=== PATIENT | male | born 1980 | race Caucasian/White ===

== ENCOUNTER 2024-05-07 11:39 | Outpatient (CLI) | payer MEDICAID, SELFPAY ==
--- NOTE | 2024-05-07 11:30 | CRLHL7_ITS ---
For Patients: As a result of the Century Cures Act, medical imaging exams and procedure reports are released immediately into your electronic medical record. You may view this report before your referring provider. If you have questions, please contact your health care provider. INDICATION: Concern for fracture. Worsening radiculopathy. Known metastatic disease. COMPARISON: None. TECHNIQUE: Two radiographic view(s) of the lumbar spine. FINDINGS: Five lumbar vertebra. Straightening of the lumbar lordosis. No substantial lumbar listhesis. Slight anterior vertebral body wedging centered at the thoracolumbar junction is age indeterminate in the absence of prior imaging, but likely to be physiologic. There is mild left lateral predominant height loss and cortical irregularity associated with the L4 vertebral body involving the superior and possibly the inferior endplates. There are radiographically overall mild multilevel degenerative changes in the lumbar spine. IMPRESSION: There is mild age-indeterminate left lateral predominant height loss and cortical irregularity associated with the L4 vertebral body involving the superior and possibly the inferior endplates. Correlate with point tenderness on physical exam to assess for acuity and consider further evaluation with CT as clinically warranted. Slight anterior vertebral body wedging centered at the thoracolumbar junction is age indeterminate in the absence of prior imaging, but likely to be physiologic. There are radiographically overall mild multilevel degenerative changes in the lumbar spine. Dictated by Fidel Turner MD @ 05/07/2024 12:15:26 PM (Electronically Signed)
== END 2024-05-07 11:40 | disposition home or self-care (01) ==
LOC: RAD 11:39
PROVIDERS: Visit Provider Physician Assistant
DX: C15.9 Malignant neoplasm of esophagus, unspecified (principal); C79.51 Secondary malignant neoplasm of bone; C79.89 Secondary malignant neoplasm of other specified sites; G89.3 Neoplasm related pain (acute) (chronic); M54.50 Low back pain, unspecified; M89.9 Disorder of bone, unspecified; K76.9 Liver disease, unspecified; M51.26 Other intervertebral disc displacement, lumbar region
CPT/HCPCS: 72100

== ENCOUNTER 2024-05-14 13:33 | Outpatient (CLI) | payer MEDICAID, SELFPAY ==
--- NOTE | 2024-05-14 13:45 | CRLHL7_ITS ---
For Patients: As a result of the Century Cures Act, medical imaging exams and procedure reports are released immediately into your electronic medical record. You may view this report before your referring provider. If you have questions, please contact your health care provider. Indication: Low back pain, esophageal cancer with metastases Technique: Multiplanar, multisequence, MRI of the lumbar spine, obtained without and with contrast. A total of 17 mL of Dotarem IV contrast was administered. Comparison: PET-CT 02/27/2024 Findings: Ill-defined, infiltrative, enhancing bone lesion centered within the left L4 vertebral body, with associated pathologic fracture involving the superior and inferior endplates and moderate vertebral height loss. Lesion extension through the left pedicle to the left posterior elements. Associated cortical destruction with extraosseous spread of neoplasm, including within the left ventral/lateral epidural space, effacing the left lateral recess and impinging the left L4 nerve roots. The normal lumbar lordosis is preserved. No significant spondylolisthesis. No other suspicious bone marrow lesions or acute/pathologic fractures. Conus medullaris terminates at L1-L2. Multiple lesions are noted throughout the right hepatic lobe. Small presumed cyst within the right kidney. Included SI joints are unremarkable. T12-L1 through L2-L3: No significant neural foraminal or spinal canal stenosis. L3-L4: Disc degeneration, mild diffuse bulge. No neural foraminal or spinal canal stenosis. L4-L5: Disc degeneration, mild diffuse bulge, mild facet arthropathy. No right, mild left neural foraminal narrowing from extraosseous neoplasm further detailed above. No spinal canal stenosis. L5-S1: No neural foraminal or spinal canal stenosis. Impression: 1. Ill-defined, infiltrative enhancing bone lesion involving the left-sided L4 body and posterior elements, corresponding to the metastatic lesion noted on 02/27/2024 PET-CT. 2. Cortical destruction, with extraosseous spread of neoplasm into the left ventral/lateral epidural space at L4, effacing the left lateral recess, impinging the left L4 nerve roots, and contributing to mild left L4-5 neural foraminal narrowing. 3. Partial visualization of numerous right hepatic lesions also compatible with metastatic disease. Dictated by Urmila Juares MD @ 05/15/2024 10:16:05 AM (Electronically Signed)
--- NOTE | 2024-05-14 14:45 | CRLHL7_ITS ---
For Patients: As a result of the Century Cures Act, medical imaging exams and procedure reports are released immediately into your electronic medical record. You may view this report before your referring provider. If you have questions, please contact your health care provider. Indication: Esophageal cancer staging Technique: Multiplanar, multisequence MRI of the brain obtained without and with contrast. A total of 17 mL of Dotarem IV contrast was administered. Comparison: None. Findings: The ventricles and cortical The ventricles and cortical sulci are age-appropriate in size and configuration. No midline shift or mass effect. No acute intracranial hemorrhage or abnormal extra-axial fluid collection. No evidence of acute/subacute ischemia. White matter signal appears within normal limits. No abnormal enhancement identified. Midline structures are unremarkable. The major expected intracranial flow voids are visualized. Included bone marrow signal is unremarkable. No suspicious findings in the regional soft tissues. Paranasal sinuses and mastoid air cells have a normal signal. Visualized orbits are unremarkable. Impression: 1. Unremarkable MRI brain. No evidence of acute intracranial metastases. Dictated by Urmila Juares MD @ 05/15/2024 10:19:36 AM (Electronically Signed)
== END 2024-05-14 13:34 | disposition home or self-care (01) ==
LOC: MRI 13:34
PROVIDERS: Visit Provider Physician Assistant
DX: C15.9 Malignant neoplasm of esophagus, unspecified (principal); C79.51 Secondary malignant neoplasm of bone; K76.9 Liver disease, unspecified; G89.3 Neoplasm related pain (acute) (chronic); H53.9 Unspecified visual disturbance
CPT/HCPCS: 70553; 72158; A9575

== ENCOUNTER 2024-05-22 09:16 | Emergency (ER) | payer MEDICAID, SELFPAY ==
--- OUTSIDE RECORDS SUMMARY | 2024-05-22 09:18 | XMS_ITS | Encounter Summary ---
Author Organization [facility] Address [address] [place] [address] Care Team Providers Care Clerical Stock Inspector Name Role Phone Elsewhere, Pcp Primary Care Provider Unavailabl e Encounter Details Date Type Department Care Team (Late st Contact Info) Description 05/08/2024 Orders Only Department of Oncology in [place], [place] [address] [place] [address] Marimar Maldonado MPAS, P.A.-C., P.A. 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 Alcohol Use Standard Drinks/Week Comments Not Currently 0 (1 standard drink = 0.6 oz pure alcohol) Drank heavily off and on from age 22 to 39 [facility] Utilities Answer Date Recorded In the past 12 months has th e [employer], gas, oil, or water company threatened to shut off services in your home? No 02/15/2024 Exercise Vital Sign Answer Date Recorde d On average, how many days pe r week do you engage in moderate to strenuous exercise (like a brisk walk)? 0 days 02/15/2024 On average, how many minutes do you engage in exercise at this level? 0 min 02/15/2024 Hunger Vital Sign Answer Date Recorded Within the past 12 months, y ou worried that your food would run out before you got the money to buy more. Never true 02/14/19 Within the past 12 months, t he food you bought just didn't last and you didn't have money to get more. Never true 02/15/2024 PRAPARE - Transportation Answer Date Re corded In the past 12 months, has l ack of transportation kept you from medical appointments or from getting medications? No 02/2024 In the past 12 months, has l ack of transportation kept you from meetings, work, or from getting things needed for daily living? No 02/15/2024 Nutrition Answer Date Recorded On average, how many serving s of fruits and vegetables do you eat per day (serving size is equal to 1 cup or approximately the size of a tennis ball)? 3-5 02/15/2024 Dental Answer Date Recorded Dental: Regular Dentist Yes 02/14/19 Employment Answer Date Recorded Employment status Temporarily disabled Housing Stability Answer Date Recorded What is your living situation today? I have a [facility] place to live 02/15/2024 Sex and Gender Information Value Date Recorded Sex Assigned at Male 02/15/2024 4:45 PM TOOLER Legal Sex Male 3:29 PM TOOLER Gender Identity Male 02/15/2024 4:45 PM TOOLER Sexual Orientation Straight 02/15/2024 4: 45 PM TOOLER documented as of this encounter Plan of Treatment Upcoming Encounters Date Type Department Care Team (Latest Contact Info) Description 05/25/2024 12:00 PM CDT Appointment Department of Radiation Oncology in [place], [place] [address] [place] [address] Navi Ansari M.D. [address] [place] [address] 05/28/2024 3:45 PM CDT Appointment Department of Radiation Oncology in [place], [place] [address] [place] [address] Navi Ansari M.D. [address] [place] [address] 05/29/2024 12:30 PM CDT Appointment Department of Radiation Oncology in [address] [phone] Navi Ansari M.D. [place] [address] 05/29/2024 1:00 PM CDT Appointment Department of Radiation Oncology in [place], [place] [address] [place] [address] Navi Ansari M.D. [facility] [address] 05/30/2024 2:00 PM CDT Appointment Department of Radiation Oncology in [place], [place] [address] [place] [address] Navi Ansari M.D. [facility] [place] [address] 05/31/2024 2:30 PM CDT Appointment Department of Radiation Oncology in [place], [place] [address] [place] [address] Navi Ansari M.D. [facility] [place] [address] 06/07/2024 12:30 PM CDT Clinical Communication Virtual Review in [place], [place] [address] [place] [address] 06/08/2024 2:00 PM CDT Telemedicine Department of Palliative Care in [address] [address] Celestine Chino APRN, C.N.P., D.N.P. 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
--- OUTSIDE RECORDS SUMMARY | 2024-05-22 09:18 | XMS_ITS | Encounter Summary ---
Author Organization [facility] Address [address] [place] [address] Care Team Providers Care Early Intervention Specialist Name Role Phone Elsewhere, Pcp Primary Care Provider Unavailabl e Reason for Visit * Reason Onset Date Comments Med Refill 05/14/2024 Encounter Details Date Type Department Care Team (Late st Contact Info) Description 05/14/2024 Refill Department of Palliative Care in [place], [place] [address] [place] [phone] Celestine Chino APRN, C.N.P., D.N.P. [address] [place] [phone] Med Refill Social History Tobacco Use Types Packs/Day Years Used Date Smoking Tobacco: Former Cigarettes 10 10 0 07/15/1994 - 11/11/2017 Passive Smoke Exposure: Never Smokeless Tobacco: Never Comments:Smoked off and on b etween dates noted. Alcohol Use Standard Drinks/Week Comments Not Currently 0 (1 standard drink = 0.6 oz pure alcohol) Drank heavily off and on from age 22 to 39 [facility] Utilities Answer Date Recorded In the past 12 months has th e electric, gas, oil, or water company threatened to [...] your living situation today? [facility] 02/15/2024 Sex and Gender Information Value Date Recorded Sex Assigned at Male 02/15/2024 4:45 PM SUPERVISOR SOLDER MAKING Legal Sex Male 3:29 PM SUPERVISOR SOLDER MAKING Gender Identity Male 02/15/2024 4:45 PM SUPERVISOR SOLDER MAKING Sexual Orientation Straight 02/15/2024 4 :45 PM SUPERVISOR SOLDER MAKING documented as of this encounter Plan of Treatment Upcoming Encounters Date Type Department Care Team (Latest Contact Info) Description 05/25/2024 12:00 PM CDT Appointment Department of Radiation Oncology in [address] [address] Navi Ansari M.D. [address] [place] [address] 05/28/2024 3:45 PM CDT Appointment Department of Radiation Oncology in [place], [place] [address] [place] [address] Navi Ansari M.D. [address] [place] [address] 05/29/2024 12:30 PM CDT Appointment Department of Radiation Oncology in [place], [place] [address] [place] [address] Navi Ansari M.D. [facility] [place] [address] 05/29/2024 1:00 PM CDT Appointment Department of Radiation Oncology in [place], [place] [address] [place] [address] Navi Ansari M.D. [address] [place] [address] 05/30/2024 2:00 PM CDT Appointment Department of Radiation Oncology in [place], [place] [address] [place] [address] Navi Ansari M.D. [address] [place] [address] 05/31/2024 2:30 PM CDT Appointment Department of Radiation Oncology in [place], [place] [address] [place] [address] Navi Ansari M.D. [address] [place] [address] 06/07/2024 12:30 PM CDT Clinical Communication Virtual Review in [place], [place] [address] [place] [phone] 06/08/2024 2:00 PM CDT Telemedicine Department of Palliative Care in [place], [place] [address] [place] [phone] Celestine Chino APRN, C.N.P., D.N.P. [address] [place] [phone] documented as of this encounter Visit Diagnoses Diagnosis 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) Palliative Care Fever Neutropenic documented in this encounter Care Teams Early Intervention Specialist Relationship Specialty Start Date End Date Elsewhere, Pcp PCP - General Internal Medicine 04/03/24 documented as of this encounter
--- OUTSIDE RECORDS SUMMARY | 2024-05-22 09:18 | XMS_ITS | Encounter Summary ---
Author Organization [facility] Address [address] [place] [address] Care Team Providers Care Funeral Pre Need Consultant Name Role Phone Elsewhere, Pcp Primary Care Provider Unavailabl e Reason for Referral * Outpatient (Routine) - Closed Specialty Diagnoses / Procedures Referred By Contebenezer t Referred To Contact Radiation Oncology Rain Alejandro APRN, C.N.P., D.N.P. [address] [place] [address] Phone: tel: fax: Navi Ansari M.D. [facility] [place] [address] Phone: tel: fax: Referral ID Status Reason Start Date Expiration Date Visits Re quested Visits Authorized [id number] Closed 05/16/2024 11/15/2025 1 1 Reason for Visit * Outpatient (Routine) - Closed Specialty Diagnoses / Procedures Referred By Hayde t Referred To Contact Radiation Oncology Rain Alejandro APRN, C.N.Madyson, D.N.P. [address] [place] [address] Phone: tel: fax: Navi Ansari M.D. [address] [place] [phone] Phone: tel: fax: Referral ID Status Reason Start Date Expiration Date Visits Re quested Visits Authorized [id number] Closed 05/16/2024 11/15/2025 1 1 Encounter Details Date Type Department Care Team (Latest Contact Info) Description 05/16/2024 12:39 PM CDT - 05/16/2024 1:25 PM CDT Hospital Encounter Department of Radiation Oncology in [place], [place] [address] [place] [phone] Navi Ansari M.D. [address] [place] [phone] Secondary Malignant Neoplasm Bone (HCC) (Primary Dx) Social History Tobacco Use Types Packs/Day Years Used Date Smoking Tobacco: Former Cigarettes 10 10 0 07/15/1994 - 11/11/2017 Passive Smoke Exposure: Never Smokeless Tobacco: Never Comments:Smoked off and on b etween dates noted. Alcohol Use Standard Drinks/Week Comments Not Currently 0 (1 standard drink = 0.6 oz pure alcohol) Drank heavily off and on from age 22 to 39 [facility] Utilities Answer Date Recorded In the past 12 months has [facility], gas, oil, or water [employer] threatened to shut off services in your [...] your living situation today? I have a [facility] place to live 02/15/2024 Sex and Gender Information Value Date Recorded Sex Assigned at Male 02/15/2024 4:45 PM CONTENT PRODUCER Legal Sex Male 3:29 PM CONTENT PRODUCER Gender Identity Male 02/15/2024 4:45 PM CONTENT PRODUCER Sexual Orientation Straight 02/15/2024 4: 45 PM CONTENT PRODUCER documented as of this encounter Last Filed Vital Signs Vital Sign Reading Time Taken Comments Blood Pressure 99/64 05/16/2024 1:04 PM CDT Pulse 105 05/16/2024 1:04 PM CDT Temperature - - Respiratory Rate - - Oxygen Saturation - - Inhaled Oxygen Concentration - - Weight 84.8 kg (187 lb) 05/16/2024 1:04 PM CDT Height - - Body Mass Index 25.47 02/28/2024 2:24 PM CONTENT PRODUCER documented in this encounter Medications at Time of Discharge acetaminophen (TylenoL) 500 mg capsule Take by mouth daily. 4 tablets daily. fentaNYL (Duragesic) 25 mcg/hr patchIndications:Ch ronic Pain/Nonacute Pain Place 1 patch on the skin every third day Indication: Chronic Pain/Nonacute Pain. Metastatic esophageal cancer 5 patch 05/11/2024 guaiFENesin (Robitussin) 100 mg/5 mL liquid Take 10 mL (200 mg total) by mouth every 6 (six) hours as needed for congestion (mucus thinning). 473 mL 04/06/2024 lactulose 10 gram/15 mL solution Take 30 mL (20 g total) by mouth 2 (two) times a day as needed (constipation refractory to senna/miraLAX). 473 mL 04/06/2024 lidocaine-prilocain e (Emla) 2.5-2.5 % cream Apply 1 Application topically as needed. 03/28/2024 melatonin 5 mg tablet Take 5 mg by mouth at bedtime. 1-2 tablets at bedtime naloxone (Narcan) 4 mg/actuation nasal spray Administer 1 spray (4 mg total) into nostril(s) as needed for reversal. Use 1 spray in 1 nostril. Repeat with second device in other nostril after 2-3 minutes if no or minimal response. 2 each 04/06/2024 OLANZapine (ZyPREXA Zydis) 5 mg disintegrating tabletIndications:M alignant Neoplasm Of Esophagus Multiple Site (HCC),Palliative Care,Fever Neutropenic Dissolve 1 tablet (5 mg total) in the mouth at bedtime. 90 tablet 05/14/2024 omeprazole (PriLOSEC) [address] capsule Take 1 capsule (20 mg total) by mouth daily before morning meal. 90 capsule 3 05/11/2024 ondansetron ODT (Zofran-ODT) 8 mg disintegrating tabletIndications:c ancer chemotherapy-induce d nausea and vomiting Dissolve 1 tablet (8 mg total) in the mouth every 8 (eight) hours as needed for nausea or vomiting Indications: nausea and vomiting caused by cancer drugs. 90 tablet 05/16/2024 oxyCODONE (Roxicodone) 10 mg IR tabletIndications:C hronic Pain/Nonacute Pain Take 0.5-1 tablets (5-10 mg total) by mouth every 3 (three) hours as needed for pain Indication: Chronic Pain/Nonacute Pain. Okay to crush tablets 04/13/2024 polyethylene glycol (Miralax) 17 gram/dose oral powder Take 17 g by mouth daily. Dissolve each 17 g dose in 240 mL (8 ounces) of beverage. 1700 g 2 04/06/2024 sennosides (senna) 8.6 mg tablet Take 3 tablets (25.8 mg total) by mouth 2 (two) times a day. 180 tablet 2 05/11/2024 documented as of this encounter Progress Notes * Navi Ansari M.D. - 05/16/2024 1:00 PM CDT SUBJECTIVE REQUESTING PROVIDER Rain Alejandro APRN, C.N.P., D.N.P. CHIEF COMPLAINT/REASON FOR VISIT The patient is a pleasant 43-year-old gentleman with widely metastatic esophageal cancer status post palliative radiation therapy to the esophagus as well as to a right facial lesion INTERVAL HISTORY Rudy Gross presents for a routine follow up visit now 2 months status post the completion of radiotherapy. He has had some resolution of his dysphagia and odynophagia. He has had essentially complete resolution of the visible portion of the face lesion. He continues under the care of Medical Oncology but has had significant worsening of low back pain that sometimes radiates down the left leg. No change in bowel or bladder function. No numbness or leg weakness. MR imaging of the lumbar spine on 05/14/2024 showed metastatic involvement of the L4 vertebral body. He rates the pain as up to 10/10 in intensity. Radiation Treatment Progress Summary Treatment Course: 1xEsophagus Plan ID Fractions Dose / Fraction (cGy) Dose Treated (cGy) Dose Planned (cGy) First Treatment Last Treatment Elapsed Days [id number] 10 10 300 3000 3000 03/05/2024 03/16/2024 11 Course Summary 03/05/2024 03/16/2024 11 Treatment Course: 2xFace Plan ID Fractions Dose / Fraction (cGy) Dose Treated (cGy) Dose Planned (cGy) First Treatment Last Treatment Elapsed Days [id number] 800 800 800 03/19/2024 03/19/2024 0 Course Summary 03/19/2024 03/19/2024 0 OBJECTIVE BP 99/64 (BP Location: Right arm, Patient Position: Sitting, Cuff Size: Regular) Pulse 105 Wt 84.8 kg BMI 25.47 kg/m?? PHYSICAL EXAM General/constitutional: He is ambulatory and in no acute distress. HEENT: Normocephalic atraumatic. Slight hyperpigmentation in the right temporal area. Alopecia of the guy on the right side over the parotid. Neck: supple. Respirations: Normal respiratory effort at rest. Musculoskeletal: He points to pain over the L4 vertebral level area and states that it sometimes radiates down the left leg. He is ambulatory but uses a cane. DIAGNOSTICS I reviewed the images from the MRI performed 05/14/2024 and he does appear to have significant involvement of the L4 vertebral body by metastatic disease and this area correlates with his clinically described pain. ASSESSMENT / PLAN Rudy Gross who was accompanied by his presents today for consideration of palliative radiation therapy before the L4 metastasis from his esophageal cancer. I discussed with them palliative radiation therapy delivered in 1 or 5 fractions. They wished to proceed with 5 fraction radiation therapy. I want to proceed with radiation as soon as possible but not overlap with his ongoing chemotherapy and we will schedule accordingly and I have discussed this with the simulation staff we will provide him with the schedule. I discussed with them the role of radiation therapy in reducing he has pain over time. We discussedthat damage to the bone from the tumor has already occurred and he may not have complete resolutionof his pain and he may be at risk of L4 vertebral body fracture in the future. However, I have a fairly high degree of confidence that he will receive substantial pain relief within 2-3 weeks after completing radiation treatment. Plan for simulation today for palliative radiation therapy to the L4 lesion. I have spent 25 minutes with this patient today in which 25 minutes was spent counseling and coordination of care. Signed by: Navi Ansari M.D. 05/16/2024 4:32 PM CDT documented in this encounter Plan of Treatment Upcoming Encounters Date Type Department Care Team (Latest Contact Info) Description 05/25/2024 12:00 PM CDT Appointment Department of Radiation Oncology in [place], [place] [address] [place] [address] Navi Ansari M.D. [address] [place] [address] 05/28/2024 3:45 PM CDT Appointment Department of Radiation Oncology in [place], [place] [address] [place] [phone] Navi Ansari M.D. [address] [place] [address] 05/29/2024 12:30 PM CDT Appointment Department of Radiation Oncology in [address] [phone] Navi Ansari M.D. [address] [place] [phone] 05/29/2024 1:00 PM CDT Appointment Department of Radiation Oncology in [address] [address] Navi Ansari M.D. [facility] [place] [address] 05/30/2024 2:00 PM CDT Appointment Department of Radiation Oncology in [address] [address] Navi Ansari M.D. [address] [place] [phone] 05/31/2024 2:30 PM CDT Appointment Department of Radiation Oncology in [address] [phone] Navi Ansari M.D. [address] [place] [phone] 06/07/2024 12:30 PM CDT Clinical Communication Virtual Review in [address] [phone] 06/08/2024 2:00 PM CDT Telemedicine Department of Palliative Care in [place], [place] [address] [place] [address] Celestine Chino APRN, C.N.P., D.N.P. [address] [place] [address] Scheduled Referrals Name Type Priority Associated Diagnoses Order Schedule Radiation Oncology office visit (clinic) Outpatient Referral Routine Once for 1 Occurrences starting 05/16/2024 until 05/16/2024 documented as of this encounter Visit Diagnoses Diagnosis Secondary Malignant Neoplasm Bone (HCC)- Primary documented in this encounter Care Teams Funeral Pre Need Consultant Relationship Specialty Start Date End Date Elsewhere, Pcp PCP - General Internal Medicine 04/03/24 documented as of this encounter
--- OUTSIDE RECORDS SUMMARY | 2024-05-22 09:18 | XMS_ITS | Encounter Summary ---
Author Organization [facility] Address [address] [place] [address] Care Team Providers Care Water Resources Engineer Name Role Phone Elsewhere, Pcp Primary Care Provider Unavailabl e Reason for Visit * Reason Onset Date Comments Pre-visit Intake 05/10/2024 Encounter Details Date Type Department Care Team (Latest Contact Info) Description 05/10/2024 10:45 AM CDT Clinical Communication Virtual Review in [place], [place] [address] [place] [address] Pre-visit Intake Social History Tobacco Use Types Packs/Day Years Used Date Smoking Tobacco: Former Cigarettes 10 10 0 07/15/1994 - 11/11/2017 Passive Smoke Exposure: Never Smokeless Tobacco: Never Comments:Smoked off and on b etween dates noted. Alcohol Use Standard Drinks/Week Comments Not Currently 0 (1 standard drink = 0.6 oz pure alcohol) Drank heavily off and on from age 22 to 39 [facility] Utilities Answer Date Recorded In the past 12 months has [facility] electric, gas, oil, or water company threatened [...] money to buy more. Never true 02/14/19 25 Within the past 12 months, t he [...] your living situation today? I have a [facility] place to live 02/15/2024 Sex and Gender Information Value Date Recorded Sex Assigned at Male 02/15/2024 4:45 PM FIRE DISPATCHER Legal Sex Male 3:29 PM FIRE DISPATCHER Gender Identity Male 02/15/2024 4:45 PM FIRE DISPATCHER Sexual Orientation Straight 02/15/2024 4: 45 PM FIRE DISPATCHER documented as of this encounter Plan of Treatment Upcoming Encounters Date Type Department Care Team (Latest Contact Info) Description 05/25/2024 12:00 PM CDT Appointment Department of Radiation Oncology in [place], [place] [address] [place] [phone] Navi Ansari M.D. [address] [place] [phone] 05/28/2024 3:45 PM CDT Appointment Department of Radiation Oncology in [place], [place] [address] [place] [phone] Navi Ansari M.D. [facility] [place] [address] 05/29/2024 12:30 PM CDT Appointment Department of Radiation Oncology in [place], [place] [address] [place] [phone] Navi Ansari M.D. [address] [place] [phone] 05/29/2024 1:00 PM CDT Appointment Department of Radiation Oncology in [address] [phone] Navi Ansari M.D. [address] [place] [phone] 05/30/2024 2:00 PM CDT Appointment Department of Radiation Oncology in [address] [address] Navi Ansari M.D. [address] [place] [phone] 05/31/2024 2:30 PM CDT Appointment Department of Radiation Oncology in [address] [address] Navi Ansari [place] [address] 06/07/2024 12:30 PM CDT Clinical Communication Virtual Review in [address] [phone] 06/08/2024 2:00 PM CDT Telemedicine Department of Palliative Care in [place], [place] [address] [place] [address] Celestine Chino APRN, C.N.P., D.N.P. [address] [place] [address] documented as of this encounter Visit Diagnoses Not on filedocumented in this encounter Care Teams Water Resources Engineer Relationship Specialty Start Date End Date Elsewhere, Pcp PCP - General Internal Medicine 04/03/24 documented as of this encounter
--- OUTSIDE RECORDS SUMMARY | 2024-05-22 09:18 | XMS_ITS | Encounter Summary ---
Author Organization [facility] Address [address] [place] [address] Care Team Providers Care Casino Games Dealer Name Role Phone Elsewhere, Pcp Primary Care Provider Unavailabl e Encounter Details Date Type Department Care Team (Late st Contact Info) Description 05/15/2024 Orders Only Pharmacy Prior Auth [phone] Dorothy Venegas Social History Tobacco Use Types Packs/Day Years Used Date Smoking Tobacco: Former Cigarettes 10 10 0 07/15/1994 - 11/11/2017 Passive Smoke Exposure: Never Smokeless Tobacco: Never Comments:Smoked off and on b etween dates noted. Alcohol Use Standard Drinks/Week Comments Not Currently 0 (1 standard drink = 0.6 oz pure alcohol) Drank heavily off and on from age 22 to 39 [facility] Utilities Answer Date Recorded In the past 12 months has e electric, gas, oil, or water company [...] your living situation today? I have a [facility] place to live 02/15/2024 Sex and Gender Information Value Date Recorded Sex Assigned at Male 02/15/2024 4:45 PM FLUID DYNAMICIST Legal Sex Male 3:29 PM FLUID DYNAMICIST Gender Identity Male 02/15/2024 4:45 PM FLUID DYNAMICIST Sexual Orientation Straight 02/15/2024 4: 45 PM FLUID DYNAMICIST documented as of this encounter Plan of Treatment Upcoming Encounters Date Type Department Care Team (Latest Contact Info) Description 05/25/2024 12:00 PM CDT Appointment Department of Radiation Oncology in [place], [place] [address] [place] [phone] Navi Ansari M.D. [address] [place] [address] 05/28/2024 3:45 PM CDT Appointment Department of Radiation Oncology in [place] [address] [place] [address] Navi Ansari M.D. [address] [place] [address] 05/29/2024 12:30 PM CDT Appointment Department of Radiation Oncology in [place], [place] [address] [place] [phone] Navi Ansari M.D. [address] [place] [address] 05/29/2024 1:00 PM CDT Appointment Department of Radiation Oncology in [place], [place] [address] [place] [phone] Navi Ansari M.D. [address] [place] [phone] 05/30/2024 2:00 PM CDT Appointment Department of Radiation Oncology in [place], [place] [address] [place] [phone] Navi Ansari M.D. [address] [place] [address] 05/31/2024 2:30 PM CDT Appointment Department of Radiation Oncology in [place], [place] [address] [place] [phone] Navi Ansari M.D. [address] [place] [address] 06/07/2024 12:30 PM CDT Clinical Communication Virtual Review in [place], [place] [address] [place] [address] 06/08/2024 2:00 PM CDT Telemedicine Department of Palliative Care in [place], [place] [address] [place] [address] Celestine Chino APRN, C.N.P., D.N.P. [address] [place] [phone] documented as of this encounter Visit Diagnoses Not on filedocumented in this encounter Care Teams Casino Games Dealer Relationship Specialty Start Date End Date Elsewhere, Pcp PCP - General Internal Medicine 04/03/24 documented as of this encounter
--- OUTSIDE RECORDS SUMMARY | 2024-05-22 09:18 | XMS_ITS | Encounter Summary ---
Author Organization [facility] Address [address] [place] [address] Care Team Providers Care Oil Rig Roughneck Name Role Phone Elsewhere, Pcp Primary Care Provider Unavailabl e Reason for Referral * Radiation Therapy (Routine) - Authorized Specialty Diagnoses / Procedures Referred By Hayde mendez Referred To Contact Diagnoses 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) Secondary Malignant Neoplasm Bone (HCC) Procedures Initial Rad Onc Treatment Planning CT Simulation [place] 3D RAD THER ISODOSE FIELD PLAN Kelvin Uribe M.D. [address] [place] [address] Phone: tel: fax: [facility] Region Referral ID Status Reason Start Date Expiration Date V isits Requested Visits Authorized [id number] Authorized 05/16/2024 08/08/2025 2 2 Reason for Visit * Radiation Therapy (Routine) - Authorized Specialty Diagnoses / Procedures Referred By Contac t Referred To Contact Diagnoses 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) Secondary Malignant Neoplasm Bone (HCC) Procedures Initial Rad Onc Treatment Planning CT Simulation [place] 3D RAD THER ISODOSE FIELD PLAN Kelvin Uribe M.D. [address] [place] [address] Phone: tel: fax: [facility] Region Referral ID Status Reason Start Date Expiration Date V isits Requested Visits Authorized [id number] Authorized 05/16/2024 08/08/2025 2 2 Encounter Details Date Type Department Care Team (Latest Contact Info) Description 05/16/2024 1:26 PM CDT - 05/16/2024 4:23 PM CDT Hospital Encounter Department of Radiation Oncology in [place], [place] [address] [place] [phone] Navi Ansari M.D. 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 Alcohol Use Standard Drinks/Week Comments Not Currently 0 (1 standard drink = 0.6 oz pure alcohol) Drank heavily off and on from age 22 to 39 [facility] Utilities Answer Date Recorded In the past 12 months has [employer], oil, or water [employer] threatened to shut off services in your [...] your living situation today? I have a [facility] place to live 02/15/2024 Sex and Gender Information Value Date Recorded Sex Assigned at Male 02/15/2024 4:45 PM TUBE ROOM SUPERVISOR Legal Sex Male 3:29 PM TUBE ROOM SUPERVISOR Gender Identity Male 02/15/2024 4:45 PM TUBE ROOM SUPERVISOR Sexual Orientation Straight 02/15/2024 4: 45 PM TUBE ROOM SUPERVISOR documented as of this encounter Medications at Time of Discharge [...] 2 05/11/2024 documented as of this encounter Procedure Notes * Tiffany Lucas, RTT - 05/16/2024 2:00 PM CDTAssociated Order(s): Initial Rad Onc Treatment Planning CT Simulation Pre-Procedure Diagnose(s): 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); Secondary MalignantNeoplasm Bone (HCC) Post-Procedure Diagnose(s): 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); Secondary Malignant Neoplasm Bone (HCC) Initial Rad Onc Treatment Planning CT Simulation Performed by: Navi Ansari M.D. Authorized by: Kelvin Uribe M.D. Simulation was performed under physician supervision based on physician order in preparation for radiation therapy. Physician was immediately available to provide assistance and direction throughout the procedure. Written consent for treatment was completed or confirmed. The patient was appropriately identified and placed in the treatment position using the necessary immobilization to ensure a reproducible treatment position. Reference randolph were placed to facilitate marking of isocenter. Area scanned:Pelvis Contrast used for the simulation procedure: None Patient position:head first supine Custom immobilization: Knee Cushion Motion management: None Bolus: No CT guidance: Following positioning of the patient, a series of slices was obtained to be utilized in treatment planning. CT images were transferred to the [employer] treatment planning system, after a reference isocenter was determined and marked. Segmentation and treatment planning will take place prior to treatment delivery. Patient set up and imaging was appropriate and completed without incident. Healthcare Facility Administrator use:No Cosigned by Navi Ansari M.D. at 05/16/2024 4:23 PM CDT Associated attestation - Navi Ansari M.D. - 05/16/2024 4:23 PM CDT Agree with documentation as below. I was personally available during the simulation. documented in this encounter Plan of Treatment Upcoming Encounters Date Type Department Care Team (Latest Contact Info) Description 05/25/2024 12:00 PM CDT Appointment Department of Radiation Oncology in [place], [place] [address] [place] [phone] Navi Ansari M.D. [address] [place] [address] 05/28/2024 3:45 PM CDT Appointment Department of Radiation Oncology in [address] [place] [address] Navi Ansari M.D. [address] [place] [address] 05/29/2024 12:30 PM CDT Appointment Department of Radiation Oncology in [address] [phone] Navi Ansari M.D. [facility] [place] [address] 05/29/2024 1:00 PM CDT Appointment Department of Radiation Oncology in [address] [phone] Navi Ansari M.D. [address] [place] [phone] 05/30/2024 2:00 PM CDT Appointment Department of Radiation Oncology in [address] [phone] Navi Ansari M.D. [address] [place] [phone] 05/31/2024 2:30 PM CDT Appointment Department of Radiation Oncology in [address] [address] Navi Ansari M.D. [facility] [place] [address] 06/07/2024 12:30 PM CDT Clinical Communication Virtual Review in [place], [place] [address] [place] [address] 06/08/2024 2:00 PM CDT Telemedicine Department of Palliative Care in [place], [place] [address] [place] [phone] Celestine Chino, LAI, C.N.P., D.N.P. [address] [place] [address] documented as of this encounter Procedures Procedure Name Priority Date/Time Associated Diagnosis Comments INITIAL RAD ONC TREATMENT PLANNING CT SIMULATION Routine 05/16/2024 2:00 PM CDT 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) Secondary Malignant Neoplasm Bone (HCC) documented in this encounter Results * Initial Rad Onc Treatment Planning CT Simulation (05/16/2024 2:00 PM CDT) Narrative LUDWIN REYES - 05/16/2024 2:00 PM CDT Navi Ansari M.D. 05/16/2024 4:23 PM Initial Rad Onc Treatment Planning CT Simulation Performed by: Navi Ansari M.D. Authorized by: Kelvin Uribe M.D. Kelvin Uribe M.D. RADIATION ONCOLOGY ORDERAB LES Final Result LUDWIN REYES na documented in this encounter Visit Diagnoses Diagnosis 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) Secondary Malignant Neoplasm Bone (HCC) documented in this encounter Care Teams Oil Rig Roughneck Relationship Specialty Start Date End Date Elsewhere, Pcp PCP - General Internal Medicine 04/03/24 documented as of this encounter
--- OUTSIDE RECORDS SUMMARY | 2024-05-22 09:18 | XMS_ITS | Encounter Summary ---
Author Organization [facility] Address [address] [place] [address] Care Team Providers Care Strings Teacher Name Role Phone Elsewhere, Pcp Primary Care Provider Unavailabl e Reason for Visit * Reason Onset Date Comments Med Question 04/16/2024 Encounter Details Date Type Department Care Team (Late st Contact Info) Description 04/16/2024 Clinical Communication Department of Palliative Care in [place], [place] [address] [place] [phone] Claudy Ramos M.D. [address] [place] [address] Med Question Social History Tobacco Use Types Packs/Day Years Used Date Smoking Tobacco: Former Cigarettes 10 10 0 07/15/1994 - 11/11/2017 Passive Smoke Exposure: Never Smokeless Tobacco: Never Comments:Smoked off and on b etween dates noted. Alcohol Use Standard Drinks/Week Comments Not Currently 0 (1 standard drink = 0.6 oz pure alcohol) Drank heavily off and on from age 22 to 39 [facility] Utilities Answer Date Recorded In the [...] your living situation today? I have a [facility] place to live 02/15/2024 Sex and Gender Information Value Date Recorded Sex Assigned at Male 02/15/2024 4:45 PM COTTON GIN YARD SUPERVISOR Legal Sex Male 3:29 PM COTTON GIN YARD SUPERVISOR Gender Identity Male 02/15/2024 4:45 PM COTTON GIN YARD SUPERVISOR Sexual Orientation Straight 02/15/2024 4: 45 PM COTTON GIN YARD SUPERVISOR documented as of this encounter Miscellaneous Notes * Addendum Note - Estephania Plaza, LAI, C.N.P., D.N.P. - 05/11/2024 2:48 PM CDTAddended by: ESTEPHANIA PLAZA on: 05/11/2024 02:48 PM Modules accepted: Orders * Telephone Encounter - Tiffany Otero R.N., CHPN - 04/16/2024 1:29 PM CST Information Discussed Rudy Gross is a 43 y.o. who is followed in the [facility] for esophageal cancer . Patientwas seen by Estephania Plaza, LAI, EXTRUDER OPERATOR HELPER, DNP on 04/06/24. Returned a call to patient's , Susan regarding Fentanyl patch refill. Informed Susan we sent a prescription for Fentanyl 25 mcg/hr to [facility] pharmacy on 04/06/24. She will confirm with the pharmacy this prescription is available. Susan states the medication may need a newprior authorization from insurance as he has new insurance as of 04/14/24. Susan also inquires about a follow up visit date with our team. PLAN Disposition/Recommendation: contact pharmacy regarding prescription for Fentanyl. Information/Education: patient/caller able to teach back Caller agreeable to plan of care: yes The following references were used: nursing clinical judgement ADDENDUM 13:37 Susan calls back stating a new PA is needed for the Fentanyl patches. Also, informed Susan that we should get an appointment scheduled for the end of April as his last visit [id number] was 03/20/24. She agrees. ON GIN YARD SUPERVISOR documented in this encounter Plan of Treatment Upcoming Encounters Date Type Department Care Team (Latest Contact Info) Description 05/25/2024 12:00 PM CDT Appointment Department of Radiation Oncology in [place], [place] [address] [place] [phone] Navi Ansari M.D. [address] [place] [address] 05/28/2024 3:45 PM CDT Appointment Department of Radiation Oncology in [place], [place] [address] [place] [phone] Navi Ansari M.D. [address] [place] [address] 05/29/2024 12:30 PM CDT Appointment Department of Radiation Oncology in [address] [address] Navi Ansari M.D. [address] [place] [phone] 05/29/2024 1:00 PM CDT Appointment Department of Radiation Oncology in [address] [address] Navi Ansari M.D. [address] [place] [phone] 05/30/2024 2:00 PM CDT Appointment Department of Radiation Oncology in [address] [phone] Navi Ansari M.D. [address] [place] [phone] 05/31/2024 2:30 PM CDT Appointment Department of Radiation Oncology in [address] [address] Navi Ansari M.D. [address] [place] [phone] 06/07/2024 12:30 PM CDT Clinical Communication Virtual Review in [place], [place] [address] [place] [address] 06/08/2024 2:00 PM CDT Telemedicine Department of Palliative Care in [place], [place] [address] [place] [address] Estephania Plaza APRN, C.N.P., D.N.P. 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
--- OUTSIDE RECORDS SUMMARY | 2024-05-22 09:18 | XMS_ITS | Encounter Summary ---
Author Organization [facility] Address [address] [place] [phone] Care Team Providers Care Post Hole Digging Machine Operator Name Role Phone Elsewhere, Pcp Primary Care Provider Unavailabl e Encounter Details Date Type Department Care Team (Late st Contact Info) Description 03/19/2024 Clinical Communication Department of Oncology in [place], [place] [address] [place] [phone] Joan Perez R.N., O.C.N. [address] [place] [phone] Social History Tobacco Use Types Packs/Day Years Used Date Smoking Tobacco: Former Cigarettes 10 10 0 07/15/1994 - 11/11/2017 Passive Smoke Exposure: Never Smokeless Tobacco: Never Comments:Smoked off and on b etween dates noted. Alcohol Use Standard Drinks/Week Comments Not Currently 0 (1 standard drink = 0.6 oz pure alcohol) Drank heavily off and on from age 22 to 39 [facility] Utilities Answer Date Recorded In the past 12 months has [employer] gas, oil, or water [id number] threatened to shut off services in your [...] your living situation today? I [facility] [employer] [facility] [employer] [facility] to live 02/15/2024 Sex and Gender Information Value Date Recorded Sex Assigned at Male 02/15/2024 4:45 PM PARENTING SKILLS INSTRUCTOR Legal Sex Male 3:29 PM PARENTING SKILLS INSTRUCTOR Gender Identity Male 02/15/2024 4:45 PM PARENTING SKILLS INSTRUCTOR Sexual Orientation Straight 02/15/2024 4: 45 PM PARENTING SKILLS INSTRUCTOR documented as of this encounter Plan of Treatment Upcoming Encounters Date Type Department Care Team (Latest Contact Info) Description 05/25/2024 12:00 PM CDT Appointment Department of Radiation Oncology in [place], [place] [address] [place] [phone] Navi Ansari M.D. [address] [place] [phone] 05/28/2024 3:45 PM CDT Appointment Department of Radiation Oncology in [place], [place] [address] [place] [phone] Navi Ansari M.D. [address] [place] [address] 05/29/2024 12:30 PM CDT Appointment Department of Radiation Oncology in [address] [phone] Navi Ansari M.D. [address] [place] [phone] 05/29/2024 1:00 PM CDT Appointment Department of Radiation Oncology in [address] [address] Navi Ansari M.D. [address] [place] [phone] 05/30/2024 2:00 PM CDT Appointment Department of Radiation Oncology in [address] [address] Navi Ansari M.D. [address] [place] [phone] 05/31/2024 2:30 PM CDT Appointment Department of Radiation Oncology in [address] [phone] Navi Ansari M.D. [facility] [place] [address] 06/07/2024 12:30 PM CDT Clinical Communication Virtual Review in [address] [phone] 06/08/2024 2:00 PM CDT Telemedicine Department of Palliative Care in [place], [place] [address] [place] [address] Celestine Chino APRN, C.N.P., D.N.P. [address] [place] [address] documented as of this encounter Visit Diagnoses Not on filedocumented in this encounter Care Teams Post Hole Digging Machine Operator Relationship Specialty Start Date End Date Elsewhere, Pcp PCP - General Internal Medicine 04/03/24 documented as of this encounter
--- OUTSIDE RECORDS SUMMARY | 2024-05-22 09:18 | XMS_ITS | Encounter Summary ---
Author Organization [facility] Address [address] [place] [address] Care Team Providers Care Electrical Engineering Drafting Officer Name Role Phone Elsewhere, Pcp Primary Care Provider Unavailabl e Reason for Referral * Outpatient (Routine) - Authorized Specialty Diagnoses / Procedures Referred By Contac t Referred To Contact Palliative Medicine Celestine Chino APRN, C.N.P., D.N.P. [address] [place] [address] Phone: tel: fax: [facility] Referral ID Status Reason Start Date Expiration Date V isits Requested Visits Authorized [id number] Authorized 05/11/2024 11/10/2025 1 1 Scheduling Instructions 11 or later appt. Thanks. Reason for Visit * Outpatient (Routine) - Closed Specialty Diagnoses / Procedures Referred By Contac t Referred To Contact Palliative Medicine Sandy Perez M.D. [address] [place] [phone] Phone: tel: fax: [facility] Referral ID Status Reason Start Date Expiration Date Visits Re quested Visits Authorized [id number] Closed 03/21/2024 09/20/2025 1 1 Encounter Details Date Type Department Care Team (Late st Contact Info) Description 05/11/2024 2:15 PM CDT Office Visit Department of Palliative Care in [place], [place] [address] [place] [phone] Celestine Chino APRN, C.N.P., D.N.P. 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 Alcohol Use Standard Drinks/Week Comments Not Currently 0 (1 standard drink = 0.6 oz pure alcohol) Drank heavily off and on from age 22 to 39 [facility] Utilities Answer Date Recorded In the past 12 months has [employer], gas, oil, or water [employer] threatened to shut off services in your [...] your living situation today? I have a [facility] place to live 02/15/2024 Sex and Gender Information Value Date Recorded Sex Assigned at Male 02/15/2024 4:45 PM CONCRETE BLOCK LAYER Legal Sex Male 3:29 PM CONCRETE BLOCK LAYER Gender Identity Male 02/15/2024 4:45 PM CONCRETE BLOCK LAYER Sexual Orientation Straight 02/15/2024 4: 45 PM CONCRETE BLOCK LAYER documented as of this encounter Last Filed Vital Signs Vital Sign Reading Time Taken Comments Blood Pressure 108/71 05/11/2024 2:04 PM CDT Pulse 80 05/11/2024 2:04 PM CDT Temperature 36.5 C (97.7 F) 05/11/2024 2:04 PM CDT Respiratory Rate - - Oxygen Saturation 97% 05/11/2024 2:04 PM CDT Inhaled Oxygen Concentration - - Weight - - Height - - Body Mass Index - - documented in this encounter Progress Notes * Celestine Chino APRN, C.N.P., D.N.P. - 05/11/2024 2:15 PM CDT [facility] Outpatient Palliative Care Progress Note Patient: Rudy Gross; 43 y.o.male LOCATION Palliative Care Clinic SUBJECTIVE Rudy Gross is a 43 y.o. male from [place], [place] with metastatic esophageal cancer who is followed in the outpatient Palliative Care Clinic for non-pain symptoms, pain, and psychosocial support. Date of Last Visit: 04/06/2024, virtual Interval History: Rudy presents today for routine follow-up with his , Susan. Back pain has been worsening over the last few weeks. Rates 6/10 today. Finds pain stability with use of back brace. Has radiation oncology consult next week. He is currently using fentanyl 25 mcg/hour every 72 hours. He also uses Tylenol twice daily and then oxycodone 10 mg twice daily generally in the evening hours. He has deliberately reduced his use of opioids as this has contributed to signif icant constipation. Constipation is currently managed at this time was senna 3 tablets in the morning and 3 tablets at night. He uses makes citrate as a rescue in his enemas available. With this current regimen he is now having a bowel movement almost every day. Esophageal pain has improved status post radiation. He continues to have quite a bit of mucus whichresponds well to guaifenesin use. Continues to have raspy voice which he attributes to a swollen lymph node pushing on his vocal cords. Following the start of chemotherapy his swollen lymph node did reduce in size drastically however his voice has not returned. Through tears he describes how frustrating this is to him as it is difficult to communicate. Sleeping well at night. Using olanzapine 5 mg qhs. Trialed daytime dosing but made him too sleepy. Does feel mood is lower recently, easily overwhelmed and tearful. Mental health history outlined in consult note from 03/21/[address] Perez, historically multiple medications have not assisted and question of Bipolar type 2 disorder. indicates in their 7 year marriage she has known Rudy to be more dysthymic and no manic or hypomanic episodes witnessed. The following portions of the patient's history were reviewed and updated as appropriate: Allergies, Current Medications, and Medical History Additionally, if completed, NCCN Distress Thermometer Reviewed as relevant to current encounter. 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 male from [place], [place] with metastatic esophageal cancer who is followed in the outpatient Palliative Care Clinic for non-pain symptoms, pain, and psychosocial support. Recommendations Pain, back: We discussed today is not the time to consider reduction of fentanyl given upcoming radiation, willreassess in 3 weeks with likely plan to reduce to 12 mcg/hr for at least 2 patch changes then discontinue. In meantime: Continue fentanyl 25 mcg/hr every 72 hours Continue Tylenol 1000 mg twice daily Continue oxycodone 5-10 mg every 3 hours as needed (using twice daily at this time) Ok to continue bracing but recommend he discontinue following radiation recovery sharing bracing can lead to lose of core strength Apply ice for 10-15 minutes of any given hour, do not place ice directly on skin Trial Voltaren gel applied to back four times daily Pain, esophageal: Improved. Continue omeprazole 20 mg once daily in the morning taken on empty stomach at least 30 minutes prior to food or other medications. Opioid Summary Opioid Need: This patient has a condition that necessitates treatment with an opioid for longer than 7 days. Additionally, a non-opioid alternative was not appropriate or inadequate to manage patient???s pain. We have reviewed risks, benefits and alternatives related to opioid prescribing as well as relevant mitigation strategies. Diagnosis related to controlled substance prescribing: nociceptive back pain [place] SENIOR SALES MANAGER Review: We have reviewed the patient's record in the [place] prescription monitoring program 05/11/2024. Opioid Toxicity Review: We have reviewed the risks of opioid therapy and completed an assessment oftoxicities. Opioid Aberrant Use Concerns: None Opioid Risk Score: Naloxone prescribed: yes Constipation: Continue senna 3 tablets twice daily, could increase to 8 tablets max per day Ok to use Magnesium Citrate, limiting to once weekly Mood: Continue olanzapine 5 mg qhs, low threshold to increase to 7.5-10 mg qhs Continue non-pharmacologic strategies to address mood including prayer, meditation, journaling, distraction Discussed utility in repeating a psychiatric evaluation to advise on safety of alternative medications to treat mood, patient would like to hold off at this time Offered older adult social work specialist consult, declines as talking is a trigger for low mood given vocal chord dysfunction Educated patient on [employer], Resilient Living Program, and Meaning Centered Psychotherapy Fatigue: Continue to balance activity and rest Consider PMR Cancer Rehab (or Cancer Fatigue) following radiation Poor appetite: Continue to eat small frequent meals throughout the day, ok to repeat multiple comfort foods. Consider protein shakes, 1-2 daily. Will obtain Medical Cannabis Certification from Jenni Ramos PA-C Thank you for the opportunity to see this patient. Patient has our contact information and understands to call with new/worsening symptoms or concerns. We will work alongside the primary outpatient team to address these issues. Palliative care outpatient clinic will continue to follow along. The palliative care nursing team has been directed to provide ongoing assessment, education, and therapy for symptom management according to the plan of care I have outlined. Follow up visit: 3 weeks, virtual Total time spent was 65 minutes. Celestine Chino APRN, C.N.P., D.N.P. documented in this encounter Plan of Treatment Upcoming Encounters Date Type Department Care Team (Latest Contact Info) Description 05/25/2024 12:00 PM CDT Appointment Department of Radiation Oncology in [address] [phone] Navi Ansari M.D. [address] [place] [phone] 05/28/2024 3:45 PM CDT Appointment Department of Radiation Oncology in [address] [phone] Navi Ansari M.D. [address] [place] [phone] 05/29/2024 12:30 PM CDT Appointment Department of Radiation Oncology in [address] [phone] Navi Ansari M.D. [address] [place] [phone] 05/29/2024 1:00 PM CDT Appointment Department of Radiation Oncology in [address] [phone] Navi Ansari M.D. [address] [place] [phone] 05/30/2024 2:00 PM CDT Appointment Department of Radiation Oncology in [address] [phone] Navi Ansari M.D. [address] [place] [phone] 05/31/2024 2:30 PM CDT Appointment Department of Radiation Oncology in [address] [phone] Navi Ansari M.D. [address] [place] [phone] 06/07/2024 12:30 PM CDT Clinical Communication Virtual Review in [address] [phone] 06/08/2024 2:00 PM CDT Telemedicine Department of Palliative Care in [address] [phone] Celestine Chino APRN, C.N.P., D.N.P. 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
--- OUTSIDE RECORDS SUMMARY | 2024-05-22 09:18 | XMS_ITS | Encounter Summary ---
Author Organization [facility] Address [address] [place] [address] Care Team Providers Care Armature And Rotor Winder Name Role Phone Elsewhere, Pcp Primary Care Provider Unavailabl e Reason for Referral * Outpatient (Routine) - Closed Specialty Diagnoses / Procedures Referred By Contebenezer t Referred To Contact Radiation Oncology Rain Alejandro APRN, C.N.P., D.N.P. [address] [place] [address] Phone: tel: fax: Navi Ansari M.D. [facility] [place] [address] Phone: tel: fax: Referral ID Status Reason Start Date Expiration Date Visits Re quested Visits Authorized [id number] Closed 05/16/2024 11/15/2025 1 1 Encounter Details Date Type Department Care Team (Late st Contact Info) Description 05/16/2024 Orders Only Department of Radiation Oncology in [place], [place] [address] [place] [phone] Rain Alejandro APRN, C.N.P., D.N.P. [address] [place] [phone] Social History Tobacco Use Types Packs/Day Years Used Date Smoking Tobacco: Former Cigarettes 10 10 0 07/15/1994 - 11/11/2017 Passive Smoke Exposure: Never Smokeless Tobacco: Never Comments:Smoked off and on b etween dates noted. Alcohol Use Standard Drinks/Week Comments Not Currently 0 (1 standard drink = 0.6 oz pure alcohol) Drank heavily off and on from age 22 to 39 [facility] Utilities Answer Date Recorded In the past 12 months has [email or web address], oil, or water [employer] threatened to shut off services in your [...] your living situation today? [facility] 02/15/2024 Sex and Gender Information Value Date Recorded Sex Assigned at Male 02/15/2024 4:45 PM MANAGER VOICE Legal Sex Male 3:29 PM MANAGER VOICE Gender Identity Male 02/15/2024 4:45 PM MANAGER VOICE Sexual Orientation Straight 02/15/2024 4: 45 PM MANAGER VOICE documented as of this encounter Plan of Treatment Upcoming Encounters Date Type Department Care Team (Latest Contact Info) Description 05/25/2024 12:00 PM CDT Appointment Department of Radiation Oncology in [address] [phone] Navi Ansari M.D. [address] [place] [phone] 05/28/2024 3:45 PM CDT Appointment Department of Radiation Oncology in [address] [phone] Navi Ansari M.D. [address] [place] [phone] 05/29/2024 12:30 PM CDT Appointment Department of Radiation Oncology in [address] [phone] Navi Ansari M.D. [address] [place] [phone] 05/29/2024 1:00 PM CDT Appointment Department of Radiation Oncology in [address] [phone] Navi Ansari M.D. [address] [place] [phone] 05/30/2024 2:00 PM CDT Appointment Department of Radiation Oncology in [place], [place] [address] [place] [address] Navi Ansari M.D. [address] [place] [address] 05/31/2024 2:30 PM CDT Appointment Department of Radiation Oncology in [place], [place] [address] [place] [address] Navi Ansari M.D. [facility] [place] [address] 06/07/2024 12:30 PM CDT Clinical Communication Virtual Review in [place], [place] 200 [place] [address] 06/08/2024 2:00 PM CDT Telemedicine Department of Palliative Care in [place], [place] [address] [place] [phone] Celestine Chino, LAI, C.N.P., D.N.P. [address] [place] [phone] Scheduled Referrals Name Type Priority Associated Diagnoses Orde r Schedule Radiation Oncology office visit (clinic) Outpatient Referral Routine Expected: 05/16/2024, Expires: 08/15/2025 documented as of this encounter Visit Diagnoses Not on filedocumented in this encounter Care Teams Armature And Rotor Winder Relationship Specialty Start Date End Date Elsewhere, Pcp PCP - General Internal Medicine 04/03/24 documented as of this encounter
--- OUTSIDE RECORDS SUMMARY | 2024-05-22 09:18 | XMS_ITS | Encounter Summary ---
Author Organization [facility] Address [address] [place] [address] Care Team Providers Care Stove Mechanic Name Role Phone Elsewhere, Pcp Primary Care Provider Unavailabl e Reason for Visit * Reason Onset Date Comments Med Question 05/15/2024 Encounter Details Date Type Department Care Team (Late st Contact Info) Description 05/15/2024 Clinical Communication Department of Palliative Care in [place], [place] [address] [place] [phone] Jenni Ramos, PAnaASolomon. [address] [place] [phone] Med Question Social History Tobacco Use Types Packs/Day Years Used Date Smoking Tobacco: Former Cigarettes 10 10 0 07/15/1994 - 11/11/2017 Passive Smoke Exposure: Never Smokeless Tobacco: Never Comments:Smoked off and on b etween dates noted. Alcohol Use Standard Drinks/Week Comments Not Currently 0 (1 standard drink = 0.6 oz pure alcohol) Drank heavily off and on from age 22 to [address] [facility] Utilities Answer Date Recorded In the [...] your living situation today? I have a [place] place to live 02/15/2024 Sex and Gender Information Value Date Recorded Sex Assigned at Male 02/15/2024 4:45 PM MANAGER MOBILE Legal Sex Male 3:29 PM MANAGER MOBILE Gender Identity Male 02/15/2024 4:45 PM MANAGER MOBILE Sexual Orientation Straight 02/15/2024 4: 45 PM MANAGER MOBILE documented as of this encounter Miscellaneous Notes * Addendum Note - Lety Jimenez, LAI, C.N.P., D.N.P. - 05/16/2024 11:29 AM CDTAddended by: LETY JIMENEZ on: 05/16/2024 11:29 AM Modules accepted: Orders * Addendum Note - Fina White R.N., CHPN - 05/16/2024 11:18 AM CDTAddended by: FINA WHITE on: 05/16/2024 11:18 AM Modules accepted: Orders * Telephone Encounter - Rae Wallace R.N. - 05/15/2024 2:41 PM CDT Information Discussed Susan (spouse) calls regarding prescription refills sent for Ondansetron ODT and Olanzapine ODT. Susan shares Rudy's insurance has recently switched from [place] since late March. The insurance will no longer cover Olanzapine ODT. The pharmacy shared with her they did try to run PA, however it was rejected. Therefore Olanzapine tablets were dispensed. Rudy is able to tolerate swallowing Olanzapine tablets, as the tablet size is small. The pharmacy was only able to dispense #9 tablets of Ondansetron 8 mg ODT per insurance. PA is required for quantity exception. Susan reports Rudy does have at least 10 days worth of Ondansetron at home. 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 PLAN Disposition/Recommendation: PA is needed for quantity exception for Ondansetron 8 mg tablets. Pharmacy has processed PA, will alert our OPPA team as well. Portal sent to Susan to make her aware. Willfollow to let them know if PA is approved. Information/Education: patient/caller able to teach back Caller agreeable to plan of care: yes The following references were used: nursing clinical judgement documented in this encounter Plan of Treatment Upcoming Encounters Date Type Department Care Team (Latest Contact Info) Description 05/25/2024 12:00 PM CDT Appointment Department of Radiation Oncology in [address] [phone] Navi Ansari M.D. [address] [place] [phone] 05/28/2024 3:45 PM CDT Appointment Department of Radiation Oncology in [address] [phone] Navi Ansari M.D. [address] [place] [phone] 05/29/2024 12:30 PM CDT Appointment Department of Radiation Oncology in [address] [address] Navi Ansari M.D. [address] [place] [phone] 05/29/2024 1:00 PM CDT Appointment Department of Radiation Oncology in [address] [phone] Navi Ansari M.D. [address] [place] [phone] 05/30/2024 2:00 PM CDT Appointment Department of Radiation Oncology in [address] [phone] Navi Ansari M.D. [address] [place] [phone] 05/31/2024 2:30 PM CDT Appointment Department of Radiation Oncology in [address] [phone] Navi Ansari M.D. [address] [place] [phone] 06/07/2024 12:30 PM CDT Clinical Communication Virtual Review in [place], [place] [address] [place] [address] 06/08/2024 2:00 PM CDT Telemedicine Department of Palliative Care in [place], [place] [address] [place] [phone] Celestine Chino APRN, C.N.P., D.N.P. [address] [place] [phone] documented as of this encounter Visit Diagnoses Not on filedocumented in this encounter Care Teams Stove Mechanic Relationship Specialty Start Date End Date Elsewhere, Pcp PCP - General Internal Medicine 04/03/24 documented as of this encounter
--- OUTSIDE RECORDS SUMMARY | 2024-05-22 09:18 | XMS_ITS | Encounter Summary ---
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 [address] [place] [address] Phone: tel: fax: [facility] Radiation Oncology at [place] [address] [place] [phone] Referral ID Status Reason Start Date Expiration Date V isits Requested Visits Authorized [id number] Authorized 05/21/2024 08/08/2025 5 5 Encounter Details Date Type Department Care Team (Late st Contact Info) Description 05/08/2024 Orders Only Department of Radiation Oncology in [place], [place] [address] [place] [phone] Ryan Mora P.A.-C., M.S. 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 I have a [facility] place to live 02/15/2024 Sex and Gender Information Value Date Recorded Sex Assigned at Male 02/15/2024 4:45 PM MATERIAL CONTROL ASSOCIATE Legal Sex Male 3:29 PM MATERIAL CONTROL ASSOCIATE Gender Identity Male 02/15/2024 4:45 PM MATERIAL CONTROL ASSOCIATE Sexual Orientation Straight 02/15/2024 4: 45 PM MATERIAL CONTROL ASSOCIATE documented as of this encounter Miscellaneous Notes * Addendum Note - Ryan Mora P.A.-C., M.S. - 05/08/2024 11:18 AM CDTAddended by: RYAN MORA on: 05/08/2024 11:54 AM Modules accepted: Orders documented in this encounter Plan of Treatment Upcoming Encounters Date Type Department Care Team (Latest Contact Info) Description 05/25/2024 12:00 PM CDT Appointment Department of Radiation Oncology in [address] [phone] Navi Ansari M.D. [address] [place] [phone] 05/28/2024 3:45 PM CDT Appointment Department of Radiation Oncology in [address] [phone] Navi Ansari M.D. [address] [place] [phone] 05/29/2024 12:30 PM CDT Appointment Department of Radiation Oncology in [address] [phone] Navi Ansari M.D. [address] [place] [phone] 05/29/2024 1:00 PM CDT Appointment Department of Radiation Oncology in [address] [phone] Navi Ansari M.D. [address] [place] [phone] 05/30/2024 2:00 PM CDT Appointment Department of Radiation Oncology in [address] [phone] Navi Ansari M.D. [address] [place] [phone] 05/31/2024 2:30 PM CDT Appointment Department of Radiation Oncology in [place], [place] [address] [place] [phone] Navi Ansari M.D. [facility] [place] [address] 06/07/2024 12:30 PM CDT Clinical Communication Virtual Review in [place], [place] 200 [place] [phone] 06/08/2024 2:00 PM CDT Telemedicine Department of Palliative Care in [place], [place] [address] [place] [phone] Celestine Chino APRN, C.N.P., D.N.P. 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 05/16/2024 4:23 PM Initial Rad Onc Treatment Planning CT Simulation Performed by: Navi Ansari M.D. Authorized by: Kelvin Uribe M.D. us Kelvin Uribe M.D. 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
--- OUTSIDE RECORDS SUMMARY | 2024-05-22 09:19 | XMS_ITS | Clinical Summary ---
[facility] Address [address], [place] [address] Care Team Providers Care Art Glass Designer Name Role Phone Unavailable Primary Care Provider Unavailabl e Source Comments You are receiving this document as you are listed as the primary care provider,follow-up provider, or the patient has been referred to you for consultation.This is in compliance with the Medicare and[facility] EHR Incentive Program,which states Providers who transition their patient to another setting of careor provider of care or refers their patient to another provider of care shouldprovide summary care record for each transition of care or referral. 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 Sex and Gender Information Value Date Recorded Sex Assigned at Not on file Legal Sex Male 6:33 AM CDT Gender Identity Not on file Sexual Orientation Not on file Last Filed Vital Signs Vital Sign Reading Time Taken Comments Blood Pressure 143/84 04/11/2018 9:47 AM MULTIMEDIA PROGRAMMER Pulse 78 11/02/2019 8:16 AM CDT Temperature 36.7 C (98.1 F) 01/12/2010 2:50 PM MULTIMEDIA PROGRAMMER Respiratory Rate 16 01/12/2010 2:50 PM MULTIMEDIA PROGRAMMER Oxygen Saturation 93% 01/12/2010 2:50 PM MULTIMEDIA PROGRAMMER Inhaled Oxygen Concentration - - Weight - - Height - - Body Mass Index - - Plan of Treatment Health Maintenance Due Date Last Done Comments Colon Cancer Screening Plan Due 1978 Hep C Screening (Preventive Services) 1978 HIV Screening (Preventive Services) 1994 Adult Preventive Visit 1996 DTaP/Tdap/Td (1 - Tdap) 1997 HepB (1) 1997 Cholesterol 2013 COVID-19 Vaccine (1 - 2023-2 5 season) 2023 Influenza (#1) 2023 Zoster/Shingles (1 of 2) 2028 HPV Vaccine Aged Out No longer eligi ble based on patient's age to complete this topic HepA Aged Out No longer eligi ble based on patient's age to complete this topic Hib Aged Out No longer eligi ble based on patient's age to complete this topic IPV (Polio) Aged Out No longer eligi ble based on patient's age to complete this topic MCV4 Aged Out No longer eligi ble based on patient's age to complete this topic Meningococcal B Aged Out No longer el igible based on patient's age to complete this topic Pneumococcal Aged Out No longer eligi ble based on patient's age to complete this topic Insurance [facility] [id number] [place] [address]
--- OUTSIDE RECORDS SUMMARY | 2024-05-22 09:21 | XMS_ITS | Encounter Summary ---
Author Organization [facility] Address [address] [place] [address] Care Team Providers Care Production Support Supervisor Name Role Phone Elsewhere, Pcp Primary Care Provider Unavailabl e Reason for Visit * Reason Onset Date Comments tx 04/04/2024 Encounter Details Date Type Department Care Team (Late st Contact Info) Description 04/04/2024 Clinical Communication Department of Oncology in [place], [place] [address] [place] [phone] Tor Smalls M.D. [address] [place] [phone] tx Social History Tobacco Use Types Packs/Day Years Used Date Smoking Tobacco: Former Cigarettes 10 10 0 07/15/1994 - 11/11/2017 Passive Smoke Exposure: Never Smokeless Tobacco: Never Comments:Smoked off and on b etween dates noted. Alcohol Use Standard Drinks/Week Comments Not Currently 0 (1 standard drink = 0.6 oz pure alcohol) Drank heavily off and on from age 22 to 39 [facility] Utilities Answer Date Recorded In [...] your living situation today? I have a [facility] place to live 02/15/2024 Sex and Gender Information Value Date Recorded Sex Assigned at Male 02/15/2024 4:45 PM PUBLIC BATH ATTENDANT Legal Sex Male 3:29 PM PUBLIC BATH ATTENDANT Gender Identity Male 02/15/2024 4:45 PM PUBLIC BATH ATTENDANT Sexual Orientation Straight 02/15/2024 4: 45 PM PUBLIC BATH ATTENDANT documented as of this encounter Plan of Treatment Upcoming Encounters Date Type Department Care Team (Latest Contact Info) Description 05/25/2024 12:00 PM CDT Appointment Department of Radiation Oncology in [place], [place] [address] [place] [phone] Navi Ansari M.D. [address] [place] [address] 05/28/2024 3:45 PM CDT Appointment Department of Radiation Oncology in [address] [phone] Navi Ansari M.D. [address] [place] [address] 05/29/2024 12:30 PM CDT Appointment Department of Radiation Oncology in [address] [phone] Navi Ansari M.D. [address] [place] [phone] 05/29/2024 1:00 PM CDT Appointment Department of Radiation Oncology in [address] [phone] Navi Ansari M.D. [address] [place] [phone] 05/30/2024 2:00 PM CDT Appointment Department of Radiation Oncology in [address] [phone] Navi Ansari M.D. [address] [place] [phone] 05/31/2024 2:30 PM CDT Appointment Department of Radiation Oncology in [place], [place] [address] [place] [phone] Navi Ansari M.D. [facility] [place] [address] 06/07/2024 12:30 PM CDT Clinical Communication Virtual Review in [place], [place] [address] [place] [address] 06/08/2024 2:00 PM CDT Telemedicine Department of Palliative Care in [place], [place] [address] [place] [phone] Celestine Chino, LAI, C.N.P., D.N.P. [address] [place] [phone] documented as of this encounter Visit Diagnoses Not on filedocumented in this encounter Care Teams Production Support Supervisor Relationship Specialty Start Date End Date Elsewhere, Pcp PCP - General Internal Medicine 04/03/24 documented as of this encounter
--- OUTSIDE RECORDS SUMMARY | 2024-05-22 09:24 | XMS_ITS | Encounter Summary ---
Author Organization [facility] Address [address] [place] [address] Care Team Providers Care African Studies Professor Name Role Phone Elsewhere, Pcp Primary Care Provider Unavailabl e Reason for Visit * Reason Onset Date Comments Rx Approval 03/27/2024 Olanzapine 5 mg odt Encounter Details Date Type Department Care Team (Latest Contact Info) Description 03/27/2024 Clinical Communication Pharmacy Prior [facility] [phone] Adela Gill Rx Approval (Olanzapine 5 mg odt) Social History Tobacco Use Types Packs/Day Years Used Date Smoking Tobacco: Former Cigarettes 10 10 0 07/15/1994 - 11/11/2017 Passive Smoke Exposure: Never Smokeless Tobacco: Never Comments:Smoked off and on b etween dates noted. Alcohol Use Standard Drinks/Week Comments Not Currently 0 (1 standard drink = 0.6 oz pure alcohol) Drank heavily off and on from age 22 to [address] [facility] Utilities Answer Date Recorded In the past 12 months has [facility] [employer], [employer], or [employer] threatened to shut off services in your [...] your living situation today? I have a [facility] place to live 02/15/2024 Sex and Gender Information Value Date Recorded Sex Assigned at Male 02/15/2024 4:45 PM SAFETY PHYSICIAN Legal Sex Male 3:29 PM SAFETY PHYSICIAN Gender Identity Male 02/15/2024 4:45 PM SAFETY PHYSICIAN Sexual Orientation Straight 02/15/2024 4: 45 PM SAFETY PHYSICIAN documented as of this encounter Miscellaneous Notes * Telephone Encounter - Adela Gill - 03/27/2024 9:16 AM CST Pharm[employer] prior authorization has been approved for Olanzapine ODT 5 mg. If you have any follow-up questions, please send an [employer] message to [facility]. TY PHYSICIAN documented in this encounter Plan of Treatment Upcoming Encounters Date Type Department Care Team (Latest Contact Info) Description 05/25/2024 12:00 PM CDT Appointment Department of Radiation Oncology in [address] [phone] Navi Ansari M.D. [address] [place] [phone] 05/28/2024 3:45 PM CDT Appointment Department of Radiation Oncology in [address] [phone] Navi Ansari M.D. [address] [place] [phone] 05/29/2024 12:30 PM CDT Appointment Department of Radiation Oncology in [address] [phone] Navi Ansari M.D. [address] [place] [phone] 05/29/2024 1:00 PM CDT Appointment Department of Radiation Oncology in [address] [phone] Navi Ansari M.D. [address] [place] [phone] 05/30/2024 2:00 PM CDT Appointment Department of Radiation Oncology in [address] [phone] Navi Ansari M.D. [address] [place] [phone] 05/31/2024 2:30 PM CDT Appointment Department of Radiation Oncology in [address] [place] [address] Navi Ansari M.D. [address] [place] [address] 06/07/2024 12:30 PM CDT Clinical Communication Virtual Review in [place], [place] 200 [place] [phone] 06/08/2024 2:00 PM CDT Telemedicine Department of Palliative Care in [place], [place] [address] [place] [phone] Celestine Chino APRN, C.N.P., D.N.P. [address] [place] [phone] documented as of this encounter Visit Diagnoses Not on filedocumented in this encounter Care Teams African Studies Professor Relationship Specialty Start Date End Date Elsewhere, Pcp PCP - General Internal Medicine 04/03/24 documented as of this encounter
--- OUTSIDE RECORDS SUMMARY | 2024-05-22 09:24 | XMS_ITS ---
Author Organization [facility] Address [address] [place] [address] Care Team Providers Care Crib Clerk Name Role Phone Elsewhere, Pcp Primary Care Provider Unavailabl e Active Problems * This document contains information received from the source organization and may not represent a complete record from that organization. 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 on 02/29/2024 Current Treatment and Therapy Plans Vascular Access Patency - Implanted Vascular Access Device (IVAD) Venous Non-Valved* Plan Start Date:03/02/2024 Linked Problems Malignant Neoplasm Of Esopha bonita Multiple Site (HCC) Treatment Medications No medications scheduled. Past Treatment and Therapy Plans Flushes/Hydration Plan Name Start Date Discontinue Date Treatment Medications Discontinue Reason Plan Provider Vascular Access Patency - Peripheral Intravenous Catheter and Rapid Infusion Catheter 02/27/2024 02/27/2024 No medications scheduled. Therapy Complete - Hematology / Oncology Treatment 1 Plan Name Start Date Discontinue Date Treatment Medications Discontinue Reason Plan Provider Cycles [id number] ( Fluorouracil / Leucovorin / Oxaliplatin ) / Nivolumab ( GI ) 04/04/2024 fluorouraciL (AdruciL)nivol umab (Opdivo)oxalip latin (Eloxatin) Unlisted Tor Smalls M.D. Treatment not started Infusion Therapy 1 Plan Name Start Date Discontinue Date Treatment Medications Discontinue Reason Plan Provider iron dextran (Infed) 02/27/2024 02/27/2024 No medications scheduled. Therapy Complete Yue Miller M.B., B.Chir. Current Radiation Episodes * Radiation Therapy: Lower esophagusOverview* First Treatment Date Latest Treatment Date Treatment Site Technique Goal Episode Provider 03/05/2024 03/16/2024 Lower esophagus Palliative * Linked Problems Malignant Neoplasm Of Esopha bonita Multiple Site Treatment Courses* Course 1xEsophagus 03/05/2024 - 03/16/2024 Treatment Period Fraction Dose Fractions Total Dose Plans Planned [id number] 03/05/2024 - 03/16/2024 300 cGy 3,000 cGy Reference Points Delivered [id number] 03/05/2024 - 03/16/2024 3,000 cGy Past Radiation Episodes * IMRT: Skin of face, head, neckOverview* First Treatment Date Last Treatment Date Treatment Site Technique Goal Episode Provider 03/19/2024 03/19/2024 Skin of face, head, neck IMRT Palliative * Linked Problems 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 Face Treatment Courses* Course 2xFace 03/19/2024 - 03/19/2024 Treatment Period Fraction Dose Fractions Total Dose Plans Planned [id number] 03/19/2024 - 03/19/2024 800 cGy 8 00 cGy Reference Points Delivered [id number] 03/19/2024 - 03/19/2024 800 cGy Lifetime Dose Tracking * Chemical Lifetime Dose Automatic Entry Manual Entr y Radiation 16.92 mGy 16.92 mGy 0 mGy Fluoro Time 0.68 minutes 0.68 minutes 0 minutes DAP (uGy-m2) 523.38 uGy-m2 523.38 uGy-m2 0 uGy-m2
--- OUTSIDE RECORDS SUMMARY | 2024-05-22 09:25 | XMS_ITS | Encounter Summary ---
Author Organization [facility] Address [address] [place] [address] Care Team Providers Care Architect In Training Name Role Phone Elsewhere, Pcp Primary Care Provider Unavailabl e Reason for Visit * Reason Onset Date Comments Update 04/13/2024 Encounter Details Date Type Department Care Team (Late st Contact Info) Description 04/13/2024 Clinical Communication Department of Palliative Care in [place], [place] [address] [place] [phone] Celestine Chino APRN, C.N.P., D.N.P. [address] [place] [phone] Update Social History Tobacco Use Types Packs/Day Years Used Date Smoking Tobacco: Former Cigarettes 10 10 0 07/15/1994 - 11/11/2017 Passive Smoke Exposure: Never Smokeless Tobacco: Never Comments:Smoked off and on b etween dates noted. Alcohol Use Standard Drinks/Week Comments Not Currently 0 (1 standard drink = 0.6 oz pure alcohol) Drank heavily off and on from age 22 to 39 [facility] Utilities Answer Date Recorded In the past [...] your living situation today? I have a [facility] place to live 02/15/2024 Sex and Gender Information Value Date Recorded Sex Assigned at Male 02/15/2024 4:45 PM SIX SIGMA BLACK TRAINER Legal Sex Male 3:29 PM SIX SIGMA BLACK TRAINER Gender Identity Male 02/15/2024 4:45 PM SIX SIGMA BLACK TRAINER Sexual Orientation Straight 02/15/2024 4: 45 PM SIX SIGMA BLACK TRAINER documented as of this encounter Miscellaneous Notes * Telephone Encounter - Susan Collier R.N., [facility] - 04/13/2024 3:14 PM SIX SIGMA BLACK TRAINER PALLIATIVE CARE NURSING TELEPHONE CALL Information Discussed Rudy Gross is a 43 y.o. who is followed in the Palliative Care Clinic for esophageal cancer . Patientwas seen by Celestine Chino, SAND MILLER, REMARKETING MANAGER, DNP on 04/06/24. Phone call today is with , Susan to discuss Rudy's current medication regimen and provide update on pain. Pain Susan shares that Rudy's pain is currently at a tolerable level. Pain remains esophageal radiation pain. Today, he feels back to his normal self in regards to his cognition. Multiple members of our team have talked to Rudy and Susan this week. Below is their current regimen and noted changes since last phone call on 04/10. Current Regimen; -Oxycodone 5 mg every 6 hours, has made the decision to not go any sooner than every 6 hours due todesire to maintain clear cognition. -Fentanyl 25 mcg/hr every 72 hours -Olanzapine (Zyprexa) 5 mg daily at bedtime, splitting 10 mg tablets. Nausea well controlled. -Resumed omeprazole (Prilosec) as Pepcid wasn't as helpful. [facility] team started the following medications this week; -Levaquin 500 mg daily for 1 week -Dexamethasone 2 mg for 5 days Continues to experience profound fatigue. Nights are the best symptom sam. Due to chemotherapy being rescheduled next week, they had to cancel appointment with Dr. Ramos. Susan will call back to reschedule. Recommendation Medication list updated. Discussed the pain may flair when dexamethasone course is completed. Encouraged Susan to contact our team with questions or concerns. Disposition/Recommendation: self-care appropriate at this time, patient encouraged to call back with questions and recommended continue engagement in self-management activities Information/Education: patient/caller able to teach back Caller agreeable to plan of care: yes The following references were used: nursing clinical judgement and previous plan of care date: 04/10/24, 04/06/24. SIGMA BLACK TRAINER documented in this encounter Plan of Treatment Upcoming Encounters Date Type Department Care Team (Latest Contact Info) Description 05/25/2024 12:00 PM CDT Appointment Department of Radiation Oncology in [address] [phone] Navi Ansari M.D. [address] [place] [address] 05/28/2024 3:45 PM CDT Appointment Department of Radiation Oncology in [place], [place] [address] [place] [address] Navi Ansari M.D. [address] [place] [address] 05/29/2024 12:30 PM CDT Appointment Department of Radiation Oncology in [place], [place] [address] [place] [address] Navi Ansari M.D. [address] [place] [address] 05/29/2024 1:00 PM CDT Appointment Department of Radiation Oncology in [place], [place] [address] [place] [address] Navi Ansari M.D. [address] [place] [address] 05/30/2024 2:00 PM CDT Appointment Department of Radiation Oncology in [place], [place] [address] [place] [address] Navi Ansari M.D. [address] [place] [address] 05/31/2024 2:30 PM CDT Appointment Department of Radiation Oncology in [place], [place] [address] [place] [address] Navi Ansari M.D. [address] [place] [address] 06/07/2024 12:30 PM CDT Clinical Communication Virtual Review in [place], [place] [address] [place] [phone] 06/08/2024 2:00 PM CDT Telemedicine Department of Palliative Care in [place], [place] [address] [place] [phone] Celestine Chino APRN, C.N.P., D.N.P. 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
--- OUTSIDE RECORDS SUMMARY | 2024-05-22 09:25 | XMS_ITS | Encounter Summary ---
Author Organization [facility] Address [address] [place] [address] Care Team Providers Care Rn Bariatric Name Role Phone Elsewhere, Pcp Primary Care Provider Unavailabl e Reason for Visit * Reason Onset Date Comments Follow-up 04/13/2024 Encounter Details Date Type Department Care Team (Late st Contact Info) Description 04/13/2024 Clinical Communication Department of Palliative Care in [place], [place] [address] [place] [phone] Maria Elena Rico APRN, C.N.P., D.N.P. [address] [place] [phone] Follow-up Social History Tobacco Use Types Packs/Day Years Used Date Smoking Tobacco: Former Cigarettes 10 10 0 07/15/1994 - 11/11/2017 Passive Smoke Exposure: Never Smokeless Tobacco: Never Comments:Smoked off and on b etween dates noted. Alcohol Use Standard Drinks/Week Comments Not Currently 0 (1 standard drink = 0.6 oz pure alcohol) Drank heavily off and on from age 22 to 39 [facility] Utilities Answer Date Recorded In the [...] your living situation today? I have a [facility] place to live 02/15/2024 Sex and Gender Information Value Date Recorded Sex Assigned at Male 02/15/2024 4:45 PM STATISTICIAN MATHEMATICAL Legal Sex Male 3:29 PM STATISTICIAN MATHEMATICAL Gender Identity Male 02/15/2024 4:45 PM STATISTICIAN MATHEMATICAL Sexual Orientation Straight 02/15/2024 4: 45 PM STATISTICIAN MATHEMATICAL documented as of this encounter Plan of Treatment Upcoming Encounters Date Type Department Care Team (Latest Contact Info) Description 05/25/2024 12:00 PM CDT Appointment Department of Radiation Oncology in [place] [id number] [place] [address] Navi Ansari M.D. [address] [place] [address] 05/28/2024 3:45 PM CDT Appointment Department of Radiation Oncology in [place], [place] [address] [place] [address] Navi Ansari M.D. [address] [place] [address] 05/29/2024 12:30 PM CDT Appointment Department of Radiation Oncology in [place], [place] [address] [facility] [address] Navi Ansari M.D. [facility] [place] [address] 05/29/2024 1:00 PM CDT Appointment Department of Radiation Oncology in [place], [place] [address] [place] [address] Navi Ansari M.D. [address] [place] [address] 05/30/2024 2:00 PM CDT Appointment Department of Radiation Oncology in [place], [place] [address] [place] [address] Navi Ansari M.D. [address] [place] [address] 05/31/2024 2:30 PM CDT Appointment Department of Radiation Oncology in [place], [place] [address] [facility] [place] [place] [address] Navi Ansari M.D. [address] [place] [address] 06/07/2024 12:30 PM CDT Clinical Communication Virtual Review in [place], [place] [address] [place] [phone] 06/08/2024 2:00 PM CDT Telemedicine Department of Palliative Care in [place], [place] [address] [place] [phone] Celestine Chino APRN, C.N.P., D.N.P. [address] [place] [phone] documented as of this encounter Visit Diagnoses Not on filedocumented in this encounter Care Teams Rn Bariatric Relationship Specialty Start Date End Date Elsewhere, Pcp PCP - General Internal Medicine 04/03/24 documented as of this encounter
--- OUTSIDE RECORDS SUMMARY | 2024-05-22 09:25 | XMS_ITS | Clinical Summary ---
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 For routine questions regarding patient records, call [phone] during business hours, M-F 8:00 AM - 5:00 PM Central Time. Record requests for emergency care only can be directed to [phone] at any time.[facility] Allergies Active Allergy Reactions Criticality Noted Date Comments Penicillins Rash 02/16/2024 Medications * This document contains information received from the source organization and may not represent a complete record from that organization. melatonin 5 mg tablet Take 5 mg by mouth at bedtime. 1-2 tablets at bedtime Active lidocaine-prilocai ne (Emla) 2.5-2.5 % cream Apply 1 Application topically as needed. 03/28/19 25 Active lactulose 10 gram/15 mL solution Take 30 mL (20 g total) by mouth 2 (two) times a day as needed (constipation refractory to senna/miraLAX). 473 mL 04/06/19 25 Active polyethylene glycol (Miralax) 17 gram/dose oral powder Take 17 g by mouth daily. Dissolve each 17 g dose in 240 mL (8 ounces) of beverage. 1700 g 2 04/06/19 25 Active Additional Information Patient taking differently:17 g oralAs needed, Dissolve each 17 g dose in 240 mL (8 ounces) of beverage., Reported on 05/10/2024 guaiFENesin (Robitussin) 100 mg/5 mL liquid Take 10 mL (200 mg total) by mouth every 6 (six) hours as needed for congestion (mucus thinning). 473 mL 04/06/19 25 Active naloxone (Narcan) 4 mg/actuation nasal spray Administer 1 spray (4 mg total) into nostril(s) as needed for reversal. Use 1 spray in 1 nostril. Repeat with second device in other nostril after 2-3 minutes if no or minimal response. 2 each 04/06/19 25 Active oxyCODONE (Roxicodone) 10 mg IR tabletIndications: Chronic Pain/Nonacute Pain Take 0.5-1 tablets (5-10 mg total) by mouth every 3 (three) hours as needed for pain Indication: Chronic Pain/Nonacute Pain. Okay to crush tablets 04/13/19 25 Active acetaminophen (TylenoL) 500 mg capsule Take by mouth daily. 4 tablets daily. Active omeprazole (PriLOSEC) [address] capsule Take 1 capsule (20 mg total) by mouth daily before morning meal. 90 capsule 3 05/12/19 25 Active fentaNYL (Duragesic) 25 mcg/hr patchIndications:C hronic Pain/Nonacute Pain Place 1 patch on the skin every third day Indication: Chronic Pain/Nonacute Pain. Metastatic esophageal cancer 5 patch 05/12/19 25 Active sennosides (senna) 8.6 mg tablet Take 3 tablets (25.8 mg total) by mouth 2 (two) times a day. 180 tablet 2 05/12/19 25 Active OLANZapine (ZyPREXA Zydis) 5 mg disintegrating tabletIndications: 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),Palliative Care,Fever Neutropenic Dissolve 1 tablet (5 mg total) in the mouth at bedtime. 90 tablet 05/15/19 25 Active ondansetron ODT (Zofran-ODT) 8 mg disintegrating tabletIndications: cancer chemotherapy-induc ed nausea and vomiting Dissolve 1 tablet (8 mg total) in the mouth every 8 (eight) hours as needed for nausea or vomiting Indications: nausea and vomiting caused by cancer drugs. 90 tablet 05/17/19 25 Active omeprazole (PriLOSEC) [address] capsule Take 20 mg by mouth daily before morning meal. 025 Discontin ued(Reord er) ondansetron ODT (Zofran-ODT) 8 mg disintegrating tabletIndications: cancer chemotherapy-induc ed nausea and vomiting Dissolve 8 mg in the mouth every 8 (eight) hours as needed for nausea or vomiting Indications: nausea and vomiting caused by cancer drugs. 025 Discontin ued(Reord er) fentaNYL (Duragesic) 25 mcg/hr patchIndications:C hronic Pain/Nonacute Pain Place 1 patch on the skin every third day Indication: Chronic Pain/Nonacute Pain. Metastatic esophageal cancer 10 patch 04/06/19 25 025 Discontin ued(Reord er) OLANZapine (ZyPREXA Zydis) 5 mg disintegrating tabletIndications: 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),Palliative Care,Fever Neutropenic Dissolve 1 tablet (5 mg total) in the mouth at bedtime. 04/13/19 25 025 Discontin ued(Reord er) OLANZapine (ZyPREXA Zydis) 5 mg disintegrating tabletIndications: 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),Palliative Care,Fever Neutropenic Dissolve 1 tablet (5 mg total) in the mouth at bedtime. 90 tablet 05/12/19 25 025 Discontin ued(Reord er) ondansetron ODT (Zofran-ODT) 8 mg disintegrating tabletIndications: cancer chemotherapy-induc ed nausea and vomiting Dissolve 1 tablet (8 mg total) in the mouth every 8 (eight) hours as needed for nausea or vomiting Indications: nausea and vomiting caused by cancer drugs. 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 on 02/29/2024 Encounters Date Type Department Care Team Description 05/16/2024 1:26 PM CDT - 05/16/2024 4:23 PM CDT Hospital Encounter Department of Radiation Oncology in [address] [phone] Navi Ansari M.D. 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); Secondary Malignant Neoplasm Bone (HCC) 05/16/2024 12:39 PM CDT - 05/16/2024 1:25 PM CDT Hospital Encounter Department of Radiation Oncology in [address] [address] Navi Ansari M.D. Secondary Malignant Neoplasm Bone (HCC) (Primary Dx) 05/16/2024 Orders Only Department of Radiation Oncology in [address] [address] Rain Alejandro APRN, C.N.P., D.N.P. 05/15/2024 Orders Only Pharmacy Prior Auth RO [phone] Dorothy Venegas 05/15/2024 Clinical Communication Department of Palliative Care in [place], [place] [address] [place] [phone] Jenni Ramos, P.A.-C. Med Question 05/14/2024 Refill Department of Palliative Care in [place], [place] [address] [place] [phone] Celestine Chino APRN, C.N.P., D.N.P. Med Refill 05/11/2024 2:15 PM CDT Office Visit Department of Palliative Care in [place], [place] [address] [place] [phone] Celestine Chino APRN C.N.P., D.N.P. Pain Cancer Associated; Adjustment Disorder Mixed Reaction; 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); Palliative Care; Fatigue; Dysgeusia; Not Psychogenic Loss Appetite; Constipation 05/10/2024 10:45 AM CDT Clinical Communication Virtual Review in [place], [place] [address] [place] [address] Pre-visit Intake 05/08/2024 Orders Only Department of Oncology in [place], [place] [address] [place] [phone] Marimar Maldonado MPAS, P.A.Lorena., P.A. 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) (Primary Dx); Secondary Malignant Neoplasm Bone (HCC); Secondary Malignant Neoplasm Skin Face (HCC) 05/08/2024 Orders Only Department of Radiation Oncology in [place], [place] [address] [place] [phone] Brenda Mora PBhanu.-Saud., M.S. 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) (Primary Dx); Secondary Malignant Neoplasm Bone (HCC) 04/16/2024 Clinical Communication Department of Palliative Care in [address] [address] Claudy Ramos M.D. Med Question 04/13/2024 Clinical Communication Department of Palliative Care in [address] [phone] Maria Elena Rico APRN C.N.P., D.N.P. Follow-up 04/13/2024 Clinical Communication Department of Palliative Care in [address] [address] Celestine Chino APRN C.N.P., D.N.P. Update 04/09/2024 Clinical Communication Department of Palliative Care in [address] [phone] Kati Joy M.D. Symptom Assessment 04/06/2024 11:15 AM TOBACCO BALER Telemedicine Department of Palliative Care in [place], [place] [address] [place] [phone] Dawna Navas M.D. Celestine Chino, LAI, C.N.P., D.N.P. Pain Cancer Associated; Nausea; 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); Secondary Malignant Neoplasm Skin Face (HCC); Palliative Care; Fatigue; Anxiety 04/04/2024 Clinical Communication Department of Oncology in [place], [place] [address] [place] [phone] Tor Smalls M.D. tx 04/03/2024 12:30 PM TOBACCO BALER Clinical Communication Virtual Review in [place], [place] [address] [place] [address] Pre-visit Intake 04/02/2024 Clinical Communication Department of Nutrition and Diabetes Education in [place], [place] [address] [place] [phone] Laura Harper RDN, KATHY Headley 04/02/2024 Clinical Communication Department of Palliative Care in [place], [place] [address] [place] [phone] Claudy Ramos M.D. 03/27/2024 Clinical Communication Pharmacy Prior Auth [phone] Adela Gill Rx Approval (Olanzapine 5 mg odt) 03/26/2024 9:15 AM TOBACCO BALER Telemedicine Department of Palliative Care in [place], [place] [address] [place] [phone] Christina Horn M.D. Pain Cancer Associated (Primary Dx); Anxiety; Constipation; 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); Palliative Care 03/22/2024 Nurse Triage Department of Family Medicine in [place], [place] [address] [facility] [place] [address] Rae Reynolds, RDorcas., I.B.C.L.C. Med Question (Can he crush oxycodone and dissolve under tongue?) 03/22/2024 Clinical Communication Department of Palliative Care in [place], [place] [address] [place] [phone] Sandy Perez M.D. Med Question 03/22/2024 Abstract [place], [place] [address] [place] [address] Provider, Historical 03/22/2024 Orders Only Department of Oncology in [place], [place] [address] [place] [phone] Tor Smalls M.D. 03/21/2024 2:15 PM TOBACCO BALER Comprehensive Visit Department of Palliative Care in [place], [place] [address] [place] [phone] Sandy Perez M.D. Klein, Kristi A RLatesha Pain Cancer Associated (Primary Dx); 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); Anxiety; Palliative Care 03/19/2024 2:00 PM TOBACCO BALER Internal E-Consult Department of Oncology in [place], [place] [address] [place] [phone] Hipolito Huddleston M.D. 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) 03/19/2024 10:52 AM TOBACCO BALER - 03/23/2024 4:30 PM TOBACCO BALER Hospital Encounter Department of Radiation Oncology in [address] [address] Navi Ansari M.D. 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) 03/19/2024 10:52 AM TOBACCO BALER Hospital Encounter Department of Radiation Oncology in [address] [address] Navi Ansari M.D. Discharge Disposition: Home or Self Care 03/19/2024 Documentation Department of Radiation Oncology in [address] [address] Navi Ansari M.D. 03/19/2024 Clinical Communication Department of Oncology in [place], [place] [address] [place] [phone] Joan Perez R.N., O.C.N. 03/16/2024 9:55 AM TOBACCO BALER - 03/16/2024 11:59 PM TOBACCO BALER Hospital Encounter Department of Radiation Oncology in [address] [address] Navi Ansari M.D. Discharge Disposition: Home or Self Care 03/15/2024 9:59 AM TOBACCO BALER - 03/15/2024 11:59 PM TOBACCO BALER Hospital Encounter Department of Radiation Oncology in [address] [address] Navi Ansari M.D. Discharge Disposition: Home or Self Care 03/15/2024 Orders Only Department of Oncology in [place], [place] [address] [place] [phone] Shanti Childers APRN, C.N.P., M.S. 03/15/2024 Orders Only Department of Oncology in [address] [address] Tonia Martinez M.D. 03/14/2024 9:46 AM TOBACCO BALER - 03/14/2024 11:59 PM TOBACCO BALER Hospital Encounter Department of Radiation Oncology in [address] [address] Navi Ansari M.D. Discharge Disposition: Home or Self Care 03/14/2024 Orders Only Department of Oncology in [place], [place] [address] [place] [phone] Tonia Martinez M.D. 03/13/2024 10:27 AM TOBACCO BALER - 03/16/2024 10:25 AM TOBACCO BALER Hospital Encounter Department of Radiation Oncology in [address] [phone] Kelvin Uribe M.D. Chamberlain, Daniel, M.D. 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); Secondary Malignant Neoplasm Skin Face (HCC) 03/13/2024 9:31 AM TOBACCO BALER - 03/23/2024 5:37 PM TOBACCO BALER Hospital Encounter Department of Radiation Oncology in [address] [address] Navi Ansari M.D. 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) 03/13/2024 9:31 AM TOBACCO BALER - 03/13/2024 10:26 AM TOBACCO BALER Hospital Encounter Department of Radiation Oncology in [address] [address] Navi Ansari M.D. Discharge Disposition: Home or Self Care 03/12/2024 11:41 AM TOBACCO BALER - 03/12/2024 11:59 PM TOBACCO BALER Hospital Encounter Department of Laboratory Medicine in [place], [place] [address] [place] [phone] Kelvin Uribe M.D. 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); Secondary Malignant Neoplasm Skin Face (HCC) Discharge Disposition: Home or Self Care 03/12/2024 9:30 AM TOBACCO BALER - 03/12/2024 11:40 AM TOBACCO BALER Hospital Encounter Department of Radiation Oncology in [address] [address] Navi Ansari M.D. Discharge Disposition: Home or Self Care 03/12/2024 9:07 AM TOBACCO BALER - 03/12/2024 9:29 AM TOBACCO BALER Hospital Encounter Department of Radiation Oncology in [address] [address] Kelvin Uribe M.D. Secondary Malignant Neoplasm Skin Face (HCC) (Primary Dx); 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) 03/12/2024 Clinical Communication Department of Oncology in [place], [place] [address] [place] [phone] Jazmin Tomlin R.N. 03/11/2024 Orders Only Department of Oncology in [place], [place] [address] [place] [phone] Tor Smalls M.D. 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) (Primary Dx) 03/09/2024 1:20 PM TOBACCO BALER Admin Visit Department of Oncology in [place], [place] [address] [place] [address] 03/09/2024 9:51 AM TOBACCO BALER - 03/09/2024 11:59 PM TOBACCO BALER Hospital Encounter Department of Radiation Oncology in [address] [address] Navi Ansari M.D. Discharge Disposition: Home or Self Care 03/09/2024 Clinical Communication Department of Radiation Oncology in [address] [address] Navi Ansari M.D. 03/08/2024 8:16 AM TOBACCO BALER - 03/08/2024 11:59 PM TOBACCO BALER Hospital Encounter Department of Radiation Oncology in [address] [address] Navi Ansari M.D. Discharge Disposition: Home or Self Care 03/08/2024 Orders Only Department of Oncology in [place], [place] [address] [place] [address] Joan Perez R.N., O.C.NAna 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) (Primary Dx) 03/08/2024 Orders Only Department of Oncology in [place], [place] [address] [place] [address] Tor Smalls M.D. 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) (Primary Dx) 03/07/2024 9:35 AM TOBACCO BALER - 03/07/2024 5:13 PM TOBACCO BALER Hospital Encounter Department of Radiation Oncology in [address] [address] Navi Ansari M.D. 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) 03/07/2024 9:34 AM TOBACCO BALER Hospital Encounter Department of Radiation Oncology in [address] [address] Navi Ansari M.D. Discharge Disposition: Home or Self Care 03/07/2024 Orders Only Department of Oncology in [place], [place] [address] [place] [address] Joan Perez R.N., O.C.N. 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) (Primary Dx) 03/07/2024 Clinical Communication Department of Oncology in [place], [place] [address] [place] [phone] Tor Smalls M.D. [facility] 03/06/2024 9:50 AM TOBACCO BALER - 03/06/2024 11:20 AM TOBACCO BALER Hospital Encounter Department of Radiation Oncology in [address] [address] Navi Ansari M.D. Retterath, Chelsey A, R.N. 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) (Primary Dx) 03/06/2024 9:34 AM TOBACCO BALER - 03/06/2024 9:49 AM TOBACCO BALER Hospital Encounter Department of Radiation Oncology in [address] [address] Navi Ansari M.D. Discharge Disposition: Home or Self Care 03/06/2024 Clinical Communication Department of Nutrition and Diabetes Education in [place], [place] [address] [place] [phone] Laura Harper, RDN, LD follow up for communication for nutritional shakes 03/06/2024 Results Follow-Up Department of Oncology in [place], [place] [address] [place] [phone] Tor Smalls M.D. Aura Yanetus xT, Tissue - Sent Out Lab 03/05/2024 11:19 AM TOBACCO BALER - 03/05/2024 11:59 PM TOBACCO BALER Hospital Encounter Department of Radiation Oncology in [address] [address] Navi Ansari M.D. Discharge Disposition: Home or Self Care 03/05/2024 10:25 AM TOBACCO BALER - 03/05/2024 11:18 AM TOBACCO BALER Hospital Encounter Department of Radiation Oncology in [address] [address] Navi Ansari M.D. 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) 03/05/2024 7:00 AM TOBACCO BALER Lab RST RO LMP [address] [place] [phone] Yue Miller M.B., B.Chir. 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) 03/05/2024 Clinical Communication Department of Oncology in [place], [place] [address] [place] [phone] Tor Smalls M.D. 03/02/2024 11:20 AM TOBACCO BALER Lab Department of Infusion Therapy in [place], [place] [address] [place] [phone] Tor Smalls M.D. 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) (Primary Dx) 03/02/2024 8:20 AM TOBACCO BALER - 03/02/2024 10:55 AM TOBACCO BALER Hospital Encounter Department of Radiology, [facility] in [place], [place] [address] [place] [phone] Tor Smalls M.D. Takahashi, Edwin A, M.D. 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) Discharge Disposition: Home or Self Care 03/02/2024 Clinical Communication Department of Oncology in [address] [address] Tor Smalls M.D. 03/01/2024 Orders Only Department of Nutrition and Diabetes Education in [address] [phone] Laura Harper, RDN, LD 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) (Primary Dx); Loss Weight Abnormal 03/01/2024 Clinical Communication Department of Oncology in [address] [address] Tor Smalls M.D. Appointment 02/29/2024 3:20 PM TOBACCO BALER Comprehensive Visit Department of Oncology in [address] [phone] Tor Smalls M.D. 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) 02/29/2024 12:15 PM TOBACCO BALER - 02/29/2024 1:42 PM TOBACCO BALER Hospital Encounter Department of Radiology, [facility] in [place], [place] [address] [place] [phone] Yue Miller M.B., B.Chir. 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) Discharge Disposition: Home or Self Care 02/29/2024 10:15 AM TOBACCO BALER - 02/29/2024 12:13 PM TOBACCO BALER Hospital Encounter Department of Radiation Oncology in [place], [place] [address] [place] [phone] Ok Connor M.D. 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) Discharge Disposition: Home or Self Care 02/29/2024 8:58 AM TOBACCO BALER - 03/02/2024 9:22 AM TOBACCO BALER Hospital Encounter Department of Radiation Oncology in [place], [place] [address] [place] [phone] Ok Connor M.D. 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) 02/29/2024 8:00 AM TOBACCO BALER Comprehensive Visit Division of Endocrinology in [place], [place] [address] [place] [phone] Yue Miller M.B., B.Chir. Ruth Ladd, LAI, C.N.P., D.N.P. Dietary Counseling And Surveillance For Enteral Nutrition (Primary Dx); 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) 02/29/2024 Clinical Communication Division of Gastroenterology in [place], [place] [address] [place] [phone] Yue Miller M.B., B.Chir. Esophageal 02/28/2024 2:00 PM TOBACCO BALER Comprehensive Visit Department of Nutrition and Diabetes Education in [place], [place] [address] [place] [phone] Yue Miller M.B., B.Chir. Laura Harper, LEANA, LD 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) 02/28/2024 Orders Only Department of Radiation Oncology in [place], [place] [address] [place] [phone] Ok Connor M.D. 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) (Primary Dx) 02/27/2024 3:00 PM TOBACCO BALER Infusion Department of Infusion Therapy in [address] [address] Yue Miller M.B., B.Chir. 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) (Primary Dx) 02/27/2024 2:00 PM TOBACCO BALER Comprehensive Visit Division of Gastroenterology in [address] [address] Yue Miller M.B., B.Chir. 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) (Primary Dx) 02/27/2024 8:25 AM TOBACCO BALER - 02/27/2024 11:59 PM TOBACCO BALER Hospital Encounter Department of Radiology, [facility] in [address] [address] Melanie Wu M.D. 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) Discharge Disposition: Home or Self Care 02/27/2024 8:00 AM TOBACCO BALER Ancillary Procedure Department of Radiology in [address] [address] Yue Miller M.B., B.Chir. 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) 02/27/2024 7:55 AM TOBACCO BALER Ancillary Procedure Department of Radiology in [address] [phone] Yue Miller M.B., B.Chir. 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) 02/27/2024 7:32 AM TOBACCO BALER - 02/27/2024 8:24 AM TOBACCO BALER Hospital Encounter Department of Laboratory Medicine and Pathology, [facility] in [address] [address] Melanie Wu M.D. 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) Discharge Disposition: Home or Self Care 02/27/2024 Documentation Division of Endocrinology in [address] [phone] Dawna Villanueva R.N. Scheduling 02/27/2024 Clinical Communication Division of Gastroenterology in [address] [phone] Yue Miller M.B., B.Chir. Esophageal (Request [facility]) 02/23/2024 12:30 PM TOBACCO BALER Clinical Communication Virtual Review in [address] [phone] Pre-visit Intake from Last 3 Months Family History Medical History Relation Name Comments Coronary artery disease Father's Brother Kelvin Gross Pancreatic cancer Mother's Brother Waylon Montesinos Relation Name Status Comments Father's Brother Kelvin Gross Alive Mother's Brother Waylon Montesinos Alive Social History Tobacco Use Types Packs/Day Years Used Date Smoking Tobacco: Former Cigarettes 10 10 0 07/15/1994 - 11/11/2017 Passive Smoke Exposure: Never Smokeless Tobacco: Never Comments:Smoked off and on b etween dates noted. Alcohol Use Standard Drinks/Week Comments Not Currently 0 (1 standard drink = 0.6 oz pure alcohol) Drank heavily off and on from age 22 [address] [facility] [employer] Answer Date Recorded In the past 12 months has e [employer], [employer], oil, or water [employer] threatened to shut off services in your [...] your living situation today? I have a [facility] place to live 02/15/2024 Sex and Gender Information Value Date Recorded Sex Assigned at Male 02/15/2024 4:45 PM TOBACCO BALER Legal Sex Male 3:29 PM TOBACCO BALER Gender Identity Male 02/15/2024 4:45 PM TOBACCO BALER Sexual Orientation Straight 02/15/2024 4: 45 PM TOBACCO BALER Last Filed Vital Signs Vital Sign Reading Time Taken Comments Blood Pressure 99/64 05/16/2024 1:04 PM CDT Pulse 105 05/16/2024 1:04 PM CDT Temperature 36.5 C (97.7 F) 05/11/2024 2:04 PM CDT Respiratory Rate 15 03/02/2024 10:46 AM TOBACCO BALER Oxygen Saturation 97% 05/11/2024 2:04 PM CDT Inhaled Oxygen Concentration - - Weight 84.8 kg (187 lb) 05/16/2024 1:04 PM CDT Height 182.5 cm (5' 11.85) 02/28/2024 2:24 PM C Body Mass Index 25.47 02/28/2024 2:24 PM TOBACCO BALER Plan of Treatment Upcoming Encounters Date Type Department Care Team (Latest Contact Info) Description 05/25/2024 12:00 PM CDT Appointment Department of Radiation Oncology in [address] [phone] Navi Ansari M.D. [address] [place] [address] 05/28/2024 3:45 PM CDT Appointment Department of Radiation Oncology in [address] [phone] Navi Ansari M.D. [address] [place] [address] 05/29/2024 12:30 PM CDT Appointment Department of Radiation Oncology in [address] [phone] Navi Ansari M.D. [address] [place] [phone] 05/29/2024 1:00 PM CDT Appointment Department of Radiation Oncology in [address] [address] Navi Ansari M.D. [address] [place] [phone] 05/30/2024 2:00 PM CDT Appointment Department of Radiation Oncology in [address] [address] Navi Ansari M.D. [address] [place] [phone] 05/31/2024 2:30 PM CDT Appointment Department of Radiation Oncology in [address] [phone] Navi Ansari M.D. [address] [place] [phone] 06/07/2024 12:30 PM CDT Clinical Communication Virtual Review in [place], [place] [address] [place] [address] 06/08/2024 2:00 PM CDT Telemedicine Department of Palliative Care in [address] [phone] Celestine Chino APRN, C.N.P., D.N.P. [address] [place] [phone] Health Maintenance Due Date Last Done Comments CT Colonography 1978 Cologuard 1978 Colonoscopy 1978 Colorectal Cancer Screening 1978 FIT 1978 Generalized Anxiety (CATALINA-7) 1978 HIV Screening 1978 Hepatitis C Screening 1978 Lipid (Cholesterol) Screening 1978 COVID-19 Vaccine (#1) 11/19/1983 DTaP,Tdap,and Td Vaccines (1 - Tdap) 1997 Hepatitis B Vaccines (1 of 3 - 19+ 3-dose series) 1997 Pneumococcal vaccine (0-49 years) (1 of 2 - PCV) 1997 Zoster Vaccines (1 of 2) 1997 HPV Vaccines (1 - Risk 3-dos e SCDM series) 2005 Influenza Vaccine (#1) 2023 Depression Screening (Annual PHQ-2) 02/15/2024 Controlled Substance Agreement 03/21/2024 Controlled Substance Monitoring (PHQ-9) 03/21/2024 Controlled Substance Monitoring (UDS) 03/21/2024 Opioid Risk Tool (ORT) 03/21/2024 PEG assessment for Opioid therapy 03/21/2024 Fasting Glucose for Diabetes Screening 03/12/2027 03/12/2024, 02/27/2024 IPV Vaccines Aged Out No longer eligi ble based on patient's age to complete this topic Medical Devices Implanted Type Area Bank Vault Clerk Device Identifier Shelf Expiration Date Model / Serial / Lot Prt Pwr Mri Mctrdcr 8f - [id number] Implanted:Qty : 1 on 03/02/2024 by Emile Munroe M.D. 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) OUTSIDE MR NEURO Routine 05/14/2024 3:00 PM CDT OUTSIDE MR NEURO Routine 05/14/2024 2:55 PM CDT OUTSIDE DX SKELETAL Routine 05/07/2024 12:05 PM CDT ARIA COURSE COMPLETE TREATMENT INFORMATION Routine 03/19/2024 11:23 AM TOBACCO BALER ARIA DAILY TREATMENT INFORMATION Routine 03/19/2024 11:23 AM TOBACCO BALER EXT TEMPUS XT DNA AND RNA SOLID TUMOR Routine 03/16/2024 8:58 PM TOBACCO BALER 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) ARIA COURSE COMPLETE TREATMENT INFORMATION Routine 03/16/2024 10:06 AM TOBACCO BALER ARIA COURSE COMPLETE TREATMENT INFORMATION Routine 03/16/2024 10:06 AM TOBACCO BALER ARIA DAILY TREATMENT INFORMATION Routine 03/16/2024 10:06 AM TOBACCO BALER ARIA COURSE COMPLETE TREATMENT INFORMATION Routine 03/15/2024 10:18 AM TOBACCO BALER ARIA DAILY TREATMENT INFORMATION Routine 03/15/2024 10:18 AM TOBACCO BALER ARIA DAILY TREATMENT INFORMATION Routine 03/14/2024 10:07 AM TOBACCO BALER INITIAL RAD ONC TREATMENT PLANNING CT SIMULATION Routine 03/13/2024 10:30 AM TOBACCO BALER 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) ARIA DAILY TREATMENT INFORMATION Routine 03/13/2024 9:56 AM TOBACCO BALER MORPHOLOGY EVALUATION Routine 03/12/2024 11:54 AM TOBACCO BALER FERRITIN, S Routine 03/12/2024 11:54 AM TOBACCO BALER 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) COMPREHENSIVE METABOLIC PANEL, S/P Routine 03/12/2024 11:54 AM TOBACCO BALER 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) CBC WITH DIFFERENTIAL, B Routine 03/12/2024 11:54 AM TOBACCO BALER 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) ARIA DAILY TREATMENT INFORMATION Routine 03/12/2024 10:42 AM TOBACCO BALER EXT TEMPUS XF Routine 03/11/2024 9:59 PM TOBACCO BALER 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) ARIA DAILY TREATMENT INFORMATION Routine 03/09/2024 10:12 AM TOBACCO BALER ARIA DAILY TREATMENT INFORMATION Routine 03/08/2024 8:59 AM TOBACCO BALER ARIA DAILY TREATMENT INFORMATION Routine 03/07/2024 10:10 AM TOBACCO BALER ARIA DAILY TREATMENT INFORMATION Routine 03/06/2024 9:52 AM TOBACCO BALER ARIA DAILY TREATMENT INFORMATION Routine 03/05/2024 11:35 AM TOBACCO BALER PROTHROMBIN TIME (PT), P Routine 03/02/2024 11:17 AM TOBACCO BALER 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) AURA TEMPUS XT NORMAL, B Routine 03/02/2024 11:17 AM TOBACCO BALER 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) IR IMPLANTED VASCULAR ACCESS DEVICE PLACEMENT RAD - Routine (most inpatients and all outpatients) 03/02/2024 10:12 AM TOBACCO BALER 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) ADULT OXYGEN THERAPY Routine 03/02/2024 8:24 AM TOBACCO BALER US SUPERFICIAL SOFT TISSUE BIOPSY RAD - Routine (most inpatients and all outpatients) 02/29/2024 1:42 PM TOBACCO BALER 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) CYTOLOGY FINE NEEDLE ASPIRATION (INCLUDES CORE BIOPSIES Timed 02/29/2024 1:10 PM TOBACCO BALER 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) INITIAL RAD ONC TREATMENT PLANNING CT SIMULATION Routine 02/29/2024 10:15 AM TOBACCO BALER 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) AURA TEMP[facility] XT, TIS Routine 02/29/2024 9 :58 AM TOBACCO BALER 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) PET CT SKULL TO THIGH RAD - Routine (most inpatients and all outpatients) 02/27/2024 10:56 AM TOBACCO BALER 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) INTERPRETATION OF OUTSIDE CT CHEST RAD - Routine (most inpatients and all outpatients) 02/27/2024 8:04 AM TOBACCO BALER 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) INTERPRETATION OF OUTSIDE CT ABDOMEN AND OR PELVIS RAD - Routine (most inpatients and all outpatients) 02/27/2024 8:04 AM TOBACCO BALER 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) SPSMA RESULT Routine 02/27/2024 7:47 AM TOBACCO BALER CBC WITH DIFFERENTIAL, B Routine 02/27/2024 7:47 AM TOBACCO BALER 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) BILIRUBIN DIRECT, S/P Routine 02/27/2024 7:47 AM TOBACCO BALER 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) COMPREHENSIVE METABOLIC PANEL, S/P Routine 02/27/2024 7:47 AM TOBACCO BALER 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) FERRITIN, S Routine 02/27/2024 7:44 AM TOBACCO BALER 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 Narrative [facility] - 05/16/2024 2:00 PM CDT Navi Ansari M.D. 05/16/2024 4:23 PM Initial Rad Onc Treatment Planning CT Simulation Performed by: Navi Ansari M.D. Authorized by: Kelvin Uribe M.D. Kelvin Uribe M.D. RADIATION ONCOLOGY ORDERAB LES Final Result Performing Organization Address [facility] de Phone Number LUDWIN REYES na * MR head/brain wo/w con-Outside MR Neuro (05/14/2024 3:00 PM CDT) Only the most recent of2 resultswithin the time period is included. 05/14/2024 2:54 PM CDT Narrative [facility] - 05/14/2024 3:51 PM CDT This order has been created and auto-finalized to support the import of outside images. If available, original interpretation can be found on the Media Tab in Chart Review, in Document Viewer, as an image in InfinityView or as an Addendum. If a re-interpretation or overread is required please follow defined workflow. Provider Not In System IMG MRI PROCEDURES Final Result Performing Organization Address [facility] de Phone Number II NA * XR lumbar spine [id number] Skeletal Xray (05/07/2024 12:05 PM CDT) 05/07/2024 12:0 4 PM CDT Narrative [facility] - 05/07/2024 1:25 PM CDT This order has been created and auto-finalized to support the import of outside images. If available, original interpretation can be found on the Media Tab in Chart Review, in Document Viewer, as an image in InfinityView or as an Addendum. If a re-interpretation or overread is required please follow defined workflow. Provider Not In System IMG DIAGNOSTIC IMAGING AR OCEDURES Final Result Performing Organization Address [facility] de Phone Number II NA * Aria Course Complete Treatment Information (03/19/2024 11:23 AM TOBACCO BALER) Only the most recent of4 resultswithin the time period is included. Course ID 2xFace MASCORRO ARIA Course Start Date 5 13:13 TOBACCO BALER [facility]ASC[facility]RO ARIA Course End Date 5 13:35 TOBACCO BALER MASCORRO ARIA First Treatment Date 5 11:21 TOBACCO BALER MASCORRO ARIA Last Treatment Date 5 11:23 TOBACCO BALER MASCORRO ARIA Treatment Elapsed Days 0 MASC[place]RO ARIA Reference Point [id number] MASCORRO ARIA Dosage Given to Date cGy 800 MASCORRO ARIA Plan ID [id number] MASCORRO ARIA Fractions Treated to Date 1 MASCORRO ARIA Planned Total Fractions 1 MASCORRO ARIA Prescribed Dose Per Fraction 800 MASCORRO ARIA Prescription Dose in cGy 800 MASCORRO ARIA Plan Primary Reference Point [id number] MASCORRO ARIA 03/19/2024 11:2 3 AM TOBACCO BALER us Provider Not In System RADIATION ONCOLOGY ORDERA BLES Final Result LUDWIN REYES na * Aria Daily Treatment Information (03/19/2024 11:23 AM TOBACCO BALER) Only the most recent of11 resultswithin the time period is included. Course ID 2xFace MASCORRO ARIA Course Start Date 5 13:13 TOBACCO BALER MASCORRO ARIA First Treatment Date 5 11:21 TOBACCO BALER MASCORRO ARIA Last Treatment Date 5 11:23 TOBACCO BALER MASCORRO ARIA Treatment Elapsed Days 0 MASCORRO ARIA Reference Point [id number] MASCORRO ARIA Dosage Given to Date cGy 800 MASCORRO ARIA Session Dosage Given 800 MASCORRO ARIA Plan ID [id number] MASCORRO ARIA Fractions Treated to Date 1 MASCORRO ARIA Planned Total Fractions 1 MASCORRO ARIA Prescribed Dose Per Fraction 800 MASCORRO ARIA Prescription Dose in cGy 800 MASCORRO ARIA Plan Primary Reference Point [id number] MASCORRO ARIA 03/19/2024 11:2 3 AM TOBACCO BALER us Provider Not In System RADIATION ONCOLOGY ORDERA BLES Final Result LUDWIN REYES na * EXT Tempus xT DNA And RNA (03/16/2024 8:58 PM TOBACCO BALER) EXT Reason for Study To identify somatic and germline mutations relevant to patient's cancer. 03/16/2024 8:58 PM TOBACCO BALER [facility] EXT Genetic Diseases Assessed Cancer 03/16/2024 8:58 PM TOBACCO BALER [facility] EXT Description of Ranges of DNA Sequences Examined 648 gene panel 03/16/2024 8:58 PM TOBACCO BALER [facility] EXT Overall Interpretation positive 03/16/2024 8:58 PM TOBACCO BALER [facility] EXT MSI Stable 03/16/2024 8:58 PM TOBACCO BALER [facility] EXT TMB 2.6 m/MB 03/16/2024 8:58 PM TOBACCO BALER [facility] EXT Tempus Portal [email or web address] 03/16/2024 8:58 PM TOBACCO BALER [facility] Comment:[facility] Portal link EXT Low Coverage Regions [id number] 03/16/2024 8:58 PM TOBACCO BALER [facility] EXT Trial Count 3 8:58 PM TOBACCO BALER [facility] EXT Trial 1: Matched criteria Clinical Trial NCT ID: [id number] Clinical Trial Title: TAPUR: Testing the Use of Food and Drug Administration (FDA) Approved Drugs That Target a Specific Abnormality in a Tumor Gene in People With Advanced Stage Cancer Clinical Trial URL: [email or web address]://clinicalt rials.gov/ct2/cathie w/[id number] Clinical Phase: Phase 2 Clinical Trial Matches: CDKN2A p.D84N mutation Clinical Trial Distance and Location: [address] [place], [place] 03/16/2024 8:58 PM TOBACCO BALER [facility] EXT Trial 2: Matched criteria Clinical Trial NCT ID: [id number] Clinical Trial Title: Study of ATRN-119 in Patients with Advanced Solid Tumors Clinical Trial URL: [email or web address] rials.gov/ct2/cathie charles/[email or web address] Clinical Phase: Phase 1/Phase 2 Clinical Trial Matches: 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, CDKN2A p.D84N mutation Clinical Trial Distance and Location: [address] [place], [place] 03/16/2024 8:58 PM TOBACCO BALER [facility] EXT Trial 3: Matched criteria Clinical Trial NCT ID: [id number] Clinical Trial Title: Testing the Combination of Two Anti-cancer Drugs, Peposertib (M3814) and M1774 for Advanced Solid Tumors Clinical Trial URL: [email or web address]://clinicalt [facility].gov/ct2/cathie w/[id number] Clinical Phase: Phase 1 Clinical Trial Matches: ARID2 p.S137fs mutation Clinical Trial Distance and Location: [address] [place], [place] 03/16/2024 8:58 PM TOBACCO BALER [facility] EXT xR Result 1 NEGATIVE Negative - This report is being issued to report the results of gene rearrangement and altered splicing analysis from RNA sequencing. No gene rearrangements nor reportable altered splicing events were identified from RNA sequencing. 03/16/2024 8:58 PM TOBACCO BALER [facility] EXT Germline Variant Note No potential germline variants were found in the limited set of genes on which we report. 03/16/2024 8:58 PM TOBACCO BALER [facility] Treatment Implications Note No reportable treatment options found. 03/16/2024 8:58 PM TOBACCO BALER [facility] EXT HLA-A Typing A*03:01,A*25:01 8:58 PM TOBACCO BALER [facility] EXT HLA-B Typing B*18:01,B*35:01 8:58 PM TOBACCO BALER [facility] EXT HLA-C Typing C*04:01,C*12:03 8:58 PM TOBACCO BALER [facility] EXT HLA-A Ambiguous Alleles Yes 03/16/2024 8:58 PM TOBACCO BALER [facility] EXT HLA-B Ambiguous Alleles Yes 03/16/2024 8:58 PM TOBACCO BALER [facility] EXT HLA-C Ambiguous Alleles Yes 03/16/2024 8:58 PM TOBACCO BALER [facility] EXT HLA-A Sample Type Normal Only 03/16/2024 8:58 PM TOBACCO BALER [facility] EXT HLA-B Sample Type Normal Only 03/16/2024 8:58 PM TOBACCO BALER [facility] EXT HLA-C Sample Type Normal Only 03/16/2024 8:58 PM TOBACCO BALER [facility] Tissue 03/03/2024 11: 14 AM TOBACCO BALER Narrative This result has genomic variants that were not included in this document. us Tor Smalls M.D. LAB GENETIC TESTING Final Resul t [facility] [address] [facility], [address] [phone] [facility] [address] [facility], [address] [place] [address] * (ABNORMAL) Morphology Evaluation (03/12/2024 11:54 AM TOBACCO BALER) RBC Morphology See Specific Findings 03/12/2024 12:40 PM TOBACCO BALER NPRG PLT Morphology See Specific Findings 03/12/2024 12:40 PM TOBACCO BALER NPRG PLT Estimate Adequate Adequate 03/12/2024 12:40 PM TOBACCO BALER NPRG Acanthocytes Slight(A) 03/12/2024 12:40 PM TOBACCO BALER NPRG Anisocytosis Moderate(A) 03/12/2024 12:40 PM TOBACCO BALER NPRG Elliptocytes Slight(A) Not Seen 03/12/2024 12:40 PM TOBACCO BALER NPRG Hypochromia Moderate(A) Not Seen 03/12/2024 12:40 PM TOBACCO BALER NPRG Large PLT Present(A) Not Seen 03/12/2024 12:40 PM TOBACCO BALER NPRG Microcytosis Moderate(A) Not Seen 03/12/2024 12:40 PM TOBACCO BALER NPRG Polychromasia Slight(A) Not Seen 03/12/2024 12:40 PM TOBACCO BALER NPRG Poikilocytosis Slight(A) Not Seen 03/12/2024 12:40 PM TOBACCO BALER NPRG Blood 03/12/2024 11:5 4 AM TOBACCO BALER 03/12/2024 11:58 AM TOBACCO BALER us Brenda Mora P.A.-C., M.S. LAB BLOOD ADD-ON Final Result [facility] [address] [place] [address], [place] NPRG [facility] [address] [place] [address] * (ABNORMAL) CBC with Differential, Blood (03/12/2024 11:54 AM TOBACCO BALER) Only the most recent of2 resultswithin the time period is included. Hemoglobin 9.7(L) 13.2 - 16.6 g/dL 03/12/2024 12:40 PM TOBACCO BALER NPRG Hematocrit 32.7(L) 38.3 - 48.6 % 03/12/2024 12:40 PM TOBACCO BALER NPRG Erythrocytes 4.57 4.35 - 5.65 x10(12)/L 03/12/2024 12:40 PM TOBACCO BALER NPRG MCV 71.6(L) 78.2 - 97.9 fL 03/12/2024 12:40 PM TOBACCO BALER NPRG RBC Distrib Width SEE COMMENT 11.8 - 14.5 % 03/12/2024 12:40 PM TOBACCO BALER NPRG Comment:An accurate RDW can not be determined Platelet Count 261 135 - 317 x10(9)/L 03/12/2024 12:40 PM TOBACCO BALER NPRG Leukocytes 4.8 3.4 - 9.6 x10(9)/L 03/12/2024 12:40 PM TOBACCO BALER NPRG Neutrophils 3.78 1.56 - 6.45 x10(9)/L 03/12/2024 12:40 PM TOBACCO BALER NPRG Lymphocytes 0.36(L) 0.95 - 3.07 x10(9)/L 03/12/2024 12:40 PM TOBACCO BALER NPRG Monocytes 0.58 0.26 - 0.81 x10(9)/L 03/12/2024 12:40 PM TOBACCO BALER NPRG Eosinophils 0.06 0.03 - 0.48 x10(9)/L 03/12/2024 12:40 PM TOBACCO BALER NPRG Basophils 0.05 0.01 - 0.08 x10(9)/L 03/12/2024 12:40 PM TOBACCO BALER NPRG Blood (Blood, Venous) 03/12/2024 11:54 AM TOBACCO BALER 03/12/2024 11:58 AM TOBACCO BALER us Kelvin Uribe M.D. LAB BLOOD ADD-ON Final Res ult [facility] [address] [place] [address], [place] NPRG [facility] [address] [place] [address] * Ferritin (03/12/2024 11:54 AM TOBACCO BALER) Only the most recent of2 resultswithin the time period is included. Ferritin, S 103 31 - 409 mcg/L 03/12/2024 4:52 PM TOBACCO BALER [facility] Comment: Biotin has been identified by the tire trimmer hand as a potential interfering substance. Higher concentrations of biotin may be found in multivitamins, hair/nail supplements, and workout supplements. If the result does not match clinical observations, repeat testing after patient refrains from the use of supplements for at least 12 hours. Blood (Blood, Venous) 03/12/2024 11:54 AM TOBACCO BALER 03/12/2024 4:28 PM TOBACCO BALER us Kelvin Uribe M.D. LAB BLOOD ADD-ON Final Res ult [facility] [address] [place] [address], [facility] in [place] [address] [place] [address] * (ABNORMAL) Comprehensive Metabolic Panel (03/12/2024 11:54 AM TOBACCO BALER) Only the most recent of2 resultswithin the time period is included. Potassium, P 4.7 3.6 - 5.2 mmol/L 03/12/2024 12:25 PM TOBACCO BALER NPRG Sodium, P 139 135 - 145 mmol/L 03/12/2024 12:25 PM TOBACCO BALER NPRG Chloride, P 102 98 - 107 mmol/L 03/12/2024 12:25 PM TOBACCO BALER NPRG Bicarbonate, P 24 22 - 29 mmol/L 03/12/2024 12:25 PM TOBACCO BALER NPRG Anion Gap, P 13 7 - 15 03/12/2024 12:25 PM TOBACCO BALER NPRG BUN (Blood Urea Nitrogen), P 18 8 - 24 mg/dL 03/12/2024 12:25 PM TOBACCO BALER NPRG Creatinine 0.73(L) 0.74 - 1.35 mg/dL 03/12/2024 12:25 PM TOBACCO BALER NPRG Estimated GFR (eGFR) >90 >=60 mL/min/BS A 03/12/2024 12:25 PM TOBACCO BALER [facility] Comment: Estimated GFR calculated using the 2020 CKD_EPI creatinine equation. Calcium, Total, P 9.7 8.6 - 10.0 mg/dL 03/12/2024 12:25 PM TOBACCO BALER NPRG Glucose, P 105 70 - 140 mg/dL 03/12/2024 12:25 PM TOBACCO BALER NPRG Protein, Total, P 7.5 6.3 - 7.9 g/dL 03/12/2024 12:25 PM TOBACCO BALER NPRG Albumin, P 4.2 3.5 - 5.0 g/dL 03/12/2024 12:25 PM TOBACCO BALER NPRG Aspartate Aminotransferase (AST), P 124(H) 8 - 48 U/L 03/12/2024 12:25 PM TOBACCO BALER NPRG Alkaline Phosphatase, P 226(H) 40 - 129 U/L 03/12/2024 12:25 PM TOBACCO BALER NPRG Alanine Aminotransferase (ALT), P 21 7 - 55 U/L 03/12/2024 12:25 PM TOBACCO BALER NPRG Bilirubin, Total, P 0.4 0.0 - 1.2 mg/dL 03/12/2024 12:25 PM TOBACCO BALER NPRG Blood (Blood, Venous) 03/12/2024 11:54 AM TOBACCO BALER 03/12/2024 11:58 AM TOBACCO BALER us Kelvin Uribe M.D. LAB BLOOD ADD-ON Final Res ult [facility] [address] [place] [address], [facility] [address] [place] [address] * EXT Tempus xF (03/11/2024 9:59 PM TOBACCO BALER) EXT Reason for Study To identify mutations relevant to patient's cancer. 03/11/2024 9:59 PM TOBACCO BALER [facility] EXT Genetic Diseases Assessed Cancer 03/11/2024 9:59 PM TOBACCO BALER [facility] EXT Description of Ranges of DNA Sequences Examined 105 gene liquid biopsy 03/11/2024 9:59 PM TOBACCO BALER [facility] EXT Overall Interpretation positive 03/11/2024 9:59 PM TOBACCO BALER [facility] EXT [facility] Portal [email or web address] /[id number] 03/11/2024 9:59 PM TOBACCO BALER [facility] Comment:[facility] Portal link EXT Low Coverage Regions ERRFI1, JAK1, TERT 03/11/2024 9:59 PM TOBACCO BALER [facility] EXT Therapy Count 6 025 9:59 PM TOBACCO BALER [facility] EXT Tempus: Potential Therapy 1 Gene: N/A Variant: EML4-ALK Match Type: fusion Match Type Description: EML4-ALK Agent: Alectinib Drug Class: ALK Inhibitor Tissue: Non-Small Cell Lung Cancer Association: Response Evidence Status: Consensus Evidence ID: NCCN [id number] Variant: Chromosomal rearrangement Label: FDA Off Label FDA Approved?: Yes On label?: No 03/11/2024 9:59 PM TOBACCO BALER [facility] EXT Tempus: Potential Therapy 2 Gene: N/A Variant: EML4-ALK Match Type: fusion Match Type Description: EML4-ALK Agent: Brigatinib Drug Class: ALK Inhibitor Tissue: Non-Small Cell Lung Cancer Association: Response Evidence Status: Consensus Evidence ID: NCCN KDB Variant: Chromosomal rearrangement Label: FDA Off Label FDA Approved?: Yes On label?: No 03/11/2024 9:59 PM TOBACCO BALER [facility] EXT Tempus: Potential Therapy 3 Gene: N/A Variant: EML4-ALK Match Type: fusion Match Type Description: EML4-ALK Agent: Ensartinib Drug Class: ALK Inhibitor Tissue: Non-Small Cell Lung Cancer Association: Response Evidence Status: Consensus Evidence ID: FDA KDB Variant: Chromosomal rearrangement Label: FDA Off Label FDA Approved?: Yes On label?: No 03/11/2024 9:59 PM TOBACCO BALER [facility] EXT Tempus: Potential Therapy 4 Gene: N/A Variant: EML4-ALK Match Type: fusion Match Type Description: EML4-ALK Agent: Ceritinib Drug Class: ALK/ROS1 Inhibitor Tissue: Non-Small Cell Lung Cancer Association: Response Evidence Status: Consensus Evidence ID: NCCN KDB Variant: Chromosomal rearrangement Label: FDA Off Label FDA Approved?: Yes On label?: No 03/11/2024 9:59 PM TOBACCO BALER [facility] EXT Tempus: Potential Therapy 5 Gene: N/A Variant: EML4-ALK Match Type: fusion Match Type Description: EML4-ALK Agent: Crizotinib Drug Class: ALK/ROS1 Inhibitor Tissue: Non-Small Cell Lung Cancer Association: Response Evidence Status: Consensus Evidence ID: NCCN KDB Variant: Chromosomal rearrangement Label: FDA Off Label FDA Approved?: Yes On label?: No 03/11/2024 9:59 PM TOBACCO BALER [facility] EXT Tempus: Potential Therapy 6 Gene: N/A Variant: EML4-ALK Match Type: fusion Match Type Description: EML4-ALK Agent: Lorlatinib Drug Class: ALK/ROS1 Inhibitor Tissue: Non-Small Cell Lung Cancer Association: Response Evidence Status: Consensus Evidence ID: NCCN KDB Variant: Chromosomal rearrangement Label: FDA Off Label FDA Approved?: Yes On label?: No 03/11/2024 9:59 PM TOBACCO BALER [facility] EXT Trial Count 3 9:59 PM TOBACCO BALER [facility] EXT Trial 1: Matched criteria Clinical Trial NCT ID: [id number] Clinical Trial Title: Tumor-Agnostic Precision Immuno-Oncology and Somatic Targeting Rational for You (TAPISTRY) Platform Study Clinical Trial URL: [email or web address]://clinicalt [email or web address].gov/ct2/cathie w/[id number] Clinical Phase: Phase 2 Clinical Trial Matches: EML4-ALK chromosomal rearrangement Clinical Trial Distance and Location: [place] 03/11/2024 9:59 PM TOBACCO BALER [facility] EXT Trial 2: Matched criteria Clinical Trial NCT ID: [id number] Clinical Trial Title: TAPUR: Testing the Use of Food and Drug Administration (FDA) Approved Drugs That Target a Specific Abnormality in a Tumor Gene in People With Advanced Stage Cancer Clinical Trial URL: [email or web address] [email or web address].gov/ct2/cathie w/[id number] Clinical Phase: Phase 2 Clinical Trial Matches: CDKN2A p.D84N mutation Clinical Trial Distance and Location: [address] [place], [place] 03/11/2024 9:59 PM TOBACCO BALER [facility] EXT Trial 3: Matched criteria Clinical Trial NCT ID: [id number] Clinical Trial Title: Study of ATRN-119 in Patients with Advanced Solid Tumors Clinical Trial URL: [email or web address] Clinical Phase: Phase 1/Phase 2 Clinical Trial Matches: 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 us Tor Smalls M.D. LAB GENETIC TESTING Final Resul t [facility] [address] [facility], [address] [place] [address] [facility] [address] [facility], [address] [place] [address] * Aura Tempus xT, Normal - Sent Out Lab (03/02/2024 11:17 AM TOBACCO BALER) Aura Tempus xT Normal, B Collected, Sent to Reference Lab DEFAULT 03/02/2024 1:36 PM TOBACCO BALER [facility] Blood (Blood, Venous) 03/02/2024 11:17 AM TOBACCO BALER 03/02/2024 1:36 PM TOBACCO BALER Narrative [facility] RE[facility] - 03/02/2024 1:36 PM TOBACCO BALER Specimen Information: Specimen ID: [id number] Specimen Type: Blood Specimen Collection Start Date: 03/02/2024 11:17 AM Specimen Received Date: 03/02/2024 1:36 PM Specimen ID: [id number] Specimen Type: Blood Specimen Collection Start Date: 03/02/2024 11:17 AM Specimen Received Date: 03/02/2024 1:36 PM Tor Smalls M.D. LAB GENETIC TESTING Final Resul t Performing Organization Address [facility] Co de Phone Number [facility] [address] [place] [address], [facility] [address] [place] [address] * (ABNORMAL) Prothrombin Time (PT) (03/02/2024 11:17 AM TOBACCO BALER) Prothrombin Time, P 14.8(H) 9.4 - 12.5 sec 03/02/2024 1:33 PM TOBACCO BALER DTL INR 1.3 0.9 - 1.1 03/02/2024 1:33 PM TOBACCO BALER DTL Comment: ----ADDITIONAL INFORMATION---- Standard intensity warfarin therapeutic range: 2.0 to 3.0 High intensity warfarin therapeutic range: 2.5 to 3.5 Blood (Blood, Venous) 03/02/2024 11:17 AM TOBACCO BALER 03/02/2024 11:39 AM TOBACCO BALER Tor Smalls M.D. LAB BLOOD ADD-ON Final Result Performing Organization Address [facility] Co de Phone Number [facility] [address] [place] [address], [facility] [address] [place] [address] * IR Implanted Vascular Access Device Placement (03/02/2024 10:12 AM TOBACCO BALER) Anatomical Region Laterality Modality Chest, Pelvis, Abdomen, Vasc ular Interventional RST LOS, Vascular Interventional ARZ LOS, Vascular Interventional FLA LOS N/A X-Ray Angiography Impressions 03/02/2024 10:39 AM TOBACCO BALER Placement of a right internal jugular vein 8F slim Power Port-A-Cath. Ready for immediate use. The port was left accessed with a 20-gauge, 3/4 inch needle for blood draw later today. NR Narrative 03/02/2024 10:39 AM TOBACCO BALER EXAM: IR IMPLANTED VASCULAR ACCESS DEVICE PLACEMENT CLINICAL HISTORY: 43-year-old male with esophageal cancer. He presents for port placement for chemotherapy access. TECHNIQUE: The right neck and chest were prepped and draped in sterile fashion. Using ultrasound guidance to access vessel, patency was shown and after anesthetizing the skin with lidocaine, the right internal jugular vein was punctured successfully. A permanent image was created and stored. Wire advanced centrally and used for measurement purposes. Suitable port site in the right anterior chest was anesthetized and an incision made. Sharp dissection was performed creating a port pocket. An 8F slim PowerPort was then placed into the pocket. Catheter was tunneled from the port pocket to the venotomy site. Catheter was cut to length and advanced through a peel- away sheath. Catheter tip is near the SVC/RA junction. Port was flushed and is ready for immediate use. Port pocket closed with interrupted 3-0 Vicryl stitches and Dermabond. Venotomy site closed with Dermabond. No immediate complications. For placement of this central venous access, we followed catheter checklist and a standardized protocol. The position of the catheter tip was confirmed under fluoroscopic guidance and a final image of the catheter position was obtained. Ready for use. CT-injectable PowerPort was placed. This device can be power injected up to a pressure of 300 PSI and flow rate of 5 mL/sec. PREPROCEDURE: Patient seen, evaluated, history reviewed, and approved for sedation. Airway, heart, and lung exam satisfactory for sedation. Discussed risks, benefits, alternatives for procedure, and/or sedation. The roles and responsibilities of care team members, residents, and fellows were discussed. Patient understands information and questions answered. Informed consent obtained from the patient. Immediately prior to starting the procedure, in the presence of the assisting personnel, a procedural pause was conducted to verify correct patient identity and verification of procedure to be performed, and as applicable, correct side and site, correct patient position, availability of implants, special equipment, or special requirements, and all image and specimen identification data. INTRAPROCEDURE: Moderate sedation was administered by sedation nurse under my supervision. The patient was continuously monitored with real time oxygen saturation, heart rate, ECG rhythm strip and blood pressure throughout administration of the sedation and performance of the procedure. The total intra-procedural sedation time was: 20 minutes. Procedure Note Emile Munroe M.D. - 03/02/2024 EXAM: IR IMPLANTED VASCULAR ACCESS DEVICE PLACEMENT CLINICAL HISTORY: 43-year-old male with esophageal cancer. He presents forport placement for chemotherapy access. TECHNIQUE: The right neck and chest were prepped and draped in sterilefashion. Using ultrasound guidance to access vessel, patency was shown andafter anesthetizing the skin with lidocaine, the right internal jugularvein was punctured successfully. A permanent image was created and stored. Wire advanced centrally and usedfor measurement purposes. Suitable port site in the right anterior chestwas anesthetized and an incision made. Sharp dissection was performedcreating a port pocket. An 8F slim PowerPort was then placed into the pocket. Catheter was tunneled from theport pocket to the venotomy site. Catheter was cut to length and advancedthrough a peel-away sheath. Catheter tip is near the SVC/RA junction. Portwas flushed and is ready for immediate use. Port pocket closed with interrupted 3-0 Vicryl stitches andDermabond. Venotomy site closed with Dermabond. No immediatecomplications. For placement of this central venous access, we followed catheterchecklist and a standardized protocol. The position of the catheter tipwas confirmed under fluoroscopic guidance and a final image of thecatheter position was obtained. Ready for use. CT-injectable PowerPort was placed. This device can be power injected upto a pressure of 300 PSI and flow rate of 5 mL/sec. PREPROCEDURE: Patient seen, evaluated, history reviewed, and approved forsedation. Airway, heart, and lung exam satisfactory for sedation.Discussed risks, benefits, alternatives for procedure, and/or sedation.The roles and responsibilities of care team members, residents, and fellows were discussed. Patient understandsinformation and questions answered. Informed consent obtained from thepatient. Immediately prior to starting the procedure, in the presence ofthe assisting personnel, a procedural pause was conducted to verify correct patient identity and verificationof procedure to be performed, and as applicable, correct side and site,correct patient position, availability of implants, special equipment, orspecial requirements, and all image and specimen identification data. INTRAPROCEDURE: Moderate sedation was administered by sedation nurse undermy supervision. The patient was continuously monitored with real timeoxygen saturation, heart rate, ECG rhythm strip and blood pressurethroughout administration of the sedation and performance of the procedure. The total intra-procedural sedation timewas: 20 minutes. IMPRESSION: Placement of a right internal jugular vein 8F slim Power Port-A-Cath.Ready for immediate use. The port was left accessed with a 20-gauge, 3/4inch needle for blood draw later today. NR Tor Smalls M.D. IMG IR PROCEDURES Final Result * US Superficial Soft Tissue Biopsy (02/29/2024 1:42 PM TOBACCO BALER) Anatomical Region Laterality Modality Body, Ultrasound RST LOS, Mu sculoskeletal ARZ LOS, Ultrasound ARZ LOS, Procedure FLA LOS, Abdominal FLA LOS, Procedural, Procedural NWWI LOS N/A Ultrasound Impressions 02/29/2024 1:57 PM TOBACCO BALER Ultrasound-guided right temporal scalp subcutaneous mass biopsy which showed abnormal FDG uptake on PET/CT 02/27/2024 series 2401 image 46. EP Narrative 02/29/2024 1:57 PM TOBACCO BALER EXAM: US SUPERFICIAL SOFT TISSUE BIOPSY PRE-PROCEDURE: Patient seen and evaluated. Allergies, pertinent medications, and history reviewed. Discussed risks, benefits, alternatives for procedure, and obtained informed consent. Patient understands information and questions answered. Immediately prior to starting the procedure, in the presence of the assisting personnel, procedural pause was conducted to verify correct patient identity and verification of procedure to be performed, and as applicable, correct side and site, correct patient position, availability of implants, special equipment, or special requirements, and all image and specimen identification data. The roles and responsibilities of care team members, residents, and fellows were discussed. TECHNIQUE: Sterile. 1% lidocaine for local anesthesia. Location: Right temporal scalp subcutaneous mass which showed abnormal FDG uptake on PET/CT 02/27/2024 series 2401 image 46. Target lesion size: Approximately 1.2 x 1.4 x 2.3 cm. Needle size: 18-gauge core needle biopsy device. Number of passes: 6 Complication: None. Blood loss: None. PATIENT INSTRUCTIONS: Patient may be dismissed from the radiology department when dismissal criteria met. POST-PROCEDURE DIAGNOSIS: Right temporal scalp subcutaneous mass. Procedure Note Brady Marcos M.D. - 02/29/2024 EXAM: US SUPERFICIAL SOFT TISSUE BIOPSY PRE-PROCEDURE: Patient seen and evaluated. Allergies, pertinentmedications, and history reviewed. Discussed risks, benefits, alternativesfor procedure, and obtained informed consent. Patient understandsinformation and questions answered. Immediately prior to starting the procedure, in the presence of the assistingpersonnel, procedural pause was conducted to verify correct patientidentity and verification of procedure to be performed, and as applicable,correct side and site, correct patient position, availability of implants, special equipment, or specialrequirements, and all image and specimen identification data. The rolesand responsibilities of care team members, residents, and fellows werediscussed. TECHNIQUE: Sterile. 1% lidocaine for local anesthesia. Location: Right temporal scalp subcutaneous mass which showed abnormal FDGuptake on PET/CT 02/27/2024 series 2401 image 46. Target lesion size: Approximately 1.2 x 1.4 x 2.3 cm. Needle size: 18-gauge core needle biopsy device. Number of passes: 6 Complication: None. Blood loss: None. PATIENT INSTRUCTIONS: Patient may be dismissed from the radiologydepartment when dismissal criteria met. POST-PROCEDURE DIAGNOSIS: Right temporal scalp subcutaneous mass. IMPRESSION: Ultrasound-guided right temporal scalp subcutaneous mass biopsy whichshowed abnormal FDG uptake on PET/CT 02/27/2024 series 2401 image 46. EP us Yue Donaldson B.Chir. IMG US PROCEDURES Final Result * (ABNORMAL) Cytology Fine Needle Aspiration (including core biopsies) (02/29/2024 1:10 PM TOBACCO BALER) (A) 03/01/2024 3:54 PM TOBACCO BALER DTL Report electronically signed by Bharti Beard M.D., Ph.D. I verify that I have examined all relevant slides/materials for the specimen(s) and rendered or confirmed the diagnosis. (A) 03/01/2024 3:54 PM TOBACCO BALER DTL Gross Description Received 6 alcohol-fixed smears and tissue. Additionally, received in formalin labeled with the patient's name, medical record number and soft tissue, face, right facial mass areseven pale heart-heart tissue cores and multiple fragments, ranging from minute-1.4 cm in length and measuring 1 cm in average diameter.Due to the scant nature of the tissue fragments, some or all may not survive processing. Specimens are submitted en toto in cassettesA1, containing three cores and three fragments and A2, containing four cores and nine fragments. Grossed by JTW. (A) 03/01/2024 3:54 PM TOBACCO BALER DTL Source A. Soft Tissue, Face, Right facial mass, fine needle aspiration (A) 03/01/2024 3:54 PM TOBACCO BALER DTL Addendum Digital imaging was used in the diagnostic assessment of this case. Signed by Bharti Beard M.D., Ph.D. 04/17/2024 4:23 PM MLH1, MSH2, MSH6 and PMS2 (block A2) Immunohistochemist ry for mismatch repair proteins was performed and the neoplastic cells revealed the following: MLH1: Intact MSH2: Intact MSH6: Intact PMS2: Intact The above results indicate proficient mismatch repair function (pMMR). Signed by Neo Castro M.D. 04/16/2024 1:04 PM ALK (block A2) is negative. Signed by Neo Castro M.D. 03/23/2024 2:27 PM Digital imaging was used in the diagnostic assessment of this case. This test was developed and its performance characteristics determined by [facility] in a manner consistent with CLIA requirements. This test has not been cleared or approved by the U.S. Food and Drug Administration. Aura Tempus xT has been requested by Dr. Tor Smalls and will be performed on block A1 at [facility], [employer], [place], [place]. Signed by Neo Castro M.D. 03/25/2024 5:09 PM Face, Right facial mass, specimen for PD-L1 immunohistochemist ry studies (clone [id number], [employer], [place], [place]; using a proprietary detection system) (A1): Provided tumor type: Adenocarcinoma. Result: Negative. 0% of tumor cells are positive for PD-L1 (membranous positivity). Less than 1% of tumor associated immune cells are positive for PD-L1 (membranous or cytoplasmic positivity). Based upon the tumor cell and tumor-associated immune cell expression, the combined positive score (CPS) is less than 1. Interpretation: Studies suggest that positive PD-L1 immunohistochemica l expression in tumor cells and/or tumor associated immune cells may predict tumor response to therapy with immune checkpoint inhibitors. This result should not be used as the sole factor in determining treatment, as other factors (microsatellite instability, tumor mutation burden, etc.) have been also studied as predictive markers in some tumor types. Fixation: This test has been validated for non-decalcified paraffin embedded tissue specimens fixed in 10% neutral buffered formalin. This assay has not been validated on tissues subjected to the decalcification process and/or use of alternative fixatives for bone/bone marrow specimens or cell blocks. Face, right facial mass, specimen for CLD18 immunohistochemist ry studies (anti-[id number] ([id number]) clone [id number], [employer] [facility], [place], [place]; using a proprietary detection system) (A1): Positive for Claudin-18 (greater than 75% of tumor cells showing moderate to strong expression). Interpretation: Claudin 18.2 is a biomarker that, when positive (showing at least moderate membranous staining) in more than 75% of tumor cells, predicts a response to zolbetuximab and has been approved for gastric and gastroesophageal adenocarcinoma. The Claudin 18.2 antibody (clone [id number]) is sourced from [employer] and testing was performed per clinical validation and relevant tire trimmer hand-provi ded instructions. This result should be interpreted in the appropriate clinical context. Fixation: This test has been validated for non-decalcified paraffin embedded tissue specimens fixed in 10% neutral buffered formalin. Recommended fixation time is between 6-48 hours. This assay has not been validated on tissues subjected to the decalcification process and /or use of alternative fixatives. Signed by Param Mckinney M.D. 03/05/2024 2:50 PM(A) 04/17/2024 4:23 PM TOBACCO BALER DTL Comment:REVISED RESULTS Interpretation A. Soft Tissue, Face, Right facial mass, fine needle aspiration (smears/core biopsy): Positive for malignancy. Poorly differentiated adenocarcinoma. Immunohistochemica l stains were performed on block A1. The neoplastic cells are positive for CDX2 and rare cells are positive for CK7. They are negative For CK20. (A) 04/17/2024 4:23 PM TOBACCO BALER DTL Tissue (Face) 02/29/2024 1:1 0 PM TOBACCO BALER us Natalia Qiu LAB SURG PATH POLA NEW Edited Result - Final Performing Organization Address City/[facility]/ZIP Co de Phone Number [facility] [address] [place] [address], [facility] DTL [address] [place] [address] * Aura Tempus xT, Tissue - Sent Out Lab (02/29/2024 9:58 AM TOBACCO BALER) Aura Tempus xT, Tis Collected, Sent to Reference Lab DEFAULT 03/06/2024 12:58 PM TOBACCO BALER [facility] Tissue (Other, Specify in Comments) 02/29/2024 9:58 AM TOBACCO BALER 03/06/2024 12:58 PM TOBACCO BALER us Tor Smalls M.D. LAB GENETIC TESTING Final Resul t [facility] [address] [place] [address], [facility] [address] [place] [address] * PET CT Skull to Thigh FDG (02/27/2024 10:56 AM TOBACCO BALER) Anatomical Region Laterality Modality Body, Nuclear Medicine PET R ST LOS, PET ARZ LOS, Nuclear Medicine PET FLA LOS, Nuclear Medicine N/A Positron Emission Tomography (PET), Positron Emission Tomography (PET) Impressions 02/27/2024 1:59 PM TOBACCO BALER 1. Large distal esophageal FDG avid mass consistent with esophageal carcinoma. 2. Large FDG avid gastrohepatic ligament node or small cluster of nodes are also likely metastatic. 3. Multiple large FDG avid liver metastasis seen both lobes of the liver. 4. FDG avid liz metastases are seen in the paraesophageal node near the corey and upper paratracheal node on the left. 5. Bone metastasis involving the L4 vertebral body. 6. Possible C1 spine metastasis or possibly in the adjacent soft tissue. Recommend MR of the neck for further evaluation. 7. Subcutaneous FDG avid lesion in the scalp overlying the right temporal lobe. This is worrisome for metastasis but an unusual location. Ultrasound and biopsy may be helpful. Narrative 02/27/2024 1:59 PM TOBACCO BALER EXAM: PET CT SKULL TO THIGH FDG Serum glucose at time of F-18 FDG injection was 94 mg/dL. Patient followed standard dietary/fasting requirements for this exam. RADIOPHARMACEUTICAL/MEDS: Route: intravenous fludeoxyglucose F 18 injection RESIDENTIAL (FDG F-18),9.54 millicurie TECHNIQUE: F-18 FDG PET/CT scan was performed from the vertex through the upper thighs with low dose, non-contrast, free-breathing CT images for attenuation correction and anatomic localization (AC/AL), with imaging beginning at approximately 60 minutes after radiotracer injection. COMPARISON: No previous FDG PET scan. INDICATION: Staging esophageal carcinoma. Evaluation of mass. Initial treatment strategy. The patient reports no recent vaccinations. FINDINGS: FDG PET scan images show a large mass involving the distal esophagus (PET/CT image 154 through 186 with the FDG SUV maximum measuring 16.9. In addition there is a large FDG avid gastrohepatic ligament node (PET/CT image 194) measuring 3.0 x 2.1 cm with a FDG SUV maximum measuring 14.9. Multiple large FDG avid liver metastasis are seen throughout both lobes of liver. FDG uptake that is apparently increased in the lower right thorax shows no correlating abnormality within the lungs or chest wall. This is likely all misregistered FDG from the extensive FDG avid liver metastasis with motion between the FDG PET scan and correlating CT imaging. No findings are seen to indicate lung metastasis. FDG avid paraesophageal node (PET/CT image 142) and upper paratracheal node on the left (PET/CT image 124) are likely metastatic. FDG avid bone metastasis involving the L4 vertebral body on the left (PET/CT image 250) and within or adjacent to the C1 transverse process in the upper cervical spine on the right (PET/CT image 68). Subcutaneous nodule in the scalp on the right overlying the temporal skull (PET/CT image 47) measures 1.8 x 1.4 cm and has FDG SUV maximum measuring 10.6. This is a more unusual location for tumor metastasis. Recommend ultrasound evaluation and biopsy if indicated. FDG tracer within the pelvis appears to all be normal excreted activity within the ureters and bladder. Additional findings on the noncontrast low-dose CT: Colonic diverticulosis. Prostate enlargement. Procedure Note Jose Enciso M.D. - 02/27/2024 EXAM: PET CT SKULL TO THIGH FDG Serum glucose at time of F-18 FDG injection was 94 mg/dL. Patient followedstandard dietary/fasting requirements for this exam. RADIOPHARMACEUTICAL/MEDS: Route: intravenous fludeoxyglucose F 18 injection RESIDENTIAL (FDG F-18),9.54 millicurie TECHNIQUE: F-18 FDG PET/CT scan was performed from the vertex through theupper thighs with low dose, non-contrast, free-breathing CT images forattenuation correction and anatomic localization (AC/AL), with imagingbeginning at approximately 60 minutes after radiotracer injection. COMPARISON: No previous FDG PET scan. INDICATION: Staging esophageal carcinoma. Evaluation of mass. Initialtreatment strategy. The patient reports no recent vaccinations. FINDINGS: FDG PET scan images show a large mass involving the distalesophagus (PET/CT image 154 through 186 with the FDG SUV maximum [id number]. In addition there is a large FDG avid gastrohepatic ligament node(PET/CT image 194) measuring 3.0 x 2.1 cm with a FDG SUV maximum measuring 14.9. Multiple large FDG avid liver metastasis are seen throughout both lobes ofliver. FDG uptake that is apparently increased in the lower right thoraxshows no correlating abnormality within the lungs or chest wall. This islikely all misregistered FDG from the extensive FDG avid liver metastasis with motion between the FDG PETscan and correlating CT imaging. No findings are seen to indicate lungmetastasis. FDG avid paraesophageal node (PET/CT image 142) and upper paratrachealnode on the left (PET/CT image 124) are likely metastatic. FDG avid bone metastasis involving the L4 vertebral body on the left(PET/CT image 250) and within or adjacent to the C1 transverse process inthe upper cervical spine on the right (PET/CT image 68). Subcutaneous nodule in the scalp on the right overlying the temporal skull(PET/CT image 47) measures 1.8 x 1.4 cm and has FDG SUV maximum [id number]. This is a more unusual location for tumor metastasis. Recommendultrasound evaluation and biopsy if indicated. FDG tracer within the pelvis appears to all be normal excreted activitywithin the ureters and bladder. Additional findings on the noncontrast low-dose CT: Colonicdiverticulosis. Prostate enlargement. IMPRESSION: 1. Large distal esophageal FDG avid mass consistent with esophagealcarcinoma. 2. Large FDG avid gastrohepatic ligament node or small cluster of nodesare also likely metastatic. 3. Multiple large FDG avid liver metastasis seen both lobes of theliver. 4. FDG avid liz metastases are seen in the paraesophageal node near thecarina and upper paratracheal node on the left. 5. Bone metastasis involving the L4 vertebral body. 6. Possible C1 spine metastasis or possibly in the adjacent soft tissue.Recommend MR of the neck for further evaluation. 7. Subcutaneous FDG avid lesion in the scalp overlying the right temporallobe. This is worrisome for metastasis but an unusual location. Ultrasoundand biopsy may be helpful. us Melanie Wu M.D. IMG NM PROCEDURES Final Resu lt * Interpretation of Outside CT Chest (02/27/2024 8:04 AM TOBACCO BALER) Anatomical Region Laterality Modality Chest, Thoracic RST LOS, Tho racic ARZ LOS, Thoracic FLA LOS, Other, Body N/A Computed Tomography Impressions 02/28/2024 3:06 PM TOBACCO BALER 1. Prominent eccentric circumferential thickening/mass of the lower third of the esophagus extending into the GE junction, over a length of approximately 12 cm, consistent with known esophageal neoplasm. 2. Mildly enlarged right periaortic/paraesophageal node at the level the corey was FDG avid on subsequent PET/CT of 02/27/2024 and is likely metastatic. A mildly prominent high right paratracheal node was mildly FDG avid and is indeterminate, but may be metastatic as well. Narrative 02/28/2024 3:06 PM TOBACCO BALER EXAM: INTERPRETATION OF OUTSIDE CT CHEST with IV contrast enhancement of 02/14/2024 COMPARISON: No prior chest CT scans. Correlation with subsequent [facility] PET/CT of 02/27/2024 FINDINGS: Prominent eccentric circumferential thickening/mass involving the lower third of the esophagus extending into the proximal stomach, measuring up to approximately 27 mm in thickness ( 2/72) and extending over a length of approximately 12 cm, consistent with known esophageal neoplasm. Enlarged right periaortic/paraesophageal node between the aorta and esophagus at the level the corey measures approximately 10 mm in short axis and was FDG avid on the PET study ( 2/40). A mildly prominent high left paratracheal node at the level of the great vessels measures 7 mm in short axis and was mildly FDG avid on the PET study ( 2/23). Small fissural lymph node along the right major fissure ( 2/52), of no clinical significance. No indeterminate pulmonary nodules or parenchymal opacities. No effusions. Mild scattered skeletal degenerative changes. Examination performed in conjunction with separately reported CT of the abdomen/pelvis. Procedure Note Mere Flowers M.D. - 02/28/2024 EXAM: INTERPRETATION OF OUTSIDE CT CHEST with IV contrast enhancement of02/14/2024 COMPARISON: No prior chest CT scans. Correlation with subsequent MayoPET/CT of 02/27/2024 FINDINGS: Prominent eccentric circumferential thickening/mass involving the lowerthird of the esophagus extending into the proximal stomach, measuring upto approximately 27 mm in thickness ( 2/72) and extending over a length ofapproximately 12 cm, consistent with known esophageal neoplasm. Enlarged right periaortic/paraesophageal node between the aorta andesophagus at the level the corey measures approximately 10 mm in shortaxis and was FDG avid on the PET study ( 2/40). A mildly prominent highleft paratracheal node at the level of the great vessels measures 7 mm in short axis and was mildly FDG avid on thePET study ( 2/23). Small fissural lymph node along the right major fissure ( 2/52), of noclinical significance. No indeterminate pulmonary nodules or parenchymalopacities. No effusions. Mild scattered skeletal degenerative changes. Examination performed in conjunction with separately reported CT of theabdomen/pelvis. IMPRESSION: 1. Prominent eccentric circumferential thickening/mass of the lower thirdof the esophagus extending into the GE junction, over a length ofapproximately 12 cm, consistent with known esophageal neoplasm. 2. Mildly enlarged right periaortic/paraesophageal node at the level thecarina was FDG avid on subsequent PET/CT of 02/27/2024 and is likelymetastatic. A mildly prominent high right paratracheal node was mildly FDGavid and is indeterminate, but may be metastatic as well. us Natalia Qiu IMG CT PROCEDURES Final Result * Interpretation of Outside CT Abdomen and or Pelvis (02/27/2024 8:04 AM TOBACCO BALER) Anatomical Region Laterality Modality Abdomen, Pelvis, Abdominal R ST LOS, Abdominal ARZ LOS, Abdominal FLA LOS, Other N/A Computed Tomography Impressions 02/28/2024 9:15 AM TOBACCO BALER 1. Marked circumferential thickening of the imaged lower esophagus in keeping with known esophageal malignancy. 2. Extensive bilobar metastatic liver disease and upper abdominal metastatic lymphadenopathy as detailed. 3. The left L4 pedicle bone metastasis seen on subsequent PET/CT is not well appreciated on conventional CT. Narrative 02/28/2024 9:15 AM TOBACCO BALER EXAM: INTERPRETATION OF OUTSIDE CT ABDOMEN AND OR PELVIS Outside CT abdomen with IV and oral contrast from 02/14/2024. COMPARISON: PET/CT 02/27/2024. FINDINGS: HEPATOBILIARY SYSTEM Liver: Multiple (over a dozen) large bilobar liver metastases. A few measurements are provided as follows from series 10: 1. Image 16, segment 2, 5.5 x 9.9 cm. 2. Image 20, segment 7, 3.8 x 4.2 cm. 3. Image 32, segment 4A/B, 8.7 x 9.0 cm. 4. Image 47, segment 5/6, 7.0 x 9.0 cm. 5. Image 76, segment 6, 1.7 x 2.3 cm. Multiple additional lesions are also present. The central portal and hepatic veins appear patent noting probable mass effect on the middle hepatic vein related to large central metastases. A 2.4 x 3.8 cm caudate lobe metastasis (series 10, image 18) causes mass effect on the intrahepatic IVC. Gallbladder and bile ducts: No important abnormality. Pancreas: No important abnormality. GASTROINTESTINAL TRACT: Marked circumferential thickening involving the imaged lower esophagus in keeping with known esophageal malignancy. Mural thickness measures up to 2.8 cm. Remainder of the imaged GI tract is unremarkable. GENITOURINARY Adrenals: No important abnormality. Kidneys / Ureter: 1.1 cm cortical cyst in the lower pole of the right kidney. Two nonobstructing 1-2 mm calculi in the lower pole of the left kidney. LYMPHATIC SYSTEM Spleen: No important abnormality. Lymph nodes: Enlarged upper abdominal lymph nodes consistent with metastatic disease showing increased FDG activity on recent PET/CT. Measurements are provided from series 10: 1. Image 28, large gastrohepatic ligament lymph node, 2.8 x 4.4 cm. 2. Image 32, left perigastric lymph node adjacent to the splenic artery,1.4 x 2.1 cm. 3. Image 34, indeterminate periportal node, 1.2 x 1.5 cm. This lymph node is technically enlarged but not hypermetabolic on PET/CT scan from 02/27/2024. PERITONEUM, RETROPERITONEUM & MESENTERY: No important abnormality. VESSELS & OTHER: No important abnormality. BONES & BODY WALL: The known FDG-avid metastatic bone lesion seen on PET/CT involving the left L4 vertebral pedicle is not well appreciated on conventional CT. No discrete visible sclerotic, lytic or destructive lesions. LOWER THORAX: Imaged lung bases are clear. Procedure Note Teri Dawkins M.D. - 02/28/2024 EXAM: INTERPRETATION OF OUTSIDE CT ABDOMEN AND OR PELVIS Outside CT abdomen with IV and oral contrast from 02/14/2024. COMPARISON: PET/CT 02/27/2024. FINDINGS: HEPATOBILIARY SYSTEM Liver: Multiple (over a dozen) large bilobar liver metastases. A fewmeasurements are provided as follows from series 10: 1. Image 16, segment 2, 5.5 x 9.9 cm. 2. Image 20, segment 7, 3.8 x 4.2 cm. 3. Image 32, segment 4A/B, 8.7 x 9.0 cm. 4. Image 47, segment 5/6, 7.0 x 9.0 cm. 5. Image 76, segment 6, 1.7 x 2.3 cm. Multiple additional lesions are also present. The central portal andhepatic veins appear patent noting probable mass effect on the middlehepatic vein related to large central metastases. A 2.4 x 3.8 cm caudatelobe metastasis (series 10, image 18) causes mass effect on the intrahepatic IVC. Gallbladder and bile ducts: No important abnormality. Pancreas: No important abnormality. GASTROINTESTINAL TRACT: Marked circumferential thickening involving theimaged lower esophagus in keeping with known esophageal malignancy. Muralthickness measures up to 2.8 cm. Remainder of the imaged GI tract isunremarkable. GENITOURINARY Adrenals: No important abnormality. Kidneys / Ureter: 1.1 cm cortical cyst in the lower pole of the rightkidney. Two nonobstructing 1-2 mm calculi in the lower pole of the leftkidney. LYMPHATIC SYSTEM Spleen: No important abnormality. Lymph nodes: Enlarged upper abdominal lymph nodes consistent withmetastatic disease showing increased FDG activity on recent PET/CT.Measurements are provided from series 10: 1. Image 28, large gastrohepatic ligament lymph node, 2.8 x 4.4 cm. 2. Image 32, left perigastric lymph node adjacent to the splenicartery,1.4 x 2.1 cm. 3. Image 34, indeterminate periportal node, 1.2 x 1.5 cm. This lymph nodeis technically enlarged but not hypermetabolic on PET/CT scan from02/27/2024. PERITONEUM, RETROPERITONEUM & MESENTERY: No important abnormality. VESSELS & OTHER: No important abnormality. BONES & BODY WALL: The known FDG-avid metastatic bone lesion seen onPET/CT involving the left L4 vertebral pedicle is not well appreciated onconventional CT. No discrete visible sclerotic, lytic or destructivelesions. LOWER THORAX: Imaged lung bases are clear. IMPRESSION: 1. Marked circumferential thickening of the imaged lower esophagus inkeeping with known esophageal malignancy. 2. Extensive bilobar metastatic liver disease and upper abdominalmetastatic lymphadenopathy as detailed. 3. The left L4 pedicle bone metastasis seen on subsequent PET/CT is notwell appreciated on conventional CT. us Yue Donaldson BAnaChir. IMG CT PROCEDURES Final Result * (ABNORMAL) Morphology Eval (special smear) (02/27/2024 7:47 AM TOBACCO BALER) Neutrophilic Segs and Bands 54 50 - 75 % 02/27/2024 9:49 AM TOBACCO BALER DHPM Lymphocytes 30 18 - 42 % 02/27/2024 9:49 AM TOBACCO BALER [facility] Monocytes 11 2 - 11 % 02/27/2024 9:49 AM TOBACCO BALER [facility]PM Basophils 5(H) 0 - 2 % 02/27/2024 9:49 AM TOBACCO BALER [facility]PM Manual Absolute Neutrophil Count 2.86 1.56 - 6.45 x10(9)/L 02/27/2024 9:49 AM TOBACCO BALER DHPM Comment: ----ADDITIONAL INFORMATION---- The manual absolute neutrophil count is derived from a manual differential count and therefore is not exactly comparable to the automated absolute neutrophil count. Interpretation See Comment 9:49 AM TOBACCO BALER PM Comment: Microcytosis of uncertain significance. Suggest correlation with clinical history and iron studies. If further hemoglobinopathy testing is desired, please order a Thalassemia and Hemoglobinopathy Evaluation. Reviewed by: Kevin 02/27/2024 9:[address] [facility] Blood 02/27/2024 7:47 AM TOBACCO BALER 02/27/2024 8:11 AM TOBACCO BALER Melanie Wu M.D. LAB BLOOD ADD-ON Final Resul t Performing Organization Address [facility] Co de Phone Number [facility] [address] [place] [address], [facility] [address] [place] [address] * Bilirubin, Direct (02/27/2024 7:47 AM TOBACCO BALER) Bilirubin, Direct, S <0.2 0.0 - 0.3 mg/dL 02/27/2024 9:10 AM TOBACCO BALER DTL Blood (Blood, Venous) 02/27/2024 7:47 AM TOBACCO BALER 02/27/2024 8:28 AM TOBACCO BALER Melanie Wu M.D. LAB BLOOD ADD-ON Final Resul t Performing Organization Address [facility]/ZIP Co de Phone Number [facility] [address] [place] [address], [facility] Formerly named [facility] [address] [place] [address] from Last 3 Months Insurance MEDICA Advance Directives For more information, please contact: [phone] Documents on File Type Date Recorded Patient Concierge Expl anation Advance Directives 03/22/2024 12:52 PM Advance Directives 03/21/2024 2:29 PM Susan bello HCPOA/ADVOCATE/AGENT/REPR ESENTATIVE/SURROGATE Healthcare Agents on File Name Relationship Healthcare Agent Relationshi p Communication Susan Gross Spouse Health Care Agent [email or web address] Bren Ruby Friend First Alternate Health Care Agent [email or web address] Care Teams Fork Truck Driver Relationship Specialty Start Date End Date Elsewhere, Pcp PCP - General Internal Medicine 04/03/24
--- OUTSIDE RECORDS SUMMARY | 2024-05-22 09:25 | XMS_ITS | Encounter Summary ---
Author Organization [facility] Address [address] [place] [address] Care Team Providers Care Parachute Repairer Name Role Phone Elsewhere, Pcp Primary Care Provider Unavailabl e Encounter Details Date Type Department Care Team (Late st Contact Info) Description 03/09/2024 Clinical Communication Department of Radiation Oncology in [place], [place] [address] [place] [phone] Navi Ansari M.D. [address] [place] [phone] Social History Tobacco Use Types Packs/Day Years Used Date Smoking Tobacco: Former Cigarettes 10 10 0 07/15/1994 - 11/11/2017 Passive Smoke Exposure: Never Smokeless Tobacco: Never Comments:Smoked off and on b etween dates noted. Alcohol Use Standard Drinks/Week Comments Not Currently 0 (1 standard drink = 0.6 oz pure alcohol) Drank heavily off and on from age 22 to 39 [facility] Utilities Answer Date Recorded In the past 12 months has th e [employer], gas, oil, or water [employer] threatened to shut off services in your [...] your living situation today? I have a [facility] place to live 02/15/2024 Sex and Gender Information Value Date Recorded Sex Assigned at Male 02/15/2024 4:45 PM ELECTRIC TAPE SLITTER Legal Sex Male 3:29 PM ELECTRIC TAPE SLITTER Gender Identity Male 02/15/2024 4:45 PM ELECTRIC TAPE SLITTER Sexual Orientation Straight 02/15/2024 4: 45 PM ELECTRIC TAPE SLITTER documented as of this encounter Miscellaneous Notes * Telephone Encounter - Ines Hermosillo, RAnaN. - 03/09/2024 12:04 PM ELECTRIC TAPE SLITTER I called and talked with patient's , Susan Gross, as Rudy is not able to talk over the phone. It was just one episode of coughing up blood this morning of bright red blood, approximately 2 tablespoons. She said he denied feeling lightheaded or dizzy. I talked with her that at this time they can continue to monitor, but if this would happen again or if he would experience symptoms of lightheadedness or dizziness he should report to the Emergency Room. She does have the inclusion teacher number if needed. She was agreeable to this plan. TRIC TAPE SLITTER * Telephone Encounter - Deepa Burden - 03/09/2024 11:17 AM CST Patient called in to report that after treatment today he coughed up blood for the first time. He reports he was drinking a protein shake at the time. It was about 2 tablespoons, bright red in color and slightly mucousy. He is not having a persistent cough, just the one instance. Patient would likea call back to discuss. TRIC TAPE SLITTER documented in this encounter Plan of Treatment Upcoming Encounters Date Type Department Care Team (Latest Contact Info) Description 05/25/2024 12:00 PM CDT Appointment Department of Radiation Oncology in [address] [phone] Navi Ansari M.D. [address] [place] [phone] 05/28/2024 3:45 PM CDT Appointment Department of Radiation Oncology in [address] [phone] Navi Ansari M.D. [address] [place] [phone] 05/29/2024 12:30 PM CDT Appointment Department of Radiation Oncology in [address] [phone] Navi Ansari M.D. [address] [place] [phone] 05/29/2024 1:00 PM CDT Appointment Department of Radiation Oncology in [address] [phone] Navi Ansari M.D. [address] [place] [phone] 05/30/2024 2:00 PM CDT Appointment Department of Radiation Oncology in [address] [phone] Navi Ansari M.D. [address] [place] [phone] 05/31/2024 2:30 PM CDT Appointment Department of Radiation Oncology in [address] [phone] Navi Ansari M.D. [address] [place] [phone] 06/07/2024 12:30 PM CDT Clinical Communication Virtual Review in [place], [place] [address] [place] [address] 06/08/2024 2:00 PM CDT Telemedicine Department of Palliative Care in [place], [place] [address] [place] [phone] Celestine Chino APRN, C.N.P., D.N.P. [address] [place] [phone] documented as of this encounter Visit Diagnoses Not on filedocumented in this encounter Care Teams Parachute Repairer Relationship Specialty Start Date End Date Elsewhere, Pcp PCP - General Internal Medicine 04/03/24 documented as of this encounter
--- OUTSIDE RECORDS SUMMARY | 2024-05-22 09:25 | XMS_ITS | Encounter Summary ---
Author Organization [facility] Address [address] [place] [address] Care Team Providers Care Wet Finisher Name Role Phone Elsewhere, Pcp Primary Care Provider Unavailabl e Reason for Visit * Reason Onset Date Comments [place] 03/09/2024 [facility] [place] Encounter Details Date Type Department Care Team (Latest Contact Info) Description 03/07/2024 Clinical Communication Department of Oncology in [place], [place] [address] [place] [address] Tor Smalls M.D. [address] [place] [phone] [place] ([facility]) Social History Tobacco Use Types Packs/Day Years Used Date Smoking Tobacco: Former Cigarettes 10 10 0 07/15/1994 - 11/11/2017 Passive Smoke Exposure: Never Smokeless Tobacco: Never Comments:Smoked off and on b etween dates noted. Alcohol Use Standard Drinks/Week Comments Not Currently 0 (1 standard drink = 0.6 oz pure alcohol) ank heavily off and on from age 22 to 39 [facility] Utilities Answer Date Recorded In the past [...] your living situation today? I have a [facility] place to live 02/15/2024 Sex and Gender Information Value Date Recorded Sex Assigned at Male 02/15/2024 4:45 PM ARCHEOLOGIST CLASSICAL Legal Sex Male 3:29 PM ARCHEOLOGIST CLASSICAL Gender Identity Male 02/15/2024 4:45 PM ARCHEOLOGIST CLASSICAL Sexual Orientation Straight 02/15/2024 4: 45 PM ARCHEOLOGIST CLASSICAL documented as of this encounter Plan of Treatment Upcoming Encounters Date Type Department Care Team (Latest Contact Info) Description 05/25/2024 12:00 PM CDT Appointment Department of Radiation Oncology in [address] [phone] Navi Ansari M.D. [address] [place] [address] 05/28/2024 3:45 PM CDT Appointment Department of Radiation Oncology in [place], [place] [address] [place] [address] Navi Ansari M.D. [address] [place] [address] 05/29/2024 12:30 PM CDT Appointment Department of Radiation Oncology in [place], [place] [address] [place] [address] Navi Ansari M.D. [address] [place] [address] 05/29/2024 1:00 PM CDT Appointment Department of Radiation Oncology in [place], [place] [address] [place] [address] Navi Ansari M.D. [address] [place] [address] 05/30/2024 2:00 PM CDT Appointment Department of Radiation Oncology in [place], [place] [address] [place] [address] Navi Ansari M.D. [address] [place] [address] 05/31/2024 2:30 PM CDT Appointment Department of Radiation Oncology in [place], [place] [address] [place] [address] Navi Ansari M.D. [address] [place] [address] 06/07/2024 12:30 PM CDT Clinical Communication Virtual Review in [place], [place] [address] [place] [phone] 06/08/2024 2:00 PM CDT Telemedicine Department of Palliative Care in [place], [place] [address] [place] [phone] Celestine Chino APRN, C.N.P., D.N.P. [address] [place] [phone] documented as of this encounter Visit Diagnoses Not on filedocumented in this encounter Care Teams Wet Finisher Relationship Specialty Start Date End Date Elsewhere, Pcp PCP - General Internal Medicine 04/03/24 documented as of this encounter
--- OUTSIDE RECORDS SUMMARY | 2024-05-22 09:25 | XMS_ITS | Encounter Summary ---
Author Organization [facility] Address [address] [place] [address] Care Team Providers Care Balance Bridge Inspector Name Role Phone Elsewhere, Pcp Primary Care Provider Unavailabl e Reason for Visit * Reason Onset Date Comments Symptom Assessment 04/09/2024 Encounter Details Date Type Department Care Team (Latest Contact Info) Description 04/09/2024 Clinical Communication Department of Palliative Care in [place], [place] [address] [place] [address] Kati Joy M.D. [address] [place] [address] Symptom Assessment Social History Tobacco Use Types Packs/Day Years Used Date Smoking Tobacco: Former Cigarettes 10 10 0 07/15/1994 - 11/11/2017 Passive Smoke Exposure: Never Smokeless Tobacco: Never Comments:Smoked off and on b etween dates noted. Alcohol Use Standard Drinks/Week Comments Not Currently 0 (1 standard drink = 0.6 oz pure alcohol) Drank heavily off and on from age 22 to 39 [facility] Utilities Answer Date Recorded In the [...] your living situation today? I have a [facility] place to live 02/15/2024 Sex and Gender Information Value Date Recorded Sex Assigned at Male 02/15/2024 4:45 PM TECHNICAL SPECIALIST Legal Sex Male 3:29 PM TECHNICAL SPECIALIST Gender Identity Male 02/15/2024 4:45 PM TECHNICAL SPECIALIST Sexual Orientation Straight 02/15/2024 4: 45 PM TECHNICAL SPECIALIST documented as of this encounter Miscellaneous Notes * Telephone Encounter - Maliha Snow R.N., [facility] - 04/10/2024 1:45 PM TECHNICAL SPECIALIST ASSESSMENT Rudy Gross is a 43 y.o. male with metastatic esophageal cancer who is followed in the outpatient Palliative Care Clinic for non-pain symptoms, pain, and psychosocial support. I called Rudy's spouse, Susan Gross, to follow upon patient's daytime drowsiness and fever that was discussed with the palliative care on-call provider yesterday. The patient prefers his be calleddirectly since he is currently unable to speak. Susan reports that the changes made to the to his pain regimen have helped to resolve his daytime sleepiness back to his baseline. He finds that backing off on the oxycodone to every 5 or 6 hours is helping his pain, but not causing him to feel loopy. He is currently on the Fentanyl patch 25 mcg only as of the phone call last night with Dr. Criselda Henley. He feels the side effects he was experiencing were related to scheduling the oxycodone every 4 hours as he initially did well on the increase in the Fentanyl patch for the first few days. He will plan to resume back to 37 mcg tomorrow with his next patch change. He will continues to take oxycodone as needed instead of scheduling it every 4 hours. Susan also reports that Rudy's fever has resolved. He has not shown any signs of fever or elevated temperature since the middle of the night. He has been working on drinking more fluids today. PLAN - Instructed Susan to call back if he resumes the 37 mcg of the Fentanyl patch and starts having side effects again on or Tuesday. - Continue to take oxycodone 10 mg only as needed. - Follow up on 04/18/2024. Disposition/Recommendation: self-care is appropriate at this time, patient encouraged to call back with questions. Information/Education: patient/caller able to teach back. Caller agreeable to plan of care: yes. The following references were used: nursing clinical judgement. NICAL SPECIALIST * Telephone Encounter - Kati Joy M.D. - 04/09/2024 10:18 PM CST Palliative On-Call Note I received a call through the [facility] from Rudy's Susan this evening. She expressed two concerns: 1) increased sleepiness today and 2) low grade fever 100.3 and 100.6. She wondered if this had to do with his recent medication changes and how this would impact plans for chemotherapy tomorrow. The latter question was deferred to his outpatient Oncology team, so we focused on the former. In brief, Susan shared the following: - Recent palliative med changes since urgent visit 04/06: --- increase in fentanyl patch from 25 mcg/hr-> 37 mcg/hr on 04/05 (not 04/02 as previously listedin the notes). --- he was supposed to space out his oxycodone to q5-6hours, however he has still been taking it every 4-5 hours (typically 5 x 10mg daily) --- instructed to increase olanzapine to 10mg HS, however they have not done this yet (waiting for Rx) - [place] fatigued Tuesday but able to go about normal activities, yesterday Tuesday felt fine - Today Susan has noted Rudy seems much more tired, having trouble staying awake. He is groggy but not significantly confused - This evening felt hot to the touch, temp noted to be 100.3 and 100.6 on recheck. No additional symptoms -- no dyspnea, cough, abdominal pain, nausea is at baseline. Was around many children on Tuesday, worry he may have picked up a cold Based on his sleepiness, Susan cut the 12 mcg/hr patch in half about 1 hour prior to our call and left the 25 mcg/hr patch in place. His last dose of oxycodone was 10mg at 3:30pm and esophageal pain is currently a /10, they skipped his 8:30pm dose. No other new symptoms. Confirmed they have naloxone and have received instructions for its use, however I advised it was not indicated at this time. Recommendations: Overall we discussed there are a lot of possible causes of his current symptoms -- unclear if his sleepiness + fever is related to a brewing illness, or if his somnolence/fatigue is due to recent medication changes or radiation treatments. As there is a lot in flux at this time, I made the following recommendations for this evening: Instructed to remove fentanyl 12 mcg/hr patch that was cut in half, as this may be absorbed unpredictably and potentially ultra-rapidly Fentanyl 25 mcg/hr patch can remain in place, will keep at this dose for now to assess his mentation and pain symptoms over the next few days. Can reassess in the next few days if it is reasonable to go back to the 37 mcg/hr dose Space out oxycodone 10mg to every 5-6 hours as previously instructed (patient had accidentally still been taking on schedule every 4h based on phone alarms). If pain is well-controlled, can continue to space out further as able Keep olanzapine at 5mg HS (rather than increasing to 10mg as planned) currently to avoid muddying the samuel with his somnolence Susan will call the oncology clinic first thing in the AM to share about his low grade fever, will defer to them about impacts on chemotherapy I will request that our clinic nurses call to check in tomorrow afternoon, and depending on symptoms, our urgent provider can determine at that time if an urgent visit is warranted. Next currently scheduled visit is next week 04/[address] Ramos NICAL SPECIALIST documented in this encounter Plan of Treatment Upcoming Encounters Date Type Department Care Team (Latest Contact Info) Description 05/25/2024 12:00 PM CDT Appointment Department of Radiation Oncology in [address] [address] Navi Ansari M.D. [address] [place] [phone] 05/28/2024 3:45 PM CDT Appointment Department of Radiation Oncology in [address] [address] Navi Ansari M.D. [address] [place] [phone] 05/29/2024 12:30 PM CDT Appointment Department of Radiation Oncology in [address] [address] Navi Ansari M.D. [address] [place] [phone] 05/29/2024 1:00 PM CDT Appointment Department of Radiation Oncology in [address] [address] Navi Ansari M.D. [address] [place] [phone] 05/30/2024 2:00 PM CDT Appointment Department of Radiation Oncology in [address] [address] Navi Ansari M.D. [address] [place] [phone] 05/31/2024 2:30 PM CDT Appointment Department of Radiation Oncology in [address] [address] Navi Ansari M.D. [address] [place] [phone] 06/07/2024 12:30 PM CDT Clinical Communication Virtual Review in [place], [place] [address] [place] [address] 06/08/2024 2:00 PM CDT Telemedicine Department of Palliative Care in [place], [place] [address] [place] [phone] Celestine Chino APRN, C.N.P., D.N.P. 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
[2024-05-22 09:28] VITALS: BP 115/76; PULSE 87; RESP 16; TEMP 36.9; O2SAT 95; BMI 25.4
--- NOTE | 2024-05-22 10:11 | ED.GENADULT ---
HPI - General Adult General Chief complaint: Fever Stated complaint: Fever/Chemo patient Time Seen by Provider: 05/22/24 10:02 History of Present Illness HPI narrative: This 43-year-old male comes in with his significant other because of report of fever. He measured a temperature at 101.8? prior to arrival. He did take an antipyretic medicine and arrives here with normal vital signs. He does have esophageal cancer with metastatic disease and is currently on chemotherapy and immunotherapy treatments. He was advised to come here by the [facility] infusion clinic. He denies having any respiratory symptoms or dysuria symptoms. He is not reporting any other new symptoms otherwise. Related Data Home Medications ?Medication ?Instructions ?Recorded ?Confirmed cannabis gummies PO 03/15/24 05/21/24 fentanyl 25 mcg/hr transdermal 1 patch transdermal Q72H 03/23/24 05/21/24 patch olanzapine 5 mg tablet 5 mg PO QHS 03/23/24 05/21/24 lactulose 10 gram/15 mL oral 10 g PO ONCE PRN 04/10/24 05/21/24 solution omeprazole 20 mg capsule,delayed 20 mg PO QDAY 04/10/24 05/21/24 release polyethylene glycol 3350 17 4 g PO ONCE 04/10/24 05/21/24 gram/dose oral powder (Miralax) melatonin 12 mg tablet 5 mg PO QHS PRN 05/07/24 05/21/24 Previous Rx's ?Medication ?Instructions ?Recorded ondansetron 8 mg disintegrating 8 mg PO Q8H PRN nausea and 03/15/24 tablet vomiting #30 tabs oxycodone 5 mg/5 mL oral solution 10 mg (10 mL) PO Q4H PRN pain #500 03/20/24 mL lidocaine-prilocaine 2.5 %-2.5 % 1 applic topical DIRECTED PRN 03/28/24 topical cream port/catheter care #30 grams doxycycline hyclate 100 mg capsule 100 mg PO BID 10 days #20 caps 05/22/24 Allergies Allergy/AdvReac Type Severity Reaction Status Date / Time Penicillins Allergy Severe Hives Verified 05/22/24 09:32 Review of Systems Status of ROS: Reports: 10 or more systems reviewed and unremarkable except as noted in History and below Narrative: Constitutional: No fevers, no weight gain or loss. Eyes: No discharge. No vision changes. HENT: No congestion, no sore throat, no ear pain. Cardiovascular: No chest pain, no palpitations. Respiratory: No shortness of breath, no wheezes, no cough. Gastrointestinal: Esophageal cancer. Genitourinary: No dysuria, no hematuria. Musculoskeletal: Normal range of motion. Skin: No rashes, no pruritis. Neurological: No dizziness, weakness, sensory change, speech change. Endo/Heme/Allergies: No bruising or bleeding. No polydipsia. Pysch: no suicidality, no anxiety, no insomnia. All other systems reviewed and are negative. [facility] Medical History (Updated 05/22/24 @ 12:10 by Jose Bedolla MD) GERD (gastroesophageal reflux disease) ?K21.9 - Gastro-esophageal reflux disease without esophagitis (ICD-10) Depressive disorder ?F32.A - Depression, unspecified (ICD-10) Generalized anxiety disorder ?F41.1 - Generalized anxiety disorder (ICD-10) Amblyopia of both eyes ?H53.003 - Unspecified amblyopia, bilateral (ICD-10) Esophageal cancer, stage IV ?C15.9 - Malignant neoplasm of esophagus, unspecified (ICD-10) Social History Smoking Status: Former smoker Non-prescribed substance use: denies use Exam Narrative: Exam Narrative: Constitutional: Well-developed, well-nourished, no acute distress. HEENT: Normocephalic, atraumatic. Neck: Normal range of motion. Nontender. Supple. Heart: Regular. No murmurs. Normal rate. Intact distal pulses. Lungs: Clear to auscultation. No chest discomfort. No wheezes, rhonchi, or rales. Abdomen: Normal bowel sounds. Nontender. No rebound tenderness. Genitalia: Deferred. Back: No midline tenderness. Normal range of motion. Extremities: Normal range of motion. No injury. Skin: Intact. No rash. Warm. No erythema or pallor. Neurologic: No altered sensation. No weakness. Alert and oriented. Psychiatric: No suicidality. No anxiety or depression. No insomnia. Nursing notes and vitals signs are reviewed. Const: Vital Signs, click to edit/add: Vital Signs - 24 hr 05/22/24 09:17 05/22/24 09:28 05/22/24 11:44 Temperature 98.4 F 98.1 F Pulse Rate [Pulse Oximeter] 87 90 Respiratory Rate 16 18 Blood Pressure [Le ft Upper Arm] 115/76 102/73 Pulse Oximetry 95 95 Oxygen Delivery Me thod Room Air Room Air Room Air Course Vital Signs Vital signs: Initial Vital Signs Temperature Source Oral 05/22/24 09:17 Respiratory Effort Normal, Spontaneous 05/22/24 09:17 Respiratory Depth Normal 05/22/24 09:17 Oxygen Delivery Method Room Air 05/22/24 09:17 Sepsis Recent Fever Within 48 Hours Yes 05/22/24 09:17 Sepsis New/Unexplained Change in Mental Status No 05/22/24 09:17 Sepsis Action Taken by Nursing No Action Required 05/22/24 09:17 Vital Signs Oxygen Delivery Method Room Air 05/22/24 09:17 Temperature 98.1 F 05/22/24 11:44 Pulse Rate 90 05/22/24 11:44 Respiratory Rate 18 05/22/24 11:44 Blood Pressure 102/73 05/22/24 11:44 Pulse Oximetry 95 05/22/24 11:44 Oxygen Delivery Method Room Air 05/22/24 11:44 Medications Administered Medications: Discontinued Medications Generic Name Dose Route Start Last Admin Trade Name Freq PRN Reason Stop Dose Admin Ondansetron HCl 8 mg 05/22/24 11:23 05/22/24 11:43 Ondansetron Odt 4 Mg Tab PO 05/22/24 11:24 8 mg ONCE ONE Administration Medical Decision Making MDM Narrative Medical decision making narrative: This patient is undergoing chemotherapy and immunotherapy for esophageal cancer. He had a treatment yesterday and comes in today reporting a fever of 101.8? F. He did take some ibuprofen and arrives here with normal vital signs including normal temperature. He does not report any new symptoms otherwise. I did obtain labs, chest x-ray, and urinalysis. His white count does return significantly elevated compared to yesterday at 19. The patient did receive a steroid yesterday and this could account for the leukocytosis. Other lab results are in normal range. His differential is showing a left shift. His lactate returns in normal range here any continues to be without any new symptoms and has normal vital signs. I did speak with 1 of the workers at the cancer care infusion clinic regarding these findings. The patient is okay to return home and I did provide a prescription for doxycycline. It could be that his fever is a reaction to the chemotherapy itself but will cover possibility of infection nevertheless. Lab Data Labs: Lab Results 05/22/24 05/22/24 Range/Units 10:29 11:30 WBC 19.00 H (4.50-11.00) K/uL RBC 3.88 L (4.30-5.90) m/uL Hgb 8.8 L (13.5-17.5) gm/dL Hct 28.5 L (37.0-53.0) % MCV 74 L (80-100) fL MCH 23 L (26-34) pg MCHC 31 L (32-36) gm/dL RDW Coeff of Yarely 22.2 H (11.5-15.5) % Plt Count 154 (140-440) K/uL Neut % (Auto) 91.9 H (42.0-72.0) % Lymph % (Auto) 1.5 L (20-44) % Mccracken % (Auto) 4.9 (0.0-11.0) % Eos % (Auto) 0.0 (0.0-7.0) % Baso % (Auto) 0.2 (0.0-3.0) % Neut # (Auto) 17.50 H (1.7-7.0) K/uL Lymph # (Auto) 0.30 L (0.90-2.90) K/uL Mccracken # (Auto) 0.90 (0.00-0.90) K/UL Eos # (Auto) 0.00 (0.00-0.50) K/uL Baso # (Auto) 0.00 (0.00-0.30) K/uL Abs Immat Gran (auto) 0.30 (0.00-0.30) K/uL Imm/Tot Granulo (auto) 1.5 % Diff Slide Review Acceptable Review (Acceptable) Sodium 130 L (135-149) mmol/L Potassium 4.3 (3.6-5.1) mmol/L Chloride 99 (96-114) mmol/L Carbon Dioxide 23 (20-32) mmol/L Anion Gap 8 (7-15) mEq/L BUN 19 (5-24) mg/dL Creatinine 0.8 (0.5-1.5) mg/dL Estimated Creat Clear 127.99 Estimated GFR 111 ml/min Glucose 113 (60-115) mg/dL Lactate 1.3 (0.5-1.9) mmol/L Calcium 9.2 (8.4-10.6) mg/dL Urine Color Dark yellow (Yellow) Urine Appearance Clear (Clear) Urine pH 6.0 (5.0-8.5) Ur Specific Keavy 1.010 (1.000-1.030) Urine Protein Negative (Negative) Urine Glucose (UA) Negative (Negative) Urine Ketones Negative (Negative) Urine Blood Negative (Negative) Urine Nitrite Negative (Negative) Urine Bilirubin Negative (Negative) Urine Urobilinogen 0.2 (0.2-1.0) Ur Leukocyte Esterase Negative (Negative) Urine RBC 0-2 (0-2) Urine WBC 0-2 (0-5) Ur Squamous Epith Cells None (None-Few) Urine Bacteria None (None) Imaging Data Chest x-ray: Radiologist's impression: No acute lung findings. Discharge Plan Discharge Clinical Impression: Esophageal cancer, stage IV, Fever Patient Disposition: Home w/ Parent or Adult Condition: Stable Additional Instructions: Take medication as prescribed and continue other current plans. Follow up with Cancer Care Clinic or return if worsening symptoms occur. Prescriptions: New doxycycline hyclate 100 mg capsule 100 mg PO BID 10 Days Qty: 20 0RF No Action cannabis gummies PO ondansetron 8 mg tablet,disintegrating 8 mg PO Q8H PRN (Reason: nausea and vomiting) Qty: 30 3RF melatonin 12 mg tablet 5 mg PO QHS PRN Patient Comments: Prior to radiation omeprazole 20 mg capsule,delayed release(DR/EC) 20 mg PO QDAY polyethylene glycol 3350 [Miralax] 17 gram/dose powder 4 g PO ONCE lactulose 10 gram/15 mL solution 10 g PO ONCE PRN fentanyl 25 mcg/hr patch 72 hour 1 patch transdermal Q72H olanzapine 5 mg tablet 5 mg PO QHS oxycodone 5 mg/5 mL solution 10 mg PO Q4H PRN (Reason: pain) Qty: 500 0RF lidocaine-prilocaine 2.5-2.5 % cream 1 applic topical DIRECTED PRN (Reason: port/catheter care) Qty: 30 0RF Rx Instructions: Apply small amount over port 1 hour prior to appointment. Cover with non absorbent product. Follow Up/Referrals: Provider,Not a Local [Primary Care Provider] - Stand Alone Forms: MyHealth Info Instructions
[2024-05-22 10:41] LABS: Lactate* 1.3 mmol/L (0.5-1.9)
[2024-05-22 10:43] LABS: Basophils Percent Auto 0.2 % (0.0-3.0); Hematocrit 28.5 % (37.0-53.0); Hemoglobin* 8.8 gm/dL (13.5-17.5); Immature Granulocytes Pct Auto 1.5 %; Lymphocytes Percent Auto 1.5 % (20-44); Mean Corpuscular HGB Conc 31 gm/dL (32-36); Mean Corpuscular Hemoglobin 23 pg (26-34); Mean Corpuscular Volume 74 fL (80-100); Monocytes Percent Auto 4.9 % (0.0-11.0); Neutrophils Percent Auto 91.9 % (42.0-72.0); Platelet Count* 154 K/uL (140-440); RDW Coefficient of Variation % 22.2 % (11.5-15.5); Red Blood Count 3.88 m/uL (4.30-5.90)
--- OUTSIDE RECORDS SUMMARY | 2024-05-22 10:45 | XMS_ITS | Encounter Summary ---
Author Organization [facility] Address [address] [place] [address] Care Team Providers Care Noodle Catalyst Maker Name Role Phone Elsewhere, Pcp Primary Care Provider Unavailabl e Reason for Visit * Reason Onset Date Comments Med Question 05/15/2024 Encounter Details Date Type Department Care Team (Late st Contact Info) Description 05/15/2024 Clinical Communication Department of Palliative Care in [place], [place] [address] [place] [phone] Jenni Ramos, PAnaASolomon. [address] [place] [phone] Med Question Social History Tobacco Use Types Packs/Day Years Used Date Smoking Tobacco: Former Cigarettes 10 10 0 07/15/1994 - 11/11/2017 Passive Smoke Exposure: Never Smokeless Tobacco: Never Comments:Smoked off and on b etween dates noted. Alcohol Use Standard Drinks/Week Comments Not Currently 0 (1 standard drink = 0.6 oz pure alcohol) Drank heavily off and on from age 22 to 39 [facility] Utilities Answer Date Recorded In the [...] Sex Assigned at Male 02/15/2024 4:45 PM CHEF'S ASSISTANT Legal Sex Male 3:29 PM CHEF'S ASSISTANT Gender Identity Male 02/15/2024 4:45 PM CHEF'S ASSISTANT Sexual Orientation Straight 02/15/2024 4: 45 PM CHEF'S ASSISTANT documented as of this encounter Miscellaneous Notes [...] shares Rudy's insurance has recently switched from [place] since late March. 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 PLAN Disposition/Recommendation: PA is needed for quantity [...] Appointment Department of Radiation Oncology in [address] [phone] Navi Ansari M.D. [address] [place] [phone] 05/28/2024 3:45 PM CDT Appointment Department of Radiation Oncology in [address] [phone] Navi Ansari M.D. [address] [place] [phone] 05/29/2024 12:30 PM CDT Appointment Department of Radiation Oncology in [address] [phone] Navi Ansari M.D. [address] [place] [phone] 05/29/2024 1:00 PM CDT Appointment Department of Radiation Oncology in [address] [phone] Navi Ansari M.D. [address] [place] [phone] 05/30/2024 2:00 PM CDT Appointment Department of Radiation Oncology in [address] [phone] Navi Ansari M.D. [address] [place] [phone] 05/31/2024 2:30 PM CDT Appointment Department of Radiation Oncology in [address] [phone] Navi Ansari M.D. [address] [place] [phone] 06/07/2024 12:30 PM CDT Clinical Communication Virtual Review in [place], [place] [address] [place] [address] 06/08/2024 2:00 PM CDT Telemedicine Department of Palliative Care in [place], [place] [address] [place] [phone] Celestine Chino APRN, C.N.P., D.N.P. [address] [place] [phone] documented as of this encounter Visit Diagnoses Not on filedocumented in this encounter Care Teams Noodle Catalyst Maker Relationship Specialty Start Date End Date Elsewhere, Pcp PCP - General Internal Medicine 04/03/24 documented as of this encounter
--- OUTSIDE RECORDS SUMMARY | 2024-05-22 10:45 | XMS_ITS | Encounter Summary ---
Author Organization [facility] Address [address] [place] [address] Care Team Providers Care Production Internship Name Role Phone Elsewhere, Pcp Primary Care Provider Unavailabl e Encounter Details Date Type Department Care Team (Late st Contact Info) Description 05/15/2024 Orders Only Pharmacy Prior Auth [phone] Dorothy Venegas Social History Tobacco Use Types [...] your living situation today? I have a [facility] place to live 02/15/2024 Sex and Gender Information Value Date Recorded Sex Assigned at Male 02/15/2024 4:45 PM DETECTIVE BUREAU CHIEF Legal Sex Male 3:29 PM DETECTIVE BUREAU CHIEF Gender Identity Male 02/15/2024 4:45 PM DETECTIVE BUREAU CHIEF Sexual Orientation Straight 02/15/2024 4: 45 PM DETECTIVE BUREAU CHIEF documented as of this encounter Plan of Treatment Upcoming Encounters Date Type Department Care Team (Latest Contact Info) Description 05/25/2024 12:00 PM CDT Appointment Department of Radiation Oncology in [place], [place] [address] [place] [phone] Navi Ansari M.D. [address] [place] [address] 05/28/2024 3:45 PM CDT Appointment Department of Radiation Oncology in [place] [address] [place] [address] Navi Ansari M.D. [address] [place] [address] 05/29/2024 12:30 PM CDT Appointment Department of Radiation Oncology in [place], [place] [address] [place] [phone] Navi Ansari M.D. [address] [place] [address] 05/29/2024 1:00 PM CDT Appointment Department of Radiation Oncology in [place], [place] [address] [place] [phone] Navi Ansari M.D. [address] [place] [phone] 05/30/2024 2:00 PM CDT Appointment Department of Radiation Oncology in [place], [place] [address] [place] [phone] Navi Ansari M.D. [address] [place] [phone] 05/31/2024 2:30 PM CDT Appointment Department of Radiation Oncology in [place], [place] [address] [place] [phone] Navi Ansari M.D. [address] [place] [address] 06/07/2024 12:30 PM CDT Clinical Communication Virtual Review in [place], [place] [address] [place] [address] 06/08/2024 2:00 PM CDT Telemedicine Department of Palliative Care in [place], [place] [address] [place] [phone] Celestine Chino APRN, C.N.P., D.N.P. [address] [place] [phone] documented as of this encounter Visit Diagnoses Not on filedocumented in this encounter Care Teams Production Internship Relationship Specialty Start Date End Date Elsewhere, Pcp PCP - General Internal Medicine 04/03/24 documented as of this encounter
--- OUTSIDE RECORDS SUMMARY | 2024-05-22 10:45 | XMS_ITS | Encounter Summary ---
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 [address] [place] [address] Phone: tel: fax: [facility] Region Referral ID Status Reason Start Date Expiration Date V isits Requested Visits Authorized [id number] Authorized 05/16/2024 08/08/2025 2 2 Encounter Details Date Type Department Care Team (Latest Contact Info) Description 05/16/2024 1:26 PM CDT - 05/16/2024 4:23 PM CDT Hospital Encounter Department of Radiation Oncology in [place], [place] [address] [place] [phone] Navi Ansari M.D. 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 I have a [facility] place to live 02/15/2024 Sex and Gender Information Value Date Recorded Sex Assigned at Male 02/15/2024 4:45 PM FINANCIAL WRITER Legal Sex Male 3:29 PM FINANCIAL WRITER Gender Identity Male 02/15/2024 4:45 PM FINANCIAL WRITER Sexual Orientation Straight 02/15/2024 4: 45 PM FINANCIAL WRITER documented as of this encounter Medications at [...] planning. CT images were transferred to the [employer] treatment planning system, after a reference isocenter was determined and marked. Segmentation and treatment planning will take place prior to treatment delivery. Patient set up and imaging was appropriate and completed without incident. Change Management Administrator use:No Cosigned by Navi Ansari M.D. at 05/16/2024 4:23 PM CDT Associated attestation - Navi Ansari M.D. - 05/16/2024 4:23 PM CDT Agree with documentation as below. I was personally available during the simulation. documented in this encounter Plan of Treatment Upcoming Encounters Date Type Department Care Team (Latest Contact Info) Description 05/25/2024 12:00 PM CDT Appointment Department of Radiation Oncology in [place], [place] [address] [place] [phone] Navi Ansari M.D. [address] [place] [address] 05/28/2024 3:45 PM CDT Appointment Department of Radiation Oncology in [address] [place] [address] Navi Ansari M.D. [address] [place] [address] 05/29/2024 12:30 PM CDT Appointment Department of Radiation Oncology in [address] [address] Navi Ansari M.D. [facility] [place] [address] 05/29/2024 1:00 PM CDT Appointment Department of Radiation Oncology in [address] [address] Navi Ansari M.D. [address] [place] [phone] 05/30/2024 2:00 PM CDT Appointment Department of Radiation Oncology in [address] [address] Navi Ansari M.D. [address] [place] [phone] 05/31/2024 2:30 PM CDT Appointment Department of Radiation Oncology in [address] [address] Navi Ansari M.D. [facility] [place] [address] 06/07/2024 12:30 PM CDT Clinical Communication Virtual Review in [place], [place] 200 [place] [address] 06/08/2024 2:00 PM CDT Telemedicine Department of Palliative Care in [place], [place] [address] [place] [phone] Celestine Chino, LAI, C.N.P., D.N.P. [address] [place] [address] documented as of this encounter Procedures Procedure [...] (HCC) documented in this encounter Care Teams Mechanical Shop Laborer Relationship Specialty Start Date End Date Elsewhere, Pcp PCP - General Internal Medicine 04/03/24 documented as of this encounter
--- OUTSIDE RECORDS SUMMARY | 2024-05-22 10:45 | XMS_ITS | Encounter Summary ---
Author Organization [facility] Address [address] [place] [address] Care Team Providers Care Ophthalmic Aide Name Role Phone Elsewhere, Pcp Primary Care Provider Unavailabl e Reason for Visit * Reason Onset Date Comments Med Question 04/16/2024 Encounter Details Date Type Department Care Team (Late st Contact Info) Description 04/16/2024 Clinical Communication Department of Palliative Care in [place], [place] [address] [place] [phone] Claudy Ramos M.D. [address] [place] [address] Med Question Social History Tobacco Use Types [...] to 39 [facility] Utilities Answer Date Recorded In the past [...] your living situation today? I have a [facility] place to live 02/15/2024 Sex and Gender Information Value Date Recorded Sex Assigned at Male 02/15/2024 4:45 PM SPANISH INTERPRETER/TRANSLATOR Legal Sex Male 3:29 PM SPANISH INTERPRETER/TRANSLATOR Gender Identity Male 02/15/2024 4:45 PM SPANISH INTERPRETER/TRANSLATOR Sexual Orientation Straight 02/15/2024 4: 45 PM SPANISH INTERPRETER/TRANSLATOR documented as of this encounter Miscellaneous Notes [...] . Patientwas seen by Estephania Plaza, LAI, SAFETY COUNCIL DIRECTOR, DNP on 04/06/24. Returned a call to patient's , Susan regarding Fentanyl patch refill. Informed Susan we sent a prescription for Fentanyl 25 mcg/hr to [facility] pharmacy on 04/06/24. She will confirm [...] end of April as his last visit [id number] was 03/20/24. She agrees. ISH INTERPRETER/TRANSLATOR documented in this encounter Plan of Treatment Upcoming Encounters Date Type Department Care Team (Latest Contact Info) Description 05/25/2024 12:00 PM CDT Appointment Department of Radiation Oncology in [place], [place] [address] [place] [phone] Navi Ansari M.D. [address] [place] [address] 05/28/2024 3:45 PM CDT Appointment Department of Radiation Oncology in [place], [place] [address] [place] [phone] Navi Ansari M.D. [address] [place] [address] 05/29/2024 12:30 PM CDT Appointment Department of Radiation Oncology in [address] [phone] Navi Ansari M.D. [address] [place] [phone] 05/29/2024 1:00 PM CDT Appointment Department of Radiation Oncology in [address] [address] Navi Ansari M.D. [address] [place] [phone] 05/30/2024 2:00 PM CDT Appointment Department of Radiation Oncology in [address] [address] Navi Ansari M.D. [address] [place] [phone] 05/31/2024 2:30 PM CDT Appointment Department of Radiation Oncology in [address] [address] Navi Ansari M.D. [address] [place] [phone] 06/07/2024 12:30 PM CDT Clinical Communication Virtual Review in [place], [place] [address] [place] [address] 06/08/2024 2:00 PM CDT Telemedicine Department of Palliative Care in [place], [place] [address] [place] [address] Estephania Plaza APRN, C.N.P., D.N.P. 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
--- OUTSIDE RECORDS SUMMARY | 2024-05-22 10:45 | XMS_ITS | Encounter Summary ---
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 [address] [place] [address] Phone: tel: fax: 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 [address] [place] [address] Phone: tel: fax: 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 [address] [place] [address] Phone: tel: fax: [facility] [place] [address] [place] [phone] Referral ID Status Reason Start Date Expiration Date V isits Requested Visits Authorized [id number] Authorized 05/21/2024 08/08/2025 5 5 Encounter Details Date Type Department Care Team (Late st Contact Info) Description 05/08/2024 Orders Only Department of Radiation Oncology in [place], [place] [address] [place] [phone] Ryan Mora P.A.-C., M.S. 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 I have a [facility] place to live 02/15/2024 Sex and Gender Information Value Date Recorded Sex Assigned at Male 02/15/2024 4:45 PM 1ST PRESSMAN ON WEB PRESS Legal Sex Male 3:29 PM 1ST PRESSMAN ON WEB PRESS Gender Identity Male 02/15/2024 4:45 PM 1ST PRESSMAN ON WEB PRESS Sexual Orientation Straight 02/15/2024 4: 45 PM 1ST PRESSMAN ON WEB PRESS documented as of this encounter Miscellaneous Notes * Addendum Note - Ryan Mora P.A.-C., M.S. - 05/08/2024 11:18 AM CDTAddended by: RYAN MORA on: 05/08/2024 11:54 AM Modules accepted: Orders documented in this encounter Plan of Treatment Upcoming Encounters Date Type Department Care Team (Latest Contact Info) Description 05/25/2024 12:00 PM CDT Appointment Department of Radiation Oncology in [address] [phone] Navi Ansari M.D. [address] [place] [phone] 05/28/2024 3:45 PM CDT Appointment Department of Radiation Oncology in [address] [address] Navi Ansari M.D. [address] [place] [phone] 05/29/2024 12:30 PM CDT Appointment Department of Radiation Oncology in [address] [address] Navi Ansari M.D. [address] [place] [phone] 05/29/2024 1:00 PM CDT Appointment Department of Radiation Oncology in [address] [address] Navi Ansari M.D. [address] [place] [phone] 05/30/2024 2:00 PM CDT Appointment Department of Radiation Oncology in [address] [phone] Navi Ansari M.D. [address] [place] [address] 05/31/2024 2:30 PM CDT Appointment Department of Radiation Oncology in [place], [place] [address] [place] [phone] Navi Ansari M.D. [facility] [place] [address] 06/07/2024 12:30 PM CDT Clinical Communication Virtual Review in [place], [place] [address] [place] [address] 06/08/2024 2:00 PM CDT Telemedicine Department of Palliative Care in [place], [place] [address] [place] [phone] Celestine Chino APRN, C.N.P., D.N.P. [address] [place] [phone] Scheduled Orders Name Type Priority Associated Diagnoses [...] CT Simulation (05/16/2024 2:00 PM CDT) Narrative [facility] - 05/16/2024 2:00 PM CDT Navi [...] (HCC) documented in this encounter Care Teams Promotional Demonstrator Relationship Specialty Start Date End Date Elsewhere, Pcp PCP - General Internal Medicine 04/03/24 documented as of this encounter
[2024-05-22 10:46] LABS: Slide Review Reflex Yes
--- OUTSIDE RECORDS SUMMARY | 2024-05-22 10:46 | XMS_ITS | Encounter Summary ---
Author Organization [facility] Address [address] [place] [address] Care Team Providers Care Kettle Operator Head Name Role Phone Elsewhere, Pcp Primary Care Provider Unavailabl e Reason for Visit * Reason Onset Date Comments Med Refill 05/14/2024 Encounter Details Date Type Department Care Team (Late st Contact Info) Description 05/14/2024 Refill Department of Palliative Care in [place], [place] [address] [place] [phone] Celestine Chino APRN, C.N.P., D.N.P. [address] [place] [phone] Med Refill Social History Tobacco Use Types [...] from age 22 to 39 [facility] Utilities Answer Date Recorded In the past [...] your living situation today? I have a [facility] place to live 02/15/2024 Sex and Gender Information Value Date Recorded Sex Assigned at Male 02/15/2024 4:45 PM CONDUCTOR/BRAKEMAN Legal Sex Male 3:29 PM CONDUCTOR/BRAKEMAN Gender Identity Male 02/15/2024 4:45 PM CONDUCTOR/BRAKEMAN Sexual Orientation Straight 02/15/2024 4 :45 PM CONDUCTOR/BRAKEMAN documented as of this encounter Plan of Treatment Upcoming Encounters Date Type Department Care Team (Latest Contact Info) Description 05/25/2024 12:00 PM CDT Appointment Department of Radiation Oncology in [address] [address] aNvi Ansari M.D. [address] [place] [address] 05/28/2024 3:45 PM CDT Appointment Department of Radiation Oncology in [place], [place] [address] [place] [address] Navi Ansari M.D. [address] [place] [address] 05/29/2024 12:30 PM CDT Appointment Department of Radiation Oncology in [place], [place] [address] [facility] [place] [address] Navi Ansari M.D. [facility] [place] [address] 05/29/2024 1:00 PM CDT Appointment Department of Radiation Oncology in [place], [place] [address] [place] [address] Navi Ansari M.D. [address] [place] [address] 05/30/2024 2:00 PM CDT Appointment Department of Radiation Oncology in [place], [place] [address] [place] [address] Navi Ansari M.D. [address] [place] [address] 05/31/2024 2:30 PM CDT Appointment Department of Radiation Oncology in [place], [place] [address] [facility] [place] [address] Navi Ansari M.D. [address] [place] [address] 06/07/2024 12:30 PM CDT Clinical Communication Virtual Review in [place], [place] 200 [place] [phone] 06/08/2024 2:00 PM CDT Telemedicine Department of Palliative Care in [place], [place] [address] [place] [phone] Celestine Chino APRN, C.N.P., D.N.P. 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
--- OUTSIDE RECORDS SUMMARY | 2024-05-22 10:46 | XMS_ITS | Encounter Summary ---
Author Organization [facility] Address [address] [place] [address] Care Team Providers Care Game Designer Name Role Phone Elsewhere, Pcp Primary Care Provider Unavailabl e Encounter Details Date Type Department Care Team (Late st Contact Info) Description 05/08/2024 Orders Only Department of Oncology in [place], [place] [address] [place] [address] Marimar Maldonado MPAS, P.A.-C., P.A. 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 I have a [facility] place to live 02/15/2024 Sex and Gender Information Value Date Recorded Sex Assigned at Male 02/15/2024 4:45 PM DIGITAL PRINT OPERATOR Legal Sex Male 3:29 PM DIGITAL PRINT OPERATOR Gender Identity Male 02/15/2024 4:45 PM DIGITAL PRINT OPERATOR Sexual Orientation Straight 02/15/2024 4: 45 PM DIGITAL PRINT OPERATOR documented as of this encounter Plan of Treatment Upcoming Encounters Date Type Department Care Team (Latest Contact Info) Description 05/25/2024 12:00 PM CDT Appointment Department of Radiation Oncology in [place], [place] [address] [place] [address] Navi Ansari M.D. [address] [place] [address] 05/28/2024 3:45 PM CDT Appointment Department of Radiation Oncology in [place], [place] [address] [place] [address] Navi Ansari M.D. [address] [place] [address] 05/29/2024 12:30 PM CDT Appointment Department of Radiation Oncology in [address] [address] Navi Ansari M.D. [facility] [place] [address] 05/29/2024 1:00 PM CDT Appointment Department of Radiation Oncology in [place], [place] [address] [place] [address] Navi Ansari M.D. [facility] [place] [address] 05/30/2024 2:00 PM CDT Appointment Department of Radiation Oncology in [place], [place] [address] [place] [address] Navi Ansari M.D. [facility] [place] [address] 05/31/2024 2:30 PM CDT Appointment Department of Radiation Oncology in [place], [place] [address] [place] [address] Navi Ansari M.D. [facility] [place] [address] 06/07/2024 12:30 PM CDT Clinical Communication Virtual Review in [place], [place] 200 [place] [address] 06/08/2024 2:00 PM CDT Telemedicine Department of Palliative Care in [address] [phone] Celestine Chino APRN, C.N.P., D.N.P. 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
--- OUTSIDE RECORDS SUMMARY | 2024-05-22 10:46 | XMS_ITS | Encounter Summary ---
Author Organization [facility] Address [address] [place] [address] Care Team Providers Care Superior Court Judge Name Role Phone Elsewhere, Pcp Primary Care Provider Unavailabl e Reason for Referral * Outpatient (Routine) - Closed Specialty Diagnoses / Procedures Referred By Contebenezer t Referred To Contact Radiation Oncology Rain Alejandro APRN, C.N.P., D.N.P. [address] [place] [address] Phone: tel: fax: Navi Ansari M.D. [facility] [place] [address] Phone: tel: fax: Referral ID Status Reason Start Date Expiration Date Visits Re quested Visits Authorized [id number] Closed 05/16/2024 11/15/2025 1 1 Encounter Details Date Type Department Care Team (Late st Contact Info) Description 05/16/2024 Orders Only Department of Radiation Oncology in [place], [place] [address] [place] [address] Rain Alejandro APRN, C.N.P., D.N.P. [address] [place] [address] Social History Tobacco Use Types Packs/Day Years Used Date Smoking Tobacco: Former Cigarettes 10 10 0 07/15/1994 - 11/11/2017 Passive Smoke Exposure: Never Smokeless Tobacco: Never Comments:Smoked off and on b etween dates noted. Alcohol Use Standard Drinks/Week Comments Not Currently 0 (1 standard drink = 0.6 oz pure alcohol) Drank heavily off and on from age 22 to 39 [facility] Utilities Answer Date Recorded In the past 12 months has [employer], oil, or water [employer] threatened to shut off services in your [...] your living situation today? I have a [facility] place to live 02/15/2024 Sex and Gender Information Value Date Recorded Sex Assigned at Male 02/15/2024 4:45 PM SINTER MACHINE OPERATOR Legal Sex Male 3:29 PM SINTER MACHINE OPERATOR Gender Identity Male 02/15/2024 4:45 PM SINTER MACHINE OPERATOR Sexual Orientation Straight 02/15/2024 4: 45 PM SINTER MACHINE OPERATOR documented as of this encounter Plan of Treatment Upcoming Encounters Date Type Department Care Team (Latest Contact Info) Description 05/25/2024 12:00 PM CDT Appointment Department of Radiation Oncology in [address] [address] Navi Ansari M.D. [address] [place] [phone] 05/28/2024 3:45 PM CDT Appointment Department of Radiation Oncology in [address] [address] Navi Ansari M.D. [address] [place] [phone] 05/29/2024 12:30 PM CDT Appointment Department of Radiation Oncology in [address] [address] Navi Ansari M.D. [address] [place] [phone] 05/29/2024 1:00 PM CDT Appointment Department of Radiation Oncology in [address] [address] Navi Ansari M.D. [address] [place] [phone] 05/30/2024 2:00 PM CDT Appointment Department of Radiation Oncology in [place], [place] [address] [place] [address] Navi Ansari M.D. [address] [place] [address] 05/31/2024 2:30 PM CDT Appointment Department of Radiation Oncology in [place], [place] [address] [place] [address] Navi Ansari M.D. [place] [address] 06/07/2024 12:30 PM CDT Clinical Communication Virtual Review in [place], [place] 200 [place] [address] 06/08/2024 2:00 PM CDT Telemedicine Department of Palliative Care in [place], [place] [address] [place] [phone] Celestine Chino, LAI, C.N.P., D.N.P. [address] [place] [phone] Scheduled Referrals Name Type Priority Associated Diagnoses Orde r Schedule Radiation Oncology office visit (clinic) Outpatient Referral Routine Expected: 05/16/2024, Expires: 08/15/2025 documented as of this encounter Visit Diagnoses Not on filedocumented in this encounter Care Teams Superior Court Judge Relationship Specialty Start Date End Date Elsewhere, Pcp PCP - General Internal Medicine 04/03/24 documented as of this encounter
--- OUTSIDE RECORDS SUMMARY | 2024-05-22 10:46 | XMS_ITS | Encounter Summary ---
Author Organization [facility] Address [address] [place] [address] Care Team Providers Care Circular Sawyer Stone Name Role Phone Elsewhere, Pcp Primary Care Provider Unavailabl e Reason for Referral * Outpatient (Routine) - Authorized Specialty Diagnoses / Procedures Referred By Contac t Referred To Contact Palliative Medicine Celestine Chino APRN, C.N.P., D.N.P. [address] [place] [address] Phone: tel: fax: [facility] Referral ID Status Reason Start Date Expiration Date V isits Requested Visits Authorized [id number] Authorized 05/11/2024 11/10/2025 1 1 Scheduling Instructions 11 or later appt. Thanks. Reason for Visit * Outpatient (Routine) - Closed Specialty Diagnoses / Procedures Referred By Contac t Referred To Contact Palliative Medicine Sandy Perez M.D. [address] [place] [phone] Phone: tel: fax: [facility] Referral ID Status Reason Start Date Expiration Date Visits Re quested Visits Authorized [id number] Closed 03/21/2024 09/20/2025 1 1 Encounter Details Date Type Department Care Team (Late st Contact Info) Description 05/11/2024 2:15 PM CDT Office Visit Department of Palliative Care in [place], [place] [address] [place] [phone] Celestine Chino APRN, C.N.P., D.N.P. [address] [place] [phone] Pain Cancer Associated; Adjustment Disorder Mixed Reaction; [...] and on from age 22 to 39 [facility] Utilities Answer Date Recorded In the past 12 months has [employer], gas, oil, or water [employer] threatened to shut off services in your [...] your living situation today? I have a [facility] place to live 02/15/2024 Sex and Gender Information Value Date Recorded Sex Assigned at Male 02/15/2024 4:45 PM JAVA PERFORMANCE ENGINEER Legal Sex Male 3:29 PM JAVA PERFORMANCE ENGINEER Gender Identity Male 02/15/2024 4:45 PM JAVA PERFORMANCE ENGINEER Sexual Orientation Straight 02/15/2024 4: 45 PM JAVA PERFORMANCE ENGINEER documented as of this encounter Last Filed [...] C.N.P., D.N.P. - 05/11/2024 2:15 PM CDT [facility] Outpatient Palliative Care Progress Note Patient: Rudy Gross; 43 y.o.male LOCATION Palliative Care Clinic SUBJECTIVE Rudy Gross is a 43 y.o. male from [place], [place] with metastatic esophageal cancer who is [...] Gross is a 43 y.o. male from [place], [place] with metastatic esophageal cancer who is [...] controlled substance prescribing: nociceptive back pain [place] LIGHTHOUSE KEEPER Review: We have reviewed the patient's record in the [place] prescription monitoring program 05/11/2024. Opioid Toxicity Review: [...] to hold off at this time Offered social work faculty member consult, declines as talking is a trigger for low mood given vocal chord dysfunction Educated patient on [employer]'s Club, Resilient Living Program, and Meaning Centered [...] CDT Appointment Department of Radiation Oncology in [address] [address] Navi Ansari M.D. [address] [place] [phone] 05/28/2024 3:45 PM CDT Appointment Department of Radiation Oncology in [address] [address] Navi Ansari M.D. [address] [place] [phone] 05/29/2024 12:30 PM CDT Appointment Department of Radiation Oncology in [address] [address] Navi Ansari M.D. [address] [place] [phone] 05/29/2024 1:00 PM CDT Appointment Department of Radiation Oncology in [address] [address] Navi Ansari M.D. [address] [place] [phone] 05/30/2024 2:00 PM CDT Appointment Department of Radiation Oncology in [address] [phone] aNvi Ansari M.D. [address] [place] [phone] 05/31/2024 2:30 PM CDT Appointment Department of Radiation Oncology in [address] [phone] Navi Ansari M.D. [address] [place] [phone] 06/07/2024 12:30 PM CDT Clinical Communication Virtual Review in [address] [phone] 06/08/2024 2:00 PM CDT Telemedicine Department of Palliative Care in [address] [address] Celestine Chino APRN, C.N.P., D.N.P. [address] [place] [phone] Scheduled Referrals Name Type Priority Associated Diagnoses Order Schedule Palliative Care office visit (clinic) Outpatient Referral Routine Expected: 06/01/2024, Expires: 08/11/2025 documented as of this encounter Visit Diagnoses Diagnosis Pain Cancer Associated Adjustment Disorder Mixed Reaction 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) Palliative Care Fatigue Dysgeusia Not Psychogenic Loss Appetite Constipation documented in this encounter Care Teams Circular Sawyer Stone Relationship Specialty Start Date End Date Elsewhere, Pcp PCP - General Internal Medicine 04/03/24 documented as of this encounter
--- OUTSIDE RECORDS SUMMARY | 2024-05-22 10:46 | XMS_ITS | Encounter Summary ---
Author Organization [facility] Address [address] [place] [address] Care Team Providers Care Field Property Loss Specialist Name Role Phone Elsewhere, Pcp Primary Care Provider Unavailabl e Reason for Referral * Outpatient (Routine) - Closed Specialty Diagnoses / Procedures Referred By Contebenezer t Referred To Contact Radiation Oncology Rain Alejandro APRN, C.N.P., D.N.P. [address] [place] [address] Phone: tel: fax: Navi Ansari M.D. [facility] [place] [address] Phone: tel: fax: Referral ID Status Reason Start Date Expiration Date Visits Re quested Visits Authorized [id number] Closed 05/16/2024 11/15/2025 1 1 Reason for Visit * Outpatient (Routine) - Closed Specialty Diagnoses / Procedures Referred By Hayde t Referred To Contact Radiation Oncology Rain Alejandro APRN, C.N.Madyson, D.N.P. [address] [place] [address] Phone: tel: fax: Navi Ansari M.D. [address] [place] [phone] Phone: tel: fax: Referral ID Status Reason Start Date Expiration Date Visits Re quested Visits Authorized [id number] Closed 05/16/2024 11/15/2025 1 1 Encounter Details Date Type Department Care Team (Latest Contact Info) Description 05/16/2024 12:39 PM CDT - 05/16/2024 1:25 PM CDT Hospital Encounter Department of Radiation Oncology in [place], [place] [address] [place] [phone] Navi Ansari M.D. [address] [place] [phone] Secondary Malignant Neoplasm Bone (HCC) (Primary [...] and on from age 22 to 39 [facility] Utilities Answer Date Recorded In the past 12 months has [employer], gas, oil, or water [employer] threatened to shut off services in your [...] your living situation today? I have a [facility] place to live 02/15/2024 Sex and Gender Information Value Date Recorded Sex Assigned at Male 02/15/2024 4:45 PM CUT OFF MACHINE HELPER Legal Sex Male 3:29 PM CUT OFF MACHINE HELPER Gender Identity Male 02/15/2024 4:45 PM CUT OFF MACHINE HELPER Sexual Orientation Straight 02/15/2024 4: 45 PM CUT OFF MACHINE HELPER documented as of this encounter Last Filed Vital Signs Vital Sign Reading Time Taken Comments Blood Pressure 99/64 05/16/2024 1:04 PM CDT Pulse 105 05/16/2024 1:04 PM CDT Temperature - - Respiratory Rate - - Oxygen Saturation - - Inhaled Oxygen Concentration - - Weight 84.8 kg (187 lb) 05/16/2024 1:04 PM CDT Height - - Body Mass Index 25.47 02/28/2024 2:24 PM CUT OFF MACHINE HELPER documented in this encounter Medications at Time [...] (cGy) First Treatment Last Treatment Elapsed Days [id number] 10 10 300 3000 3000 03/05/2024 03/16/2024 11 Course Summary 03/05/2024 03/16/2024 11 Treatment Course: 2xFace Plan ID Fractions Dose / Fraction (cGy) Dose Treated (cGy) Dose Planned (cGy) First Treatment Last Treatment Elapsed Days [id number] 800 800 800 03/19/2024 03/19/2024 0 Course [...] CDT Appointment Department of Radiation Oncology in [place], [place] [address] [place] [address] Navi Ansari M.D. [address] [place] [address] 05/28/2024 3:45 PM CDT Appointment Department of Radiation Oncology in [place], [place] [address] [place] [phone] Navi Ansari M.D. [address] [place] [address] 05/29/2024 12:30 PM CDT Appointment Department of Radiation Oncology in [address] [phone] Navi Ansari M.D. [address] [place] [phone] 05/29/2024 1:00 PM CDT Appointment Department of Radiation Oncology in [address] [address] Navi Ansari M.D. [place] [address] 05/30/2024 2:00 PM CDT Appointment Department of Radiation Oncology in [address] [address] Navi Ansari M.D. [address] [place] [phone] 05/31/2024 2:30 PM CDT Appointment Department of Radiation Oncology in [address] [phone] Navi Ansari M.D. [address] [place] [phone] 06/07/2024 12:30 PM CDT Clinical Communication Virtual Review in [address] [phone] 06/08/2024 2:00 PM CDT Telemedicine Department of Palliative Care in [place], [place] 200 [place] [address] Celestine Chino APRN, C.N.P., D.N.P. 200 [place] [address] Scheduled Referrals Name Type Priority Associated Diagnoses Order Schedule Radiation Oncology office visit (clinic) Outpatient Referral Routine Once for 1 Occurrences starting 05/16/2024 until 05/16/2024 documented as of this encounter Visit Diagnoses Diagnosis Secondary Malignant Neoplasm Bone (HCC)- Primary documented in this encounter Care Teams Field Property Loss Specialist Relationship Specialty Start Date End Date Elsewhere, Pcp PCP - General Internal Medicine 04/03/24 documented as of this encounter
--- OUTSIDE RECORDS SUMMARY | 2024-05-22 10:46 | XMS_ITS | Encounter Summary ---
Author Organization [facility] Address [address] [place] [address] Care Team Providers Care Note Teller Name Role Phone Elsewhere, Pcp Primary Care Provider Unavailabl e Reason for Visit * Reason Onset Date Comments Pre-visit Intake 05/10/2024 Encounter Details Date Type Department Care Team (Latest Contact Info) Description 05/10/2024 10:45 AM CDT Clinical Communication Virtual Review in [place], [place] 200 [place] [address] Pre-visit Intake Social History Tobacco Use Types Packs/Day Years Used Date Smoking Tobacco: Former Cigarettes 10 10 0 07/15/1994 - 11/11/2017 Passive Smoke Exposure: Never Smokeless Tobacco: Never Comments:Smoked off and on b etween dates noted. Alcohol Use Standard Drinks/Week Comments Not Currently 0 (1 standard drink = 0.6 oz pure alcohol) Drank heavily off and on from age 22 to 39 [facility] Utilities Answer Date Recorded In the past 12 months has [facility] [employer], gas, oil, or water company threatened [...] your living situation today? I have a [facility] place to live 02/15/2024 Sex and Gender Information Value Date Recorded Sex Assigned at Male 02/15/2024 4:45 PM HEALTHCARE MANAGEMENT CONSULTANT Legal Sex Male 3:29 PM HEALTHCARE MANAGEMENT CONSULTANT Gender Identity Male 02/15/2024 4:45 PM HEALTHCARE MANAGEMENT CONSULTANT Sexual Orientation Straight 02/15/2024 4: 45 PM HEALTHCARE MANAGEMENT CONSULTANT documented as of this encounter Plan of Treatment Upcoming Encounters Date Type Department Care Team (Latest Contact Info) Description 05/25/2024 12:00 PM CDT Appointment Department of Radiation Oncology in [place], [place] [address] [place] [phone] Navi Ansari M.D. [address] [place] [phone] 05/28/2024 3:45 PM CDT Appointment Department of Radiation Oncology in [place], [place] [address] [place] [phone] Navi Ansari M.D. [facility] [place] [address] 05/29/2024 12:30 PM CDT Appointment Department of Radiation Oncology in [place], [place] [address] [place] [phone] Navi Ansari M.D. [address] [place] [phone] 05/29/2024 1:00 PM CDT Appointment Department of Radiation Oncology in [address] [address] Navi Ansari M.D. [address] [place] [phone] 05/30/2024 2:00 PM CDT Appointment Department of Radiation Oncology in [address] [address] Navi Ansari M.D. [address] [place] [phone] 05/31/2024 2:30 PM CDT Appointment Department of Radiation Oncology in [address] [address] Navi Ansari M.D. [facility] [place] [address] 06/07/2024 12:30 PM CDT Clinical Communication Virtual Review in [address] [phone] 06/08/2024 2:00 PM CDT Telemedicine Department of Palliative Care in [place], [place] [address] [place] [address] Celestine Chino APRN, C.N.P., D.N.P. 200 [place] [address] documented as of this encounter Visit Diagnoses Not on filedocumented in this encounter Care Teams Note Teller Relationship Specialty Start Date End Date Elsewhere, Pcp PCP - General Internal Medicine 04/03/24 documented as of this encounter
--- OUTSIDE RECORDS SUMMARY | 2024-05-22 10:46 | XMS_ITS | Clinical Summary ---
Author [facility] Address [address], [place] [address] Care Team Providers Care Electric Power Machine Operator Name Role Phone Unavailable Primary Care Provider Unavailabl e Source Comments You are receiving this document as you are listed as the primary care provider,follow-up provider, or the patient has been referred to you for consultation.This is in compliance with the Medicare andK[facility] Centercaid EHR Incentive Program,which states Providers who transition their patient to another setting of careor provider of care or refers their patient to another provider of care shouldprovide summary care record for each transition of care or referral. [employer]flow Allergies Active Allergy Reactions Criticality Noted Date [...] Comments Blood Pressure 143/84 04/11/2018 9:47 AM PHOTORADIO OPERATOR Pulse 78 11/02/2019 8:16 AM CDT Temperature 36.7 C (98.1 F) 01/12/2010 2:50 PM PHOTORADIO OPERATOR Respiratory Rate 16 01/12/2010 2:50 PM PHOTORADIO OPERATOR Oxygen Saturation 93% 01/12/2010 2:50 PM PHOTORADIO OPERATOR Inhaled Oxygen Concentration - - Weight - [...] patient's age to complete this topic Insurance [facility] [id number] [place] [address]
--- OUTSIDE RECORDS SUMMARY | 2024-05-22 10:46 | XMS_ITS | Encounter Summary ---
Author Organization [facility] Address [address] [place] [address] Care Team Providers Care Lumber Handler Name Role Phone Elsewhere, Pcp Primary Care Provider Unavailabl e Encounter Details Date Type Department Care Team (Late st Contact Info) Description 03/19/2024 Clinical Communication Department of Oncology in [place], [place] [address] [place] [phone] Joan Perez R.N., O.C.N. [address] [place] [phone] Social History Tobacco Use Types Packs/Day Years Used Date Smoking Tobacco: Former Cigarettes 10 10 0 07/15/1994 - 11/11/2017 Passive Smoke Exposure: Never Smokeless Tobacco: Never Comments:Smoked off and on b etween dates noted. Alcohol Use Standard Drinks/Week Comments Not Currently 0 (1 standard drink = 0.6 oz pure alcohol) Drank heavily off and on from age 22 to 39 [facility] Utilities Answer Date Recorded In the past 12 months has [employer], gas, oil, or water [employer] threatened to shut off services in your [...] living situation today? I have a [facility] place to live 02/15/2024 Sex and Gender Information Value Date Recorded Sex Assigned at Male 02/15/2024 4:45 PM APPLICATION PENETRATION TESTER Legal Sex Male 3:29 PM APPLICATION PENETRATION TESTER Gender Identity Male 02/15/2024 4:45 PM APPLICATION PENETRATION TESTER Sexual Orientation Straight 02/15/2024 4: 45 PM APPLICATION PENETRATION TESTER documented as of this encounter Plan of Treatment Upcoming Encounters Date Type Department Care Team (Latest Contact Info) Description 05/25/2024 12:00 PM CDT Appointment Department of Radiation Oncology in [place], [place] 182 [place] [phone] Navi Ansari M.D. [address] [place] [phone] 05/28/2024 3:45 PM CDT Appointment Department of Radiation Oncology in [place], [place] [address] [place] [phone] Navi Ansari M.D. [address] [place] [address] 05/29/2024 12:30 PM CDT Appointment Department of Radiation Oncology in [address] [phone] Navi Ansari M.D. [address] [place] [phone] 05/29/2024 1:00 PM CDT Appointment Department of Radiation Oncology in [address] [phone] Navi Ansari M.D. [address] [place] [phone] 05/30/2024 2:00 PM CDT Appointment Department of Radiation Oncology in [address] [phone] Navi Ansari M.D. [address] [place] [phone] 05/31/2024 2:30 PM CDT Appointment Department of Radiation Oncology in [address] [address] Navi Ansari M.D. [facility] [place] [address] 06/07/2024 12:30 PM CDT Clinical Communication Virtual Review in [address] [phone] 06/08/2024 2:00 PM CDT Telemedicine Department of Palliative Care in [place], [place] 200 [place] [address] Celestine Chino APRN, C.N.P., D.N.P. 200 [place] [address] documented as of this encounter Visit Diagnoses Not on filedocumented in this encounter Care Teams Lumber Handler Relationship Specialty Start Date End Date Elsewhere, Pcp PCP - General Internal Medicine 04/03/24 documented as of this encounter
--- OUTSIDE RECORDS SUMMARY | 2024-05-22 10:48 | XMS_ITS | Encounter Summary ---
Author Organization [facility] Address [address] [place] [address] Care Team Providers Care Aeronautics Commission Director Name Role Phone Elsewhere, Pcp Primary Care Provider Unavailabl e Reason for Visit * Reason Onset Date Comments tx 04/04/2024 Encounter Details Date Type Department Care Team (Late st Contact Info) Description 04/04/2024 Clinical Communication Department of Oncology in [place], [place] [address] [place] [phone] Tor Smalls M.D. [address] [place] [phone] tx Social History Tobacco Use Types Packs/Day [...] to 39 [facility] Utilities Answer Date Recorded In the past [...] your living situation today? I have a [facility] place to live 02/15/2024 Sex and Gender Information Value Date Recorded Sex Assigned at Male 02/15/2024 4:45 PM SETTER INDUCTION HEATING EQUIPMENT Legal Sex Male 3:29 PM SETTER INDUCTION HEATING EQUIPMENT Gender Identity Male 02/15/2024 4:45 PM SETTER INDUCTION HEATING EQUIPMENT Sexual Orientation Straight 02/15/2024 4: 45 PM SETTER INDUCTION HEATING EQUIPMENT documented as of this encounter Plan of Treatment Upcoming Encounters Date Type Department Care Team (Latest Contact Info) Description 05/25/2024 12:00 PM CDT Appointment Department of Radiation Oncology in [place], [place] [address] [place] [phone] Navi Ansari M.D. [address] [place] [address] 05/28/2024 3:45 PM CDT Appointment Department of Radiation Oncology in [address] [phone] Navi Ansari M.D. [address] [place] [address] 05/29/2024 12:30 PM CDT Appointment Department of Radiation Oncology in [address] [address] Navi Ansari M.D. [address] [place] [phone] 05/29/2024 1:00 PM CDT Appointment Department of Radiation Oncology in [address] [address] Navi Ansari M.D. [address] [place] [phone] 05/30/2024 2:00 PM CDT Appointment Department of Radiation Oncology in [address] [address] Navi Ansari M.D. [address] [place] [phone] 05/31/2024 2:30 PM CDT Appointment Department of Radiation Oncology in [place], [place] [address] [place] [phone] Navi Ansari M.D. [facility] [place] [address] 06/07/2024 12:30 PM CDT Clinical Communication Virtual Review in [place], [place] 200 [place] [address] 06/08/2024 2:00 PM CDT Telemedicine Department of Palliative Care in [place], [place] [address] [place] [phone] Celestine Chino, LAI, C.N.P., D.N.P. [address] [place] [phone] documented as of this encounter Visit Diagnoses Not on filedocumented in this encounter Care Teams Aeronautics Commission Director Relationship Specialty Start Date End Date Elsewhere, Pcp PCP - General Internal Medicine 04/03/24 documented as of this encounter
--- OUTSIDE RECORDS SUMMARY | 2024-05-22 10:51 | XMS_ITS | Encounter Summary ---
Author Organization [facility] Address [address] [place] [address] Care Team Providers Care Kitchen Chef Name Role Phone Elsewhere, Pcp Primary Care Provider Unavailabl e Reason for Visit * Reason Onset Date Comments Rx Approval 03/27/2024 Olanzapine 5 mg odt Encounter Details Date Type Department Care Team (Latest Contact Info) Description 03/27/2024 Clinical Communication Pharmacy Prior [facility] [phone] Adela Gill Rx Approval (Olanzapine 5 mg [...] Recorded In the past 12 months has [facility] [employer], [employer], or [employer] threatened to shut off services in your [...] Sex Assigned at Male 02/15/2024 4:45 PM LINE UP MACHINE OPERATOR Legal Sex Male 3:29 PM LINE UP MACHINE OPERATOR Gender Identity Male 02/15/2024 4:45 PM LINE UP MACHINE OPERATOR Sexual Orientation Straight 02/15/2024 4: 45 PM LINE UP MACHINE OPERATOR documented as of this encounter Miscellaneous Notes * Telephone Encounter - Adela Gill - 03/27/2024 9:16 AM CST Pharmaceutical prior authorization has been approved for Olanzapine ODT 5 mg. If you have any follow-up questions, please send an [employer] Navigation in [place] Amina message to [facility]. UP MACHINE OPERATOR documented in this encounter Plan of Treatment Upcoming Encounters Date Type Department Care Team (Latest Contact Info) Description 05/25/2024 12:00 PM CDT Appointment Department of Radiation Oncology in [address] [address] Navi Ansari M.D. [address] [place] [phone] 05/28/2024 3:45 PM CDT Appointment Department of Radiation Oncology in [address] [address] Navi Ansari M.D. [address] [place] [phone] 05/29/2024 12:30 PM CDT Appointment Department of Radiation Oncology in [address] [phone] Navi Ansari M.D. [address] [place] [phone] 05/29/2024 1:00 PM CDT Appointment Department of Radiation Oncology in [address] [address] Navi Ansari M.D. [address] [place] [phone] 05/30/2024 2:00 PM CDT Appointment Department of Radiation Oncology in [address] [address] Navi Ansari M.D. [address] [place] [phone] 05/31/2024 2:30 PM CDT Appointment Department of Radiation Oncology in [address] [place] [address] Navi Ansari M.D. [address] [place] [address] 06/07/2024 12:30 PM CDT Clinical Communication Virtual Review in [place], [place] 200 [place] [phone] 06/08/2024 2:00 PM CDT Telemedicine Department of Palliative Care in [place], [place] [address] [place] [phone] Celestine Chino APRN, C.N.P., D.N.P. [address] [place] [phone] documented as of this encounter Visit Diagnoses Not on filedocumented in this encounter Care Teams Kitchen Chef Relationship Specialty Start Date End Date Elsewhere, Pcp PCP - General Internal Medicine 04/03/24 documented as of this encounter
--- OUTSIDE RECORDS SUMMARY | 2024-05-22 10:51 | XMS_ITS ---
Author Organization [facility] Address [address] [place] [address] Care Team Providers Care Manager Installation Name Role Phone Elsewhere, Pcp Primary Care [...] Fraction Dose Fractions Total Dose Plans Planned [id number] 03/05/2024 - 03/16/2024 300 cGy 3,000 cGy Reference Points Delivered [id number] 03/05/2024 - 03/16/2024 3,000 cGy Past Radiation [...] Fraction Dose Fractions Total Dose Plans Planned [id number] 03/19/2024 - 03/19/2024 800 cGy 8 00 cGy Reference Points Delivered [id number] 03/19/2024 - 03/19/2024 800 cGy Lifetime Dose Tracking * Chemical Lifetime Dose Automatic Entry Manual Entr y Radiation 16.92 mGy 16.92 mGy 0 mGy Fluoro Time 0.68 minutes 0.68 minutes 0 minutes DAP (uGy-m2) 523.38 uGy-m2 523.38 uGy-m2 0 uGy-m2
--- OUTSIDE RECORDS SUMMARY | 2024-05-22 10:52 | XMS_ITS | Encounter Summary ---
Author Organization [facility] Address [address] [place] [id number] Care Team Providers Care Repairing Calibrator Name Role Phone Elsewhere, Pcp Primary Care Provider Unavailabl e Reason for Visit * Reason Onset Date Comments Update 04/13/2024 Encounter Details Date Type Department Care Team (Late st Contact Info) Description 04/13/2024 Clinical Communication Department of Palliative Care in [place], [place] [address] [place] [phone] Celestine Chino APRN, C.N.P., D.N.P. [address] [place] [phone] Update Social History Tobacco Use Types Packs/Day Years Used Date Smoking Tobacco: Former Cigarettes 10 10 0 07/15/1994 - 11/11/2017 Passive Smoke Exposure: Never Smokeless Tobacco: Never Comments:Smoked off and on b etween dates noted. Alcohol Use Standard Drinks/Week Comments Not Currently 0 (1 standard drink = 0.6 oz pure alcohol) Drank heavily off and on from age 22 to 39 [facility] Utilities Answer Date Recorded In the [...] living situation today? I have a [facility] place to live 02/15/2024 Sex and Gender Information Value Date Recorded Sex Assigned at Male 02/15/2024 4:45 PM COMMISSARY STEWARD Legal Sex Male 3:29 PM COMMISSARY STEWARD Gender Identity Male 02/15/2024 4:45 PM COMMISSARY STEWARD Sexual Orientation Straight 02/15/2024 4: 45 PM COMMISSARY STEWARD documented as of this encounter Miscellaneous Notes * Telephone Encounter - Susan Collier R.N., [facility] - 04/13/2024 3:14 PM COMMISSARY STEWARD PALLIATIVE CARE NURSING TELEPHONE CALL Information Discussed Rudy Gross is a 43 y.o. who is followed in the Palliative Care Clinic for esophageal cancer . Patientwas seen by Celestine Chino, SENIOR RESIDENT CARE DIRECTOR, [employer], DNP on 04/06/24. Phone call today is [...] omeprazole (Prilosec) as Pepcid wasn't as helpful. [facility] team started the following medications this [...] previous plan of care date: 04/10/24, 04/06/24. ISSARY STEWARD documented in this encounter Plan of Treatment Upcoming Encounters Date Type Department Care Team (Latest Contact Info) Description 05/25/2024 12:00 PM CDT Appointment Department of Radiation Oncology in [address] [phone] Navi Ansari M.D. [address] [place] [address] 05/28/2024 3:45 PM CDT Appointment Department of Radiation Oncology in [place], [place] [address] [place] [address] Navi Ansari M.D. [address] [place] [address] 05/29/2024 12:30 PM CDT Appointment Department of Radiation Oncology in [place], [place] [address] [place] [address] Navi Ansari M.D. [address] [place] [address] 05/29/2024 1:00 PM CDT Appointment Department of Radiation Oncology in [place], [place] [address] [place] [address] Navi Ansari M.D. [address] [place] [address] 05/30/2024 2:00 PM CDT Appointment Department of Radiation Oncology in [place], [place] [address] [place] [address] Navi Ansari M.D. [address] [place] [address] 05/31/2024 2:30 PM CDT Appointment Department of Radiation Oncology in [place], [place] [address] [place] [address] Navi Ansari M.D. [address] [place] [address] 06/07/2024 12:30 PM CDT Clinical Communication Virtual Review in [place], [place] [address] [place] [phone] 06/08/2024 2:00 PM CDT Telemedicine Department of Palliative Care in [place], [place] [address] [place] [phone] Celestine Chino APRN, C.N.P., D.N.P. 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
--- OUTSIDE RECORDS SUMMARY | 2024-05-22 10:52 | XMS_ITS | Encounter Summary ---
Author Organization [facility] Address [address] [place] [address] Care Team Providers Care Signal Tester Name Role Phone Elsewhere, Pcp Primary Care Provider Unavailabl e Reason for Visit * Reason Onset Date Comments Symptom Assessment 04/09/2024 Encounter Details Date Type Department Care Team (Latest Contact Info) Description 04/09/2024 Clinical Communication Department of Palliative Care in [place], [place] [address] [place] [address] Kati Joy M.D. [address] [place] [address] Symptom Assessment Social History Tobacco Use Types Packs/Day Years Used Date Smoking Tobacco: Former Cigarettes 10 10 0 07/15/1994 - 11/11/2017 Passive Smoke Exposure: Never Smokeless Tobacco: Never Comments:Smoked off and on b etween dates noted. Alcohol Use Standard Drinks/Week Comments Not Currently 0 (1 standard drink = 0.6 oz pure alcohol) Drank heavily off and on from age 22 to 39 [facility] Utilities Answer Date Recorded In [...] your living situation today? I have a [facility] place to live 02/15/2024 Sex and Gender Information Value Date Recorded Sex Assigned at Male 02/15/2024 4:45 PM ARCHITECTURAL INSPECTOR Legal Sex Male 3:29 PM ARCHITECTURAL INSPECTOR Gender Identity Male 02/15/2024 4:45 PM ARCHITECTURAL INSPECTOR Sexual Orientation Straight 02/15/2024 4: 45 PM ARCHITECTURAL INSPECTOR documented as of this encounter Miscellaneous Notes * Telephone Encounter - Maliha Snow R.N., [facility] - 04/10/2024 1:45 PM ARCHITECTURAL INSPECTOR ASSESSMENT Rudy Gross is a 43 y.o. [...] following references were used: nursing clinical judgement. ITECTURAL INSPECTOR * Telephone Encounter - Kati Joy M.D. - 04/09/2024 10:18 PM CST Palliative On-Call Note I received a call through the [facility] from Rudy's Susan this evening. She expressed [...] done this yet (waiting for Rx) - [place] fatigued Tuesday but able to go about [...] is next week 04/[address] Ramos ITECTURAL INSPECTOR documented in this encounter Plan of Treatment Upcoming Encounters Date Type Department Care Team (Latest Contact Info) Description 05/25/2024 12:00 PM CDT Appointment Department of Radiation Oncology in [address] [phone] Navi Ansari M.D. [address] [place] [phone] 05/28/2024 3:45 PM CDT Appointment Department of Radiation Oncology in [address] [address] Navi Ansari M.D. [address] [place] [phone] 05/29/2024 12:30 PM CDT Appointment Department of Radiation Oncology in [address] [address] Navi Ansari M.D. [address] [place] [phone] 05/29/2024 1:00 PM CDT Appointment Department of Radiation Oncology in [address] [address] Navi Ansari M.D. [address] [place] [phone] 05/30/2024 2:00 PM CDT Appointment Department of Radiation Oncology in [address] [phone] Navi Ansari M.D. [address] [place] [phone] 05/31/2024 2:30 PM CDT Appointment Department of Radiation Oncology in [address] [address] Navi Ansari M.D. [address] [place] [phone] 06/07/2024 12:30 PM CDT Clinical Communication Virtual Review in [place], [place] 200 [place] [address] 06/08/2024 2:00 PM CDT Telemedicine Department of Palliative Care in [place], [place] [address] [place] [phone] Celestine Chino APRN, C.N.P., D.N.P. 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
--- OUTSIDE RECORDS SUMMARY | 2024-05-22 10:52 | XMS_ITS | Encounter Summary ---
Author Organization [facility] Address [address] [place] [address] Care Team Providers Care Personnel Clerks Supervisor Name Role Phone Elsewhere, Pcp Primary Care Provider Unavailabl e Reason for Visit * Reason Onset Date Comments Follow-up 04/13/2024 Encounter Details Date Type Department Care Team (Late st Contact Info) Description 04/13/2024 Clinical Communication Department of Palliative Care in [place], [place] [address] [place] [phone] Maria Elena Rico APRN, C.N.P., D.N.P. [address] [place] [phone] Follow-up Social History Tobacco Use Types Packs/Day Years Used Date Smoking Tobacco: Former Cigarettes 10 10 0 07/15/1994 - 11/11/2017 Passive Smoke Exposure: Never Smokeless Tobacco: Never Comments:Smoked off and on b etween dates noted. Alcohol Use Standard Drinks/Week Comments Not Currently 0 (1 standard drink = 0.6 oz pure alcohol) Drank heavily off and on from age 22 to 39 [facility] Utilities Answer Date Recorded In the past [...] your living situation today? I have a [facility] [employer] [employer] place to live 02/15/2024 Sex and Gender Information Value Date Recorded Sex Assigned at Male 02/15/2024 4:45 PM PREFORMER IMP[employer]RICS Legal Sex Male 3:29 PM PREFORMER IMPREGNATED FABRICS Gender Identity Male 02/15/2024 4:45 PM PREFORMER IMPREGN[employer]ABRICS Sexual Orientation Straight 02/15/2024 4: 45 PM PREFORMER IMPREGNATED FABRICS documented as of this encounter Plan of Treatment Upcoming Encounters Date Type Department Care Team (Latest Contact Info) Description 05/25/2024 12:00 PM CDT Appointment Department of Radiation Oncology in [place] [id number] [place] [address] Navi Ansari M.D. [address] [place] [address] 05/28/2024 3:45 PM CDT Appointment Department of Radiation Oncology in [place], [place] [address] [place] [address] Navi Ansari M.D. [address] [place] [address] 05/29/2024 12:30 PM CDT Appointment Department of Radiation Oncology in [place], [place] [address] [facility] [place] [address] Navi Ansari M.D. [facility] [place] [address] 05/29/2024 1:00 PM CDT Appointment Department of Radiation Oncology in [place], [place] [address] [place] [address] Navi Ansari M.D. [address] [place] [address] 05/30/2024 2:00 PM CDT Appointment Department of Radiation Oncology in [place], [place] [address] [place] [address] Navi Ansari M.D. [address] [place] [address] 05/31/2024 2:30 PM CDT Appointment Department of Radiation Oncology in [place], [place] [address] [facility] [place] [address] Navi Ansari M.D. [address] [place] [address] 06/07/2024 12:30 PM CDT Clinical Communication Virtual Review in [place], [place] 200 [place] [phone] 06/08/2024 2:00 PM CDT Telemedicine Department of Palliative Care in [place], [place] [address] [place] [phone] Celestine Chino APRN, C.N.P., D.N.P. [address] [place] [phone] documented as of this encounter Visit Diagnoses Not on filedocumented in this encounter Care Teams Personnel Clerks Supervisor Relationship Specialty Start Date End Date Elsewhere, Pcp PCP - General Internal Medicine 04/03/24 documented as of this encounter
--- OUTSIDE RECORDS SUMMARY | 2024-05-22 10:52 | XMS_ITS | Clinical Summary ---
Author Organization [facility] Address [address] [place] [address] Care Team Providers Care [employer] Medic Name Role Phone Elsewhere, Pcp Primary Care Provider Unavailabl e Source Comments Patient records contain information from all sites at [facility]. For routine questions regarding patient records, call [phone] during business hours, M-F 8:00 AM - 5:00 PM Central Time. Record requests for emergency care only can be directed to [phone] at any time.[facility] Allergies Active Allergy Reactions Criticality Noted [...] Hospital Encounter Department of Radiation Oncology in [address] [address] Navi Ansari M.D. 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 Secondary Malignant Neoplasm Bone (HCC) (Primary Dx) 05/16/2024 Orders Only Department of Radiation Oncology in [address] [address] Rain Alejandro APRN, C.N.P., D.N.P. 05/15/2024 Orders Only Pharmacy Prior Auth RO [phone] Dorothy Venegas 05/15/2024 Clinical Communication Department of Palliative Care in [place], [place] [address] [place] [phone] Jenni Ramos, P.A.-C. Med Question 05/14/2024 Refill Department of Palliative Care in [place], [place] [address] [place] [phone] Celestine Chino APRN, C.N.P., D.N.P. Med Refill 05/11/2024 2:15 PM CDT Office Visit Department of Palliative Care in [place], [place] [address] [place] [phone] Celestine Chino APRN C.N.P., D.N.P. 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 Med Question 04/13/2024 Clinical Communication Department of Palliative Care in [address] [address] Maria Elena Rico APRN C.N.P., D.N.P. Follow-up 04/13/2024 Clinical Communication Department of Palliative Care in [address] [phone] Celestine Chino APRN C.N.P., D.N.P. Update 04/09/2024 Clinical Communication Department of Palliative Care in [address] [address] Kati Joy M.D. Symptom Assessment 04/06/2024 11:15 AM CLINICAL RESEARCH NURSE Telemedicine Department of Palliative Care in [place], [place] [address] [place] [phone] Dawna Navas M.D. Celestine Chino, LAI, C.N.P., D.N.P. 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 tx 04/03/2024 12:30 PM CLINICAL RESEARCH NURSE Clinical Communication Virtual Review in [place], [place] [address] [place] [address] Pre-visit Intake 04/02/2024 Clinical Communication Department of Nutrition and Diabetes Education in [place], [place] [address] [place] [phone] Laura Harper RDN, KATHY Headley 04/02/2024 Clinical Communication Department of Palliative Care in [place], [place] [address] [place] [phone] Claudy Ramos M.D. 03/27/2024 Clinical Communication Pharmacy Prior Auth [phone] Adela Gill Rx Approval (Olanzapine 5 mg odt) 03/26/2024 9:15 AM CLINICAL RESEARCH NURSE Telemedicine Department of Palliative Care in [place], [place] [address] [place] [phone] Christina Horn M.D. 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 Med Question (Can he crush oxycodone and dissolve under tongue?) 03/22/2024 Clinical Communication Department of Palliative Care in [place], [place] [address] [place] [phone] Sandy Perez M.D. Med Question 03/22/2024 Abstract [place], [place] [address] [place] [address] Provider, Historical 03/22/2024 Orders Only Department of Oncology in [place], [place] [address] [place] [phone] Tor Smalls M.D. 03/21/2024 2:15 PM CLINICAL RESEARCH NURSE Comprehensive Visit Department of Palliative Care in [place], [place] [address] [place] [phone] Sandy Perez M.D. Klein, Kristi A RLatesha Pain Cancer Associated (Primary Dx); 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); Anxiety; Palliative Care 03/19/2024 2:00 PM CLINICAL RESEARCH NURSE Internal E-Consult Department of Oncology in [place], [place] [address] [place] [phone] Hipolito Huddleston M.D. 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 Discharge Disposition: Home or Self Care 03/19/2024 Documentation Department of Radiation Oncology in [address] [phone] Navi Ansari M.D. 03/19/2024 Clinical Communication Department of Oncology in [place], [place] [address] [place] [phone] Joan Perez R.N., O.C.N. 03/16/2024 9:55 AM CLINICAL RESEARCH NURSE - 03/16/2024 11:59 PM CLINICAL RESEARCH NURSE Hospital Encounter Department of Radiation Oncology in [address] [address] Navi Ansari M.D. Discharge Disposition: Home or Self Care 03/15/2024 9:59 AM CLINICAL RESEARCH NURSE - 03/15/2024 11:59 PM CLINICAL RESEARCH NURSE Hospital Encounter Department of Radiation Oncology in [address] [address] Navi Ansari M.D. Discharge Disposition: Home or Self Care 03/15/2024 Orders Only Department of Oncology in [place], [place] [address] [place] [phone] Shanti Childers APRN, C.N.P., M.S. 03/15/2024 Orders Only Department of Oncology in [address] [address] Tonia Martinez M.D. 03/14/2024 9:46 AM CLINICAL RESEARCH NURSE - 03/14/2024 11:59 PM CLINICAL RESEARCH NURSE Hospital Encounter Department of Radiation Oncology in [address] [phone] Navi Ansari M.D. Discharge Disposition: Home or Self Care 03/14/2024 Orders Only Department of Oncology in [place], [place] [address] [place] [phone] Tonia Martinez M.D. 03/13/2024 10:27 AM CLINICAL RESEARCH NURSE - 03/16/2024 10:25 AM CLINICAL RESEARCH NURSE Hospital Encounter Department of Radiation Oncology in [address] [phone] Kelvin Uribe M.D. Chamberlain, Daniel, M.D. 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) 03/13/2024 9:31 AM CLINICAL RESEARCH NURSE - 03/13/2024 10:26 AM CLINICAL RESEARCH NURSE Hospital Encounter Department of Radiation Oncology in [address] [phone] Navi Ansari M.D. Discharge Disposition: Home or Self Care 03/12/2024 11:41 AM CLINICAL RESEARCH NURSE - 03/12/2024 11:59 PM CLINICAL RESEARCH NURSE Hospital Encounter Department of Laboratory Medicine in [place], [place] [address] [place] [phone] Kelvin Uribe M.D. 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 Discharge Disposition: Home or Self Care 03/12/2024 9:07 AM CLINICAL RESEARCH NURSE - 03/12/2024 9:29 AM CLINICAL RESEARCH NURSE Hospital Encounter Department of Radiation Oncology in [address] [address] Kelvin Uribe M.D. Secondary Malignant Neoplasm Skin Face (HCC) (Primary Dx); 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) 03/12/2024 Clinical Communication Department of Oncology in [place], [place] [address] [place] [phone] Jazmin Tomlin R.N. 03/11/2024 Orders Only Department of Oncology in [place], [place] [address] [place] [phone] Tor Smalls M.D. 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 Discharge Disposition: Home or Self Care 03/09/2024 Clinical Communication Department of Radiation Oncology in [address] [address] Navi Ansari M.D. 03/08/2024 8:16 AM CLINICAL RESEARCH NURSE - 03/08/2024 11:59 PM CLINICAL RESEARCH NURSE Hospital Encounter Department of Radiation Oncology in [address] [address] Navi Ansari M.D. 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) 03/07/2024 9:34 AM CLINICAL RESEARCH NURSE Hospital Encounter Department of Radiation Oncology in [address] [address] Navi Ansari M.D. Discharge Disposition: Home or Self Care 03/07/2024 Orders Only Department of Oncology in [place], [place] [address] [place] [address] Joan Perez R.N., O.C.N. 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 [facility] 03/06/2024 9:50 AM CLINICAL RESEARCH NURSE - 03/06/2024 11:20 AM CLINICAL RESEARCH NURSE Hospital Encounter Department of Radiation Oncology in [address] [address] Navi Ansari M.D. Retterath, Chelsey A, R.N. 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) (Primary Dx) 03/06/2024 9:34 AM CLINICAL RESEARCH NURSE - 03/06/2024 9:49 AM CLINICAL RESEARCH NURSE Hospital Encounter Department of Radiation Oncology in [address] [address] Navi Ansari M.D. Discharge Disposition: Home or Self Care 03/06/2024 Clinical Communication Department of Nutrition and Diabetes Education in [place], [place] [address] [place] [phone] Laura Harper, RDN, LD follow up for communication for nutritional shakes 03/06/2024 Results Follow-Up Department of Oncology in [place], [place] [address] [place] [phone] Tor Smalls M.D. Aura Yanetus xT, Tissue - Sent Out Lab 03/05/2024 11:19 AM CLINICAL RESEARCH NURSE - 03/05/2024 11:59 PM CLINICAL RESEARCH NURSE Hospital Encounter Department of Radiation Oncology in [address] [address] Navi Ansari M.D. Discharge Disposition: Home or Self Care 03/05/2024 10:25 AM CLINICAL RESEARCH NURSE - 03/05/2024 11:18 AM CLINICAL RESEARCH NURSE Hospital Encounter Department of Radiation Oncology in [address] [address] Navi Ansari M.D. 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) 03/05/2024 7:00 AM CLINICAL RESEARCH NURSE Lab RST RO LMP [address] [place] [phone] Yue Miller M.B., B.Chir. 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) 03/05/2024 Clinical Communication Department of Oncology in [place], [place] [address] [place] [phone] Tor Smalls M.D. 03/02/2024 11:20 AM CLINICAL RESEARCH NURSE Lab Department of Infusion Therapy in [place], [place] [address] [place] [address] Tor Smalls M.D. 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 Takahashi, Edwin A, M.D. 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) Discharge Disposition: Home or Self Care 03/02/2024 Clinical Communication Department of Oncology in [address] [address] Tor Smalls M.D. 03/01/2024 Orders Only Department of Nutrition and Diabetes Education in [address] [address] Laura Harper, RDN, LD 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) (Primary Dx); Loss Weight Abnormal 03/01/2024 Clinical Communication Department of Oncology in [address] [address] Tor Smalls M.D. Appointment 02/29/2024 3:20 PM CLINICAL RESEARCH NURSE Comprehensive Visit Department of Oncology in [address] [address] Tor Smalls M.D. 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) 02/29/2024 12:15 PM CLINICAL RESEARCH NURSE - 02/29/2024 1:42 PM CLINICAL RESEARCH NURSE Hospital Encounter Department of Radiology, [facility] in [place], [place] [address] [place] [phone] Yue Miller M.B., B.Chir. 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) Discharge Disposition: Home or Self Care 02/29/2024 10:15 AM CLINICAL RESEARCH NURSE - 02/29/2024 12:13 PM CLINICAL RESEARCH NURSE Hospital Encounter Department of Radiation Oncology in [place], [place] [address] [place] [phone] Ok Connor M.D. 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) Discharge Disposition: Home or Self Care 02/29/2024 8:58 AM CLINICAL RESEARCH NURSE - 03/02/2024 9:22 AM CLINICAL RESEARCH NURSE Hospital Encounter Department of Radiation Oncology in [place], [place] [address] [place] [phone] Ok Connor M.D. 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) 02/29/2024 8:00 AM CLINICAL RESEARCH NURSE Comprehensive Visit Division of Endocrinology in [place], [place] [address] [place] [phone] Yue Miller M.B., B.Chir. Ruth Ladd, LAI, C.N.P., D.N.P. Dietary Counseling And Surveillance For Enteral Nutrition (Primary Dx); 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) 02/29/2024 Clinical Communication Division of Gastroenterology in [place], [place] [address] [place] [phone] Yue Miller M.B., B.Chir. Esophageal 02/28/2024 2:00 PM CLINICAL RESEARCH NURSE Comprehensive Visit Department of Nutrition and Diabetes Education in [place], [place] [address] [place] [phone] Yue Miller M.B., B.Chir. Laura Harper, LEANA, LD 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) 02/28/2024 Orders Only Department of Radiation Oncology in [place], [place] [address] [place] [phone] Ok Connor M.D. 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) (Primary Dx) 02/27/2024 3:00 PM CLINICAL RESEARCH NURSE Infusion Department of Infusion Therapy in [address] [address] Yue Miller M.B., B.Chir. 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) (Primary Dx) 02/27/2024 2:00 PM CLINICAL RESEARCH NURSE Comprehensive Visit Division of Gastroenterology in [address] [address] Yue Miller M.B., B.Chir. 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) (Primary Dx) 02/27/2024 8:25 AM CLINICAL RESEARCH NURSE - 02/27/2024 11:59 PM CLINICAL RESEARCH NURSE Hospital Encounter Department of Radiology, [facility] in [address] [address] Melanie Wu M.D. 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) Discharge Disposition: Home or Self Care 02/27/2024 8:00 AM CLINICAL RESEARCH NURSE Ancillary Procedure Department of Radiology in [address] [address] Yue Miller M.B., B.Chir. 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) 02/27/2024 7:55 AM CLINICAL RESEARCH NURSE Ancillary Procedure Department of Radiology in [address] [address] Yue Miller M.B., B.Chir. 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) 02/27/2024 7:32 AM CLINICAL RESEARCH NURSE - 02/27/2024 8:24 AM CLINICAL RESEARCH NURSE Hospital Encounter Department of Laboratory Medicine and Pathology, [facility] in [address] [address] Melanie Wu M.D. 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) Discharge Disposition: Home or Self Care 02/27/2024 Documentation Division of Endocrinology in [address] [address] Dawna Villanueva R.N. Scheduling 02/27/2024 Clinical Communication Division of Gastroenterology in [address] [address] Yue Miller M.B., B.Chir. Esophageal (Request [facility]) 02/23/2024 12:30 PM CLINICAL RESEARCH NURSE Clinical Communication Virtual Review in [address] [address] Pre-visit Intake from Last 3 Months Family [...] on from age 22 to 39 [facility] [employer] Answer Date Recorded In the past 12 months has e [employer], [employer], oil, or water [employer] threatened to shut off services in your [...] your living situation today? I have a [facility] place to live 02/15/2024 Sex and Gender Information Value Date Recorded Sex Assigned at Male 02/15/2024 4:45 PM CLINICAL RESEARCH NURSE Legal Sex Male 3:29 PM CLINICAL RESEARCH NURSE Gender Identity Male 02/15/2024 4:45 PM CLINICAL RESEARCH NURSE Sexual Orientation Straight 02/15/2024 4: 45 PM CLINICAL RESEARCH NURSE Last Filed Vital Signs Vital Sign Reading Time Taken Comments Blood Pressure 99/64 05/16/2024 1:04 PM CDT Pulse 105 05/16/2024 1:04 PM CDT Temperature 36.5 C (97.7 F) 05/11/2024 2:04 PM CDT Respiratory Rate 15 03/02/2024 10:46 AM CLINICAL RESEARCH NURSE Oxygen Saturation 97% 05/11/2024 2:04 PM CDT Inhaled Oxygen Concentration - - Weight 84.8 kg (187 lb) 05/16/2024 1:04 PM CDT Height 182.5 cm (5' 11.85) 02/28/2024 2:24 PM C Body Mass Index 25.47 02/28/2024 2:24 PM CLINICAL RESEARCH NURSE Plan of Treatment Upcoming Encounters Date Type Department Care Team (Latest Contact Info) Description 05/25/2024 12:00 PM CDT Appointment Department of Radiation Oncology in [address] [address] Navi Ansari M.D. [address] [place] [address] 05/28/2024 3:45 PM CDT Appointment Department of Radiation Oncology in [address] [address] Navi Ansari M.D. [address] [place] [address] 05/29/2024 12:30 PM CDT Appointment Department of Radiation Oncology in [address] [address] Navi Ansari M.D. [address] [place] [phone] 05/29/2024 1:00 PM CDT Appointment Department of Radiation Oncology in [address] [address] Navi Ansari M.D. [address] [place] [phone] 05/30/2024 2:00 PM CDT Appointment Department of Radiation Oncology in [address] [address] Navi Ansari M.D. [address] [place] [phone] 05/31/2024 2:30 PM CDT Appointment Department of Radiation Oncology in [address] [address] Navi Ansari M.D. [address] [place] [phone] 06/07/2024 12:30 PM CDT Clinical Communication Virtual Review in [place], [place] [address] [place] [address] 06/08/2024 2:00 PM CDT Telemedicine Department of Palliative Care in [address] [phone] Celestine Chino APRN, C.N.P., D.N.P. [address] [place] [phone] Health Maintenance Due Date Last Done Comments [...] this topic Medical Devices Implanted Type Area Matrix Plater Device Identifier Shelf Expiration Date Model / Serial / Lot Prt Pwr Mri Mctrdcr 8f - [id number] Implanted:Qty : 1 on 03/02/2024 by Emile Munroe M.D. at T [facility] Implant[employer] 04/13/2025 [id number] / / [id number] Procedures Procedure Name Priority Date/Time Associated Diagnosis [...] COMPLETE TREATMENT INFORMATION Routine 03/19/2024 11:23 AM CLINICAL RESEARCH NURSE ARIA DAILY TREATMENT INFORMATION Routine 03/19/2024 11:23 AM CLINICAL RESEARCH NURSE EXT TEMPUS XT DNA AND RNA SOLID TUMOR Routine 03/16/2024 8:58 PM CLINICAL RESEARCH NURSE 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) ARIA COURSE COMPLETE TREATMENT INFORMATION Routine 03/16/2024 10:06 AM CLINICAL RESEARCH NURSE ARIA COURSE COMPLETE TREATMENT INFORMATION Routine 03/16/2024 10:06 AM CLINICAL RESEARCH NURSE ARIA DAILY TREATMENT INFORMATION Routine 03/16/2024 10:06 AM CLINICAL RESEARCH NURSE ARIA COURSE COMPLETE TREATMENT INFORMATION Routine 03/15/2024 10:18 AM CLINICAL RESEARCH NURSE ARIA DAILY TREATMENT INFORMATION Routine 03/15/2024 10:18 AM CLINICAL RESEARCH NURSE ARIA DAILY TREATMENT INFORMATION Routine 03/14/2024 10:07 AM CLINICAL RESEARCH NURSE INITIAL RAD ONC TREATMENT PLANNING CT SIMULATION Routine 03/13/2024 10:30 AM CLINICAL RESEARCH NURSE 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) ARIA DAILY TREATMENT INFORMATION Routine 03/13/2024 9:56 AM CLINICAL RESEARCH NURSE MORPHOLOGY EVALUATION Routine 03/12/2024 11:54 AM CLINICAL RESEARCH NURSE FERRITIN, S Routine 03/12/2024 11:54 AM CLINICAL RESEARCH NURSE 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) COMPREHENSIVE METABOLIC PANEL, S/P Routine 03/12/2024 11:54 AM CLINICAL RESEARCH NURSE 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) CBC WITH DIFFERENTIAL, B Routine 03/12/2024 11:54 AM CLINICAL RESEARCH NURSE 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) ARIA DAILY TREATMENT INFORMATION Routine 03/12/2024 10:42 AM CLINICAL RESEARCH NURSE EXT TEMPUS XF Routine 03/11/2024 9:59 PM CLINICAL RESEARCH NURSE 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) ARIA DAILY TREATMENT INFORMATION Routine 03/09/2024 10:12 AM CLINICAL RESEARCH NURSE ARIA DAILY TREATMENT INFORMATION Routine 03/08/2024 8:59 AM CLINICAL RESEARCH NURSE ARIA DAILY TREATMENT INFORMATION Routine 03/07/2024 10:10 AM CLINICAL RESEARCH NURSE ARIA DAILY TREATMENT INFORMATION Routine 03/06/2024 9:52 AM CLINICAL RESEARCH NURSE ARIA DAILY TREATMENT INFORMATION Routine 03/05/2024 11:35 AM CLINICAL RESEARCH NURSE PROTHROMBIN TIME (PT), P Routine 03/02/2024 11:17 AM CLINICAL RESEARCH NURSE 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) AURA TEMPUS XT NORMAL, B Routine 03/02/2024 11:17 AM CLINICAL RESEARCH NURSE 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) IR IMPLANTED VASCULAR ACCESS DEVICE PLACEMENT RAD - Routine (most inpatients and all outpatients) 03/02/2024 10:12 AM CLINICAL RESEARCH NURSE 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) ADULT OXYGEN THERAPY Routine 03/02/2024 8:24 AM CLINICAL RESEARCH NURSE US SUPERFICIAL SOFT TISSUE BIOPSY RAD - Routine (most inpatients and all outpatients) 02/29/2024 1:42 PM CLINICAL RESEARCH NURSE 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) CYTOLOGY FINE NEEDLE ASPIRATION (INCLUDES CORE BIOPSIES Timed 02/29/2024 1:10 PM CLINICAL RESEARCH NURSE 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) INITIAL RAD ONC TREATMENT PLANNING CT SIMULATION Routine 02/29/2024 10:15 AM CLINICAL RESEARCH NURSE 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) AURA [facility] XT, TIS Routine 02/29/2024 9 :58 AM CLINICAL RESEARCH NURSE 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) PET CT SKULL TO THIGH RAD - Routine (most inpatients and all outpatients) 02/27/2024 10:56 AM CLINICAL RESEARCH NURSE 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) INTERPRETATION OF OUTSIDE CT CHEST RAD - Routine (most inpatients and all outpatients) 02/27/2024 8:04 AM CLINICAL RESEARCH NURSE 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) INTERPRETATION OF OUTSIDE CT ABDOMEN AND OR PELVIS RAD - Routine (most inpatients and all outpatients) 02/27/2024 8:04 AM CLINICAL RESEARCH NURSE 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) SPSMA RESULT Routine 02/27/2024 7:47 AM CLINICAL RESEARCH NURSE CBC WITH DIFFERENTIAL, B Routine 02/27/2024 7:47 AM CLINICAL RESEARCH NURSE 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) BILIRUBIN DIRECT, S/P Routine 02/27/2024 7:47 AM CLINICAL RESEARCH NURSE 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) COMPREHENSIVE METABOLIC PANEL, S/P Routine 02/27/2024 7:47 AM CLINICAL RESEARCH NURSE 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) FERRITIN, S Routine 02/27/2024 7:44 AM CLINICAL RESEARCH NURSE 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 Narrative AURELIA DIONA - 05/16/2024 2:00 PM CDT Navi Ansari M.D. 05/16/2024 4:23 PM Initial Rad Onc Treatment Planning CT Simulation Performed by: Navi Ansari M.D. Authorized by: Kelvin Uribe M.D. Kelivn Uribe M.D. RADIATION ONCOLOGY ORDERAB LES Final Result Performing Organization Address [facility] de Phone Number LUDWIN REYES na * [...] MRI PROCEDURES Final Result Performing Organization Address [facility] de Phone Number II NA * XR lumbar spine [id number] Skeletal Xray (05/07/2024 12:05 PM CDT) 05/07/2024 12:0 4 PM CDT Narrative IICT - 05/07/2024 1:25 PM CDT This order has been created and auto-finalized to support the import of outside images. If available, original interpretation can be found on the Media Tab in Chart Review, in Document Viewer, as an image in InfinityView or as an Addendum. If a re-interpretation or overread is required please follow defined workflow. Provider Not In System IMG DIAGNOSTIC IMAGING NE OCEDURES Final Result Performing Organization Address [facility] de Phone Number II NA * Aria Course Complete Treatment Information (03/19/2024 11:23 AM CLINICAL RESEARCH NURSE) Only the most recent of4 resultswithin the time period is included. Course ID 2xFace MASCORRO ARIA Course Start Date 5 13:13 CLINICAL RESEARCH NURSE MASCORRO ARIA Course End Date 5 13:35 CLINICAL RESEARCH NURSE MASCORRO ARIA First Treatment Date 5 11:21 CLINICAL RESEARCH NURSE MASCORRO ARIA Last Treatment Date 5 11:23 CLINICAL RESEARCH NURSE MASCORRO ARIA Treatment Elapsed Days 0 MASCORRO ARIA Reference Point [id number] MASCORRO ARIA Dosage Given to Date cGy 800 MASCORRO ARIA Plan ID [id number] MASCORRO ARIA Fractions Treated to Date 1 MASCORRO ARIA Planned Total Fractions 1 MASCORRO ARIA Prescribed Dose Per Fraction 800 MASCORRO ARIA Prescription Dose in cGy 800 MASCORRO ARIA Plan Primary Reference Point [id number] MASCORRO ARIA 03/19/2024 11:2 3 AM CLINICAL RESEARCH NURSE us Provider Not In System RADIATION ONCOLOGY ORDERA BLES Final Result LUDWIN REYES na * Aria Daily Treatment Information (03/19/2024 11:23 AM CLINICAL RESEARCH NURSE) Only the most recent of11 resultswithin the time period is included. Course ID 2xFace MASCORRO ARIA Course Start Date 5 13:13 CLINICAL RESEARCH NURSE MASCORRO ARIA First Treatment Date 5 11:21 CLINICAL RESEARCH NURSE MASCORRO ARIA Last Treatment Date 5 11:23 CLINICAL RESEARCH NURSE MASCORRO ARIA Treatment Elapsed Days 0 MASCORRO ARIA Reference Point [id number] MASCORRO ARIA Dosage Given to Date cGy 800 MASCORRO ARIA Session Dosage Given 800 MASCORRO ARIA Plan ID [id number] MASCORRO ARIA Fractions Treated to Date 1 MASCORRO ARIA Planned Total Fractions 1 MASCORRO ARIA Prescribed Dose Per Fraction 800 MASCORRO ARIA Prescription Dose in cGy 800 MASCORRO ARIA Plan Primary Reference Point [id number] MASCORRO ARIA 03/19/2024 11:2 3 AM CLINICAL RESEARCH NURSE us Provider Not In System RADIATION ONCOLOGY ORDERA BLES Final Result LUDWIN REYES na * EXT Tempus xT DNA And RNA (03/16/2024 8:58 PM CLINICAL RESEARCH NURSE) EXT Reason for Study To identify somatic and germline mutations relevant to patient's cancer. 03/16/2024 8:58 PM CLINICAL RESEARCH NURSE [facility] EXT Genetic Diseases Assessed Cancer 03/16/2024 8:58 PM CLINICAL RESEARCH NURSE [facility] EXT Description of Ranges of DNA Sequences Examined 648 gene panel 03/16/2024 8:58 PM CLINICAL RESEARCH NURSE [facility] EXT Overall Interpretation positive 03/16/2024 8:58 PM CLINICAL RESEARCH NURSE [facility] EXT MSI Stable 03/16/2024 8:58 PM CLINICAL RESEARCH NURSE [facility] EXT TMB 2.6 m/MB 03/16/2024 8:58 PM CLINICAL RESEARCH NURSE [facility] EXT Tempus Portal [email or web address] 03/16/2024 8:58 PM CLINICAL RESEARCH NURSE [facility] Comment:[facility]us Portal link EXT Low Coverage [facility] [id number] 03/16/2024 8:58 PM CLINICAL RESEARCH NURSE [facility] EXT Trial Count 3 8:58 PM CLINICAL RESEARCH NURSE [facility] EXT Trial 1: Matched criteria Clinical Trial NCT ID: [id number] Clinical Trial Title: TAPUR: Testing the Use of Food and Drug Administration (FDA) Approved Drugs That Target a Specific Abnormality in a Tumor Gene in People With Advanced Stage Cancer Clinical Trial URL: [email or web address]://clinicalt rials.gov/ct2/cathie w/[id number] Clinical Phase: Phase 2 Clinical Trial Matches: CDKN2A p.D84N mutation Clinical Trial Distance and Location: [address] [place], [place] 03/16/2024 8:58 PM CLINICAL RESEARCH NURSE [facility] EXT Trial 2: Matched criteria Clinical Trial NCT ID: [id number] Clinical Trial Title: Study of ATRN-119 in Patients with Advanced Solid Tumors Clinical Trial URL: [email or web address]://clinicalt rials.gov/ct2/cathie charles/[email or web address] Clinical Phase: Phase 1/Phase 2 Clinical Trial Matches: 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, CDKN2A p.D84N mutation Clinical Trial Distance and Location: [address] [place], [place] 03/16/2024 8:58 PM CLINICAL RESEARCH NURSE [facility] EXT Trial 3: Matched criteria Clinical Trial NCT ID: [id number] Clinical Trial Title: Testing the Combination of Two Anti-cancer Drugs, Peposertib (M3814) and M1774 for Advanced Solid Tumors Clinical Trial URL: [email or web address]://clinicalt [facility].gov/ct2/cathie w/[id number] Clinical Phase: Phase 1 Clinical Trial Matches: ARID2 p.S137fs mutation Clinical Trial Distance and Location: [address], [place] 03/16/2024 8:58 PM CLINICAL RESEARCH NURSE [facility] EXT xR Result 1 NEGATIVE Negative - This report is being issued to report the results of gene rearrangement and altered splicing analysis from RNA sequencing. No gene rearrangements nor reportable altered splicing events were identified from RNA sequencing. 03/16/2024 8:58 PM CLINICAL RESEARCH NURSE [facility] EXT Germline Variant Note No potential germline variants were found in the limited set of genes on which we report. 03/16/2024 8:58 PM CLINICAL RESEARCH NURSE [facility] Treatment Implications Note No reportable treatment options found. 03/16/2024 8:58 PM CLINICAL RESEARCH NURSE [facility] EXT HLA-A Typing A*03:01,A*25:01 8:58 PM CLINICAL RESEARCH NURSE [facility] EXT HLA-B Typing B*18:01,B*35:01 8:58 PM CLINICAL RESEARCH NURSE [facility] EXT HLA-C Typing C*04:01,C*12:03 8:58 PM CLINICAL RESEARCH NURSE [facility] EXT HLA-A Ambiguous Alleles Yes 03/16/2024 8:58 PM CLINICAL RESEARCH NURSE [facility] EXT HLA-B Ambiguous Alleles Yes 03/16/2024 8:58 PM CLINICAL RESEARCH NURSE [facility] EXT HLA-C Ambiguous Alleles Yes 03/16/2024 8:58 PM CLINICAL RESEARCH NURSE [facility] EXT HLA-A Sample Type Normal Only 03/16/2024 8:58 PM CLINICAL RESEARCH NURSE [facility] EXT HLA-B Sample Type Normal Only 03/16/2024 8:58 PM CLINICAL RESEARCH NURSE [facility] EXT HLA-C Sample Type Normal Only 03/16/2024 8:58 PM CLINICAL RESEARCH NURSE [facility] Tissue 03/03/2024 11: 14 AM CLINICAL RESEARCH NURSE Narrative This result has genomic variants that were not included in this document. us Tor Smalls M.D. LAB GENETIC TESTING Final Resul t [facility] [address] [facility], [address] [phone] [facility] [address] [facility], [address] [place] [address] * (ABNORMAL) Morphology Evaluation (03/12/2024 11:54 AM CLINICAL RESEARCH NURSE) RBC Morphology See Specific Findings 03/12/2024 12:40 PM CLINICAL RESEARCH NURSE [facility] PLT Morphology See Specific Findings 03/12/2024 12:40 PM CLINICAL RESEARCH NURSE [facility] PLT Estimate Adequate Adequate 03/12/2024 12:40 PM CLINICAL RESEARCH NURSE [facility] Acanthocytes Slight(A) 03/12/2024 12:40 PM CLINICAL RESEARCH NURSE [facility] Anisocytosis Moderate(A) 03/12/2024 12:40 PM CLINICAL RESEARCH NURSE [facility] Elliptocytes Slight(A) Not Seen 03/12/2024 12:40 PM CLINICAL RESEARCH NURSE [facility] Hypochromia Moderate(A) Not Seen 03/12/2024 12:40 PM CLINICAL RESEARCH NURSE NPR[facility] Large PLT Present(A) Not Seen 03/12/2024 12:40 PM CLINICAL RESEARCH NURSE [facility] Microcytosis Moderate(A) Not Seen 03/12/2024 12:40 PM CLINICAL RESEARCH NURSE [facility] Polychromasia Slight(A) Not Seen 03/12/2024 12:40 PM CLINICAL RESEARCH NURSE [facility] Poikilocytosis Slight(A) Not Seen 03/12/2024 12:40 PM CLINICAL RESEARCH NURSE [facility] Blood 03/12/2024 11:5 4 AM CLINICAL RESEARCH NURSE 03/12/2024 11:58 AM CLINICAL RESEARCH NURSE us Brenda Mora P.A.-C., M.S. LAB BLOOD ADD-ON Final Result [facility] [address] [place] [address], [place] NPRG [facility] [address] [place] [address] * (ABNORMAL) CBC with Differential, Blood (03/12/2024 11:54 AM CLINICAL RESEARCH NURSE) Only the most recent of2 resultswithin the time period is included. Hemoglobin 9.7(L) 13.2 - 16.6 g/dL 03/12/2024 12:40 PM CLINICAL RESEARCH NURSE [facility] Hematocrit 32.7(L) 38.3 - 48.6 % 03/12/2024 12:40 PM CLINICAL RESEARCH NURSE [facility] Erythrocytes 4.57 4.35 - 5.65 x10(12)/L 03/12/2024 12:40 PM CLINICAL RESEARCH NURSE NPR[facility] MCV 71.6(L) 78.2 - 97.9 fL 03/12/2024 12:40 PM CLINICAL RESEARCH NURSE [facility] RBC Distrib Width SEE COMMENT 11.8 - 14.5 % 03/12/2024 12:40 PM CLINICAL RESEARCH NURSE [facility] Comment:An accurate RDW can not be determined Platelet Count 261 135 - 317 x10(9)/L 03/12/2024 12:40 PM CLINICAL RESEARCH NURSE [facility] Leukocytes 4.8 3.4 - 9.6 x10(9)/L 03/12/2024 12:40 PM CLINICAL RESEARCH NURSE NPRG Neutrophils 3.78 1.56 - 6.45 x10(9)/L 03/12/2024 12:40 PM CLINICAL RESEARCH NURSE NPRG Lymphocytes 0.36(L) 0.95 - 3.07 x10(9)/L 03/12/2024 12:40 PM CLINICAL RESEARCH NURSE NPRG Monocytes 0.58 0.26 - 0.81 x10(9)/L 03/12/2024 12:40 PM CLINICAL RESEARCH NURSE NPRG Eosinophils 0.06 0.03 - 0.48 x10(9)/L 03/12/2024 12:40 PM CLINICAL RESEARCH NURSE NPRG Basophils 0.05 0.01 - 0.08 x10(9)/L 03/12/2024 12:40 PM CLINICAL RESEARCH NURSE NPRG Blood (Blood, Venous) 03/12/2024 11:54 AM CLINICAL RESEARCH NURSE 03/12/2024 11:58 AM CLINICAL RESEARCH NURSE us Kelvin Uribe M.D. LAB BLOOD ADD-ON Final Res ult [facility] [address] [place] [address], [place] NPRG [facility] [address] [place] [address] * Ferritin (03/12/2024 11:54 AM CLINICAL RESEARCH NURSE) Only the most recent of2 resultswithin the time period is included. Ferritin, S 103 31 - 409 mcg/L 03/12/2024 4:52 PM CLINICAL RESEARCH NURSE [facility] Comment: Biotin has been identified by the accounting reconciliation clerk as a potential interfering substance. Higher concentrations of biotin may be found in multivitamins, hair/nail supplements, and workout supplements. If the result does not match clinical observations, repeat testing after patient refrains from the use of supplements for at least 12 hours. Blood (Blood, Venous) 03/12/2024 11:54 AM CLINICAL RESEARCH NURSE 03/12/2024 4:28 PM CLINICAL RESEARCH NURSE us Kelvin Uribe M.D. LAB BLOOD ADD-ON Final Res ult [facility] [address] [place] [address], [facility] MKTO [facility] [place] [address] [place] [address] * (ABNORMAL) Comprehensive Metabolic Panel (03/12/2024 11:54 AM CLINICAL RESEARCH NURSE) Only the most recent of2 resultswithin the time period is included. Potassium, P 4.7 3.6 - 5.2 mmol/L 03/12/2024 12:25 PM CLINICAL RESEARCH NURSE NPR[facility] Sodium, P 139 135 - 145 mmol/L 03/12/2024 12:25 PM CLINICAL RESEARCH NURSE NPR[facility] Chloride, P 102 98 - 107 mmol/L 03/12/2024 12:25 PM CLINICAL RESEARCH NURSE NPR[facility] Bicarbonate, P 24 22 - 29 mmol/L 03/12/2024 12:25 PM CLINICAL RESEARCH NURSE NPR[facility] Anion Gap, P 13 7 - 15 03/12/2024 12:25 PM CLINICAL RESEARCH NURSE [facility] BUN (Blood Urea Nitrogen), P 18 8 - 24 mg/dL 03/12/2024 12:25 PM CLINICAL RESEARCH NURSE NPR[facility] Creatinine 0.73(L) 0.74 - 1.35 mg/dL 03/12/2024 12:25 PM CLINICAL RESEARCH NURSE NPRG Estimated GFR (eGFR) >90 >=60 mL/min/BS A 03/12/2024 12:25 PM CLINICAL RESEARCH NURSE [facility] Comment: Estimated GFR calculated using the 2020 CKD_EPI creatinine equation. Calcium, Total, P 9.7 8.6 - 10.0 mg/dL 03/12/2024 12:25 PM CLINICAL RESEARCH NURSE NPRG Glucose, P 105 70 - 140 mg/dL 03/12/2024 12:25 PM CLINICAL RESEARCH NURSE NPRG Protein, Total, P 7.5 6.3 - 7.9 g/dL 03/12/2024 12:25 PM CLINICAL RESEARCH NURSE NPRG Albumin, P 4.2 3.5 - 5.0 g/dL 03/12/2024 12:25 PM CLINICAL RESEARCH NURSE NPR[facility] Aspartate Aminotransferase (AST), P 124(H) 8 - 48 U/L 03/12/2024 12:25 PM CLINICAL RESEARCH NURSE [facility] Alkaline Phosphatase, P 226(H) 40 - 129 U/L 03/12/2024 12:25 PM CLINICAL RESEARCH NURSE NPRG Alanine Aminotransferase (ALT), P 21 7 - 55 U/L 03/12/2024 12:25 PM CLINICAL RESEARCH NURSE NPRG Bilirubin, Total, P 0.4 0.0 - 1.2 mg/dL 03/12/2024 12:25 PM CLINICAL RESEARCH NURSE NPRG Blood (Blood, Venous) 03/12/2024 11:54 AM CLINICAL RESEARCH NURSE 03/12/2024 11:58 AM CLINICAL RESEARCH NURSE us Kelvin Uribe M.D. LAB BLOOD ADD-ON Final Res ult [facility] [address] [place] [address], [facility] NPRG [facility] [address] [place] [address] * EXT Tempus xF (03/11/2024 9:59 PM CLINICAL RESEARCH NURSE) EXT Reason for Study To identify mutations relevant to patient's cancer. 03/11/2024 9:59 PM CLINICAL RESEARCH NURSE [facility] EXT Genetic Diseases Assessed Cancer 03/11/2024 9:59 PM CLINICAL RESEARCH NURSE [facility] EXT Description of Ranges of DNA Sequences Examined 105 gene liquid biopsy 03/11/2024 9:59 PM CLINICAL RESEARCH NURSE [facility] EXT Overall Interpretation positive 03/11/2024 9:59 PM CLINICAL RESEARCH NURSE [facility] EXT Temp[facility] Portal [email or web address] 03/11/2024 9:59 PM CLINICAL RESEARCH NURSE [facility] Comment:Tempus Portal link EXT Low Coverage [facility] ERRFI1, JAK1, TERT 03/11/2024 9:59 PM CLINICAL RESEARCH NURSE [facility] EXT Therapy Count 6 025 9:59 PM CLINICAL RESEARCH NURSE [facility] EXT Tempus: Potential Therapy 1 Gene: N/A Variant: EML4-ALK Match Type: fusion Match Type Description: EML4-ALK Agent: Alectinib Drug Class: ALK Inhibitor Tissue: Non-Small Cell Lung Cancer Association: Response Evidence Status: Consensus Evidence ID: NCCN KDB Variant: Chromosomal rearrangement Label: FDA Off Label FDA Approved?: Yes On label?: No 03/11/2024 9:59 PM CLINICAL RESEARCH NURSE [facility] EXT Tempus: Potential Therapy 2 Gene: N/A Variant: EML4-ALK Match Type: fusion Match Type Description: EML4-ALK Agent: Brigatinib Drug Class: ALK Inhibitor Tissue: Non-Small Cell Lung Cancer Association: Response Evidence Status: Consensus Evidence ID: NCCN KDB Variant: Chromosomal rearrangement Label: FDA Off Label FDA Approved?: Yes On label?: No 03/11/2024 9:59 PM CLINICAL RESEARCH NURSE [facility] EXT Tempus: Potential Therapy 3 Gene: N/A Variant: EML4-ALK Match Type: fusion Match Type Description: EML4-ALK Agent: Ensartinib Drug Class: ALK Inhibitor Tissue: Non-Small Cell Lung Cancer Association: Response Evidence Status: Consensus Evidence ID: FDA KDB Variant: Chromosomal rearrangement Label: FDA Off Label FDA Approved?: Yes On label?: No 03/11/2024 9:59 PM CLINICAL RESEARCH NURSE [facility] EXT Tempus: Potential Therapy 4 Gene: N/A Variant: EML4-ALK Match Type: fusion Match Type Description: EML4-ALK Agent: Ceritinib Drug Class: ALK/ROS1 Inhibitor Tissue: Non-Small Cell Lung Cancer Association: Response Evidence Status: Consensus Evidence ID: NCCN KDB Variant: Chromosomal rearrangement Label: FDA Off Label FDA Approved?: Yes On label?: No 03/11/2024 9:59 PM CLINICAL RESEARCH NURSE [facility] EXT Tempus: Potential Therapy 5 Gene: N/A Variant: EML4-ALK Match Type: fusion Match Type Description: EML4-ALK Agent: Crizotinib Drug Class: ALK/ROS1 Inhibitor Tissue: Non-Small Cell Lung Cancer Association: Response Evidence Status: Consensus Evidence ID: NCCN KDB Variant: Chromosomal rearrangement Label: FDA Off Label FDA Approved?: Yes On label?: No 03/11/2024 9:59 PM CLINICAL RESEARCH NURSE [facility] EXT Tempus: Potential Therapy 6 Gene: N/A Variant: EML4-ALK Match Type: fusion Match Type Description: EML4-ALK Agent: Lorlatinib Drug Class: ALK/ROS1 Inhibitor Tissue: Non-Small Cell Lung Cancer Association: Response Evidence Status: Consensus Evidence ID: NCCN KDB Variant: Chromosomal rearrangement Label: FDA Off Label FDA Approved?: Yes On label?: No 03/11/2024 9:59 PM CLINICAL RESEARCH NURSE [facility] EXT Trial Count 3 9:59 PM CLINICAL RESEARCH NURSE [facility] EXT Trial 1: Matched criteria Clinical Trial NCT ID: [id number] Clinical Trial Title: Tumor-Agnostic Precision Immuno-Oncology and Somatic Targeting Rational for You (TAPISTRY) Platform Study Clinical Trial URL: https://clinicalt [facility].gov/ct2/cathie w/[id number] Clinical Phase: Phase 2 Clinical Trial Matches: EML4-ALK chromosomal rearrangement Clinical Trial Distance and Location: [address] [place] 03/11/2024 9:59 PM CLINICAL RESEARCH NURSE [facility] EXT Trial 2: Matched criteria Clinical Trial NCT ID: [id number] Clinical Trial Title: TAPUR: Testing the Use of Food and Drug Administration (FDA) Approved Drugs That Target a Specific Abnormality in a Tumor Gene in People With Advanced Stage Cancer Clinical Trial URL: [email or web address]://clinicalt [facility].gov/ct2/cathie w/[id number] Clinical Phase: Phase 2 Clinical Trial Matches: CDKN2A p.D84N mutation Clinical Trial Distance and Location: [address] [place], [place] 03/11/2024 9:59 PM CLINICAL RESEARCH NURSE [facility] EXT Trial 3: Matched criteria Clinical Trial NCT ID: [id number] Clinical Trial Title: Study of ATRN-119 in Patients with Advanced Solid Tumors Clinical Trial URL: [email or web address]://clinicalt rials.gov/ct2/cathie charles/[email or web address] Clinical Phase: Phase 1/Phase 2 Clinical Trial Matches: 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, CDKN2A p.D84N mutation Clinical Trial Distance and Location: [address] [place] [address] 03/11/2024 9:59 PM CLINICAL RESEARCH NURSE [facility] EXT TMB 8.6 m/MB 03/11/2024 9:59 PM CLINICAL RESEARCH NURSE [facility] Microsatellite Instability Note MSI-High not detected 03/11/2024 9:59 PM CLINICAL RESEARCH NURSE [facility] Blood 03/03/2024 10: 42 PM CLINICAL RESEARCH NURSE Narrative This result has genomic variants that were not included in this document. us Tor Smalls M.D. LAB GENETIC TESTING Final Resul t [facility] [address] [facility], [address] [place] [address] [facility] [address] [facility], [address] [place] [address] * Aura [facility] xT, Normal - Sent Out Lab (03/02/2024 11:17 AM CLINICAL RESEARCH NURSE) Aura [facility] xT Normal, B Collected, Sent to Reference Lab DEFAULT 03/02/2024 1:36 PM CLINICAL RESEARCH NURSE AURA Blood (Blood, Venous) 03/02/2024 11:17 AM CLINICAL RESEARCH NURSE 03/02/2024 1:36 PM CLINICAL RESEARCH NURSE Narrative [facility] REFERRALS - 03/02/2024 1:36 PM CLINICAL RESEARCH NURSE Specimen Information: Specimen ID: [id number] Specimen Type: Blood Specimen Collection Start Date: 03/02/2024 11:17 AM Specimen Received Date: 03/02/2024 1:36 PM Specimen ID: [id number] Specimen Type: Blood Specimen Collection Start Date: 03/02/2024 11:17 AM Specimen Received Date: 03/02/2024 1:36 PM Tor Smalls M.D. LAB GENETIC TESTING Final Resul t Performing Organization Address [facility] Co de Phone Number [facility]ERR[facility] [address] [place] [address], [facility] [address] [place] [address] * (ABNORMAL) Prothrombin Time (PT) (03/02/2024 11:17 AM CLINICAL RESEARCH NURSE) Prothrombin Time, P 14.8(H) 9.4 - 12.5 sec 03/02/2024 1:33 PM CLINICAL RESEARCH NURSE DTL INR 1.3 0.9 - 1.1 03/02/2024 1:33 PM CLINICAL RESEARCH NURSE DTL Comment: ----ADDITIONAL INFORMATION---- Standard intensity warfarin therapeutic range: 2.0 to 3.0 High intensity warfarin therapeutic range: 2.5 to 3.5 Blood (Blood, Venous) 03/02/2024 11:17 AM CLINICAL RESEARCH NURSE 03/02/2024 11:39 AM CLINICAL RESEARCH NURSE Tor Smalls M.D. LAB BLOOD ADD-ON Final Result Performing Organization Address [facility] Co de Phone Number [facility] [address] [place] [address], [facility] [address] [place] [address] * IR Implanted Vascular Access Device Placement (03/02/2024 10:12 AM CLINICAL RESEARCH NURSE) Anatomical Region Laterality Modality Chest, Pelvis, Abdomen, Vasc ular Interventional RST LOS, Vascular Interventional ARZ LOS, Vascular Interventional FLA LOS N/A X-Ray Angiography Impressions 03/02/2024 10:39 AM CLINICAL RESEARCH NURSE Placement of a right internal jugular vein 8F slim Power Port-A-Cath. Ready for immediate use. The port was left accessed with a 20-gauge, 3/4 inch needle for blood draw later today. NR Narrative 03/02/2024 10:39 AM CLINICAL RESEARCH NURSE EXAM: IR IMPLANTED VASCULAR ACCESS DEVICE PLACEMENT [...] needle for blood draw later today. NR Tro Smalls M.D. IMG IR PROCEDURES Final Result * US Superficial Soft Tissue Biopsy (02/29/2024 1:42 PM CLINICAL RESEARCH NURSE) Anatomical Region Laterality Modality Body, Ultrasound RST LOS, Mu sculoskeletal ARZ LOS, Ultrasound ARZ LOS, Procedure FLA LOS, Abdominal FLA LOS, Procedural, Procedural NWWI LOS N/A Ultrasound Impressions 02/29/2024 1:57 PM CLINICAL RESEARCH NURSE Ultrasound-guided right temporal scalp subcutaneous mass biopsy which showed abnormal FDG uptake on PET/CT 02/27/2024 series 2401 image 46. EP Narrative 02/29/2024 1:57 PM CLINICAL RESEARCH NURSE EXAM: US SUPERFICIAL SOFT TISSUE BIOPSY PRE-PROCEDURE: [...] Aspiration (including core biopsies) (02/29/2024 1:10 PM CLINICAL RESEARCH NURSE) (A) 03/01/2024 3:54 PM CLINICAL RESEARCH NURSE DTL Report electronically signed by Bharti Beard M.D., Ph.D. I verify that I have examined all relevant slides/materials for the specimen(s) and rendered or confirmed the diagnosis. (A) 03/01/2024 3:54 PM CLINICAL RESEARCH NURSE DTL Gross Description Received 6 alcohol-fixed smears [...] Grossed by JTW. (A) 03/01/2024 3:54 PM CLINICAL RESEARCH NURSE DTL Source A. Soft Tissue, Face, Right facial mass, fine needle aspiration (A) 03/01/2024 3:54 PM CLINICAL RESEARCH NURSE DTL Addendum Digital imaging was used in [...] developed and its performance characteristics determined by [facility] in a manner consistent with CLIA requirements. This test has not been cleared or approved by the U.S. Food and Drug Administration. Aura Tempus xT has been requested by Dr. Tor Smalls and will be performed on block A1 at [email or web address], [employer], [place], [place]. Signed by Neo Castro M.D. 03/25/2024 5:09 PM Face, Right facial mass, specimen for PD-L1 immunohistochemist ry studies (clone [id number], [employer] [facility] [employer], [place], [place]; using a proprietary detection system) (A1): [...] mass, specimen for CLD18 immunohistochemist ry studies (anti-Iyhzuvd27 ([id number]) clone [id number], [facility], [place], [place]; using a proprietary detection system) (A1): [...] 18.2 antibody (clone [id number]) is sourced from [employer] and testing was performed per clinical validation and relevant accounting reconciliation clerk-provi ded instructions. This result should be interpreted [...] M.D. 03/05/2024 2:50 PM(A) 04/17/2024 4:23 PM CLINICAL RESEARCH NURSE DTL Comment:REVISED RESULTS Interpretation A. Soft Tissue, Face, Right facial mass, fine needle aspiration (smears/core biopsy): Positive for malignancy. Poorly differentiated adenocarcinoma. Immunohistochemica l stains were performed on block A1. The neoplastic cells are positive for CDX2 and rare cells are positive for CK7. They are negative For CK20. (A) 04/17/2024 4:23 PM CLINICAL RESEARCH NURSE DTL Tissue (Face) 02/29/2024 1:1 0 PM CLINICAL RESEARCH NURSE us Natalia Qiu LAB SURG PATH POLA NEW Edited Result - Final Performing Organization Address City/[facility]/ZIP Co de Phone Number [facility] [address] [place] [address], [facility] DTL [address] [place] [address] * Aura Tempus xT, Tissue - Sent Out Lab (02/29/2024 9:58 AM CLINICAL RESEARCH NURSE) Aura Tempus xT, Tis Collected, Sent to Reference Lab DEFAULT 03/06/2024 12:58 PM CLINICAL RESEARCH NURSE AURA Tissue (Other, Specify in Comments) 02/29/2024 9:58 AM CLINICAL RESEARCH NURSE 03/06/2024 12:58 PM CLINICAL RESEARCH NURSE us Tor Smalls M.D. LAB GENETIC TESTING Final Resul t [facility] [address] [place] [address], [facility]A [address] [place] [address] * PET CT Skull to Thigh FDG (02/27/2024 10:56 AM CLINICAL RESEARCH NURSE) Anatomical Region Laterality Modality Body, Nuclear Medicine PET R ST LOS, PET ARZ LOS, Nuclear Medicine PET FLA LOS, Nuclear Medicine N/A Positron Emission Tomography (PET), Positron Emission Tomography (PET) Impressions 02/27/2024 1:59 PM CLINICAL RESEARCH NURSE 1. Large distal esophageal FDG avid mass [...] may be helpful. Narrative 02/27/2024 1:59 PM CLINICAL RESEARCH NURSE EXAM: PET CT SKULL TO THIGH FDG Serum glucose at time of F-18 FDG injection was 94 mg/dL. Patient followed standard dietary/fasting requirements for this exam. RADIOPHARMACEUTICAL/MEDS: Route: intravenous fludeoxyglucose F 18 injection CORRECTION (FDG F-18),9.54 millicurie TECHNIQUE: F-18 FDG PET/CT [...] RADIOPHARMACEUTICAL/MEDS: Route: intravenous fludeoxyglucose F 18 injection CORRECTION (FDG F-18),9.54 millicurie TECHNIQUE: F-18 FDG PET/CT [...] through 186 with the FDG SUV maximum [id number]. In addition there is a large FDG [...] 1.4 cm and has FDG SUV maximum [id number]. This is a more unusual location for [...] of Outside CT Chest (02/27/2024 8:04 AM CLINICAL RESEARCH NURSE) Anatomical Region Laterality Modality Chest, Thoracic RST LOS, Tho racic ARZ LOS, Thoracic FLA LOS, Other, Body N/A Computed Tomography Impressions 02/28/2024 3:06 PM CLINICAL RESEARCH NURSE 1. Prominent eccentric circumferential thickening/mass of the [...] metastatic as well. Narrative 02/28/2024 3:06 PM CLINICAL RESEARCH NURSE EXAM: INTERPRETATION OF OUTSIDE CT CHEST with IV contrast enhancement of 02/14/2024 COMPARISON: No prior chest CT scans. Correlation with subsequent [place] PET/CT of 02/27/2024 FINDINGS: Prominent eccentric circumferential [...] Abdomen and or Pelvis (02/27/2024 8:04 AM CLINICAL RESEARCH NURSE) Anatomical Region Laterality Modality Abdomen, Pelvis, Abdominal R ST LOS, Abdominal ARZ LOS, Abdominal FLA LOS, Other N/A Computed Tomography Impressions 02/28/2024 9:15 AM CLINICAL RESEARCH NURSE 1. Marked circumferential thickening of the imaged lower esophagus in keeping with known esophageal malignancy. 2. Extensive bilobar metastatic liver disease and upper abdominal metastatic lymphadenopathy as detailed. 3. The left L4 pedicle bone metastasis seen on subsequent PET/CT is not well appreciated on conventional CT. Narrative 02/28/2024 9:15 AM CLINICAL RESEARCH NURSE EXAM: INTERPRETATION OF OUTSIDE CT ABDOMEN AND [...] Morphology Eval (special smear) (02/27/2024 7:47 AM CLINICAL RESEARCH NURSE) Neutrophilic Segs and Bands 54 50 - 75 % 02/27/2024 9:49 AM CLINICAL RESEARCH NURSE [facility] Lymphocytes 30 18 - 42 % 02/27/2024 9:49 AM CLINICAL RESEARCH NURSE [facility] Monocytes 11 2 - 11 % 02/27/2024 9:49 AM CLINICAL RESEARCH NURSE [facility] Basophils 5(H) 0 - 2 % 02/27/2024 9:49 AM CLINICAL RESEARCH NURSE [facility] Manual Absolute Neutrophil Count 2.86 1.56 - 6.45 x10(9)/L 02/27/2024 9:49 AM CLINICAL RESEARCH NURSE [facility]PM Comment: ----ADDITIONAL INFORMATION---- The manual absolute neutrophil count is derived from a manual differential count and therefore is not exactly comparable to the automated absolute neutrophil count. Interpretation See Comment 9:49 AM CLINICAL RESEARCH NURSE PM Comment: Microcytosis of uncertain significance. Suggest correlation with clinical history and iron studies. If further hemoglobinopathy testing is desired, please order a Thalassemia and Hemoglobinopathy Evaluation. Reviewed by: Kevin 02/27/2024 9:49 AM CLINICAL RESEARCH NURSE [facility] Blood 02/27/2024 7:47 AM CLINICAL RESEARCH NURSE 02/27/2024 8:11 AM CLINICAL RESEARCH NURSE Melanie Wu M.D. LAB BLOOD ADD-ON Final Resul t Performing Organization Address [facility] Co de Phone Number [facility] [address] [place] [address], [facility] [address] [place] [address] * Bilirubin, Direct (02/27/2024 7:47 AM CLINICAL RESEARCH NURSE) Bilirubin, Direct, S <0.2 0.0 - 0.3 mg/dL 02/27/2024 9:10 AM CLINICAL RESEARCH NURSE DTL Blood (Blood, Venous) 02/27/2024 7:47 AM CLINICAL RESEARCH NURSE 02/27/2024 8:28 AM CLINICAL RESEARCH NURSE Melanie Wu M.D. LAB BLOOD ADD-ON Final Resul t Performing Organization Address [facility]/ZIP Co de Phone Number [facility] [address] [place] [address], [facility] DTL [facility] [address] [place] [address] from Last 3 Months Insurance MEDICA Advance Directives For more information, please contact: [phone] Documents on File Type Date Recorded Patient Director Ambulatory Expl anation Advance Directives 03/22/2024 12:52 PM Advance Directives 03/21/2024 2:29 PM Susan bello HCPOA/ADVOCATE/AGENT/REPR ESENTATIVE/SURROGATE Healthcare Agents on File Name Relationship Healthcare Agent Relationshi p Communication Susan Gross Spouse Health Care Agent [email or web address] Bren Ruby Friend First Alternate Health Care Agent [email or web address] Care Teams [employer] Medic Relationship Specialty Start Date End Date Elsewhere, Pcp PCP - General Internal Medicine 04/03/24
--- OUTSIDE RECORDS SUMMARY | 2024-05-22 10:53 | XMS_ITS | Encounter Summary ---
Author Organization [facility] Address [address] [place] [address] Care Team Providers Care Administrative Secretary Name Role Phone Elsewhere, Pcp Primary Care Provider Unavailabl e Encounter Details Date Type Department Care Team (Late st Contact Info) Description 03/09/2024 Clinical Communication Department of Radiation Oncology in [place], [place] [address] [place] [phone] Navi Ansari M.D. [address] [place] [phone] Social History Tobacco Use Types Packs/Day Years Used Date Smoking Tobacco: Former Cigarettes 10 10 0 07/15/1994 - 11/11/2017 Passive Smoke Exposure: Never Smokeless Tobacco: Never Comments:Smoked off and on b etween dates noted. Alcohol Use Standard Drinks/Week Comments Not Currently 0 (1 standard drink = 0.6 oz pure alcohol) Drank heavily off and on from age 22 [address] 39 [facility] Utilities Answer Date Recorded In the past 12 months has th e [employer], gas, oil, or water [employer] threatened to shut off services in your [...] your living situation today? I have a [facility] to live 02/15/2024 Sex and Gender Information Value Date Recorded Sex Assigned at Male 02/15/2024 4:45 PM SALES INTERN Legal Sex Male 3:29 PM SALES INTERN Gender Identity Male 02/15/2024 4:45 PM SALES INTERN Sexual Orientation Straight 02/15/2024 4: 45 PM SALES INTERN documented as of this encounter Miscellaneous Notes * Telephone Encounter - Ines Hermosillo, RAnaN. - 03/09/2024 12:04 PM SALES INTERN I called and talked with patient's , [...] the Emergency Room. She does have the cast iron dipper number if needed. She was agreeable to this plan. S INTERN * Telephone Encounter - Deepa Burden - [...] Patient would likea call back to discuss. S INTERN documented in this encounter Plan of Treatment Upcoming Encounters Date Type Department Care Team (Latest Contact Info) Description 05/25/2024 12:00 PM CDT Appointment Department of Radiation Oncology in [address] [phone] Navi Ansari M.D. [address] [place] [phone] 05/28/2024 3:45 PM CDT Appointment Department of Radiation Oncology in [address] [phone] Navi Ansari M.D. [address] [place] [phone] 05/29/2024 12:30 PM CDT Appointment Department of Radiation Oncology in [address] [phone] Navi Ansari M.D. [address] [place] [phone] 05/29/2024 1:00 PM CDT Appointment Department of Radiation Oncology in [address] [phone] Navi Ansari M.D. [address] [place] [phone] 05/30/2024 2:00 PM CDT Appointment Department of Radiation Oncology in [address] [phone] Navi Ansari M.D. [address] [place] [phone] 05/31/2024 2:30 PM CDT Appointment Department of Radiation Oncology in [address] [phone] Navi Ansari M.D. [address] [place] [phone] 06/07/2024 12:30 PM CDT Clinical Communication Virtual Review in [place], [place] [address] [place] [address] 06/08/2024 2:00 PM CDT Telemedicine Department of Palliative Care in [place], [place] [address] [place] [phone] Celestine Chino APRN, C.N.P., D.N.P. [address] [place] [phone] documented as of this encounter Visit Diagnoses Not on filedocumented in this encounter Care Teams Administrative Secretary Relationship Specialty Start Date End Date Elsewhere, Pcp PCP - General Internal Medicine 04/03/24 documented as of this encounter
--- OUTSIDE RECORDS SUMMARY | 2024-05-22 10:53 | XMS_ITS | Encounter Summary ---
Author Organization [facility] Address [address] [place] [address] Care Team Providers Care Blind Slat Stapling Machine Operator Name Role Phone Elsewhere, Pcp Primary Care Provider Unavailabl e Reason for Visit * Reason Onset Date Comments [place] 03/09/[address] [facility] Encounter Details Date Type Department Care Team (Latest Contact Info) Description 03/07/2024 Clinical Communication Department of Oncology in [place], [place] [address] [place] [phone] Tor Smalls M.D. [address] [place] [phone] [place] ([facility]) Social History Tobacco Use Types Packs/Day Years Used Date Smoking Tobacco: Former Cigarettes 10 10 0 07/15/1994 - 11/11/2017 Passive Smoke Exposure: Never Smokeless Tobacco: Never Comments:Smoked off and on b etween dates noted. Alcohol Use Standard Drinks/Week Comments Not Currently 0 (1 standard drink = 0.6 oz pure alcohol) ank heavily off and on from age 22 to 39 [facility] Utilities Answer Date Recorded In [...] your living situation today? I have a [facility] place to live 02/15/2024 Sex and Gender Information Value Date Recorded Sex Assigned at Male 02/15/2024 4:45 PM INSULATION WORKER INTERIOR SURFACE Legal Sex Male 3:29 PM INSULATION WORKER INTERIOR SURFACE Gender Identity Male 02/15/2024 4:45 PM INSULATION WORKER INTERIOR SURFACE Sexual Orientation Straight 02/15/2024 4: 45 PM INSULATION WORKER INTERIOR SURFACE documented as of this encounter Plan of Treatment Upcoming Encounters Date Type Department Care Team (Latest Contact Info) Description 05/25/2024 12:00 PM CDT Appointment Department of Radiation Oncology in [address] [phone] Navi Ansari M.D. [address] [place] [phone] 05/28/2024 3:45 PM CDT Appointment Department of Radiation Oncology in [place], [place] [address] [place] [address] Navi Ansari M.D. [address] [place] [phone] 05/29/2024 12:30 PM CDT Appointment Department of Radiation Oncology in [place], [place] [address] [place] [address] Navi Ansari M.D. [address] [place] [phone] 05/29/2024 1:00 PM CDT Appointment Department of Radiation Oncology in [place], [place] [address] [place] [phone] Navi Ansari M.D. [address] [place] [address] 05/30/2024 2:00 PM CDT Appointment Department of Radiation Oncology in [place], [place] [address] [place] [address] Navi Ansari M.D. [address] [place] [phone] 05/31/2024 2:30 PM CDT Appointment Department of Radiation Oncology in [place], [place] [address] [place] [address] Navi Ansari M.D. [address] [place] [address] 06/07/2024 12:30 PM CDT Clinical Communication Virtual Review in [place], [place] [address] [place] [phone] 06/08/2024 2:00 PM CDT Telemedicine Department of Palliative Care in [place], [place] [address] [place] [phone] Celestine Chino APRN, C.N.P., D.N.P. [address] [place] [phone] documented as of this encounter Visit Diagnoses Not on filedocumented in this encounter Care Teams Blind Slat Stapling Machine Operator Relationship Specialty Start Date End Date Elsewhere, Pcp PCP - General Internal Medicine 04/03/24 documented as of this encounter
[2024-05-22 11:00] LABS: Chloride* 99 mmol/L (96-114); Potassium* 4.3 mmol/L (3.6-5.1); Sodium* 130 mmol/L (135-149)
[2024-05-22 11:03] LABS: Anion Gap 8 mEq/L (7-15); Blood Urea Nitrogen* 19 mg/dL (5-24); Calcium* 9.2 mg/dL (8.4-10.6); Carbon Dioxide* 23 mmol/L (20-32); Creatinine* 0.8 mg/dL (0.5-1.5); Est. Creatinine Clearance* 127.99; Estimated Glomerular Filt Rate 111 ml/min; Glucose* 113 mg/dL (60-115)
--- NOTE | 2024-05-22 11:20 | CRLHL7_ITS ---
For Patients: As a result of the Century Cures Act, medical imaging exams and procedure reports are released immediately into your electronic medical record. You may view this report before your referring provider. If you have questions, please contact your health care provider. INDICATION: Fever COMPARISON: PET-CT 02/27/2024 TECHNIQUE: PA and lateral 2 view chest. FINDINGS: Lung volumes are good. Band of linear scarring in the left lower lobe. No consolidations. No pulmonary edema. No pleural effusion. No pneumothorax. No pneumomediastinum. Heart size is normal. Right IJ chest port distal tip is at the superior cavoatrial junction. Bones: No acute findings. IMPRESSION: No acute lung findings. Dictated by Orly Rooney MD @ 05/22/2024 12:01:59 PM (Electronically Signed)
[2024-05-22 11:38] LABS: Appearance Urine Clear (Clear); Bilirubin Urine Negative (Negative); Blood Urine Negative (Negative); Color Urine Dark yellow (Yellow); Glucose Urine Negative (Negative); Ketones Urine Negative (Negative); Leukocyte Esterase Urine Negative (Negative); Nitrite Urine Negative (Negative); Protein Urine Negative (Negative); Urobilinogen Urine 0.2 (0.2-1.0)
[2024-05-22 11:43] LABS: Slide Review Acceptable Review (Acceptable)
[2024-05-22] MEDS: ONDANSETRON ODT 4 MG TAB 8 MG PO (11:43)
[2024-05-22 11:44] VITALS: BP 102/73; PULSE 90; RESP 18; TEMP 36.7; O2SAT 95
[2024-05-22 11:48] LABS: RBC Urine 0-2 (0-2); WBC Urine 0-2 (0-5)
[2024-05-22 12:18] LABS: PCR FLU A Negative PCR FLU A (Negative); PCR FLU B Negative PCR FLU B (Negative); PCR RSV Negative PCR RSV (Negative); SARS PCR* Negative SARS-CoV-2 (Negative)
== END 2024-05-22 12:24 | disposition home or self-care (01) ==
PROVIDERS: Emergency Provider Emergency Medicine Emergency Medical Services
DX: R50.9 Fever, unspecified (principal); C15.9 Malignant neoplasm of esophagus, unspecified
CPT/HCPCS: 36415; 71046; 80048; 81001; 83605; 85025; 87040; 87631; 99284; A9270

== ENCOUNTER 2024-07-03 12:41 | Outpatient (CLI) | payer MEDICAID, SELFPAY ==
--- NOTE | 2024-07-03 13:00 | CRLHL7_ITS ---
For Patients: As a result of the 21st Century Cures Act, medical imaging exams and procedure reports are released immediately into your electronic medical record. You may view this report before your referring provider. If you have questions, please contact your health care provider. Indication: MALIGNANT NEOPLASM OF ESOPHAGUS Technique: CT Chest/Abd/Pelvis W/ 89CC ISOVUE 370 intravenous contrast Please note that all CT scans at this facility use dose modulation, iterative reconstruction, and/or weight-based dosing when appropriate to reduce radiation dose to as low as reasonably achievable. Comparison: CT 02/14/2024, CT-PET 02/27/2024 Findings: In the chest, circumferential wall thickening of the distal esophagus again noted. Development of reticular densities in the lower paramediastinal pulmonary parenchyma compatible with radiation change. Decreased conspicuity of right periaortic posterior mediastinal lymph node. Increased prominence of a subcarinal lymph node which measures 1.3 cm. Faint densities within right anterior lung may represent acute pneumonitis. No pleural effusion. No fracture. In the abdomen, multiple intrahepatic masses are present throughout the liver which appear more circumscribed and perhaps slightly decreased when compared to the prior CT PET. No adrenal nodule. No splenic lesion. Pancreas normal. Gallbladder incompletely distended. Simple cyst right kidney. Nonobstructing tiny left renal stones. Appendix normal. Decreased conspicuity of upper retroperitoneal lymph nodes. In the pelvis, the bladder is normal. No bowel obstruction. No free air. Trace pelvic free fluid. Pathologic fracture involving the L4 vertebral body with concavity involving the inferior and superior endplates. Some posterior cortical extension into the central canal. Impression: Postradiation change about the distal esophagus with decreased distal esophageal distention. Circumferential mucosal thickening appears similar. Postradiation pneumonitis in the paramediastinal lung parenchyma. Mild pneumonitis involving the right anterior lung. Posttreatment change involving the posterior mediastinal and upper retroperitoneal lymph nodes with significant decreased size. However, there is now a mildly prominent subcarinal lymph node. Development of a pathologic compression fracture involving the left side of the L4 vertebral body with some posterior cortical extension. No enlarged lymph nodes in the pelvis. Multiple intrahepatic masses throughout the liver are similar in number although somewhat decreased in size secondary to posttreatment response. Please note that all CT scans at this facility use dose modulation, iterative reconstruction, and/or weight-based dosing when appropriate to reduce radiation dose to as low as reasonably achievable. Dictated by Jim Wolff MD @ 07/04/2024 1:24:43 PM (Electronically Signed)
== END 2024-07-03 12:42 | disposition home or self-care (01) ==
LOC: CT 12:41
PROVIDERS: Visit Provider Internal Medicine Hematology & Oncology
DX: C15.9 Malignant neoplasm of esophagus, unspecified (principal); M48.56XA Collapsed vertebra, not elsewhere classified, lumbar region, initial encounter for fracture; R16.0 Hepatomegaly, not elsewhere classified
CPT/HCPCS: 71260; 74177; Q9967

== ENCOUNTER 2024-08-06 10:21 | Outpatient (RCR) | payer MEDICAID, SELFPAY ==
--- NOTE | 2024-08-13 11:49 | SLP.EVAL ---
LIZZ Ely Start: 08/06/24 10:29 Freq: Status: Active Protocol: Document 08/06/24 10:31 ALEJANDRA (Rec: 08/06/24 12:15 ANNELISEEvan [id number]) E-signed By Francisco J Newton, WING COVERER WING COVERER System Review History & Reason For Referral Type of Speech Dysphagia Evaluation Evaluation Rehabilitation Order Evaluation and Treat Date of Order 07/31/24 Reason for Referral Difficulty swallowing, voice changes and only able to speak in a whisper Onset Date Of 07/31/24 Patient's Problem Medical Diagnosis R13.10 Dysphagia R49.0 Dysphonia C15.9 Esophageal cancer Treatment Diagnosis Dysphagia, dysphonia Pertinent Medical Rudy was diagnosed with esophageal cancer on February 052023. He started radiation therapy the last week of February and received 30Gy over 10 sessions. His early symptoms that brought him to the doctor was that food was sticking and he had a hoarse vocal quality. His voice gradually got worse until he can only whisper. An upper endoscopy was completed on January 31, with report that the vocal cords looks good. On February 26 they discovered that his cancer had spread to his lymph nodes. Started chemo March 27 for lymph nodes. His is now receiving chemotherapy every other week on Tuesday, has a pump on Tuesday at home and returns on Tuesday to remove. He has experienced nausea but not a lot of vomiting. Minimal gagging that is food dependent. He endorses sinus issues and feels that some lymph nodes are involved. Prior to the start of chemo, he had very enlarged lymph nodes in his neck area but they have drastically reduced. Liquids come out nose sometimes when laying down. Left tongue a little weaker in cheek. Tongue slight deviation to right. A little atrophy of tongue. Chin tuck a little easier. Head turn not effective. Soft palatae reduced on right. Complication/ Aspiration risk. Precautions/ Contraindication Comments Hearing Information Hearing Status WNL Vision Information Vision Status WNL Patient Orientation Orientation & Mental A&x4 Status WING COVERER Initial Assessment/POC Subjective Information Subjective/Pain Rudy primarily talks in a whisper and states he would Comment like to be able to talk better. He feels like it's so much effort to get enough breath to create a voice that he just chooses to talk in a whisper. He reports difficulty swallowing liquids but does better with liquids that are slightly thicker that water. He reports that liquid has come out of his nose but this happens when he is trying to drink while laying down. Assessment & Impression Assessment/ OBJECTIVE Impression Baseline diet: Regular with thin but does better with thicker liquids such as smoothies or Ensure type products. Dentition: own, adequate Oral motor exam: -labial ROM, strength and coordination WNL -lingual ROM WNL; reduced lingual strength on the left; slight deviation to the right with protrusion; coordination WFL -jaw ROM and strength WNL -soft palate with reduced elevation on the right PO trials of thin and puree administered by cup and by spoon Oral phase: adequate acceptance and oral containment with good oral control. Pharyngeal phase: reduced hyolaryngeal elevation; overt aspiration with thin liquids by straw and cup sips. A chin tuck did help reduce overt s/s of aspiration. Adding a head turn to right and left with a chin tuck did not appear to be beneficial. EAT-10 was completed with a score of 36 (3 or higher indicates dysphagia) The Voice Handicap Index-10 (VHI-10) is a questionnaire used to assess a person's perception of their voice handicap. Scores range from 0 to 40, with higher scores indicating a greater voice-related handicap. A score greater than 11 is generally considered abnormal, and scores between 0 and 10 are considered normal or nearly normal. Rudy completed with a score of 34. A voice evaluation was not completed today but some informal information was obtained. Rudy does talk in a whisper but is able to achieve some voicing. A head turn to the right appeared to somewhat improve vocal strength. IMPRESSION Rudy is a 43-year-old male with a diagnosis of esophageal cancer with complaints of swallowing difficulty and significant voice changes. He endorses coughing with thin liquids but does better with liquids that are slightly thicker (i.e. cream soups, smoothies , protein shakes). Although he can achieve some voicing , he speaks in a whisper because it takes such effort to achieve a voice. Today a clinical swallow evaluation was completed per provider orders. A voice evaluation was not formally completed today as it is recommended that he see a speech pathologist that specializes in voice and can complete a videostroboscopy to assess vocal cord function, as indicated. He will need an ENT consult prior to seeing a voice specialist. Rudy presents with a mild oropharyngeal dysphagia. An oral motor exam revealed reduced lingual strength on the left and slight tongue deviation to the right; soft palate with reduced elevation on the right. He is at a risk of aspiration with thin liquids but does better with slightly thick liquids, however, does not want to thicken liquids. A chin tuck did appear to reduce overt s/s of aspiration. He can also use a supraglottic swallow strategy to help reduce aspiration. Recommendations include continuing with a Regular diet and thin liquids with a chin tuck and/or supraglottic swallow technique. Using slightly thick liquids will help reduce risk of aspiration. Safe swallow strategies include sitting upright when eating and staying upright for an hour after meals, small sips with a chin tuck-no straw, small bites chewed well and eating at a slow pace, smaller more frequent meals may be beneficial, eating last meal of the day hours before bedtime, and elevating head of the bed 4-6 inches. A modified barium swallow study would be beneficial to further assess the pharyngeal phase of the swallow and determine the best strategies and safest diet. He does not want to pursue MBSS and swallow therapy at this time but will contact WING COVERER if this changes in the future . He is overwhelmed currently with his chemo and other medical appointments he has in August. Recommend Rudy be referred to a speech pathologist that specialized in voice and can complete a videostroboscopy to assess vocal fold function, as indicated. He will need an ENT consult prior to seeing a voice specialist. Functional Limitations & Outcome/Goals Primary Functional Aspiration risk with thin liquids. Limitations Reduced communication due to voice problems, increasing social isolation. Goals/Functional Rudy and his spouse will verbalize understanding of Outcomes today's assessment results and recommendations. Goal met today. Intervention Plan & Frequency Intervention Plan Evaluation only. Frequency/Duration Recommend modified barium swallow study if/when patient is ready. Coordination Of Plan Referring provider Has Been Communicated With Therapist Signature & License # Therapist Signature Francisco J Newton MS [facility]-WING COVERER #[id number] & License Number Dysphagia Education Topics Education Topics Teaching Recipient Patient,Significant Other Teaching Methods Verbal Therapist Signature/ Francisco J Newton MS [facility]-WING COVERER #[id number] License Number Speech/Language Pathology Billing Units Billing Units Eval Swallow 1 Function
== END 2024-12-04 23:59 | disposition home or self-care (01) ==
PROVIDERS: Visit Provider Physician Assistant
DX: R13.10 Dysphagia, unspecified (principal); R49.0 Dysphonia; C15.9 Malignant neoplasm of esophagus, unspecified; Z51.89 Encounter for other specified aftercare
CPT/HCPCS: 92610; 99215

== ENCOUNTER 2024-08-20 09:40 | Outpatient (CLI) | payer MEDICAID, SELFPAY ==
--- NOTE | 2024-08-20 10:00 | CRLHL7_ITS ---
For Patients: As a result of the Century Cures Act, medical imaging exams and procedure reports are released immediately into your electronic medical record. You may view this report before your referring provider. If you have questions, please contact your health care provider. INDICATION: Esophageal cancer. Compression fracture. COMPARISON: 05/14/2024. TECHNIQUE: CT lumbar spine with IV contrast. Isovue-370, 89 cc IV. FINDINGS: Normal vertebral body alignment. Heterogeneous, mixed lytic and sclerotic changes of the L4 vertebral body consistent with known metastasis as seen on previous MRI. Stable pathologic compression fracture with approximately 50 percent loss of height centrally. Tumor extends into the left pedicle. There is a fracture of the left transverse process (series 4, image 100). As seen on axial imaging, there is bulging of the posterior margin of the L4 vertebral body slightly greater on the left. Finds consistent with tumor extension into the epidural space as seen on previous MRI. No other osseous lesions. No fractures of the visualized lower ribs. No sacral fractures. T12-L1 L1-2 L2-3: No spinal canal or neural foraminal narrowing. L3-4: Annular bulge. No narrowing of the spinal canal. No neural foraminal narrowing. L4-5: Posterior disc bulge. No narrowing of spinal canal. Mild narrowing of bilateral foramina. L5-S1: No narrowing of spinal canal. No neural foraminal narrowing. Degenerative changes of the SI joints. IMPRESSION: 1. Compared to the previous MRI, stable pathologic compression fracture of the L4 vertebral body. Tumor extends into the left pedicle. Tumor likely extends into the left ventral epidural space. 2. No other osseous lesions. 3. At L4-5, mild narrowing of the bilateral neural foramina 4. No spinal canal or neural foraminal narrowing at all levels of the thoracic spine. Please note that all CT scans at this facility use dose modulation, iterative reconstruction, and/or weight-based dosing when appropriate to reduce radiation dose to as low as reasonably achievable. Dictated by Clarence Morales MD @ 08/20/2024 11:51:24 AM (Electronically Signed)
== END 2024-08-20 09:41 | disposition home or self-care (01) ==
LOC: CT 09:42
PROVIDERS: Visit Provider Internal Medicine Hematology & Oncology
DX: C15.9 Malignant neoplasm of esophagus, unspecified (principal); M51.26 Other intervertebral disc displacement, lumbar region; M48.56XS Collapsed vertebra, not elsewhere classified, lumbar region, sequela of fracture
CPT/HCPCS: 72132; Q9967

== ENCOUNTER 2024-09-10 09:45 | Outpatient (RCR) | payer MEDICAID, SELFPAY ==
--- NOTE | 2024-03-16 13:50 | ONC.NURNOTE ---
Pt's Susan called [facility] today to discuss pain medication management. Pt's initial script for liquid Oxycodone was prescribed by Dr. Uribe on 03/12/2024. After meeting with Dr. Martinez, Rudy is taking a higher dose than initially prescribed so Susan is worried about running out early. She states that with [place] insurance, the first narcotic fill can only be 7 days worth, however, she paid out of pocket and received a 2 week supply. With that being said, Susan states that they will have enough medication to get them to Tuesday of next week when they are seeing Palliative Care. RN advised that PC manage pain medications and Susan verbalized understanding. They will call early next week if the volume of liquid Oxycodone seems to be running too low to make it to Tuesday. [facility] in [place] was updated as they will be seeing pt on Tuesday. Support offered and Susan was invited to call any time with questions or concerns.
--- NOTE | 2024-03-19 12:48 | ONC.NURNOTE ---
Susan, pt's , called back to [facility] today to report that Rudy has been taking 10 ml of liquid Oxycodone every 3 hours around the clock as 4 hours was too long to wait. She worries about running out before Palliative Care consult on Tuesday. RN discussed with LAI Agee who will call in for more Oxycodone to cover Rudy utnil PC can take over pain management. RN asked about BM, Rudy is doing ok in that regard. She plans to talk to PC about long acting medication as well as a small pill option as Rudy is getting sick of taking oral liquid medication. Support offered. Rudy will be in to [facility] on 03/27 for his first chemo.
--- NOTE | 2024-03-20 11:01 | URNOTE ---
Addendum entered by Berta Chavez RN 03/23/24 10:18: Oxaliplatin (J9263) Prior authorization is not required as services are based on medical necessity, Ref#[id number]. Addendum entered by Judi Perez RN 03/20/24 13:52: Opdivo 240mg has been approved. 03/19/2024-08/29/2024. Approval #[id number] Original Note: Leucovorin (J0640), Fluorouracil (J9190), Palonosetron (J2469), Dexamethasone (J1100), and Emend (J1453) have been approved. Opdivo (J9299) is pending.
[2024-03-27 09:46] VITALS: BP 123/81; PULSE 100; RESP 18; TEMP 36.8; O2SAT 100
[2024-03-27 10:20] LABS: Albumin* 3.7 g/dL (3.3-5.0)
[2024-03-27 10:21] LABS: Chloride* 103 mmol/L (96-114); Potassium* 4.1 mmol/L (3.6-5.1); Sodium* 136 mmol/L (135-149)
[2024-03-27 10:23] LABS: Bilirubin Total* 0.5 mg/dL (0.1-1.5); Creatinine* 0.6 mg/dL (0.5-1.5); Est. Creatinine Clearance* 165.59; Estimated Glomerular Filt Rate 121 ml/min
[2024-03-27 10:24] LABS: Alanine Aminotransferase* 19 U/L (4-50); Alkaline Phosphatase* 262 U/L (40-150); Anion Gap 8 mEq/L (7-15); Aspartate Amino Transferase* 86 U/L (12-35); Blood Urea Nitrogen* 13 mg/dL (5-24); Calcium* 8.8 mg/dL (8.4-10.6); Carbon Dioxide* 25 mmol/L (20-32); Glucose* 113 mg/dL (60-115); Total Protein* 6.8 g/dL (6.0-8.3)
[2024-03-27 10:42] LABS: Hematocrit 32.2 % (37.0-53.0); Hemoglobin* 9.6 gm/dL (13.5-17.5); Immature Granulocytes Pct Auto 0.2 %; Mean Corpuscular HGB Conc 30 gm/dL (32-36); Mean Corpuscular Hemoglobin 22 pg (26-34); Mean Corpuscular Volume 73 fL (80-100); Red Blood Count 4.42 m/uL (4.30-5.90); White Blood Count* 4.20 K/uL (4.50-11.00)
[2024-03-27 10:59] LABS: Immature Granulocytes Abs Auto 0.00 K/uL (0.00-0.30)
[2024-03-27 11:00] LABS: Lymphocytes Absolute Auto 0.40 K/uL (0.90-2.90); Slide Review Reflex Yes
[2024-03-27 11:02] LABS: Slide Review Acceptable Review (Acceptable)
[2024-03-27] MEDS: 0.9 % SODIUM CHLORIDE 500 ML IV (11:45)
[2024-03-27] MEDS: NIVOLUMAB 240 MG, TUBING PRIMARY 1 EACH, In-line 0.2 micron filter set 1 EACH in 0.9 % ... 124 MG IVPB (12:02)
[2024-03-27] MEDS: SODIUM CHLORIDE 0.9 % (FLUSH) 10 ML SYRINGE IVF ×2 (12:06→16:15)
[2024-03-27] MEDS: FOSAPREPITANT 150 MG inj 150 MG in 0.9 % SODIUM CHLORIDE 250 ml 250 ML 510 MG IVPB (13:05)
[2024-03-27] MEDS: DEXTROSE 5% IV (13:50)
[2024-03-27] MEDS: OXALIPLATIN IV (13:50)
[2024-03-27] MEDS: TUBING PRIMARY IV (13:50)
[2024-03-27] MEDS: 5 % DEXTROSE 250 ML IV (13:50)
[2024-03-27] MEDS: LEUCOVORIN CALCIUM 100 MG, TUBING SECONDARY 1 EACH in 5 % DEXTROSE 250 ML 250 ML 128 MG IV (13:50)
[2024-03-27] MEDS: CADD MED CASSETTE RESERVOIR IV (16:03)
[2024-03-27] MEDS: fluorouraciL 50 mg/ml INJ 880 MG IVP (16:03)
[2024-03-27] MEDS: FLUOROURACIL IV (16:03)
--- NOTE | 2024-03-28 10:49 | ONC.NURNOTE ---
Called pt today to check in after his first chemo yesterday. Susan, pt's , answered and stated that everything is going very well and that they have no questions or concerns. RN informed them about EMLA cream script that was sent to [facility] pharmacy, and instructions were given. Support offered. Invited pt to call back with any concerns.
[2024-03-29 13:45] VITALS: BP 108/67; PULSE 82; RESP 16; TEMP 36.3; O2SAT 99
[2024-03-29] MEDS: SODIUM CHLORIDE 0.9 % (FLUSH) 10 ML SYRINGE IVF (13:55)
[2024-03-29] MEDS: HEPARIN 500 UNIT/5 ML SYRINGE IVF (13:55)
[2024-04-10] MEDS: SODIUM CHLORIDE 0.9 % (FLUSH) 10 ML SYRINGE IVF ×2 (09:11→15:28)
[2024-04-10 09:17] LABS: Hematocrit 26.5 % (37.0-53.0); Immature Granulocytes Abs Auto 0.00 K/uL (0.00-0.30); Immature Granulocytes Pct Auto 0.0 %; Mean Corpuscular HGB Conc 30 gm/dL (32-36); Mean Corpuscular Hemoglobin 22 pg (26-34); Mean Corpuscular Volume 73 fL (80-100); RDW Coefficient of Variation % 28.4 % (11.5-15.5); Red Blood Count 3.65 m/uL (4.30-5.90)
[2024-04-10 09:19] LABS: Hemoglobin* 7.9 gm/dL (13.5-17.5); Lymphocytes Absolute Auto 0.40 K/uL (0.90-2.90); Slide Review Reflex Yes; White Blood Count* 1.63 K/uL (4.50-11.00)
[2024-04-10 09:33] LABS: Albumin* 3.6 g/dL (3.3-5.0); Chloride* 99 mmol/L (96-114); Sodium* 134 mmol/L (135-149)
[2024-04-10 09:34] LABS: Potassium* 3.9 mmol/L (3.6-5.1)
[2024-04-10 09:36] LABS: Alanine Aminotransferase* 18 U/L (4-50); Alkaline Phosphatase* 165 U/L (40-150); Anion Gap 9 mEq/L (7-15); Aspartate Amino Transferase* 56 U/L (12-35); Bilirubin Total* 0.5 mg/dL (0.1-1.5); Blood Urea Nitrogen* 9 mg/dL (5-24); Carbon Dioxide* 26 mmol/L (20-32); Creatinine* 0.8 mg/dL (0.5-1.5); Est. Creatinine Clearance* 124.19; Estimated Glomerular Filt Rate 111 ml/min; Glucose* 117 mg/dL (60-115); Total Protein* 6.4 g/dL (6.0-8.3)
[2024-04-10 09:37] LABS: Calcium* 8.7 mg/dL (8.4-10.6)
[2024-04-10 09:51] LABS: Slide Review Acceptable Review (Acceptable)
[2024-04-10 12:25] VITALS: BP 118/71; PULSE 85; RESP 16; TEMP 37.1; O2SAT 96
[2024-04-10 12:45] VITALS: BP 113/67; PULSE 86; RESP 16; TEMP 37.5; O2SAT 98
--- NOTE | 2024-04-10 12:47 | URNOTE ---
Request received for authorization for Maria C (Q5111). Prior authorization is not required as services are based on medical necessity, per [facility] fee schedule, pt has [place] only.
[2024-04-10 13:22] VITALS: BP 111/73; PULSE 89; RESP 16; TEMP 37.7; O2SAT 99
[2024-04-10 13:26] VITALS: BP 111/72; PULSE 86; RESP 16; TEMP 37.7; O2SAT 99
[2024-04-10 13:50] VITALS: BP 120/66; PULSE 78; RESP 16; TEMP 36.8; O2SAT 98
[2024-04-10 14:16] VITALS: BP 118/68; PULSE 85; RESP 16; TEMP 37.5; O2SAT 96
[2024-04-10] MEDS: HEPARIN 500 UNIT/5 ML SYRINGE IVF (15:28)
[2024-04-16 08:59] LABS: Hematocrit 32.2 % (37.0-53.0); Hemoglobin* 9.6 gm/dL (13.5-17.5); Immature Granulocytes Pct Auto 1.2 %; Lymphocytes Absolute Auto 0.80 K/uL (0.90-2.90); Mean Corpuscular HGB Conc 30 gm/dL (32-36); Mean Corpuscular Hemoglobin 22 pg (26-34); Mean Corpuscular Volume 75 fL (80-100); RDW Coefficient of Variation % 26.5 % (11.5-15.5); Red Blood Count 4.32 m/uL (4.30-5.90); White Blood Count* 2.44 K/uL (4.50-11.00)
[2024-04-16 09:03] LABS: Immature Granulocytes Abs Auto 0.00 K/uL (0.00-0.30); Slide Review Reflex No
[2024-04-16 09:24] LABS: Albumin* 3.7 g/dL (3.3-5.0); Chloride* 102 mmol/L (96-114); Potassium* 3.6 mmol/L (3.6-5.1); Sodium* 139 mmol/L (135-149)
[2024-04-16 09:26] LABS: Blood Urea Nitrogen* 13 mg/dL (5-24); Creatinine* 0.7 mg/dL (0.5-1.5); Est. Creatinine Clearance* 141.93; Estimated Glomerular Filt Rate 116 ml/min
[2024-04-16 09:27] LABS: Alanine Aminotransferase* 20 U/L (4-50); Alkaline Phosphatase* 133 U/L (40-150); Anion Gap 10 mEq/L (7-15); Aspartate Amino Transferase* 48 U/L (12-35); Bilirubin Total* 0.2 mg/dL (0.1-1.5); Carbon Dioxide* 27 mmol/L (20-32); Glucose* 104 mg/dL (60-115); Total Protein* 6.8 g/dL (6.0-8.3)
[2024-04-16 09:28] LABS: Calcium* 9.1 mg/dL (8.4-10.6)
--- NOTE | 2024-04-19 13:54 | URNOTE ---
Request received for authorization for the following Drugs and Dose: Prior authorization is not required for 5FU (J9190) Leucovorin (J0640) Oxaliplatin (J9263) Dexamethasone (J1100) Fosaprepitant (J1453) Per Rep. Amber Daniel at [facility], Ref #[id number], and confirmed with [employer] Rep. Anya Kulkarni Ref#[id number], and based on medical necessity and guidelines. Prior authorization is approved for: Palonostron(Aloxi) 250 mcg IVP, every 14 days, total doses 13 (total amt:3250 mcg), date range: 04/23/2024 to 10/19/2024. Auth# [id number]. Nivolumab 240mg IV, every 14 days, total doses 13 (total amt: 3120 mg), date range: 04/23/2024 to 10/19/2024. Auth#[id number]. Udenyca on-pro 6mg SQ, every 14 days, total doses 13 (total amt:54mg), date range: 04/23/2024 to 08/20/2024. Auth#[id number].
[2024-04-23 09:11] LABS: Hematocrit 32.2 % (37.0-53.0); Hemoglobin* 9.8 gm/dL (13.5-17.5); Immature Granulocytes Abs Auto 0.01 K/uL (0.00-0.30); Immature Granulocytes Pct Auto 0.1 %; Lymphocytes Absolute Auto 0.90 K/uL (0.90-2.90); Mean Corpuscular HGB Conc 30 gm/dL (32-36); Mean Corpuscular Hemoglobin 22 pg (26-34); Mean Corpuscular Volume 74 fL (80-100); RDW Coefficient of Variation % 25.4 % (11.5-15.5); Red Blood Count 4.37 m/uL (4.30-5.90); Slide Review Reflex No; White Blood Count* 7.00 K/uL (4.50-11.00)
[2024-04-23 09:34] VITALS: BP 113/72; PULSE 76; RESP 16; TEMP 36.8; O2SAT 98
[2024-04-23 09:34] LABS: Albumin* 3.8 g/dL (3.3-5.0); Chloride* 102 mmol/L (96-114); Sodium* 138 mmol/L (135-149)
[2024-04-23 09:35] LABS: Potassium* 3.7 mmol/L (3.6-5.1)
[2024-04-23 09:37] LABS: Alanine Aminotransferase* 16 U/L (4-50); Alkaline Phosphatase* 123 U/L (40-150); Anion Gap 10 mEq/L (7-15); Aspartate Amino Transferase* 44 U/L (12-35); Bilirubin Total* 0.3 mg/dL (0.1-1.5); Blood Urea Nitrogen* 16 mg/dL (5-24); Calcium* 9.0 mg/dL (8.4-10.6); Carbon Dioxide* 26 mmol/L (20-32); Creatinine* 0.6 mg/dL (0.5-1.5); Est. Creatinine Clearance* 165.59; Estimated Glomerular Filt Rate 121 ml/min; Glucose* 105 mg/dL (60-115); Total Protein* 6.9 g/dL (6.0-8.3)
[2024-04-23] MEDS: SODIUM CHLORIDE 0.9 % (FLUSH) 10 ML SYRINGE IVF ×2 (10:00→14:27)
[2024-04-23] MEDS: NIVOLUMAB 240 MG, TUBING PRIMARY 1 EACH, In-line 0.2 micron filter set 1 EACH in 0.9 % ... 124 MG IVPB (10:31)
[2024-04-23] MEDS: FOSAPREPITANT 150 MG inj 150 MG in 0.9 % SODIUM CHLORIDE 250 ml 250 ML 510 MG IVPB (11:30)
[2024-04-23] MEDS: OXALIPLATIN IV (12:14)
[2024-04-23] MEDS: DEXTROSE 5% IV (12:14)
[2024-04-23] MEDS: TUBING PRIMARY IV (12:14)
[2024-04-23] MEDS: 5 % DEXTROSE 250 ML IV (12:17)
[2024-04-23] MEDS: LEUCOVORIN CALCIUM 100 MG, TUBING SECONDARY 1 EACH in 5 % DEXTROSE 250 ML 250 ML 128 MG IV (12:17)
[2024-04-23] MEDS: CADD MED CASSETTE RESERVOIR IV (14:24)
[2024-04-23] MEDS: FLUOROURACIL IV (14:24)
[2024-04-25] MEDS: PEGFILGRASTIM-CBQV (ONBODY) 6 MG/0.6 ML SUBCUT (12:45)
[2024-04-25] MEDS: HEPARIN 500 UNIT/5 ML SYRINGE IVF (13:00)
[2024-04-25] MEDS: SODIUM CHLORIDE 0.9 % (FLUSH) 10 ML SYRINGE IVF (13:01)
--- NOTE | 2024-04-26 16:25 | ONC.NURNOTE ---
Addendum entered by Katya Dickerson RN 04/27/24 15:46: Contacted Shanti for On Body Inj failure: and provided information for Case # [id number]. She is requesting additional information from Derek Dempsey per email. They will mail a retrieval kit for the injector to be returned. Updated Derek and Viviana Jade APRN via email. Addendum entered by Katya Dickerson RN 04/27/24 12:16: Pt here today for Udenyca injection; pt notes the needle is visibly sticking out on On Body Injector. Pt brought device with; comic writer will reach out to contact representative for next steps. Process has been reviewed and recommended per Digna Torres. Original Note: Received call from pt's that Udenyca On Body injector appears to have failed. Pt and had alarms set to be aware of time window when injection would begin. The device began beeping and inserted the needle into pt's arm. Device continued to beep and make sounds, then it began flashing red. Pt confirmed there is no liquid/dampness on his arm. The medicine chamber is still full. Reviewed with Viviana Jade APRN. Pt to come in tomorrow for Udenyca injection; confirmed pharmacy has an available dose. Pt to bring in on body injector.
[2024-04-27 10:00] VITALS: BP 115/68; PULSE 98; RESP 18; TEMP 36.7; O2SAT 100
[2024-05-07 09:10] LABS: Hematocrit 31.1 % (37.0-53.0); Hemoglobin* 9.5 gm/dL (13.5-17.5); Immature Granulocytes Abs Auto 0.07 K/uL (0.00-0.30); Immature Granulocytes Pct Auto 1.0 %; Mean Corpuscular HGB Conc 31 gm/dL (32-36); Mean Corpuscular Hemoglobin 23 pg (26-34); Mean Corpuscular Volume 74 fL (80-100); RDW Coefficient of Variation % 23.7 % (11.5-15.5); Red Blood Count 4.22 m/uL (4.30-5.90); White Blood Count* 7.21 K/uL (4.50-11.00)
[2024-05-07 09:12] LABS: Lymphocytes Absolute Auto 1.00 K/uL (0.90-2.90); Slide Review Reflex No
[2024-05-07 09:27] LABS: Albumin* 4.0 g/dL (3.3-5.0); Chloride* 102 mmol/L (96-114); Potassium* 4.0 mmol/L (3.6-5.1); Sodium* 137 mmol/L (135-149)
[2024-05-07 09:30] LABS: Alanine Aminotransferase* 20 U/L (4-50); Alkaline Phosphatase* 159 U/L (40-150); Anion Gap 9 mEq/L (7-15); Aspartate Amino Transferase* 50 U/L (12-35); Bilirubin Total* 0.3 mg/dL (0.1-1.5); Blood Urea Nitrogen* 11 mg/dL (5-24); Calcium* 9.2 mg/dL (8.4-10.6); Carbon Dioxide* 26 mmol/L (20-32); Creatinine* 0.7 mg/dL (0.5-1.5); Est. Creatinine Clearance* 141.93; Estimated Glomerular Filt Rate 116 ml/min; Glucose* 88 mg/dL (60-115); Total Protein* 7.1 g/dL (6.0-8.3)
[2024-05-07] MEDS: SODIUM CHLORIDE 0.9 % (FLUSH) 10 ML SYRINGE IVF ×2 (10:00→15:41)
[2024-05-07] MEDS: NIVOLUMAB 240 MG, TUBING PRIMARY 1 EACH, In-line 0.2 micron filter set 1 EACH in 0.9 % ... 124 MG IVPB (11:31)
[2024-05-07] MEDS: FOSAPREPITANT 150 MG inj 150 MG in 0.9 % SODIUM CHLORIDE 250 ml 250 ML 510 MG IVPB (12:32)
[2024-05-07] MEDS: 5 % DEXTROSE 250 ML IV (13:12)
[2024-05-07] MEDS: TUBING PRIMARY IV (13:19)
[2024-05-07] MEDS: DEXTROSE 5% IV (13:19)
[2024-05-07] MEDS: OXALIPLATIN IV (13:19)
[2024-05-07] MEDS: LEUCOVORIN CALCIUM 100 MG, TUBING SECONDARY 1 EACH in 5 % DEXTROSE 250 ML 250 ML 128 MG IV (13:20)
[2024-05-07] MEDS: FLUOROURACIL IV (15:41)
[2024-05-07] MEDS: CADD MED CASSETTE RESERVOIR IV (15:41)
--- NOTE | 2024-05-08 16:04 | ONC.NURNOTE ---
Request faxed to [employer] [facility] for workup imaging to have reports faxed and images transferred or disc mailed; PRADEEP in chart.
[2024-05-09] MEDS: SODIUM CHLORIDE 0.9 % (FLUSH) 10 ML SYRINGE IVF (12:55)
[2024-05-09] MEDS: PEGFILGRASTIM-CBQV (ONBODY) 6 MG/0.6 ML SUBCUT (12:56)
[2024-05-09] MEDS: HEPARIN 500 UNIT/5 ML SYRINGE IVF (12:56)
[2024-05-09 13:24] VITALS: BP 110/70; PULSE 77; RESP 18; O2SAT 98
--- NOTE | 2024-05-09 13:44 | ONC.NURNOTE ---
Upcoming Appts 05/11 Palliative Care f/u appt Prudencio Madrigal Mon 05/14 1700 MRI Brain and Lumbar Spine at [facility] 05/15 Rad Onc consult for L4 palliative Rad
[2024-05-21 09:30] LABS: Hematocrit 32.6 % (37.0-53.0); Hemoglobin* 9.8 gm/dL (13.5-17.5); Immature Granulocytes Abs Auto 0.10 K/uL (0.00-0.30); Immature Granulocytes Pct Auto 1.0 %; Mean Corpuscular HGB Conc 30 gm/dL (32-36); Mean Corpuscular Hemoglobin 23 pg (26-34); Mean Corpuscular Volume 75 fL (80-100); RDW Coefficient of Variation % 22.5 % (11.5-15.5); Red Blood Count 4.36 m/uL (4.30-5.90); White Blood Count* 9.83 K/uL (4.50-11.00)
[2024-05-21 09:42] LABS: Albumin* 4.1 g/dL (3.3-5.0); Chloride* 101 mmol/L (96-114)
[2024-05-21 09:43] LABS: Potassium* 4.5 mmol/L (3.6-5.1); Sodium* 136 mmol/L (135-149)
[2024-05-21 09:45] LABS: Alanine Aminotransferase* 20 U/L (4-50); Anion Gap 9 mEq/L (7-15); Aspartate Amino Transferase* 46 U/L (12-35); Blood Urea Nitrogen* 13 mg/dL (5-24); Carbon Dioxide* 26 mmol/L (20-32); Creatinine* 0.7 mg/dL (0.5-1.5); Est. Creatinine Clearance* 146.27; Estimated Glomerular Filt Rate 116 ml/min
[2024-05-21 09:46] LABS: Alkaline Phosphatase* 163 U/L (40-150); Bilirubin Total* 0.5 mg/dL (0.1-1.5); Calcium* 9.7 mg/dL (8.4-10.6); Glucose* 94 mg/dL (60-115); Total Protein* 7.3 g/dL (6.0-8.3)
[2024-05-21 09:50] LABS: Lymphocytes Absolute Auto 1.00 K/uL (0.90-2.90); Slide Review Reflex Yes
[2024-05-21 09:54] LABS: Slide Review Acceptable Review (Acceptable)
[2024-05-21] MEDS: SODIUM CHLORIDE 0.9 % (FLUSH) 10 ML SYRINGE IVF ×2 (11:15→16:21)
[2024-05-21] MEDS: 0.9 % SODIUM CHLORIDE 500 ML IV (11:15)
[2024-05-21] MEDS: DEXAMETHASONE 10 MG/ML PF IVP (11:59)
[2024-05-21] MEDS: NIVOLUMAB 240 MG, TUBING PRIMARY 1 EACH, In-line 0.2 micron filter set 1 EACH in 0.9 % ... 124 MG IVPB (12:26)
[2024-05-21] MEDS: FOSAPREPITANT 150 MG inj 150 MG in 0.9 % SODIUM CHLORIDE 250 ml 250 ML 510 MG IVPB (13:29)
[2024-05-21] MEDS: LEUCOVORIN CALCIUM 100 MG, TUBING SECONDARY 1 EACH in 5 % DEXTROSE 250 ML 250 ML 128 MG IV (14:10)
[2024-05-21] MEDS: DEXTROSE 5% IV (14:11)
[2024-05-21] MEDS: TUBING PRIMARY IV (14:11)
[2024-05-21] MEDS: OXALIPLATIN IV (14:11)
[2024-05-21] MEDS: CADD MED CASSETTE RESERVOIR IV (16:22)
[2024-05-21] MEDS: FLUOROURACIL IV (16:22)
--- NOTE | 2024-05-22 08:48 | ONC.NURNOTE ---
Pt's called this morning stating pt had a temp of 101.8 at 0600 this am. No other symptoms, denies any chills. Pt took 200mg of Ibuprofen at 0500 for pain, and 400mg PO at 0700 for the fever. Camera Control Operator spoke to pt's at 0745 and temp at that time was 99.1. Discussed pt symptoms with Viviana Yates APRN and it was recommended for pt to be evaluated in the ER. Camera Control Operator called and spoke to Dr. Bedolla to update him on pt symptoms and treatment he received yesterday. Pt's did confirm she would be taking him to the ER.
--- NOTE | 2024-05-22 13:06 | ONC.NURNOTE ---
Pt's called after D/C from [facility] ER. Susan has concerns about starting antibiotics in case they might interfere with Rudy's upcoming radiation. RN called [facility]. They will speak with Dr. Quiroz directly. Asked that [facility] also be updated. Susan aware of the plan.
[2024-05-23 14:53] VITALS: BP 96/58; PULSE 71; RESP 24; TEMP 36.3; O2SAT 93
[2024-05-23] MEDS: PEGFILGRASTIM-CBQV (ONBODY) 6 MG/0.6 ML SUBCUT (15:07)
[2024-05-23] MEDS: HEPARIN 500 UNIT/5 ML SYRINGE IVF (15:15)
[2024-05-23] MEDS: SODIUM CHLORIDE 0.9 % (FLUSH) 10 ML SYRINGE IVF (15:15)
[2024-06-04 10:01] LABS: Hematocrit 32.7 % (37.0-53.0); Hemoglobin* 9.8 gm/dL (13.5-17.5); Immature Granulocytes Abs Auto 0.08 K/uL (0.00-0.30); Immature Granulocytes Pct Auto 0.8 %; Mean Corpuscular HGB Conc 30 gm/dL (32-36); Mean Corpuscular Hemoglobin 23 pg (26-34); Mean Corpuscular Volume 75 fL (80-100); RDW Coefficient of Variation % 21.8 % (11.5-15.5); Red Blood Count 4.35 m/uL (4.30-5.90); White Blood Count* 10.31 K/uL (4.50-11.00)
[2024-06-04 10:04] LABS: Lymphocytes Absolute Auto 0.50 K/uL (0.90-2.90); Slide Review Reflex No
[2024-06-04 10:15] LABS: Albumin* 4.2 g/dL (3.3-5.0); Chloride* 102 mmol/L (96-114); Potassium* 3.8 mmol/L (3.6-5.1); Sodium* 136 mmol/L (135-149)
[2024-06-04 10:18] LABS: Alanine Aminotransferase* 17 U/L (4-50); Alkaline Phosphatase* 138 U/L (40-150); Anion Gap 9 mEq/L (7-15); Aspartate Amino Transferase* 40 U/L (12-35); Bilirubin Total* 0.6 mg/dL (0.1-1.5); Blood Urea Nitrogen* 15 mg/dL (5-24); Calcium* 9.5 mg/dL (8.4-10.6); Carbon Dioxide* 25 mmol/L (20-32); Creatinine* 0.7 mg/dL (0.5-1.5); Est. Creatinine Clearance* 146.27; Estimated Glomerular Filt Rate 116 ml/min; Glucose* 101 mg/dL (60-115); Total Protein* 7.4 g/dL (6.0-8.3)
[2024-06-04] MEDS: NIVOLUMAB 240 MG, TUBING PRIMARY 1 EACH, In-line 0.2 micron filter set 1 EACH in 0.9 % ... 248 MG IVPB (11:54)
[2024-06-04] MEDS: DEXAMETHASONE 10 MG/ML PF IVP (12:36)
[2024-06-04] MEDS: FOSAPREPITANT 150 MG inj 150 MG in 0.9 % SODIUM CHLORIDE 250 ml 250 ML 500 MG IVPB (12:44)
[2024-06-04] MEDS: DEXTROSE 5% IV (13:15)
[2024-06-04] MEDS: OXALIPLATIN IV (13:15)
[2024-06-04] MEDS: LEUCOVORIN CALCIUM 100 MG, TUBING SECONDARY 1 EACH in 5 % DEXTROSE 250 ML 250 ML 128 MG IV (13:15)
[2024-06-04] MEDS: TUBING PRIMARY IV (13:15)
[2024-06-04] MEDS: 5 % DEXTROSE 250 ML IV (13:16)
[2024-06-04] MEDS: FLUOROURACIL IV (15:34)
[2024-06-04] MEDS: CADD MED CASSETTE RESERVOIR IV (15:34)
[2024-06-06 12:36] VITALS: BP 98/62; PULSE 80; RESP 14; TEMP 36.1; O2SAT 95
[2024-06-06] MEDS: HEPARIN 500 UNIT/5 ML SYRINGE IVF (12:48)
[2024-06-06] MEDS: SODIUM CHLORIDE 0.9 % (FLUSH) 10 ML SYRINGE IVF (12:48)
[2024-06-06] MEDS: PEGFILGRASTIM-CBQV (ONBODY) 6 MG/0.6 ML SUBCUT (12:50)
[2024-06-18 08:10] LABS: Hematocrit 30.2 % (37.0-53.0); Hemoglobin* 9.1 gm/dL (13.5-17.5); Immature Granulocytes Abs Auto 0.04 K/uL (0.00-0.30); Immature Granulocytes Pct Auto 0.7 %; Mean Corpuscular HGB Conc 30 gm/dL (32-36); Mean Corpuscular Hemoglobin 23 pg (26-34); Mean Corpuscular Volume 77 fL (80-100); RDW Coefficient of Variation % 23.0 % (11.5-15.5); Red Blood Count 3.90 m/uL (4.30-5.90); White Blood Count* 5.85 K/uL (4.50-11.00)
[2024-06-18 08:15] LABS: Lymphocytes Absolute Auto 0.60 K/uL (0.90-2.90); Slide Review Reflex No
[2024-06-18 08:25] LABS: Albumin* 4.0 g/dL (3.3-5.0); Chloride* 101 mmol/L (96-114); Potassium* 3.9 mmol/L (3.6-5.1); Sodium* 137 mmol/L (135-149)
[2024-06-18 08:27] LABS: Blood Urea Nitrogen* 9 mg/dL (5-24); Creatinine* 0.7 mg/dL (0.5-1.5); Est. Creatinine Clearance* 141.93; Estimated Glomerular Filt Rate 116 ml/min
[2024-06-18 08:28] LABS: Alanine Aminotransferase* 20 U/L (4-50); Alkaline Phosphatase* 110 U/L (40-150); Anion Gap 9 mEq/L (7-15); Aspartate Amino Transferase* 35 U/L (12-35); Bilirubin Total* 0.6 mg/dL (0.1-1.5); Calcium* 9.3 mg/dL (8.4-10.6); Carbon Dioxide* 27 mmol/L (20-32); Glucose* 92 mg/dL (60-115); Total Protein* 6.9 g/dL (6.0-8.3)
[2024-06-18] MEDS: 0.9 % SODIUM CHLORIDE 500 ML 500 ML 1000 ML IV (09:25)
[2024-06-18] MEDS: SODIUM CHLORIDE 0.9 % (FLUSH) 10 ML SYRINGE IVF ×2 (09:26→10:39)
[2024-06-18] MEDS: HEPARIN 500 UNIT/5 ML SYRINGE IVF (10:39)
[2024-06-25 10:42] LABS: Hematocrit 31.4 % (37.0-53.0); Hemoglobin* 9.3 gm/dL (13.5-17.5); Immature Granulocytes Abs Auto 0.01 K/uL (0.00-0.30); Immature Granulocytes Pct Auto 0.2 %; Mean Corpuscular HGB Conc 30 gm/dL (32-36); Mean Corpuscular Hemoglobin 23 pg (26-34); Mean Corpuscular Volume 79 fL (80-100); RDW Coefficient of Variation % 22.5 % (11.5-15.5); Red Blood Count 4.00 m/uL (4.30-5.90); White Blood Count* 5.40 K/uL (4.50-11.00)
[2024-06-25 10:45] LABS: Lymphocytes Absolute Auto 0.70 K/uL (0.90-2.90); Slide Review Reflex No
[2024-06-25 11:05] VITALS: BP 116/79; PULSE 98; RESP 15; TEMP 36.3; O2SAT 98
[2024-06-25 11:09] LABS: Albumin* 3.9 g/dL (3.3-5.0); Chloride* 104 mmol/L (96-114); Potassium* 3.9 mmol/L (3.6-5.1); Sodium* 138 mmol/L (135-149)
[2024-06-25 11:12] LABS: Alanine Aminotransferase* 21 U/L (4-50); Alkaline Phosphatase* 91 U/L (40-150); Anion Gap 9 mEq/L (7-15); Aspartate Amino Transferase* 36 U/L (12-35); Bilirubin Total* 0.9 mg/dL (0.1-1.5); Blood Urea Nitrogen* 13 mg/dL (5-24); Calcium* 8.9 mg/dL (8.4-10.6); Carbon Dioxide* 25 mmol/L (20-32); Creatinine* 0.6 mg/dL (0.5-1.5); Est. Creatinine Clearance* 165.59; Estimated Glomerular Filt Rate 121 ml/min; Glucose* 91 mg/dL (60-115); Total Protein* 6.8 g/dL (6.0-8.3)
--- NOTE | 2024-06-25 11:24 | PC.NURSE ---
Patient states wants him to avoid sugar and carbs. He states she wants him to have fats and protein. Enc pt to eat and drink things that appeal to him. ro when his taste is better some days. Pt decreased his fentanyl patch to 12mcg. states his pain is actually improved. 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 Labs better today. No other c/o discomfort except states fatiqued and weak. encouragement for activities as kush with periods of rest. denies sob or lightheadedness. denies any redness or sores. states limiting Zofran due to constipation. talked with him about raising HOB with pillows when lying down. and other things to use for nausea. states constipation is better with senokot.
[2024-06-25] MEDS: NIVOLUMAB 240 MG, TUBING PRIMARY 1 EACH, In-line 0.2 micron filter set 1 EACH in 0.9 % ... 248 MG IVPB (12:41)
[2024-06-25] MEDS: HEPARIN 500 UNIT/5 ML SYRINGE IVF (13:20)
[2024-06-25] MEDS: SODIUM CHLORIDE 0.9 % (FLUSH) 10 ML SYRINGE IVF (13:20)
[2024-06-25] MEDS: FOSAPREPITANT 150 MG inj 150 MG in 0.9 % SODIUM CHLORIDE 250 ml 250 ML 500 MG IVPB (13:20)
[2024-06-25] MEDS: DEXTROSE 5% IV (14:08)
[2024-06-25] MEDS: TUBING PRIMARY IV (14:08)
[2024-06-25] MEDS: OXALIPLATIN IV (14:08)
[2024-06-25] MEDS: LEUCOVORIN CALCIUM 100 MG, TUBING SECONDARY 1 EACH in 5 % DEXTROSE 250 ML 250 ML 127.5 MG IV (14:10)
[2024-06-25] MEDS: 5 % DEXTROSE 250 ML IV (14:45)
[2024-06-25] MEDS: CADD MED CASSETTE RESERVOIR IV (16:08)
[2024-06-25] MEDS: FLUOROURACIL IV (16:08)
[2024-06-25] MEDS: PROCHLORPERAZINE 5 MG/ML VIAL IV (16:27)
[2024-06-27] MEDS: SODIUM CHLORIDE 0.9 % (FLUSH) 10 ML SYRINGE IVF (13:57)
[2024-06-27] MEDS: HEPARIN 500 UNIT/5 ML SYRINGE IVF (13:57)
[2024-06-27] MEDS: PEGFILGRASTIM-CBQV (ONBODY) 6 MG/0.6 ML SUBCUT (13:59)
[2024-06-27 14:04] VITALS: BP 96/56; PULSE 83; RESP 20; TEMP 36.4; O2SAT 97
[2024-07-03] MEDS: SODIUM CHLORIDE 0.9 % (FLUSH) 10 ML SYRINGE IVF (13:17)
[2024-07-10 10:18] LABS: Hematocrit 30.8 % (37.0-53.0); Hemoglobin* 9.0 gm/dL (13.5-17.5); Immature Granulocytes Abs Auto 0.04 K/uL (0.00-0.30); Immature Granulocytes Pct Auto 0.5 %; Mean Corpuscular HGB Conc 29 gm/dL (32-36); Mean Corpuscular Hemoglobin 24 pg (26-34); Mean Corpuscular Volume 81 fL (80-100); RDW Coefficient of Variation % 21.7 % (11.5-15.5); Red Blood Count 3.82 m/uL (4.30-5.90); White Blood Count* 8.27 K/uL (4.50-11.00)
[2024-07-10 10:23] LABS: Lymphocytes Absolute Auto 0.70 K/uL (0.90-2.90); Slide Review Reflex No
[2024-07-10 10:34] LABS: Albumin* 4.0 g/dL (3.3-5.0); Chloride* 103 mmol/L (96-114); Potassium* 4.6 mmol/L (3.6-5.1); Sodium* 140 mmol/L (135-149)
[2024-07-10 10:36] LABS: Alanine Aminotransferase* 17 U/L (4-50); Anion Gap 8 mEq/L (7-15); Aspartate Amino Transferase* 40 U/L (12-35); Blood Urea Nitrogen* 11 mg/dL (5-24); Carbon Dioxide* 29 mmol/L (20-32); Creatinine* 0.6 mg/dL (0.5-1.5); Est. Creatinine Clearance* 165.59; Estimated Glomerular Filt Rate 121 ml/min
[2024-07-10 10:37] LABS: Alkaline Phosphatase* 110 U/L (40-150); Bilirubin Total* 0.4 mg/dL (0.1-1.5); Calcium* 9.4 mg/dL (8.4-10.6); Glucose* 99 mg/dL (60-115); Total Protein* 7.1 g/dL (6.0-8.3)
[2024-07-10] MEDS: SODIUM CHLORIDE 0.9 % (FLUSH) 10 ML SYRINGE IVF ×2 (11:32→15:15)
[2024-07-10] MEDS: DEXAMETHASONE 10 MG/ML PF IVP (11:32)
[2024-07-10] MEDS: NIVOLUMAB 240 MG, TUBING PRIMARY 1 EACH, In-line 0.2 micron filter set 1 EACH in 0.9 % ... 248 MG IVPB (11:47)
[2024-07-10] MEDS: FOSAPREPITANT 150 MG inj 150 MG in 0.9 % SODIUM CHLORIDE 250 ml 250 ML 510 MG IVPB (12:22)
[2024-07-10] MEDS: OXALIPLATIN IV (12:58)
[2024-07-10] MEDS: LEUCOVORIN CALCIUM 100 MG, TUBING SECONDARY 1 EACH in 5 % DEXTROSE 250 ML 250 ML 127 MG IV (12:58)
[2024-07-10] MEDS: DEXTROSE 5% IV (12:58)
[2024-07-10] MEDS: TUBING PRIMARY IV (12:58)
[2024-07-10] MEDS: 5 % DEXTROSE 250 ML IV (13:40)
[2024-07-10] MEDS: FLUOROURACIL IV (15:23)
[2024-07-10] MEDS: CADD MED CASSETTE RESERVOIR IV (15:23)
[2024-07-12 13:55] VITALS: BP 94/58; PULSE 78; RESP 18; TEMP 36.4; O2SAT 100
[2024-07-12] MEDS: PEGFILGRASTIM-CBQV (ONBODY) 6 MG/0.6 ML SUBCUT (14:00)
[2024-07-12] MEDS: HEPARIN 500 UNIT/5 ML SYRINGE IVF (14:01)
[2024-07-12] MEDS: SODIUM CHLORIDE 0.9 % (FLUSH) 10 ML SYRINGE IVF (14:01)
[2024-07-23 09:41] VITALS: BP 103/69; BP 106/77; PULSE 68; RESP 14; TEMP 36.3; O2SAT 98
[2024-07-23 10:11] LABS: Hematocrit 30.0 % (37.0-53.0); Hemoglobin* 8.8 gm/dL (13.5-17.5); Immature Granulocytes Abs Auto 0.06 K/uL (0.00-0.30); Immature Granulocytes Pct Auto 0.9 %; Mean Corpuscular HGB Conc 29 gm/dL (32-36); Mean Corpuscular Hemoglobin 24 pg (26-34); Mean Corpuscular Volume 82 fL (80-100); RDW Coefficient of Variation % 21.7 % (11.5-15.5); Red Blood Count 3.67 m/uL (4.30-5.90); White Blood Count* 6.51 K/uL (4.50-11.00)
[2024-07-23 10:25] LABS: Albumin* 3.7 g/dL (3.3-5.0); Chloride* 107 mmol/L (96-114); Sodium* 140 mmol/L (135-149)
[2024-07-23 10:26] LABS: Potassium* 4.2 mmol/L (3.6-5.1)
[2024-07-23 10:28] LABS: Anion Gap 5 mEq/L (7-15); Blood Urea Nitrogen* 10 mg/dL (5-24); Carbon Dioxide* 28 mmol/L (20-32); Creatinine* 0.5 mg/dL (0.5-1.5); Est. Creatinine Clearance* 198.71; Estimated Glomerular Filt Rate 128 ml/min
[2024-07-23 10:29] LABS: Alanine Aminotransferase* 20 U/L (4-50); Alkaline Phosphatase* 116 U/L (40-150); Aspartate Amino Transferase* 48 U/L (12-35); Bilirubin Total* 0.4 mg/dL (0.1-1.5); Calcium* 9.1 mg/dL (8.4-10.6); Glucose* 96 mg/dL (60-115); Total Protein* 6.5 g/dL (6.0-8.3)
[2024-07-23 11:18] LABS: Lymphocytes Absolute Auto 0.50 K/uL (0.90-2.90); Slide Review Reflex No
[2024-07-23] MEDS: HEPARIN 500 UNIT/5 ML SYRINGE IVF (11:45)
[2024-07-23] MEDS: SODIUM CHLORIDE 0.9 % (FLUSH) 10 ML SYRINGE IVF (11:45)
[2024-07-30 09:58] LABS: Hematocrit 30.8 % (37.0-53.0); Hemoglobin* 8.9 gm/dL (13.5-17.5); Immature Granulocytes Abs Auto 0.02 K/uL (0.00-0.30); Immature Granulocytes Pct Auto 0.2 %; Mean Corpuscular HGB Conc 29 gm/dL (32-36); Mean Corpuscular Hemoglobin 24 pg (26-34); Mean Corpuscular Volume 82 fL (80-100); RDW Coefficient of Variation % 21.6 % (11.5-15.5); Red Blood Count 3.74 m/uL (4.30-5.90); White Blood Count* 8.48 K/uL (4.50-11.00)
[2024-07-30 10:04] LABS: Lymphocytes Absolute Auto 0.60 K/uL (0.90-2.90); Slide Review Reflex No
[2024-07-30 10:20] LABS: Albumin* 3.9 g/dL (3.3-5.0); Chloride* 103 mmol/L (96-114); Potassium* 4.0 mmol/L (3.6-5.1); Sodium* 138 mmol/L (135-149)
[2024-07-30 10:23] LABS: Alanine Aminotransferase* 20 U/L (4-50); Alkaline Phosphatase* 126 U/L (40-150); Anion Gap 8 mEq/L (7-15); Aspartate Amino Transferase* 52 U/L (12-35); Bilirubin Total* 0.3 mg/dL (0.1-1.5); Blood Urea Nitrogen* 11 mg/dL (5-24); Calcium* 9.0 mg/dL (8.4-10.6); Carbon Dioxide* 27 mmol/L (20-32); Creatinine* 0.6 mg/dL (0.5-1.5); Est. Creatinine Clearance* 165.59; Estimated Glomerular Filt Rate 121 ml/min; Glucose* 91 mg/dL (60-115); Total Protein* 7.1 g/dL (6.0-8.3)
[2024-07-30] MEDS: SODIUM CHLORIDE 0.9 % (FLUSH) 10 ML SYRINGE IVF ×2 (11:59→16:02)
[2024-07-30] MEDS: NIVOLUMAB 240 MG, TUBING PRIMARY 1 EACH, In-line 0.2 micron filter set 1 EACH in 0.9 % ... 248 MG IVPB (12:16)
[2024-07-30] MEDS: FOSAPREPITANT 150 MG inj 150 MG in 0.9 % SODIUM CHLORIDE 250 ml 250 ML 530 MG IVPB (12:52)
[2024-07-30] MEDS: 5 % DEXTROSE 250 ML IV (13:30)
[2024-07-30] MEDS: OXALIPLATIN 5 MG/ML INJ 140 MG, TUBING PRIMARY 1 EACH in 5 % DEXTROSE 250 ML 250 ML 139 MG IV (13:39)
[2024-07-30] MEDS: LEUCOVORIN CALCIUM 100 MG, TUBING SECONDARY 1 EACH in 5 % DEXTROSE 250 ML 250 ML 128 MG IV (13:43)
[2024-07-30] MEDS: FLUOROURACIL IV (15:51)
[2024-07-30] MEDS: CADD MED CASSETTE RESERVOIR IV (15:51)
[2024-08-01 13:33] VITALS: BP 104/61; PULSE 92; RESP 14; TEMP 36.6; O2SAT 99
[2024-08-01] MEDS: HEPARIN 500 UNIT/5 ML SYRINGE IVF (13:45)
[2024-08-01] MEDS: SODIUM CHLORIDE 0.9 % (FLUSH) 10 ML SYRINGE IVF (13:45)
[2024-08-02 14:17] VITALS: BP 98/64; PULSE 79; RESP 16; TEMP 36.6; O2SAT 100
[2024-08-14 09:39] VITALS: BP 124/78; PULSE 88; TEMP 36.2; O2SAT 99
[2024-08-14 09:54] LABS: Hematocrit 31.0 % (37.0-53.0); Hemoglobin* 9.1 gm/dL (13.5-17.5); Immature Granulocytes Abs Auto 0.04 K/uL (0.00-0.30); Immature Granulocytes Pct Auto 0.5 %; Mean Corpuscular HGB Conc 29 gm/dL (32-36); Mean Corpuscular Hemoglobin 24 pg (26-34); Mean Corpuscular Volume 83 fL (80-100); RDW Coefficient of Variation % 21.9 % (11.5-15.5); Red Blood Count 3.75 m/uL (4.30-5.90); White Blood Count* 7.98 K/uL (4.50-11.00)
[2024-08-14 10:04] LABS: Lymphocytes Absolute Auto 0.60 K/uL (0.90-2.90); Slide Review Reflex No
[2024-08-14 10:09] LABS: Albumin* 4.2 g/dL (3.3-5.0); Chloride* 105 mmol/L (96-114); Sodium* 140 mmol/L (135-149)
[2024-08-14 10:10] LABS: Potassium* 3.9 mmol/L (3.6-5.1)
[2024-08-14 10:12] LABS: Alanine Aminotransferase* 22 U/L (4-50); Alkaline Phosphatase* 150 U/L (40-150); Anion Gap 9 mEq/L (7-15); Aspartate Amino Transferase* 68 U/L (12-35); Bilirubin Total* 0.3 mg/dL (0.1-1.5); Blood Urea Nitrogen* 9 mg/dL (5-24); Carbon Dioxide* 26 mmol/L (20-32); Creatinine* 0.6 mg/dL (0.5-1.5); Est. Creatinine Clearance* 165.59; Estimated Glomerular Filt Rate 121 ml/min; Total Protein* 7.3 g/dL (6.0-8.3)
[2024-08-14 10:13] LABS: Calcium* 9.4 mg/dL (8.4-10.6); Glucose* 121 mg/dL (60-115)
[2024-08-14] MEDS: NIVOLUMAB 240 MG, TUBING PRIMARY 1 EACH, In-line 0.2 micron filter set 1 EACH in 0.9 % ... 248 MG IVPB (11:38)
[2024-08-14] MEDS: FOSAPREPITANT 150 MG inj 150 MG in 0.9 % SODIUM CHLORIDE 250 ml 250 ML 500 MG IVPB (12:16)
[2024-08-14] MEDS: OXALIPLATIN 5 MG/ML INJ 140 MG, TUBING PRIMARY 1 EACH in 5 % DEXTROSE 250 ML 250 ML 139 MG IV (13:06)
[2024-08-14] MEDS: LEUCOVORIN CALCIUM 100 MG, TUBING SECONDARY 1 EACH in 5 % DEXTROSE 250 ML 250 ML 128 MG IV (13:08)
[2024-08-14] MEDS: 5 % DEXTROSE 250 ML IV (13:09)
[2024-08-14] MEDS: FLUOROURACIL IV (15:16)
[2024-08-14] MEDS: CADD MED CASSETTE RESERVOIR IV (15:16)
[2024-08-16 12:39] VITALS: BP 107/65; PULSE 80; RESP 16; TEMP 36.4; O2SAT 99
[2024-08-16] MEDS: SODIUM CHLORIDE 0.9 % (FLUSH) 10 ML SYRINGE IVF (13:05)
[2024-08-16] MEDS: HEPARIN 500 UNIT/5 ML SYRINGE IVF (13:05)
[2024-08-16] MEDS: PEGFILGRASTIM-CBQV (ONBODY) 6 MG/0.6 ML SUBCUT (13:05)
--- NOTE | 2024-08-16 16:04 | ONC.NURNOTE ---
Patients spouse was asking about whether it is okay to have his spinal surgery during his week off of chemotherapy. He is scheduled for an MRI and surgical consult to determine plan next week. The patient and spouse will discuss with the surgical team his timing for chemo and surgery with regard to healing. They will contact our office next week to let us know the type of surgery that he is having along with surgeon preference for timing. Nursing to discuss with Medical Oncology the week of 08/28 to discuss best timing from chemotherapy standpoint. Spouse and patient are understanding of this plan to determine safest timing.
--- NOTE | 2024-08-21 07:45 | ONC.NURNOTE ---
Referral for speech therapy and video stroboscopy faxed to [facility].
--- NOTE | 2024-08-27 07:56 | ONC.NURNOTE ---
Worsening back pain; Pt postpone chemo Received call from pt's Susan. She reports that Rudy's back pain has increased tremendously over the weekend and he is unable to tolerate the car ride to come in for treatment until after his kyphoplasty surgery next week. She notes that his quality of life has improved significantly with lowering his chemo dose. As he has been feeling better, he has been more active, which in turn has worsened his spine instability pain. Resched for 09/10 for Labs/Tawanda/Chemo.
--- NOTE | 2024-09-06 11:57 | ONC.NURNOTE ---
The patients spouse called the office to let us know that the patient is still in the hospital following his vertebroplasty, which was finally done 09/05/2024. He is still in pain, which they are attributing to nerve damage done around L4. His team in [place] is looking into other options for pain management. While patient is hospitalized they are working on giving injections to his vocal cords as well. Ultimately, the reason for calling the office is to let us know that Rudy may not be discharged in time for his infusion/MD appointment on Tuesday. His palliative care team would like him to have his chemo if able. Patient's spouse will contact our office as soon as she knows whether patient will be out of the hospital in time or not.
--- NOTE | 2024-09-10 08:19 | ONC.NURNOTE ---
Pt's Susan SANTIZO requesting push out today's MD/chemo appt 1 more week. She notes he is healing well from kyphoplasty, which was successful, but need more time for PT before being able to travel for a long day. She also notes he had a vocal cord injection, and his voice is stronger.
== END 2024-09-11 23:59 | disposition home or self-care (01) ==
LOC: CCIC 09:45
PROVIDERS: Clinical Nurse Specialist; Physician Assistant; Visit Provider Internal Medicine Hematology & Oncology
DX: C16.0 Malignant neoplasm of cardia (principal)
CPT/HCPCS: 36415; 36430; 36591; 70553; 71046; 71260; 72158; 74177; 80048; 80053; 81001; 83605; 84443; 85025; 86850; 86900; 86901; 86922; 87040; 87631; 96360; 96367; 96368; 96372; 96375; 96377; 96411; 96413; 96415; 96416; 96417; 99202; 99205; 99211; 99214; 99215; 99284; G0463; A9270; A9575; J0640; J0780; J1100; J1453; J1642; J2469; J7030; J7050; J9190; J9263; J9299; P9016; Q5111; Q9967

== ENCOUNTER 2024-10-01 11:51 | Outpatient (CLI) | payer MEDICAID, SELFPAY | END 2024-10-01 11:52 | disposition home or self-care (01) | LOC: NFLDREF 10-04 11:55 | PROVIDERS: Visit Provider Internal Medicine Hematology & Oncology | DX: C15.4 Malignant neoplasm of middle third of esophagus (principal); C78.89 Secondary malignant neoplasm of other digestive organs; Z13.29 Encounter for screening for other suspected endocrine disorder | CPT/HCPCS: 80053; 84443 ==

== ENCOUNTER 2024-10-08 10:13 | Outpatient (CLI) | payer MEDICAID, SELFPAY | END 2024-10-08 10:14 | disposition home or self-care (01) | LOC: NFLDREF 10-10 14:19 | PROVIDERS: Visit Provider Internal Medicine Hematology & Oncology | DX: C15.4 Malignant neoplasm of middle third of esophagus (principal); C78.89 Secondary malignant neoplasm of other digestive organs | CPT/HCPCS: 80053; 84443 ==

== ENCOUNTER 2024-10-22 10:10 | Outpatient (CLI) | payer MEDICAID, SELFPAY | END 2024-10-22 10:11 | disposition home or self-care (01) | LOC: NFLDREF 10-25 16:50 | PROVIDERS: Visit Provider Clinical Nurse Specialist | DX: C15.9 Malignant neoplasm of esophagus, unspecified (principal); R79.89 Other specified abnormal findings of blood chemistry; Z51.11 Encounter for antineoplastic chemotherapy; Z51.12 Encounter for antineoplastic immunotherapy | CPT/HCPCS: 80053; 84443 ==

== ENCOUNTER 2024-10-31 11:02 | Outpatient (CLI) | payer MEDICAID, SELFPAY ==
--- NOTE | 2024-10-31 11:00 | CRLHL7_ITS ---
For Patients: As a result of the Century Cures Act, medical imaging exams and procedure reports are released immediately into your electronic medical record. You may view this report before your referring provider. If you have questions, please contact your health care provider. Indication: ESOPHAGEAL CANCER, 12 CYCLES OF CHEMO WITH IMMUNOTHERAPY, ASSESS TREATMENT RESPONSE Technique: CT Chest/Abd/Pelvis W/ 82CC ISOVUE-370 intravenous contrast Please note that all CT scans at this facility use dose modulation, iterative reconstruction, and/or weight-based dosing when appropriate to reduce radiation dose to as low as reasonably achievable. Comparison: 07/03/2024 Findings: 4 millimeter nodule is present within the right middle lobe, new from prior, . Additional new pulmonary nodule in the right lower lobe measures 4 millimeters, . Stable perifissural scarring on the right, . New nodule adjacent to the fissure left upper hemithorax measures 2.6 millimeters, . Also new perifissural nodule on the left measures 2 millimeters, . Circumferential thickening of the distal esophageal wall again noted. No enlarged intrathoracic lymph nodes. Visualized thyroid is normal. No fracture. No intrinsic osseous lesion. Linear subsegmental scarring in both lower lobes. Paramediastinal radiation change also noted. Stable chronic ill-defined densities in the right upper lobe. In the abdomen, interval progression metastatic disease within the liver. Innumerable heterogeneously hypodense masses are present throughout the liver which have increased in size and number in the interim. The largest is located in the left hepatic lobe and measures 12 cm. Hepatomegaly is present. The spleen is also enlarged. The size of the liver has increased since the prior study. Normal pancreas. Adrenal glands normal. No hydronephrosis. No biliary obstruction. Interval development adenopathy in the periportal space measuring 3.4 cm. The portal vein is patent. In the pelvis, the bladder is normal. Mild pelvic free fluid is present. No bowel obstruction. No free air. No pelvic or inguinal adenopathy. Postprocedural changes to the lumbar spine noted at L4 regarding the pathologic fracture. Impression: Extensive progression of metastatic disease within the liver compared to the prior study with increased size and number of hepatic lesions. Increased size of the liver. Liver measures up to 26 cm. New bilateral pulmonary nodules measure up to 4 millimeters. Persistent circumferential wall thickening of the distal esophagus with adjacent subcentimeter lymph nodes. Interval development of a lymph node mass in the periportal space measuring 3.4 cm. Pathologic fracture L4 with postprocedural changes. Please note that all CT scans at this facility use dose modulation, iterative reconstruction, and/or weight-based dosing when appropriate to reduce radiation dose to as low as reasonably achievable. Dictated by Jim Wolff MD @ 10/31/2024 12:40:03 PM (Electronically Signed)
== END 2024-10-31 11:03 | disposition home or self-care (01) ==
LOC: CT 11:03
PROVIDERS: Visit Provider Clinical Nurse Specialist
DX: C15.9 Malignant neoplasm of esophagus, unspecified (principal); C78.7 Secondary malignant neoplasm of liver and intrahepatic bile duct; R91.8 Other nonspecific abnormal finding of lung field; R59.0 Localized enlarged lymph nodes; M84.48XA Pathological fracture, other site, initial encounter for fracture; Z51.11 Encounter for antineoplastic chemotherapy; Z51.12 Encounter for antineoplastic immunotherapy; C16.0 Malignant neoplasm of cardia; C79.51 Secondary malignant neoplasm of bone; C77.9 Secondary and unspecified malignant neoplasm of lymph node, unspecified; R53.83 Other fatigue
CPT/HCPCS: 36591; 71260; 74177; 80076; Q9967

== ENCOUNTER 2024-11-12 12:36 | Emergency (ER) | payer MEDICAID, SELFPAY ==
--- OUTSIDE RECORDS SUMMARY | 2024-10-10 12:45 | XMS_ITS | Encounter Summary ---
Author Organization [facility] Address [address] [place] [address] Care Team Providers Care Bed Maker Name Role Phone No Contact, Pcp Primary Care Provider Unavailabl e Reason for Visit * Reason Onset Date Comments Pre-visit Intake 10/10/2024 Encounter Details Date Type Department Care Team (Latest Contact Info) Description 10/10/2024 12:45 PM CDT Clinical Communication Virtual Review in [place], [place] [address] [place] [address] Pre-visit Intake Social History Tobacco Use Types Packs/Day Years Used Date Smoking Tobacco: Former Cigarettes 10 10 0 07/15/1994 - 11/11/2017 Passive Smoke Exposure: Never Smokeless Tobacco: Never Comments:Smoked off and on b etween dates noted. Alcohol Use Standard Drinks/Week Comments Not Currently 0 (1 standard drink = 0.6 oz pure alcohol) Drank heavily off and on from age 22 to 39 [facility] Utilities Answer Date Recorded In the past 12 months has e electric, gas, oil, or water company threatened to shut off services in your home? No 08/30/2024 Humiliation, Afraid, Rape, and Kick questionnair e Answer Date Recorded Within the last year, have y ou been afraid of your partner or ex-partner? No 08/30/2024 Within the last year, have y ou been humiliated or emotionally abused in other ways by your partner or ex-partner? No Within the last year, have y ou been kicked, hit, slapped, or otherwise physically hurt by your partner or ex-partner? No 08/30/2024 Within the last year, have y ou been raped or forced to have any kind of sexual activity by your partner or ex-partner? No 08/30/2024 Hunger Vital Sign Answer Date Recorded Within the past 12 months, y ou worried that your food would run out before you got the money to buy more. Never true 08/31/19 25 Within the past 12 months, t he food you bought just didn't last and you didn't have money to get more. Never true 08/30/2024 PRAPARE - Transportation Answer Date Re corded In the past 12 months, has l ack of transportation kept you from medical appointments or from getting medications? No 08/14 In the past 12 months, has l ack of transportation kept you from meetings, work, or from getting things needed for daily living? No 08/30/2024 Housing Stability Answer Date Recorded What is your living situation today? I have a [facility] place to live 08/30/2024 Sex and Gender Information Value Date Recorded Sex Assigned at Male 02/15/2024 4:45 PM HARBORMASTER Legal Sex Male 3:29 PM HARBORMASTER Gender Identity Male 02/15/2024 4:45 PM HARBORMASTER Sexual Orientation Straight 02/15/2024 4: 45 PM HARBORMASTER documented as of this encounter Plan of Treatment Upcoming Encounters Date Type Department Care Team (Late st Contact Info) Description 12/04/2024 11:00 AM CDT Telemedicine Department of Palliative Care in [place], [place] [address] [place] [address] Claudy Ramos M.D. [address] [place] [address] 12/07/2024 11:30 AM CDT Office Visit Department of Otorhinolaryngology in [place], [place] [address] [place] [address] Rita Mcqueen M.D. [address] [place] [address] documented as of this encounter Visit Diagnoses Not on filedocumented in this encounter Care Teams Bed Maker Relationship Specialty Start Date End Date No Contact, Pcp PCP - General Family Medicine 06/07/24 documented as of this encounter
--- OUTSIDE RECORDS SUMMARY | 2024-10-11 14:00 | XMS_ITS | Encounter Summary ---
Author Organization [facility] Address [address] [place] [address] Care Team Providers Care Academic Director Name Role Phone No Contact, Pcp Primary Care Provider Unavailabl e Reason for Referral * Outpatient (Routine) - Authorized Specialty Diagnoses / Procedures Referred By Hayde mendez Referred To Contact Palliative Medicine Claudy Ramos M.D. [address] [place] [address] Phone: tel: fax: [facility] Referral ID Status Reason Start Date Expiration Date V isits Requested Visits Authorized [id number] Authorized 10/11/2024 04/12/2026 1 1 Scheduling Instructions 6wks joseline Reason for Visit * Outpatient (Routine) - Closed Specialty Diagnoses / Procedures Referred By Hayde mendez Referred To Contact Palliative Medicine Claudy Ramos M.D. [address] [place] [address] Phone: tel: fax: [facility] Referral ID Status Reason Start Date Expiration Date Visits Re quested Visits Authorized [id number] Closed 09/18/2024 03/20/2026 1 1 Encounter Details Date Type Department Care Team (Late st Contact Info) Description 10/11/2024 2:00 PM CDT Telemedicine Department of Palliative Care in [place], [place] [address] [place] [address] Claudy Ramos M.D. 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 Alcohol Use Standard Drinks/Week Comments Not Currently 0 (1 standard drink = 0.6 oz pure alcohol) Drank heavily off and on from age 22 to 39 [facility] Utilities Answer Date Recorded In the past 12 months has [facility] [employer], gas, oil, or water [employer] threatened to shut off services in your [...] [facility] place to live 08/30/2024 Sex and Gender Information Value Date Recorded Sex Assigned at Male 02/15/2024 4:45 PM HIV COUNSELOR Legal Sex Male 3:29 PM HIV COUNSELOR Gender Identity Male 02/15/2024 4:45 PM HIV COUNSELOR Sexual Orientation Straight 02/15/2024 4: 45 PM HIV COUNSELOR documented as of this encounter Progress Notes * Claudy Ramos M.D. - 10/11/2024 2:00 PM CDT [facility] Outpatient Palliative Care VIDEO Note Patient: Rudy Gross; 43 y.o.male Date of Service: 10/11/2024 LOCATION Video Visit SUBJECTIVE Subjective Rudy Gross is a 43-year-old with metastatic esophageal carcinoma followed in the outpatient Palliative Care Clinic for cancer associated symptoms and adaptive coping. Date of Last Visit: 09/17/24 Interval History: Fortunately Mr. Parks is feeling much better. He continues to improved significantly status post tumor ablation and vertebroplasty at the end of August. Has been able to reduce his transdermal fentanyl patch to a current dose of 25 mcg patch +12 mcg patch for a total dose of 37 mcg patch changed every 72 hours. Using minimal breakthrough doses of hydromorphone. Asleep still somewhat spotty, particularly initiation, they have questions today about starting olanzapine in the setting of upcoming chemotherapy which will be delivered at [facility] in the next couple of weeks. PDMP REVIEWED TODAY The following portions of the patient's history were reviewed and updated as appropriate: Allergies, Current Medications, Medical History, Surgical History, Family History, and Social History OBJECTIVE Objective Physical Exam: VS: There were no vitals taken for this visit. General: Alert, conversant, lying down in his equal opportunity counselor accompanied by his Psychiatric: Euthymic Palliative Functional Assessment 70%-Reduced ambulation, Unable to do normal job/work with significant evidence of disease, Full self-care, Normal or reduced intake, Full level of consciousness Medications/Diagnostics: Medications and allergies reviewed. I have reviewed recent labs, imaging, and other diagnostics. Notable values will be indicated as appropriate. ASSESSMENT / PLAN Impression/Report/Plan Rudy Gross is a 43-year-old with metastatic esophageal carcinoma followed in the outpatient Palliative Care Clinic for cancer associated symptoms and adaptive coping. 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 At this point I would recommend continuing the transdermal fentanyl patch at 37 micrograms/hour changed every 72 hours with the combination patch mode. We will continue this for 2 more weeks in the discontinue the 12 microgram/hour patch. He can continue the 25 microgram/hour patch at that time using breakthrough hydromorphone as needed. Recommend restarting olanzapine 2.5 mg p.o. q.h.s. an anticipation of upcoming chemotherapy. He will continue to engage in functional rehabilitation in the outpatient setting. We will plan a follow up visit in the next 2-3 weeks. Opioid Summary Opioid Need: This patient has a condition that necessitates treatment with an opioid for longer than 7 days. Additionally, a non-opioid alternative was not appropriate or inadequate to manage patient???s pain. We have reviewed risks, benefits and alternatives related to opioid prescribing as well as relevant mitigation strategies. Diagnosis related to controlled substance prescribing: Metastatic esophageal carcinoma [place] PHYSICAL FITNESS TRAINER Review: We have reviewed the patient's record in the [place] prescription monitoring program 10/11/2024. Opioid Toxicity Review: We have reviewed the risks of opioid therapy and completed an assessment oftoxicities. Opioid Aberrant Use Concerns: None Recommended Opioid Regimen as of 10/11/2024.: as documented above Opioid Risk Score: Naloxone prescribed: yes Coping and Care Planning: Will continue to assess and promote approach oriented coping mechanisms, ongoing psychosocial and spiritual support as well as ongoing discussions regarding broader goals, preferences, values. ACP note completed; On file Thank you for the opportunity to see this patient. Patient has our contact information and understands to call with new/worsening symptoms or concerns. We will work alongside the primary outpatient team to address these issues. Palliative care outpatient clinic will continue to follow along. Follow up visit: provider 2 weeks, clinic visit Total time spent was 30 minutes. Consult conducted via real-time audio/video technology by Claudy Ramos M.D. in [facility] to the patient in Patient's Home Claudy Ramos M.D. documented in this encounter Plan of Treatment Upcoming Encounters Date Type Department Care Team (Late st Contact Info) Description 12/04/2024 11:00 AM CDT Telemedicine Department of Palliative Care in [place], [place] [address] [place] [phone] Claudy Ramos M.D. [address] [place] [phone] 12/07/2024 11:30 AM CDT Office Visit Department of Otorhinolaryngology in [place], [place] [address] [place] [phone] Rita Mcqueen M.D. [address] [place] [phone] Scheduled Referrals Name Type Priority Associated Diagnoses Order Schedule Palliative Care office visit (clinic) Outpatient Referral Routine Expected: 11/11/2024, Expires: 01/11/2026 documented as of this encounter Visit Diagnoses Diagnosis Pain Cancer Associated- Primary 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) Secondary Malignant Neoplasm Bone (HCC) Fracture Pathologic In Neoplastic Disease Sequela Nausea Insomnia Anxiety Generalized Disorder Pain Neuropathic Asthenia Palliative Care documented in this encounter Care Teams Academic Director Relationship Specialty Start Date End Date No Contact, Pcp PCP - General Family Medicine 06/07/24 documented as of this encounter
--- OUTSIDE RECORDS SUMMARY | 2024-10-26 | XMS_ITS | Encounter Summary ---
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 Alcohol Use Standard Drinks/Week Comments Not Currently 0 (1 standard drink = 0.6 oz pure alcohol) Drank heavily off and on from age 22 to 39 [facility] Utilities Answer Date Recorded In the past 12 months has e [employer] gas, oil, or water company threatened to [...] your living situation today? I have a [facility] place to live 08/30/2024 Sex and Gender Information Value Date Recorded Sex Assigned at Male 02/15/2024 4:45 PM BOOTH USHER Legal Sex Male 3:29 PM BOOTH USHER Gender Identity Male 02/15/2024 4:45 PM BOOTH USHER Sexual Orientation Straight 02/15/2024 4: 45 PM BOOTH USHER documented as of this encounter Plan of Treatment Upcoming Encounters Date Type Department Care Team (Late st Contact Info) Description 12/04/2024 11:00 AM CDT Telemedicine Department of Palliative Care in [place], [place] [address] [place] [phone] Claudy Ramos M.D. [address] [place] [phone] 12/07/2024 11:30 AM CDT Office Visit Department of Otorhinolaryngology in [place], [place] [address] [place] [phone] Rita Mcqueen M.D. [address] [place] [phone] documented as of this encounter Procedures Procedure Name Priority Date/Time Associated Diagnosis Comments CHALK TESTER IMAGE EXAM Routine 10/26/2024 12:00 AM CDT documented in this encounter Results * Teeth 514-Mining Detail Draftsperson Image Exam (10/26/2024 12:00 AM CDT) Narrative [facility] - 10/26/2024 1:56 PM CDT This order has been created and auto-finalized to support the import of images acquired without order. The clinical documentation to support these images can be found on the encounter that produced images. us Provider Not In System IMG NON RAD IMAGING PROCE DURES Final Result [facility] NA documented in this encounter Visit Diagnoses Not on filedocumented in this encounter Care Teams Wooden Furniture Polisher Relationship Specialty Start Date End Date No Contact, Pcp PCP - General Family Medicine 06/07/24 documented as of this encounter
--- OUTSIDE RECORDS SUMMARY | 2024-11-07 14:00 | XMS_ITS | Encounter Summary ---
Author Organization [facility] Address [address] [place] [id number] Care Team Providers Care Corporate Intern Name Role Phone No Contact, Pcp Primary Care Provider Unavailabl e Reason for Visit * Outpatient (Routine) - Closed Specialty Diagnoses / Procedures Referred By Hayde mendez Referred To Contact Palliative Medicine Jenni Ramos, PFabby [address] [place] [phone] Phone: tel: fax: Claudy Ramos M.D. [address] [place] [address] Phone: tel: fax: Referral ID Status Reason Start Date Expiration Date Visits Re quested Visits Authorized [id number] Closed 11/06/2024 05/08/2026 1 1 Encounter Details Date Type Department Care Team (Late st Contact Info) Description 11/07/2024 2:00 PM CDT Telemedicine Department of Palliative Care in [place], [place] [address] [place] [phone] Dorothy Maradiaga M.D. 200 [place] [phone] Claud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 Alcohol Use Standard Drinks/Week Comments Not Currently 0 (1 standard drink = 0.6 oz pure alcohol) Drank heavily off and on from age 22 [address] [facility] Utilities Answer Date Recorded In the past 12 months has [facility] [employer], gas, oil, or water [employer] threatened to shut off services in your [...] your living situation today? 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 - 11/07/2024 2:00 PM CDT [facility] Outpatient Palliative Care VIDEO Note Patient: Rudy Gross; 43 y.o.male Date of Service: 11/07/2024 LOCATION Video Visit SUBJECTIVE Subjective Rudy Gross is a 43-year-old with metastatic esophageal carcinoma followed in the outpatient Palliative Care Clinic for cancer associated symptoms and adaptive coping. Date of Last Visit: 10/11/24 Interval History: Unfortunately, Mr. Gross has had increasing low back and right upper quadrant pain. Right upper quadrant pain has been worsened with deep breath or with movement. He did find out if his local oncologist and [place] that he has had progressive disease with increased pain in bone and liver. His oncologist as working to determine next disease directed treatment options which may include continuation of FOLFOX with the addition of a potential off-label agent d epending on insurance approval. He has noted that with the increasing pain he has been using hydromorphone 6 mg 3-4 times daily which helps but has led to increased fatigue. Additionally his fentanyl patch was increased from 25 micrograms/hour changed every 72 hours to a total dose of 37 micrograms/hour changed every 72 hours. Henoted some improvement with the additional 12 microgram/hour patch but not a lot. With the increase in hydromorphone he has been more fatigued but during our visit was conversant, insightful. He is still getting around with his walker at home. PDMP REVIEWED TODAY The following portions of the patient's history were reviewed and updated as appropriate: Allergies, Current Medications, Medical History, Surgical History, Family History, and Social History OBJECTIVE Objective Physical Exam: VS: There were no vitals taken for this visit. General: Alert, conversant, lying down outside, accompanied by his Psychiatric: Euthymic Palliative Functional Assessment 60%- Reduced ambulation, Unable to do hobby/housework with significant evidence of disease, Occasional assistance needed for self-care, Normal or reduced intake, Full level of consciousness or confusion Medications/Diagnostics: Medications and allergies reviewed. I have [...] #3 Secondary Malignant Neoplasm Bone (HCC) #4 Secondary Malignant Neoplasm Liver (HCC) #5 Pain Neuropathic #6 Asthenia #7 Debility #8 Palliative Care I was so sorry to hear that Rudy has experienced disease progression. He and his are also in a transition of living arrangements and maybe moving to [facility]. We will work to identify local palliative care resources so that he continues to have ongoing support for symptom management. I will reach out to his oncologist to learn more about potential treatment options and how this mayaffect any of his symptom management interventions. In the short term I would recommend a trial of dexamethasone to target the inflammatory component of his pain particularly in his liver. We will start with 4 mg p.o. q.a.m. x3 days then decreasing to2 mg p.o. q.a.m. Since he had previously been up to a dose of 50 mcg per hour changed every 72 hours of transdermal fentanyl we will go back to this dose and see if we can reduce the use of p.r.n. hydromorphone. I have instructed them to trial using a 4 mg dose of hydromorphone once the 50 mcg patch is placed starting tomorrow. Plan for close follow up early next week. Opioid Summary Opioid Need: This patient has a condition that necessitates treatment with an opioid for longer than 7 days. Additionally, a non-opioid alternative was not appropriate or inadequate to manage patient???s pain. We have reviewed risks, benefits and alternatives related to opioid prescribing as well as relevant mitigation strategies. 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 Opioid Toxicity Review: We have reviewed the risks of opioid therapy and completed an assessment oftoxicities. Opioid Aberrant Use Concerns: None Recommended Opioid Regimen as of 11/07/2024.: as documented above Opioid Risk Score: Naloxone [...] outpatient clinic will continue to follow along. Total time spent was 50 minutes. Consult conducted via real-time audio/video technology by Claudy Ramos M.D. in [facility] to the patient in Patient's Home Claudy Ramos M.D. documented in this encounter Plan of Treatment Upcoming Encounters Date Type Department Care Team (Late st Contact Info) Description 12/04/2024 11:00 AM CDT Telemedicine Department of Palliative Care in [place], [place] [address] [place] [phone] Claudy Ramos M.D. [address] [place] [phone] 12/07/2024 11:30 AM CDT Office Visit Department of Otorhinolaryngology in [place], [place] [address] [place] [phone] Rita Mcqueen M.D. 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
--- OUTSIDE RECORDS SUMMARY | 2024-11-08 15:00 | XMS_ITS | Encounter Summary ---
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 [address] [place] [phone] Phone: tel: fax: [facility] Referral ID Status Reason Start Date Expiration Date Visits Re quested Visits Authorized [id number] Closed 11/06/2024 05/08/2026 1 1 Encounter Details Date Type Department Care Team (Late st Contact Info) Description 11/08/2024 3:00 PM CDT Telemedicine Department of Palliative Care in [place], [place] [address] [place] [phone] Jenni Ramos, P.A.-C. [address] [place] [phone] Yamilet Ortega M.S.W., L.I.C.S.W. 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 Alcohol Use Standard Drinks/Week Comments Not Currently 0 (1 standard drink = 0.6 oz pure alcohol) Drank heavily off and on from age 22 to 39 [facility] Utilities Answer Date Recorded In the past 12 months has [facility] [employer], gas, oil, or water [employer] threatened to shut off services in your [...] I have a [place] place to live 08/30/2024 Sex and Gender Information Value Date Recorded Sex Assigned at Male 02/15/2024 4:45 PM FOX RAISER Legal Sex Male 3:29 PM FOX RAISER Gender Identity Male 02/15/2024 4:45 PM FOX RAISER Sexual Orientation Straight 02/15/2024 4: 45 PM FOX RAISER documented as of this encounter Plan of Treatment Upcoming Encounters Date Type Department Care Team (Late st Contact Info) Description 12/04/2024 11:00 AM CDT Telemedicine Department of Palliative Care in [place], [place] [address] [place] [phone] Claudy Ramos M.D. [address] [place] [phone] 12/07/2024 11:30 AM CDT Office Visit Department of Otorhinolaryngology in [place], [place] [address] [place] [phone] Rita Mcqueen M.D. 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
--- OUTSIDE RECORDS SUMMARY | 2024-11-12 12:39 | XMS_ITS | Encounter Summary ---
Author Organization [facility] Address [address] [place] [phone] Care Team Providers Care Emergency Management Program Specialist Name Role Phone No Contact, Pcp Primary Care Provider Unavailabl e Reason for Visit * Reason Onset Date Comments Med Refill 10/16/2024 Encounter Details Date Type Department Care Team (Late st Contact Info) Description 10/16/2024 Refill Department of Palliative Care in [place], [place] [address] [place] [phone] Jenni Ramos, P.A.-C. [address] [place] [phone] Med Refill Social History Tobacco Use Types [...] from age 22 to 39 [facility] Utilities Answer Date Recorded In the past 12 months has th e electric, gas, oil, or water [employer] threatened to shut off services in your [...] your living situation today? 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 [address] [place] [phone] 12/07/2024 11:30 AM CDT Office Visit Department of Otorhinolaryngology in [place], [place] [address] [place] [phone] Rita Mcqueen M.D. [address] [place] [phone] documented as of this encounter Visit Diagnoses Not on filedocumented in this encounter Care Teams Emergency Management Program Specialist Relationship Specialty Start Date End Date No Contact, Pcp PCP - General Family Medicine 06/07/24 documented as of this encounter
--- OUTSIDE RECORDS SUMMARY | 2024-11-12 12:39 | XMS_ITS | Clinical Summary ---
Author Organization [facility] Address [address] [place] [address] Care Team Providers Care Electrical Installer Name Role Phone No Contact, Pcp Primary Care Provider Unavailabl e Source Comments Patient records contain information from all sites at [facility]. For routine questions regarding patient records, call [phone] during business hours, M-F 8:00 AM - 5:00 PM Central Time. Record requests for emergency care only can be directed to [phone] at any time.[facility] Allergies Active Allergy Reactions Criticality Noted Date Comments Penicillins Rash 02/16/2024 Medications * This document contains information received from the source organization and may not represent a complete record from that organization. melatonin 5 mg tablet Take 5 mg by mouth at bedtime as needed. 1-2 tablets at bedtime Active lidocaine-tray locaine (Emla) 2.5-2.5 % cream Apply 1 Application topically as needed. 03/28/19 25 Active polyethylene glycol (Miralax) 17 gram/dose oral powder Take 17 g by mouth daily. Dissolve each 17 g dose in 240 mL (8 ounces) of beverage. 1700 g 2 04/06/19 25 Active sennosides (senna) 8.6 mg tablet Take 3 tablets (25.8 mg total) by mouth 2 (two) times a day. 180 tablet 2 05/12/19 25 Active magnesium citrate solution Take 148 mL by mouth as needed. Active ondansetron (Zofran) 8 mg tablet Take 4 mg by mouth every 8 (eight) hours as needed for nausea or vomiting. Active naloxone (Narcan) 4 mg/actuation nasal spray Administer 1 spray (4 mg total) into nostril(s) once as needed for reversal for up to 1 dose. Use 1 spray in 1 nostril. Repeat with second device in other nostril after 2-3 minutes if no or minimal response. 2 each 5 9:51 AM CDT 09/12/19 25 Active OLANZapine (ZyPREXA) 2.5 mg tablet Take 1 tablet (2.5 mg total) by mouth at bedtime. 30 tablet 3 10/12/19 25 Active prochlorperaz ine (Compazine) 5 mg tablet Take 1 tablet (5 mg total) by mouth every 8 (eight) hours as needed for nausea or vomiting. 30 tablet 1 10/17/19 25 Active omeprazole (PriLOSEC) [address] capsule Take 2 capsules (40 mg total) by mouth daily before morning meal. 11/08/19 25 Active dexAMETHasone (Decadron) 2 mg tablet Take 2 tablets (4 mg total) by mouth every morning for 3 days, THEN 1 tablet (2 mg total) every morning for 4 days. 10 tablet 11/08/19 25 025 Active fentaNYL (Duragesic) 50 mcg/hr patchIndicati ons:Chronic Pain/Nonacute Pain Place 1 patch on the skin every third day Indication: Chronic Pain/Nonacute Pain. 5 patch 11/08/19 25 Active HYDROmorphone (Dilaudid) 2 mg tabletIndicat ions:Chronic Pain/Nonacute Pain Take 2-3 tablets (4-6 mg total) by mouth every 4 (four) hours as needed for pain for up to 10 doses Indication: Chronic Pain/Nonacute Pain. 30 tablet 11/12/19 25 Active guaiFENesin (Robitussin) 100 mg/5 mL liquid Take 10 mL (200 mg total) by mouth every 6 (six) hours as needed for congestion (mucous thinning). 473 mL 2 11/12/19 Active dexAMETHasone (Decadron) 2 mg tablet Take 2 mg by mouth 2 (two) times a day as needed (2 mg orally twice a day; Take 1-2 tablets, once or twice daily for 2-3 days post chemotherapy for nausea control.). 025 Discontinued prochlorperaz ine (Compazine) 5 mg tablet Take 1 tablet (5 mg total) by mouth every 8 (eight) hours as needed for nausea or vomiting. 30 tablet 1 09/29/19 25 025 Discontinued(R eorder) omeprazole (PriLOSEC) [address] capsule Take 1 capsule (20 mg total) by mouth daily before morning meal. 90 capsule 3 09/29/19 25 025 Discontinued fentaNYL (Duragesic) 25 mcg/hr patchIndicati ons:Chronic Pain/Nonacute Pain Place 1 patch on the skin every third day Indication: Chronic Pain/Nonacute Pain. Use along with 12 mcg patch for total of 37 mcg 09/29/19 25 025 Discontinued(D ose adjustment) HYDROmorphone (Dilaudid) 2 mg tabletIndicat ions:Chronic Pain/Nonacute Pain Take 1-2 tablets (2-4 mg total) by mouth every 4 (four) hours as needed for pain Indication: Chronic Pain/Nonacute Pain. 90 tablet 10/06/19 25 025 Discontinued(R eorder) fentaNYL (Duragesic) 12 mcg/hr patchIndicati ons:Chronic Pain/Nonacute Pain Place 1 patch on the skin every third day Indication: Chronic Pain/Nonacute Pain. Take along with 25 mcg patch for total of 37 mcg every 72 hours 5 patch 10/12/19 25 025 Discontinued guaiFENesin (Robitussin) 100 mg/5 mL liquid Take 10 mL (200 mg total) by mouth every 6 (six) hours as needed for congestion (mucous thinning). 473 mL 2 10/15/19 25 025 Discontinued(R eorder) fentaNYL (Duragesic) 25 mcg/hr patchIndicati ons:Chronic Pain/Nonacute Pain Place 1 patch on the skin every third day Indication: Chronic Pain/Nonacute Pain. 10 patch 10/23/19 25 025 Discontinued HYDROmorphone (Dilaudid) 2 mg tabletIndicat ions:Chronic Pain/Nonacute Pain Take 1-2 tablets (2-4 mg total) by mouth every 4 (four) hours as needed for pain Indication: Chronic Pain/Nonacute Pain. 90 tablet 10/30/19 025 Discontinued(R eorder) guaiFENesin (Robitussin) 100 mg/5 mL liquid Take 10 mL (200 mg total) by mouth every 6 (six) hours as needed for congestion (mucous thinning). 473 mL 2 10/30/19 025 Discontinued(R eorder) fentaNYL (Duragesic) 12 mcg/hr patchIndicati ons:Chronic Pain/Nonacute Pain Place 1 patch on the skin every third day Indication: Chronic Pain/Nonacute Pain. Take with 25 mcg/hr patch to equal 37 mcg/hr 10 patch 11/04/19 25 025 Discontinued(R eorder) fentaNYL (Duragesic) 25 mcg/hr patchIndicati ons:Chronic Pain/Nonacute Pain Place 1 patch on the skin every third day Indication: Chronic Pain/Nonacute Pain. Take with 12 mcg/hr patch to equal 37 mcg/hr 11/04/19 25 025 Discontinued(D ose adjustment) fentaNYL (Duragesic) 12 mcg/hr patchIndicati ons:Chronic Pain/Nonacute Pain Place 1 patch on the skin every third day Indication: Chronic Pain/Nonacute Pain. Take with 25 mcg/hr patch to equal 37 mcg/hr 10 patch 11/04/19 25 025 Discontinued fentaNYL (Duragesic) 25 mcg/hr patchIndicati ons:Chronic Pain/Nonacute Pain Place 2 patches on the skin every third day Indication: Chronic Pain/Nonacute Pain. 10 patch 11/08/19 25 025 Discontinued(D ose adjustment) Active Problems 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 Cannabis Use Unspecified Uncomplicated Lesion Bone 08/30/2024 Radiation Therapy Personal History 08/30/2024 Fracture Pathologic In Neoplastic Disease Sequel a 08/30/2024 Pain Back 08/29/2024 Pain Cancer Associated 08/29/2024 Palliative Care 08/29/2024 Anxiety Generalized Disorder 08/29/2024 Dysphagia 08/29/2024 Insomnia 08/29/2024 Gastroesophageal Reflux Disease Without Esophagi tis 08/29/2024 Secondary Malignant Neoplasm Bone 05/08/2024 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 on 02/29/2024 Resolved Problems Problem Noted Date Diagnosed Date Resolved Date 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 Encounters Date Type Department Care Team Description 11/11/2024 Clinical Communication Department of Palliative Care in [place], [place] [address] [place] [phone] Dawna Navas M.D. 11/11/2024 Clinical Communication Department of Palliative Care in [place], [place] [address] [place] [phone] Dawna Navas M.D. 11/08/2024 3:00 PM CDT Telemedicine Department of Palliative Care in [place], [place] [address] [place] [phone] Jenni Ramos, PBhanu.Lorena. Yamilet Ortega, M.S.W., L.I.C.S.W. 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) (Primary Dx); Palliative Care 11/07/2024 2:00 PM CDT Telemedicine Department of Palliative Care in [place], [place] [address] [place] [phone] Dorothy Maradiaga M.D. Strand, Jacob J, M.D. Pain Cancer Associated (Primary Dx); 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); Secondary Malignant Neoplasm Bone (HCC); Secondary Malignant Neoplasm Liver (HCC); Pain Neuropathic; Asthenia; Debility; Palliative Care 11/07/2024 Clinical Communication Department of Palliative Care in [place], [place] [address] [place] [phone] Claudy Ramos M.D. Rx Prior Authorization 10/29/2024 Refill Department of Palliative Care in [place], [place] [address] [place] [phone] Amanda Smith D.O. Med Refill 10/26/2024 Ancillary Procedure Department of alliances consultant 10/22/2024 Refill Department of Palliative Care in [address] [phone] Claudy Ramos M.D. Med Refill 10/22/2024 Refill Department of Palliative Care in [place], [place] [address] [place] [phone] Claudy Ramos M.D. Med Refill 10/16/2024 Refill Department of Palliative Care in [place], [place] [address] [place] [phone] Jenni Ramos, P.A.-C. Med Refill 10/14/2024 Orders Only Department of Palliative Care in [address] [phone] Amanda Smith D.OAna 10/11/2024 2:00 PM CDT Telemedicine Department of Palliative Care in [place], [place] [address] [place] [phone] Claudy Ramos M.D. Pain Cancer Associated (Primary Dx); 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); Secondary Malignant Neoplasm Bone (HCC); Fracture Pathologic In Neoplastic Disease Sequela; Nausea; Insomnia; Anxiety Generalized Disorder; Pain Neuropathic; Asthenia; Palliative Care 10/10/2024 12:45 PM CDT Clinical Communication Virtual Review in [place], [place] [address] [place] [address] Pre-visit Intake 10/05/2024 Refill Department of Palliative Care in [place], [place] [address] [place] [phone] Claudy Ramos M.D. Med Refill 09/28/2024 Refill Department of Palliative Care in [place], [place] [address] [place] [phone] Claudy Ramos M.D. Med Refill 09/21/2024 Refill Department of Palliative Care in [place], [place] [address] [place] [phone] Claudy Ramos M.D. Med Refill 09/17/2024 3:00 PM CDT Telemedicine Department of Palliative Care in [place], [place] [address] [place] [phone] Claudy Ramos M.D. 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) (Primary Dx); Pain Cancer Associated; Secondary Malignant Neoplasm Bone (HCC); Fracture Pathologic In Neoplastic Disease Sequela; Fracture Lumbar Fourth Other Sequela; Nausea; Insomnia; Dysphagia; Anxiety Generalized Disorder; Asthenia; Palliative Care 09/16/2024 Documentation Department of Palliative Care in [place], [place] [address] [place] [phone] Tanmay Vincent D.OAna Palliative Care 09/16/2024 Orders Only Department of Palliative Care in [place], [place] [address] [place] [phone] Tanmay Vincent D.O. 09/14/2024 Clinical Communication Division of [facility] Internal Medicine, [facility], in [place], [place] [address] [place] [phone] No Contact, Pcp 09/10/2024 Clinical Communication [facility] [address] [place] [phone] Marta Benítez M.D. 09/10/2024 Clinical Communication [facility] [address] [place] [phone] Marta Benítez M.D. 09/06/2024 2:40 PM CDT Anesthesia Event [facility] [address] [place] [phone] Emily Bower M.D. 09/06/2024 2:17 PM CDT - 09/06/2024 3:52 PM CDT Surgery [facility] [address] [place] [phone] Juan Francisco Hale M.D. MICROLARYNGOSCOPY, INJECTION RESTYLANE, RIGHT VOCAL CORD 09/06/2024 1:25 PM CDT Ancillary Procedure Department of General Surgery 09/06/2024 Orders Only Department of Otorhinolaryngology in [place], [place] [address] [place] [phone] Rita Mcqueen M.D. 09/06/2024 Orders Only Division of Pain Medicine in [place], [place] [address] [place] [phone] Rodriguez Delgado M.C. Radiculopathy Lumbar (Primary Dx) 09/05/2024 8:48 AM CDT Anesthesia Event Department of Radiology in [address] [phone] Shanti Saha M.D. 09/05/2024 7:41 AM CDT - 09/05/2024 11:59 PM CDT Hospital Encounter Department of Radiology in [address] [phone] Goran Conte M.D. Lesion Bone Discharge Disposition: Home or Self Care 09/04/2024 4:45 PM CDT Ancillary Procedure Department of Otorhinolaryngology 09/04/2024 10:30 AM CDT Ancillary Procedure Department of Speech Language Pathology 08/30/2024 6:40 AM CDT Ancillary Procedure Department of Radiology in [place], [place] [address] [place] [phone] Kristin Granda APRN, C.N.P., D.N.P. 08/30/2024 Orders Only Department of Orthopedic Surgery in [place], [place] [address] [place] [phone] Landon Dodd M.D., M.D., Ph.D. Pain Back (Primary Dx) 08/29/2024 7:01 PM CDT - 09/12/2024 1:06 PM CDT Hospital Encounter [facility], [facility], [facility], Seventh Floor [address] [place] [address] Guilherme Cochran M.D., M.B.A. Denisa Bradley M.D. Amanda Smith D.O. Shilling, Danielle M, M.D. Lela Alegria D.O., M.S. Sandy Perez M.D. Wendi Hamilton M.D. Pain Back (Primary Dx); Fracture Lumbar Fourth Other Sequela; Dysphagia [R13.10]; Decline Functional Status [R53.81]; Pain Cancer Associated Discharge Disposition: Home or Self Care 08/29/2024 Clinical Communication Department of Radiology, [address] [phone] Jaja Carter, R.N. 08/28/2024 Clinical Communication Department of Radiology, [address] [phone] Jaja Carter, R.N. 08/28/2024 Clinical Communication Department of Radiology, [address] [phone] Jaja Carter, R.N. 08/25/2024 Clinical Communication Department of Palliative Care in [address] [phone] Elizabeth Ramos M.D., M.S. 08/25/2024 Clinical Communication Department of Palliative Care in [place], [place] [address] [place] [phone] Laila Barros M.D. 08/24/2024 1:00 PM CDT Telemedicine Department of Palliative Care in [place], [place] [address] [place] [phone] Tanmay Vincent D.O. Pain Cancer Associated (Primary Dx); 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); Insomnia; Nausea; Constipation Slow Transit; Palliative Care 08/24/2024 Clinical Communication Division of Gastroenterology in [place], [place] [address] [place] [phone] Yue Miller M.B., B.Chir. Pathology slides 08/24/2024 Clinical Communication Department of Radiology, [facility] in [place], [place] [address] [place] [phone] Petrona Sequeira P.A.-C., M.S. 08/23/2024 10:30 AM CDT Telemedicine Preoperative Evaluation Center in [place], [place] [address] [place] [phone] Goran Conte M.D. Ye Vyas, Briseyda GIRALDO. Preanesthetic Medical Exam (Primary Dx); Smoking Tobacco Use Personal History; Cannabis Use Unspecified Uncomplicated; Neuropathy Peripheral; 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); Secondary Malignant Neoplasm Skin Face (HCC); Secondary Malignant Neoplasm Bone (HCC); Lesion Bone; Radiation Therapy Personal History; Implanted Drug Delivery Device; Sleep Apnea Unspecified; Anemia; Gastroesophageal Reflux Disease; Dysphagia; Insomnia; Cardiac Sudden Family History 08/23/2024 Orders Only Preoperative Evaluation Center in [place], [place] [address] [place] [phone] Magdi Omer M.S.N., R.N. Anemia (Primary Dx) 08/22/2024 3:45 PM CDT Clinical Communication Virtual Review in [place], [place] [address] [place] [address] Pre-visit Intake 08/20/2024 Clinical Communication Department of Radiology in [place], [place] [address] [place] [phone] Goran Conte M.D. 08/16/2024 Clinical Communication Department of Palliative Care in [address] [phone] Claudy Ramos M.D. Rx Denial (Belsomra 5MG tablets); Rx Appeal Denial (Belsomra 5MG tablet) 08/15/2024 Orders Only Pharmacy Prior Auth [phone] Dorothy Venegas 08/15/2024 Clinical Communication Department of Palliative Care in [place], [place] [address] [place] [address] Claudy Ramos M.D. appt question from Last 3 Months Family History Medical [...] Passive Smoke Exposure: Never Smokeless Tobacco: Never Tobacco Cessation:Counseling Given: Not Answered Comments:Smoked off and on between dates noted. Alcohol Use Standard Drinks/Week Comments Not Currently 0 (1 standard drink = 0.6 oz pure alcohol) Drank heavily off and on from age 22 to 39 [facility] Utilities Answer Date Recorded In the past 12 months has [facility] [employer], gas, oil, or water [employer] threatened to shut off services in your [...] Assigned at Male 02/15/2024 4:45 PM CLINICAL ACCOUNT SPECIALIST Legal Sex Male 3:29 PM CLINICAL ACCOUNT SPECIALIST Gender Identity Male 02/15/2024 4:45 PM CLINICAL ACCOUNT SPECIALIST Sexual Orientation Straight 02/15/2024 4: 45 PM CLINICAL ACCOUNT SPECIALIST Last Filed Vital Signs Vital Sign Reading Time Taken Comments Blood Pressure 136/94 09/12/2024 12:35 PM CDT Pulse 106 09/12/2024 12:35 PM CDT Temperature 36.5 C (97.7 F) 09/12/2024 12:35 PM CDT Respiratory Rate 18 09/12/2024 12:35 PM CDT Oxygen Saturation 100% 09/12/2024 12:35 PM CDT Inhaled Oxygen Concentration - - Weight 76.4 kg (168 lb 6.9 oz) 09/12/2024 11:21 AM CDT Height 182.5 cm (5' 11.85) 08/31/2024 9:15 AM C DT Body Mass Index 22.94 08/31/2024 9:15 AM CDT Plan of Treatment Upcoming Encounters Date Type Department Care Team (Late st Contact Info) Description 12/04/2024 11:00 AM CDT Telemedicine Department of Palliative Care in [place], [place] [address] [place] [phone] Claudy Ramos M.D. [address] [place] [phone] 12/07/2024 11:30 AM CDT Office Visit Department of Otorhinolaryngology in [place], [place] [address] [place] [phone] Rita Mcqueen M.D. [address] [place] [phone] Health Maintenance Due Date Last Done Comments CT Colonography 1978 Cologuard 1978 Colonoscopy 1978 Colorectal Cancer Screening 1978 FIT 1978 Generalized Anxiety (CATALINA-7) 1978 HIV Screening 1978 Hepatitis C Screening 1978 Lipid (Cholesterol) Screening 1978 COVID-19 Vaccine (#1) 11/19/1983 DTaP,Tdap,and Td Vaccines (1 - Tdap) 1997 Hepatitis A Vaccines (1 of 2 - Risk 2-dose series) 1997 Hepatitis B Vaccines (1 of 3 - 19+ 3-dose series) 1997 Pneumococcal vaccine (0-49 years) (1 of 2 - PCV) 1997 Zoster Vaccines (1 of 2) 1997 HPV Vaccines (1 - 3-dose SCDM series) 2005 Depression Screening (Annual PHQ-2) 02/15/2024 Controlled Substance Agreement 09/11/2024 Controlled Substance Monitoring (PHQ-9) 09/11/2024 Controlled Substance Monitoring (UDS) 09/11/2024 Opioid Risk Tool (ORT) 09/11/2024 PEG assessment for Opioid therapy 09/11/2024 Influenza Vaccine (#1) 2024 Fasting Glucose for Diabetes Screening 09/13/2027 09/12/2024, 09/11/2024, 09/10/2024, Additional history exists IPV Vaccines Aged Out No longer eligi ble based on patient's age to complete this topic Medical Devices Implanted Type Area Concrete Boom Pump Operator Device Identifier Shelf Expiration Date Model / Serial / Lot Cmnt W/Mxr Kyp - [id number] Implanted:Qty : 1 on 09/05/2024 by Goran Conte M.D. at [facility] Bone Cement [employer] 06/13/2026 [id number] / / [id number] Gel Inj W/Lido - [id number] Implanted:Qty : 1 on 09/06/2024 by Rita Mcqueen M.D. at [facility] Bone or Tissue [employer] 10/14/2026 [id number] / / [id number] Description:Injected 1 mL Prt Pwr Mri Mctrdcr 8f - [id number] Implanted:Qty : 1 on 03/02/2024 by Emile Munroe M.D. at [facility] Implantable [employer] 04/13/2025 [id number] / / [id number] Procedures Procedure Name Priority Date/Time Associated Diagnosis Comments PRECISION DYER IMAGE EXAM Routine 10/26/2024 12:00 AM CDT BASIC METABOLIC PANEL, S/P STAT 09/12/2024 9:16 AM CDT CBC WITH DIFFERENTIAL, B STAT 025 9:16 AM CDT HEPATIC FUNCTION PANEL, S Routine 2024 7:00 AM CDT HEPATIC FUNCTION PANEL, S Routine 2024 7:52 AM CDT CBC WITH DIFFERENTIAL, B Routine 025 7:52 AM CDT BASIC METABOLIC PANEL, S/P Routine 09/11/2024 7:52 AM CDT HEPATIC FUNCTION PANEL, S Routine 2024 9:10 AM CDT CBC WITH DIFFERENTIAL, B Routine 025 9:10 AM CDT BASIC METABOLIC PANEL, S/P Routine 09/10/2024 9:10 AM CDT TRANSFUSE RED BLOOD CELLS Routine 2024 4:30 PM CDT PREPARE RED BLOOD CELLS Routine 09/10/19 6:52 AM CDT TYPE AND SCREEN Routine 09/09/2024 6:52 AM CDT HEPATIC FUNCTION PANEL, S Routine 2024 6:52 AM CDT BASIC METABOLIC PANEL, S/P Routine 09/09/2024 6:52 AM CDT CBC WITH DIFFERENTIAL, B Routine 025 6:52 AM CDT HEPATIC FUNCTION PANEL, S Routine 2024 9:35 AM CDT BASIC METABOLIC PANEL, S/P Routine 09/08/2024 9:35 AM CDT CBC WITH DIFFERENTIAL, B Routine 025 9:35 AM CDT SPSMA RESULT Routine 09/07/2024 12:41 PM CDT HEPATIC FUNCTION PANEL, S Routine 2024 12:41 PM CDT BASIC METABOLIC PANEL, S/P Routine 09/07/2024 12:41 PM CDT CBC WITH DIFFERENTIAL, B Routine 025 12:[address] ABDOMEN PELVIS ANGIOGRAM WITH IV CONTRAST RAD - Routine (most inpatients and all outpatients) 09/07/2024 9:54 AM CDT DIRECT ANTIGLOBULIN TEST (POLYSPECIFIC) Routine 09/06/2024 5:43 PM CDT HEPATIC FUNCTION PANEL, S Routine 2024 5:43 PM CDT CBC WITH DIFFERENTIAL, B Routine 025 5:43 PM CDT LACTATE DEHYDROGENASE (LD), S Routine 09/06/2024 5:43 PM CDT HAPTOGLOBIN, S Routine 09/06/2024 5:43 PM CDT LDA ANE ENDOTRACHEAL AIRWAY Routine 09/06/2024 2:47 PM CDT MICROLARYNGOSCOPY 09/06/2024 2:20 PM CDT Immobility Vocal Cord SURGERY IMAGE EXAM Routine 09/06/2024 1:25 PM CDT TYPE AND SCREEN Routine 09/06/2024 8:02 AM CDT COMPREHENSIVE METABOLIC PANEL, S/P Routine 09/06/2024 8:02 AM CDT CBC NO CALL BACK, REFLEX T/S Routine 09/06/2024 8:02 AM CDT RETICULOCYTE PROFILE, B Routine 09/06/19 6:33 PM CDT BASIC METABOLIC PANEL, S/P Routine 09/05/2024 6:33 PM CDT CBC WITH DIFFERENTIAL, B Routine 025 6:33 PM CDT ADULT OXYGEN THERAPY Routine 09/05/2024 11:33 AM CDT IR LUMBAR KYPHOPLASTY RAD - Routine (most inpatients and all outpatients) 09/05/2024 11:26 AM CDT Lesion Bone IR SPINE ABLATION RAD - Routine (most inpatients and all outpatients) 09/05/2024 11:26 AM CDT Lesion Bone AIRWAY MANAGEMENT Routine 09/05/2024 9:00 AM CDT OTORHINOLARYNGOLOGY IMAGE EXAM Routine 09/04/2024 4:33 PM CDT CBC WITH DIFFERENTIAL, B Routine 025 12:51 PM CDT BASIC METABOLIC PANEL, S/P Routine 09/04/2024 12:51 PM CDT SPEECH LANGUAGE PATHOLOGY IMAGE EXAM Routine 09/04/2024 10:30 AM CDT DX CHEST PORTABLE 1 VIEW RAD - Routine (most inpatients and all outpatients) 09/03/2024 4:53 PM CDT MR THORACIC SPINE WITHOUT AND WITH IV CONTRAST RAD - Routine (most inpatients and all outpatients) 09/03/2024 10:56 AM CDT MR LUMBAR SPINE WITHOUT AND WITH IV CONTRAST RAD - Routine (most inpatients and all outpatients) 09/03/2024 10:56 AM CDT BASIC METABOLIC PANEL, S/P Routine 09/03/2024 8:35 AM CDT CBC WITHOUT DIFFERENTIAL, B Routine 09/03/2024 8:35 AM CDT FERRITIN, S Routine 08/31/2024 9:11 AM CDT IRON AND TOT IRON-BINDING CAPACITY, S/P Routine 08/31/2024 9:11 AM CDT PROTHROMBIN TIME (PT), P Routine 025 9:11 AM CDT BILIRUBIN DIRECT, S/P Routine 08/31/2024 9:11 AM CDT COMPREHENSIVE METABOLIC PANEL, S/P Routine 08/31/2024 9:11 AM CDT CBC WITH DIFFERENTIAL, B Routine 025 9:11 AM CDT ALANINE AMINOTRANSFERASE (ALT), S/P Routine 08/30/2024 7:15 AM CDT ASPARTATE AMINOTRANSFERASE (AST), S/P Routine 08/30/2024 7:15 AM CDT INTERPRETATION OF OUTSIDE CT SPINE RAD - Routine (most inpatients and all outpatients) 08/30/2024 6:58 AM CDT CBC WITH DIFFERENTIAL, B Routine 025 2:05 AM CDT BASIC METABOLIC PANEL, S/P Routine 08/30/2024 2:[address] NEURO Routine 08/20/2024 10:05 AM CDT from Last 3 Months Results * Teeth [employer] Worker Apprentice Image Exam (10/26/2024 12:00 AM CDT) Etienne HUFFMAN - 10/26/2024 1:56 PM CDT This order has been created and auto-finalized to support the import of images acquired without order. The clinical documentation to support these images can be found on the encounter that produced images. us Provider Not In System IMG NON RAD IMAGING PROCE DURES Final Result IIMI NA * (ABNORMAL) CBC with Differential, Blood (09/12/2024 9:16 AM CDT) Only the most recent of11 resultswithin the time period is included. Hemoglobin 8.7(L) 13.2 - 16.6 g/dL 09/12/2024 9:28 AM CDT METH Hematocrit 28.1(L) 38.3 - 48.6 % 09/12/2024 9:28 AM CDT METH Erythrocytes 3.41(L) 4.35 - 5.65 x10(12)/L 09/12/2024 9:28 AM CDT METH MCV 82.4 78.2 - 97.9 fL 09/12/2024 9:28 AM CDT METH RBC Distrib Width 20.9(H) 11.8 - 14.5 % 09/12/2024 9:28 AM CDT METH Platelet Count 239 135 - 317 x10(9)/L 09/12/2024 9:28 AM CDT METH Leukocytes 8.2 3.4 - 9.6 x10(9)/L 09/12/2024 9:28 AM CDT METH Neutrophils 6.76(H) 1.56 - 6.45 x10(9)/L 09/12/2024 9:28 AM CDT DHPM Lymphocytes 0.53(L) 0.95 - 3.07 x10(9)/L 09/12/2024 9:28 AM CDT METH Monocytes 0.83(H) 0.26 - 0.81 x10(9)/L 09/12/2024 9:28 AM CDT METH Eosinophils 0.04 0.03 - 0.48 x10(9)/L 09/12/2024 9:28 AM CDT METH Basophils 0.07 0.01 - 0.08 x10(9)/L 09/12/2024 9:28 AM CDT METH Blood (Blood, Venous) 09/12/2024 9:16 AM CDT 09/12/2024 9:25 AM CDT us Marta Benítez M.D. LAB BLOOD ADD-ON Final Resu lt [facility] [address] [place] [address], [facility] METH [facility] [address] [place] [address] DHPM [facility] [address] [place] [address] * (ABNORMAL) Basic Metabolic Panel (09/12/2024 9:16 AM CDT) Only the most recent of10 resultswithin the time period is included. Potassium, S 4.4 3.6 - 5.2 mmol/L 09/12/2024 11:39 AM CDT DTL Sodium, S 135 135 - 145 mmol/L 09/12/2024 11:39 AM CDT DTL Chloride, S 97(L) 98 - 107 mmol/L 09/12/2024 11:39 AM CDT DTL Bicarbonate, S 23 22 - 29 mmol/L 09/12/2024 11:39 AM CDT DTL Anion Gap 15 7 - 15 09/12/2024 11:39 AM CDT DTL BUN (Blood Urea Nitrogen), S 8 8 - 24 mg/dL 09/12/2024 11:39 AM CDT DTL Creatinine 0.37(L) 0.74 - 1.35 mg/dL 09/12/2024 11:39 AM CDT DTL Estimated GFR (eGFR) >90 >=60 mL/min/BSA 09/12/2024 11:39 AM CDT DTL Comment: Estimated GFR calculated using the 2020 CKD_EPI creatinine equation. Calcium, Total, S 8.7 8.6 - 10.0 mg/dL 09/12/2024 11:39 AM CDT DTL Glucose, S 100 70 - 140 mg/dL 09/12/2024 11:39 AM CDT DTL Blood (Blood, Venous) 09/12/2024 9:16 AM CDT 09/12/2024 9:23 AM CDT us Marta Benítez M.D. LAB BLOOD ADD-ON Final Resu lt [facility] [address] [place] [address], [facility] [address] [place] [address] * (ABNORMAL) Hepatic Function Panel (09/12/2024 7:00 AM CDT) Only the most recent of7 resultswithin the time period is included. Bilirubin, Total, S 0.3 0.0 - 1.2 mg/dL 09/12/2024 7:57 AM CDT DTL Bilirubin, Direct, S 0.2 0.0 - 0.3 mg/dL 09/12/2024 7:57 AM CDT DTL Aspartate Aminotransferase (AST), S 50(H) 8 - 48 U/L 09/12/2024 7:57 AM CDT DTL Alanine Aminotransferase (ALT), S 14 7 - 55 U/L 09/12/2024 7:57 AM CDT DTL Alkaline Phosphatase, S 265(H) 40 - 129 U/L 09/12/2024 7:57 AM CDT DTL Albumin, S 3.4(L) 3.5 - 5.0 g/dL 09/12/2024 7:57 AM CDT DTL Protein, Total, S 6.1(L) 6.3 - 7.9 g/dL 09/12/2024 7:57 AM CDT DTL Blood (Blood, Venous) 09/12/2024 7:00 AM CDT 09/12/2024 7:18 AM CDT Lela Alegria D.O. M.S. LAB BLOOD ADD-ON Brittany l Result Performing Organization Address City/[facility]/ZIP Co de Phone Number [facility] [address] [place] [address], [facility] DTL [facility] [address] [place] [address] * Transfuse Red Blood Cells : (09/09/2024 8:19 PM CDT) Lela Alegria D.O. M.S. BLOOD TRANSFUSION ORD ERABLES Final Result * Type and Screen (with Reflex Antibody ID) (09/09/2024 6:52 AM CDT) Only the most recent of2 resultswithin the time period is included. Pathologist [facility] [place] ABORh AB Pos Not applicable 09/09/2024 11:09 AM CDT ETRM Antibody Screen Negative Negative 09/09/2024 11:22 AM CDT ETRM Type & Screen Expiration 09/12/2024 23:59 09/09/2024 11:09 AM CDT ETRM Testing Location Karen DEFAULT 09/09/2024 10:16 AM CDT ETRM Blood (Blood, Venous) 09/09/2024 6:52 AM CDT 09/09/2024 10:16 AM CDT Lela Alegria D.O. M.S. LAB BLOOD BANK TEST O RDERABLES Final Result Performing Organization Address [facility] Co de Phone Number [facility] [address] [place] [address], [facility] ETRM [facility] [address] [place] [address] * (ABNORMAL) Morphology Eval (special smear) (09/07/2024 12:41 PM CDT) [facility] Neutrophilic Segs and Bands 87(H) 50 - 75 % 09/07/2024 2:50 PM CDT DHPM Lymphocytes 4(L) 18 - 42 % 09/07/2024 2:50 PM CDT DHPM Monocytes 7 2 - 11 % 09/07/2024 2:50 PM CDT DHPM Eosinophils 1 1 - 3 % 09/07/2024 2:50 PM CDT DHPM Myelocytes 1(H) <0.5 % 09/07/2024 2:50 PM CDT DHPM Interpretation See Comment 2:50 PM CDT DHPM Comment:Peripheral blood sme ar reviewed: no diagnostic abnormalities are seen. Reviewed by: Tech 09/07/2024 2:50 PM CDT DHPM Blood (Blood, Venous) 09/07/2024 12:41 PM CDT 09/07/2024 1:07 PM CDT Jason Rodriguez M.D., Ph.D. LAB BLOOD ADD- ON Final Result [facility] [address] [place] [address], [facility] [address] [place] [address] * CT Abdomen Pelvis Angiogram with IV Contrast (09/07/2024 9:54 AM CDT) Anatomical Region Laterality Modality Abdomen, Pelvis, Cardiovascu lar RST LOS, Abdominal ARZ LOS, Vascular Interventional ARZ LOS, Abdominal FLA LOS, Vascular Interventional FLA LOS, Procedural, Vascular Interventional NWWI LOS N/A Computed Tomography, Compute d Tomography 09/10/2024 1:38 PM CDT Impressions 09/07/2024 9:51 AM CDT 1. Negative for acute GI bleed. No significant perispinal hematoma 2. Redemonstrated metastatic disease. 3. Mild esophagitis and moderate-marked colonic stool burden. Narrative 09/07/2024 9:51 AM CDT EXAM: CT ABDOMEN PELVIS ANGIOGRAM WITH IV CONTRAST COMPARISON: Spine MRI 09/03/2024. FDG PET/CT 02/27/2024. FINDINGS: Negative for acute gastrointestinal hemorrhage. No aneurysmal dilatation of the abdominal aorta. No significant vascular narrowing or occlusion. Postprocedural changes in the lumbar spine with expected early paraspinal edema. No significant perispinal hematoma. There may be central canal blood products/mild mass effect; however, evaluation is limited due to beam hardening artifact from the kyphoplasty material. Redemonstrated diffuse hepatic and a few osseous metastases. Findings of diffuse mild esophagitis. Moderate-marked colonic stool burden. Tiny nonobstructing left kidney stone. Minimal high density stones/debris in the dependent bladder. Right renal cyst. Trace free fluid in the pelvis. Bibasilar atelectasis. Jason Rodriguez M.D., Ph.D. IMG CT PROCEDU RES Final Result * Direct Antiglobulin Test (Polyspecific) (09/06/2024 5:43 PM CDT) [facility] Direct Antiglobulin Test, Polyspecific Negative Negative 09/06/2024 6:26 PM CDT [facility] Blood (Blood, Venous) 09/06/2024 5:43 PM CDT 09/06/2024 6:00 PM CDT Jason Rodriguez M.D., Ph.D. LAB BLOOD BANK TEST ORDERABLES Final Result Performing Organization Address City/[facility]/ZIP Co de Phone Number [facility] [address] STRM [facility] [address] [place] [address] * (ABNORMAL) LD (Lactate Dehydrogenase) (09/06/2024 5:43 PM CDT) [facility] LD 1453(H) 122 - 222 U/L 09/06/2024 7:28 PM CDT DT Blood (Blood, Venous) 09/06/2024 5:43 PM CDT 09/06/2024 6:31 PM CDT Jason Rodriguez M.D., Ph.D. LAB BLOOD NON ADD-ON Final Result Performing Organization Address City/[facility]/ZIP Co de Phone Number [facility] [address] DTL [facility] [address] [place] [address] * (ABNORMAL) Haptoglobin (09/06/2024 5:43 PM CDT) Haptoglobin, S 217(H) 30 - 200 mg/dL 09/06/2024 8:48 PM CDT [facility] Blood (Blood, Venous) 09/06/2024 5:43 PM CDT 09/06/2024 8:23 PM CDT Jason Rodriguez M.D., Ph.D. LAB BLOOD ADD- ON Final Result [facility] [address] [place] [address] [facility] [address] [place] [address] * LDA ANE ENDOTRACHEAL AIRWAY (09/06/2024 2:47 PM CDT) Narrative Jorge Calabrese APRN, CRNA - 09/06/2024 2:47 PM CDT Jorge Calabrese APRN, CRNA 09/06/2024 3:00 PM Airway Date/Time: 09/06/2024 2:47 PM Performed by: Jorge Calabrese APRN, CRNA Authorized by: Emily Bower M.D. Patient location during procedure: OR / Procedure Area PROCEDURE DETAILS: Mask difficulty assessment: easy mask Final airway type: video laryngoscope Laryngeal Manipulation: no Final best view of glottic structures - Cormack/Lehane Score: grade 1 ETT location: oral VL device: glide scope Billings scope blade size: 4 Tube size: 5 ETT distance at teeth/gum: 23 Oral tube type: suspension tube (FUR BLENDER) Cuffed: yes Leak Test Performed: no Number of attempt to successful placement: 1 Airway confirmation: bilateral breath sounds, positive ETCO2 and bilateral chest rise Other previous techniques attempted: none PRE PROCEDURE DETAILS: Pre evaluation for airway management: procedure Urgency: elective Preop assessment of probable difficulty: no difficulty anticipated Preoxygenation: bag valve mask SEDATION / ANESTHESIA Anesthesia method: anesthesia POST PROCEDURE DETAILS: Procedure outcome: successful Notable Events: no complications us Emily Bower M.D. ANESTHESIA ORDERABLES Final Result * MICROLARYNGOSCOPY-Surgery Image Exam (09/06/2024 1:25 PM CDT) 09/06/2024 1:25 PM CDT Narrative IIMS - 09/06/2024 3:26 PM CDT This order has been created and auto-finalized to support the import of images acquired without order. The clinical documentation to support these images can be found on the encounter that produced images. us Provider Not In System IMG NON RAD IMAGING PROCE DURES Final Result [facility]IMS NA * (ABNORMAL) CBC no call back, reflex T/S HGB <8 (09/06/2024 8:02 AM CDT) Hemoglobin 7.9(L) 13.2 - 16.6 g/dL 09/06/2024 8:58 AM CDT DTL Hematocrit 26.3(L) 38.3 - 48.6 % 09/06/2024 8:58 AM CDT DTL Erythrocytes 3.18(L) 4.35 - 5.65 x10(12)/L 09/06/2024 8:58 AM CDT DTL MCV 82.7 78.2 - 97.9 fL 09/06/2024 8:58 AM CDT DTL RBC Distrib Width 22.5(H) 11.8 - 14.5 % 09/06/2024 8:58 AM CDT DTL Platelet Count 149 135 - 317 x10(9)/L 09/06/2024 8:58 AM CDT DTL Leukocytes 13.4(H) 3.4 - 9.6 x10(9)/L 09/06/2024 8:58 AM CDT DTL Neutrophils 11.56(H) 1.56 - 6.45 x10(9)/L 09/06/2024 8:58 AM CDT DHPM Lymphocytes 0.41(L) 0.95 - 3.07 x10(9)/L 09/06/2024 8:58 AM CDT DTL Monocytes 1.28(H) 0.26 - 0.81 x10(9)/L 09/06/2024 8:58 AM CDT DTL Eosinophils 0.04 0.03 - 0.48 x10(9)/L 09/06/2024 8:58 AM CDT DTL Basophils 0.07 0.01 - 0.08 x10(9)/L 09/06/2024 8:58 AM CDT DTL Blood (Blood, Venous) 09/06/2024 8:02 AM CDT 09/06/2024 8:31 AM CDT us Kristin Granda APRN, C.N.P., D.N.P. LAB BLOO D NON ADD-ON Final Result [facility] [address] [place] [address], [facility] DTL [facility] [address] [place] [address] [place] [address] * (ABNORMAL) Comprehensive Metabolic Panel (09/06/2024 8:02 AM CDT) Only the most recent of2 resultswithin the time period is included. Potassium, S 4.0 3.6 - 5.2 mmol/L 09/06/2024 9:10 AM CDT DTL Sodium, S 133(L) 135 - 145 mmol/L 09/06/2024 9:10 AM CDT DTL Chloride, S 99 98 - 107 mmol/L 09/06/2024 9:10 AM CDT DTL Bicarbonate, S 24 22 - 29 mmol/L 09/06/2024 9:10 AM CDT DTL Anion Gap 10 7 - 15 09/06/2024 9:10 AM CDT DTL BUN (Blood Urea Nitrogen), S 10 8 - 24 mg/dL 09/06/2024 9:10 AM CDT DTL Creatinine 0.40(L) 0.74 - 1.35 mg/dL 09/06/2024 9:10 AM CDT DTL Estimated GFR (eGFR) >90 >=60 mL/min/BS A 09/06/2024 9:10 AM CDT DTL Comment: Estimated GFR calculated using the 2020 CKD_EPI creatinine equation. Calcium, Total, S 8.6 8.6 - 10.0 mg/dL 09/06/2024 9:10 AM CDT DTL Glucose, S 100 70 - 140 mg/dL 09/06/2024 9:10 AM CDT DTL Protein, Total, S 5.9(L) 6.3 - 7.9 g/dL 09/06/2024 9:10 AM CDT DTL Albumin, S 3.6 3.5 - 5.0 g/dL 09/06/2024 9:10 AM CDT DTL Aspartate Aminotransferase (AST), S 192(H) 8 - 48 U/L 09/06/2024 9:10 AM CDT DTL Alkaline Phosphatase, S 277(H) 40 - 129 U/L 09/06/2024 9:10 AM CDT DTL Alanine Aminotransferase (ALT), S 21 7 - 55 U/L 09/06/2024 9:10 AM CDT DTL Bilirubin, Total, S 0.3 0.0 - 1.2 mg/dL 09/06/2024 9:10 AM CDT DTL Blood (Blood, Venous) 09/06/2024 8:02 AM CDT 09/06/2024 8:25 AM CDT Krisitn Granda APRN, C.N.P., D.N.P. LAB BLOO D ADD-ON Final Result [facility] [address] [place] [address], [facility] [address] [place] [address] * (ABNORMAL) Reticulocyte Profile (09/05/2024 6:33 PM CDT) Reticulocytes, B 3.86(H) 0.60 - 2.71 % 09/06/2024 3:07 PM CDT DTL Absolute Reticulocyte 125.5(H) 30.4 - 110.9 x10(9)/L 09/06/2024 3:07 PM CDT DTL Immature Reticulocyte Fraction 31.1(H) 2.3 - 13.4 % 09/06/2024 3:07 PM CDT DTL Reticulocyte Hemoglobin 30.0 30.0 - 37.6 pg 09/06/2024 3:07 PM CDT DTL Erythrocytes 3.25(L) 4.35 - 5.65 x10(12)/L 09/06/2024 3:07 PM CDT DTL Blood (Blood, Venous) 09/05/2024 6:33 PM CDT 09/06/2024 2:51 PM CDT us Jason Rodriguez M.D., Ph.D. LAB BLOOD ADD- ON Final Result [facility] [address] [place] [address], [facility] [address] [place] [address] * IR Spine Ablation (09/05/2024 11:26 AM CDT) Anatomical Region Laterality Modality Spine, Neuro Interventional RST LOS, Neuroradiology ARZ LOS, Neuro Interventional FLA LOS N/A X-Ray Angiography Impressions 09/06/2024 11:24 AM CDT L4 radiofrequency thermal ablation followed by kyphoplasty performed with biplane fluoroscopic guidance. NR Narrative 09/06/2024 11:24 AM CDT EXAM: IR SPINE ABLATION, IR LUMBAR KYPHOPLASTY COMPARISON: Lumbar spine MRI 09/03/2024; outside lumbar spine CT 08/20/2024; radiation planning CT 05/16/2024; outside lumbar spine MRI 05/14/2024 PREPROCEDURE: Patient seen and evaluated. Allergies, pertinent medications, [...] team members, residents, and fellows were discussed. Sedation provided by Anesthesiology. BRIEF HISTORY: Mr. 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 He is currently admitted to the palliative medicine service for worsening pain. He endorses axial low back pain and left lower extremity radicular pain along the lateral thigh and anterolateral calf. He also reports some numbness in the lower extremities. 5/5 strength in bilateral lower extremity muscle groups with the exception of the some pain limited hip flexion, particularly on the left. We discussed the risk, benefits, alternatives, and pertinent procedural details of L4 radiofrequency thermal ablation followed by kyphoplasty. We specifically discussed that the goal of the procedure is to improve structural stability to the L4 vertebral body to prevent progressive collapse, and that approximately 85% of patient's experience improvement in axial back pain that may take up to 2 weeks. His left lower extremity radicular symptoms may not improve after the procedure, and he can work with his palliative care team to discuss potential role of epidural steroid injections to address these symptoms should they persist. All questions were answered and informed consent was obtained. TECHNIQUE: The risks, benefits, alternatives, and pertinent procedural details of L4 radiofrequency thermal ablation followed by kyphoplasty were discussed. The patient was placed under general anesthesia by our anesthesiology colleagues and placed prone on the biplane fluoroscopic table. A flat panel cone beam CT was performed for procedural planning. The patient was prepped and draped in the standard sterile fashion. Under biplane fluoroscopic guidance, two 10-gauge 12 cm Duncan bone access needles were placed transpedicularly into the anterior third paramidline of the L4 vertebral body. The bone quality was noted to be quite soft, particularly on the left. The needles were retracted to the pedicle-vertebral body junction and two 20 mm Medtronic OsteoCool radiofrequency ablation probes were placed coaxially. The standard Medtronic radiofrequency algorithm was run without difficulty. The radiofrequency ablation probes were then removed. Two 20 mm straight Lincoln kyphoplasty balloons were placed coaxially through the introducer needles. They were each insufflated with 6 mL of dilute iodinated contrast to a max PSI of 100. The right balloon was deflated and removed. A curved needle placed coaxially via the right access cannula was utilized to create a series of state pilot paths within the right hemivertebral body. Keeping the left-sided balloon initially inflated, barium laced bone cement was injected into the right hemivertebral body. The left balloon was then deflated and removed and the curved needle was positioned left of midline and cement was injected while retracting into the cement was in the right hemivertebral body. Approximately 6 mL of barium laced bone cement was injected into the right hemivertebral body in total. A straight cement cannula was then placed via the left access cannula and an additional approximately 6 mL of barium laced bone cement was injected to filled the ballooned lytic cavity in the left hemivertebral body. All needles were removed and local hemostasis was achieved with manual compression. Sterile dressings were applied to the skin. The patient tolerated the procedure well and there were no immediate complications. The patient was discharged from the radiology department in stable condition and returned to his inpatient room. Procedure Note Goran Conte M.D. - 09/06/2024 EXAM: IR SPINE ABLATION, IR LUMBAR KYPHOPLASTY COMPARISON: Lumbar spine MRI 09/03/2024; outside lumbar spine CT 08/20/2024;radiation planning CT 05/16/2024; outside lumbar spine MRI 05/14/2024 PREPROCEDURE: Patient seen and evaluated. Allergies, pertinentmedications, and [...] care team members, residents, and fellows werediscussed. Sedation provided by Anesthesiology. BRIEF HISTORY: Mr. Connor is a 43-year-old male with a history ofmetastatic esophageal cancer with L4 vertebral metastasis with pathologiccompression fracture now status post radiation therapy completed06/01/2024. He is currently admitted to the palliative medicine service for worsening pain. He endorses axial low backpain and left lower extremity radicular pain along the lateral thigh andanterolateral calf. He also reports some numbness in the lowerextremities. 5/5 strength in bilateral lower extremity muscle groups with the exception of the some pain limitedhip flexion, particularly on the left. We discussed the risk, benefits,alternatives, and pertinent procedural details of L4 radiofrequencythermal ablation followed by kyphoplasty. We specifically discussed that the goal of the procedure isto improve structural stability to the L4 vertebral body to preventprogressive collapse, and that approximately 85% of patient's experienceimprovement in axial back pain that may take up to 2 weeks. His left lower extremity radicular symptoms may notimprove after the procedure, and he can work with his palliative care teamto discuss potential role of epidural steroid injections to address thesesymptoms should they persist. All questions were answered and informed consent was obtained. TECHNIQUE: The risks, benefits, alternatives, and pertinent proceduraldetails of L4 radiofrequency thermal ablation followed by kyphoplasty werediscussed. The patient was placed under general anesthesia by ouranesthesiology colleagues and placed prone on the biplane fluoroscopic table. A flat panel cone beam CT wasperformed for procedural planning. The patient was prepped and draped inthe standard sterile fashion. Under biplane fluoroscopic guidance, [id number] 12 cm GlycoPure bone access needles were placed transpedicularly into the anterior third paramidline of the K2pinchnprd body. The bone quality was noted to be quite soft, particularlyon the left. The needles were retracted to the pedicle-vertebral bodyjunction and two 20 mm Medtronic OsteoCool radiofrequency ablation probes were placed coaxially. TheMuciMedtronic radiofrequency algorithm was run without difficulty.The radiofrequency ablation probes were then removed. Two 20 mm straightStryker kyphoplasty balloons were placed coaxially through the introducer needles. They were each insufflated with6 mL of dilute iodinated contrast to a max PSI of 100. The right balloonwas deflated and removed. A curved needle placed coaxially via the rightaccess cannula was utilized to create a series of state pilot paths within the right hemivertebral body.Keeping the left-sided balloon initially inflated, barium laced bonecement was injected into the right hemivertebral body. The left balloonwas then deflated and removed and the curved needle was positioned left of midline and cement was injected whileretracting into the cement was in the right hemivertebral body.Approximately 6 mL of barium laced bone cement was injected into the righthemivertebral body in total. A straight cement cannula was then placed via the left access cannula and an additionalapproximately 6 mL of barium laced bone cement was injected to filled theballooned lytic cavity in the left hemivertebral body. All needles wereremoved and local hemostasis was achieved with manual compression. Sterile dressings were applied to theskin. The patient tolerated the procedure well and there were no immediatecomplications. The patient was discharged from the radiology department instable condition and returned to his inpatient room. IMPRESSION: L4 radiofrequency thermal ablation followed by kyphoplasty performed withbiplane fluoroscopic guidance. NR us Goran MONTILLA IR PROCEDURES Final Result * IR Lumbar Kyphoplasty (09/05/2024 11:26 AM CDT) Anatomical Region Laterality Modality Lumbar Spine, Neuro Interven tional RST LOS, Neuroradiology ARZ LOS, Neuro Interventional FLA LOS N/A X -Ray Angiography Impressions 09/06/2024 11:24 AM CDT L4 radiofrequency thermal ablation followed by kyphoplasty performed with biplane fluoroscopic guidance. NR Narrative 09/06/2024 11:24 AM CDT EXAM: IR SPINE ABLATION, IR LUMBAR KYPHOPLASTY COMPARISON: Lumbar spine MRI 09/03/2024; outside lumbar spine CT 08/20/2024; radiation planning CT 05/16/2024; outside lumbar spine MRI 05/14/2024 PREPROCEDURE: Patient seen and evaluated. Allergies, pertinent medications, [...] team members, residents, and fellows were discussed. Sedation provided by Anesthesiology. BRIEF HISTORY: Mr. 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 He is currently admitted to the palliative medicine service for worsening pain. He endorses axial low back pain and left lower extremity radicular pain along the lateral thigh and anterolateral calf. He also reports some numbness in the lower extremities. 5/5 strength in bilateral lower extremity muscle groups with the exception of the some pain limited hip flexion, particularly on the left. We discussed the risk, benefits, alternatives, and pertinent procedural details of L4 radiofrequency thermal ablation followed by kyphoplasty. We specifically discussed that the goal of the procedure is to improve structural stability to the L4 vertebral body to prevent progressive collapse, and that approximately 85% of patient's experience improvement in axial back pain that may take up to 2 weeks. His left lower extremity radicular symptoms may not improve after the procedure, and he can work with his palliative care team to discuss potential role of epidural steroid injections to address these symptoms should they persist. All questions were answered and informed consent was obtained. TECHNIQUE: The risks, benefits, alternatives, and pertinent procedural details of L4 radiofrequency thermal ablation followed by kyphoplasty were discussed. The patient was placed under general anesthesia by our anesthesiology colleagues and placed prone on the biplane fluoroscopic table. A flat panel cone beam CT was performed for procedural planning. The patient was prepped and draped in the standard sterile fashion. Under biplane fluoroscopic guidance, two 10-gauge 12 cm Duncan bone access needles were placed transpedicularly into the anterior third paramidline of the L4 vertebral body. The bone quality was noted to be quite soft, particularly on the left. The needles were retracted to the pedicle-vertebral body junction and two 20 mm Medtronic OsteoCool radiofrequency ablation probes were placed coaxially. The standard Medtronic radiofrequency algorithm was run without difficulty. The radiofrequency ablation probes were then removed. Two 20 mm straight Duncan kyphoplasty balloons were placed coaxially through the introducer needles. They were each insufflated with 6 mL of dilute iodinated contrast to a max PSI of 100. The right balloon was deflated and removed. A curved needle placed coaxially via the right access cannula was utilized to create a series of state pilot paths within the right hemivertebral body. Keeping the left-sided balloon initially inflated, barium laced bone cement was injected into the right hemivertebral body. The left balloon was then deflated and removed and the curved needle was positioned left of midline and cement was injected while retracting into the cement was in the right hemivertebral body. Approximately 6 mL of barium laced bone cement was injected into the right hemivertebral body in total. A straight cement cannula was then placed via the left access cannula and an additional approximately 6 mL of barium laced bone cement was injected to filled the ballooned lytic cavity in the left hemivertebral body. All needles were removed and local hemostasis was achieved with manual compression. Sterile dressings were applied to the skin. The patient tolerated the procedure well and there were no immediate complications. The patient was discharged from the radiology department in stable condition and returned to his inpatient room. Procedure Note Goran Conte M.D. - 09/06/2024 EXAM: IR SPINE ABLATION, IR LUMBAR KYPHOPLASTY COMPARISON: Lumbar spine MRI 09/03/2024; outside lumbar spine CT 08/20/2024;radiation planning CT 05/16/2024; outside lumbar spine MRI 05/14/2024 PREPROCEDURE: Patient seen and evaluated. Allergies, pertinentmedications, and [...] care team members, residents, and fellows werediscussed. Sedation provided by Anesthesiology. BRIEF HISTORY: Mr. Connor is a 43-year-old male with a history ofmetastatic esophageal cancer with L4 vertebral metastasis with pathologiccompression fracture now status post radiation therapy completed06/01/2024. He is currently admitted to the palliative medicine service for worsening pain. He endorses axial low backpain and left lower extremity radicular pain along the lateral thigh andanterolateral calf. He also reports some numbness in the lowerextremities. 5/5 strength in bilateral lower extremity muscle groups with the exception of the some pain limitedhip flexion, particularly on the left. We discussed the risk, benefits,alternatives, and pertinent procedural details of L4 radiofrequencythermal ablation followed by kyphoplasty. We specifically discussed that the goal of the procedure isto improve structural stability to the L4 vertebral body to preventprogressive collapse, and that approximately 85% of patient's experienceimprovement in axial back pain that may take up to 2 weeks. His left lower extremity radicular symptoms may notimprove after the procedure, and he can work with his palliative care teamto discuss potential role of epidural steroid injections to address thesesymptoms should they persist. All questions were answered and informed consent was obtained. TECHNIQUE: The risks, benefits, alternatives, and pertinent proceduraldetails of L4 radiofrequency thermal ablation followed by kyphoplasty werediscussed. The patient was placed under general anesthesia by ouranesthesiology colleagues and placed prone on the biplane fluoroscopic table. A flat panel cone beam CT wasperformed for procedural planning. The patient was prepped and draped inthe standard sterile fashion. Under biplane fluoroscopic guidance, [id number] 12 cm GlycoPure bone access needles were placed transpedicularly into the anterior third paramidline of the [id number] body. The bone quality was noted to be quite soft, particularlyon the left. The needles were retracted to the pedicle-vertebral bodyjunction and two 20 mm Medtronic OsteoCool radiofrequency ablation probes were placed coaxially. The10-20 Media radiofrequency algorithm was run without difficulty.The radiofrequency ablation probes were then removed. Two 20 mm straightStryker kyphoplasty balloons were placed coaxially through the introducer needles. They were each insufflated with6 mL of dilute iodinated contrast to a max PSI of 100. The right balloonwas deflated and removed. A curved needle placed coaxially via the rightaccess cannula was utilized to create a series of state pilot paths within the right hemivertebral body.Keeping the left-sided balloon initially inflated, barium laced bonecement was injected into the right hemivertebral body. The left balloonwas then deflated and removed and the curved needle was positioned left of midline and cement was injected whileretracting into the cement was in the right hemivertebral body.Approximately 6 mL of barium laced bone cement was injected into the righthemivertebral body in total. A straight cement cannula was then placed via the left access cannula and an additionalapproximately 6 mL of barium laced bone cement was injected to filled theballooned lytic cavity in the left hemivertebral body. All needles wereremoved and local hemostasis was achieved with manual compression. Sterile dressings were applied to theskin. The patient tolerated the procedure well and there were no immediatecomplications. The patient was discharged from the radiology department instable condition and returned to his inpatient room. IMPRESSION: L4 radiofrequency thermal ablation followed by kyphoplasty performed withbiplane fluoroscopic guidance. NR Goran Conte M.D. IMG IR PROCEDURES Final Result * Airway (09/05/2024 9:00 AM CDT) Narrative Kary Main M.D. - 09/05/2024 9:00 AM CDT Kary Main M.D. 09/05/2024 9:27 AM Airway Date/Time: 09/05/2024 9:00 AM Performed by: Kary Main M.D. Authorized by: Shanti Saha M.D. Patient location during procedure: OR / Procedure Area PROCEDURE DETAILS: Mask difficulty assessment: oral/nasal airway needed Final airway type: video laryngoscope Laryngeal Manipulation: no Final best view of glottic structures - Cormack/Lehane Score: grade 1 ETT location: oral VL device: glide scope Billings scope blade size: 4 Tube size: 7 ETT distance at teeth/gum: 23 Oral tube type: standard ETT Cuffed: yes Number of attempt to successful placement: 1 Airway confirmation: bilateral breath sounds, positive ETCO2 and bilateral chest rise Other previous techniques attempted: none PRE PROCEDURE DETAILS: Pre evaluation for airway management: procedure Urgency: elective Preoxygenation: bag valve mask SEDATION / ANESTHESIA Anesthesia method: anesthesia POST PROCEDURE DETAILS: Procedure outcome: successful Notable Events: no complications us Shanti Saha M.D. ANESTHESIA ORDERABLES Final Result * ENT Procedure-Otorhinolaryngology Image Exam (09/04/2024 4:33 PM CDT) 09/04/2024 4:43 PM CDT Narrative [facility] - 09/04/2024 4:33 PM CDT This order has been created and auto-finalized to support the import of images acquired without order. The clinical documentation to support these images can be found on the encounter that produced images. us Provider Not In System IMG NON RAD IMAGING PROCE DURES Final Result Performing Organization Address [facility] Co de Phone Number [facility] NA * Video-Fiberoptic Endoscopic Evaluation of Swallowing (FEES)-Speech Language Pathology Image Exam (09/04/2024 10:30 AM CDT) 09/04/2024 10:3 0 AM CDT Narrative [facility] - 09/04/2024 11:16 AM CDT This order has been created and auto-finalized to support the import of outside images. If available, original interpretation can be found on the Media Tab in Chart Review, in Document Viewer, as an image in InfinityView or as an Addendum. If a re-interpretation or overread is required please follow defined workflow. us Provider Not In System IMG NON RAD IMAGING PROCE DURES Final Result Performing Organization Address [facility] de Phone Number [facility] NA * DX Chest Portable 1 View (09/03/2024 4:53 PM CDT) Anatomical Region Laterality Modality Chest, Thoracic RST LOS, Tho racic ARZ LOS, Thoracic FLA LOS N/A Digital Radiography Impressions 09/03/2024 4:58 PM CDT Right-sided Port-A-Cath with tip near the SVC/RA junction. Linear atelectasis or scarring in the left base. Chest otherwise negative. Narrative 09/03/2024 4:58 PM CDT EXAM: DX CHEST PORTABLE 1 VIEW Procedure Note Rudolph Hines M.D. - 09/03/2024 EXAM: DX CHEST PORTABLE 1 VIEW IMPRESSION: Right-sided Port-A-Cath with tip near the SVC/RA junction. Linearatelectasis or scarring in the left base. Chest otherwise negative. Jason Rodriguez M.D., Ph.D. IMG DIAGNOSTIC IMAGING PROCEDURES Final Result * MR Lumbar Spine without and with IV Contrast (09/03/2024 10:56 AM CDT) Anatomical Region Laterality Modality Lumbar Spine, Neuroradiology RST LOS, Neuroradiology ARZ LOS, Neuroradiology FLA LOS N/A Magnetic Resonance Impressions 09/03/2024 12:32 PM CDT L4 metastasis with pathologic compression fracture and central canal narrowing and foraminal involvement progressing since prior MRI with possible left lower abdomen mass as noted in findings. Narrative 09/03/2024 12:32 PM CDT EXAM: MR LUMBAR SPINE WITHOUT AND WITH IV CONTRAST, MR THORACIC SPINE WITHOUT AND WITH IV CONTRAST COMPARISON: CT lumbar spine 08/20/2024, MR lumbar spine 05/14/2024. FINDINGS: Motion degrades images. 7 cervical, 12 thoracic and 5 lumbar type vertebra based on glass decorator views. Thoracic spine: Mild/moderate kyphosis. No worrisome marrow signal abnormality. Thoracic spinal cord is normal in caliber and signal. Small spur-disc protrusion at T10-T11 without substantial canal narrowing. No other substantial spinal canal or foraminal narrowing at any other levels. Evaluation of the included paraspinal soft tissues somewhat limited by patient motion artifact. Lumbar spine: Diffuse metastatic marrow replacement of the L4 vertebral body extending into the left pedicle, superior articular process, and transverse process with associated marrow edema and enhancement redemonstrated. Pathologic compression fracture of the L4 vertebral body with mildly worsened height loss centrally since 08/20/2024, now approximately 30-40% (approximately 25% on 08/20/2024). Similar more significant height loss at the left lateral portion of the vertebral body. Similar 4 mm retropulsion of the posterior cortex (15:9) into the canal with moderate central canal narrowing and thecal sac deformity and effacement left foramen 4th and less so 3rd interspaces. This has all progressed since prior MRI. Partially demonstrated possible left lower abdominal mass on CT. No other worrisome marrow signal abnormality in the remaining lumbar spine. Remaining vertebral body heights and alignment preserved. No other substantial degenerative changes. The distal cord and conus medullaris are normal in caliber and signal. us Dorothy Rlole APRN, C.N.P., M.S.N. [facility] MRI PROC EDURES Final Result * MR Thoracic Spine without and with IV Contrast (09/03/2024 10:56 AM CDT) Anatomical Region Laterality Modality Thoracic Spine, Neuroradiolo gy RST LOS, Neuroradiology ARZ LOS, Neuroradiology FLA LOS N/A Magnetic Resonance Impressions 09/03/2024 12:32 PM CDT L4 metastasis with pathologic compression fracture and central canal narrowing and foraminal involvement progressing since prior MRI with possible left lower abdomen mass as noted in findings. Narrative 09/03/2024 12:32 PM CDT EXAM: MR LUMBAR SPINE WITHOUT AND WITH IV CONTRAST, MR THORACIC SPINE WITHOUT AND WITH IV CONTRAST COMPARISON: CT lumbar spine 08/20/2024, MR lumbar spine 05/14/2024. FINDINGS: Motion degrades images. 7 cervical, 12 thoracic and 5 lumbar type vertebra based on glass decorator views. Thoracic spine: Mild/moderate kyphosis. No worrisome marrow signal abnormality. Thoracic spinal cord is normal in caliber and signal. Small spur-disc protrusion at T10-T11 without substantial canal narrowing. No other substantial spinal canal or foraminal narrowing at any other levels. Evaluation of the included paraspinal soft tissues somewhat limited by patient motion artifact. Lumbar spine: Diffuse metastatic marrow replacement of the L4 vertebral body extending into the left pedicle, superior articular process, and transverse process with associated marrow edema and enhancement redemonstrated. Pathologic compression fracture of the L4 vertebral body with mildly worsened height loss centrally since 08/20/2024, now approximately 30-40% (approximately 25% on 08/20/2024). Similar more significant height loss at the left lateral portion of the vertebral body. Similar 4 mm retropulsion of the posterior cortex (15:9) into the canal with moderate central canal narrowing and thecal sac deformity and effacement left foramen 4th and less so 3rd interspaces. This has all progressed since prior MRI. Partially demonstrated possible left lower abdominal mass on CT. No other worrisome marrow signal abnormality in the remaining lumbar spine. Remaining vertebral body heights and alignment preserved. No other substantial degenerative changes. The distal cord and conus medullaris are normal in caliber and signal. Dorothy Rolle APRN, C.N.P., M.S.N. [facility] MRI PROC EDURES Final Result * (ABNORMAL) CBC without Differential (09/03/2024 8:35 AM CDT) Hemoglobin 9.9(L) 13.2 - 16.6 g/dL 09/03/2024 9:52 AM CDT DTL Hematocrit 32.9(L) 38.3 - 48.6 % 09/03/2024 9:52 AM CDT DTL Erythrocytes 4.09(L) 4.35 - 5.65 x10(12)/L 09/03/2024 9:52 AM CDT DTL MCV 80.4 78.2 - 97.9 fL 09/03/2024 9:52 AM CDT DTL RBC Distrib Width 22.0(H) 11.8 - 14.5 % 09/03/2024 9:52 AM CDT DTL Platelet Count 227 135 - 317 x10(9)/L 09/03/2024 9:52 AM CDT DTL Leukocytes 12.6(H) 3.4 - 9.6 x10(9)/L 09/03/2024 9:52 AM CDT DTL Blood (Blood, Venous) 09/03/2024 8:35 AM CDT 09/03/2024 9:00 AM CDT Jaja Goel M.D. LAB BLOOD ADD-ON Final Result [facility] [address] [place] [address], [facility] [address] [place] [address] * (ABNORMAL) Iron and Total Iron-Binding Capacity (08/31/2024 9:11 AM CDT) Iron 65 50 - 150 mcg/dL 08/31/2024 10:19 AM CDT DTL Total Iron Binding Capacity 437(H) 250 - 400 mcg/dL 08/31/2024 10:19 AM CDT DTL Percent Saturation 15 14 - 50 % 08/31/2024 10:19 AM CDT DTL Blood (Blood, Venous) 08/31/2024 9:11 AM CDT 08/31/2024 9:38 AM CDT Kristin Granda APRN, C.N.P., D.N.P. LAB BLOO D ADD-ON Final Result Performing Organization Address [facility] Co de Phone Number [facility] [address] [place] [address] * (ABNORMAL) Prothrombin Time (PT) (08/31/2024 9:11 AM CDT) Prothrombin Time, P 13.3(H) 9.4 - 12.5 sec 08/31/2024 10:11 AM CDT DTL INR 1.2 0.9 - 1.1 08/31/2024 10:11 AM CDT DTL Comment: ----ADDITIONAL INFORMATION---- Standard intensity warfarin therapeutic range: 2.0 to 3.0 High intensity warfarin therapeutic range: 2.5 to 3.5 Blood (Blood, Venous) 08/31/2024 9:11 AM CDT 08/31/2024 9:43 AM CDT Kristin Granda APRN, C.N.P., D.N.P. LAB BLOO D ADD-ON Final Result Performing Organization Address [facility] Co de Phone Number [facility] [address] [facility] [address] [place] [address] * Ferritin (08/31/2024 9:11 AM CDT) Ferritin, S 130 31 - 409 mcg/L 08/31/2024 10:19 AM CDT DTL Blood (Blood, Venous) 08/31/2024 9:11 AM CDT 08/31/2024 9:38 AM CDT Kristin Granda APRN, C.N.P., D.N.P. LAB BLOO D ADD-ON Final Result [facility] [address] [place] [address] * Bilirubin, Direct (08/31/2024 9:11 AM CDT) Bilirubin, Direct, S 0.3 0.0 - 0.3 mg/dL 08/31/2024 10:19 AM CDT DT Blood (Blood, Venous) 08/31/2024 9:11 AM CDT 08/31/2024 9:38 AM CDT Saud Thurston APRN.N.P., D.N.P. LAB BLOO D ADD-ON Final Result Performing Organization Address City/[facility]/ZIP Co de Phone Number [facility] [address] [place] [address] * ALT (Alanine Aminotransferase) (08/30/2024 7:15 AM CDT) Alanine Aminotransferase (ALT), S 20 7 - 55 U/L 08/30/2024 7:52 AM CDT DT Blood 08/30/2024 7:15 AM CDT 08/30/2024 7:15 AM CDT Kristin Granda APRN C.N.P., D.N.P. LAB BLOO D ADD-ON Final Result Performing Organization Address [facility]/ZIP Co de Phone Number [facility] [address] [place] [address] * (ABNORMAL) AST (Aspartate Aminotransferase) (08/30/2024 7:15 AM CDT) Aspartate Aminotransferase (AST), S 79(H) 8 - 48 U/L 08/30/2024 7:52 AM CDT DTL Blood (Blood, Venous) 08/30/2024 7:15 AM CDT 08/30/2024 7:15 AM CDT us Kristin Granda APRN, C.N.P., D.N.P. LAB BLOO D ADD-ON Final Result [facility] [address] [place] [address], [facility] [address] [place] [address] * Interpretation of Outside CT Spine (08/30/2024 6:58 AM CDT) Anatomical Region Laterality Modality Spine, Neuroradiology RST LO S, Neuroradiology ARZ LOS, Neuroradiology FLA LOS, Other N/A Computed Tomography Impressions 08/30/2024 8:41 AM CDT 1. Known L4 metastatic lesion causing pathologic fracture and mild canal stenosis, overall worsened since 05/14/2024. 2. No additional evidence of osseous metastatic disease in the lumbar spine. Narrative 08/30/2024 8:41 AM CDT EXAM: INTERPRETATION OF OUTSIDE CT SPINE CT lumbar spine without IV contrast dated 08/20/2024 COMPARISON: Outside MR lumbar spine 05/14/2024, head CT 02/27/2024 FINDINGS: 5 lumbar type vertebral bodies. Pathologic fracture and bony destruction of the L4 vertebral body from a known mixed sclerotic metastatic lesion resulting in approximately 33% of central vertebral body height loss with a focal area of approximately 75% height loss. The degree of osseous erosion has overall worsened compared to MR lumbar spine 05/14/2024, given differences in technique. Left posterolateral retropulsion of fracture fragments with associated disc protrusion causes mild canal stenosis at this level. No additional osseous lesions involving the lumbar spine. Stable normal alignment. Remainder of the vertebral body heights are well preserved. Disc spaces are well preserved. Minimal spondylotic changes. No additional areas of significant spinal canal stenosis. No significant neural foraminal narrowing. Normal-appearing paravertebral soft tissue. Nonobstructing calyceal tip stones left kidney. Procedure Note Aron Dickerson M.D. - 08/30/2024 EXAM: INTERPRETATION OF OUTSIDE CT SPINE CT lumbar spine without IVcontrast dated 08/20/2024 COMPARISON: Outside MR lumbar spine 05/14/2024, head CT 02/27/2024 FINDINGS: 5 lumbar type vertebral bodies. Pathologic fracture and bony destruction of the L4 vertebral body from aknown mixed sclerotic metastatic lesion resulting in approximately 33% ofcentral vertebral body height loss with a focal area of approximately 75%height loss. The degree of osseous erosion has overall worsened compared to MR lumbar spine05/14/2024, given differences in technique. Left posterolateralretropulsion of fracture fragments with associated disc protrusion causesmild canal stenosis at this level. No additional osseous lesions involving the lumbar spine. Stable normalalignment. Remainder of the vertebral body heights are well preserved.Disc spaces are well preserved. Minimal spondylotic changes. No additionalareas of significant spinal canal stenosis. No significant neural foraminal narrowing. Normal- appearingparavertebral soft tissue. Nonobstructing calyceal tip stones left kidney. IMPRESSION: 1. Known L4 metastatic lesion causing pathologic fracture and mild canalstenosis, overall worsened since 05/14/2024. 2. No additional evidence of osseous metastatic disease in the lumbarspine. Kristin Granda APRN, C.N.P., D.N.P. IMG CT P ROCEDURES Final Result * CT lumbar spine w con-Outside CT Neuro (08/20/2024 10:05 AM CDT) 08/20/2024 10:0 3 AM CDT Narrative [facility] - 08/20/2024 11:57 AM CDT This order has been created and auto-finalized to support the import of outside images. If available, original interpretation can be found on the Media Tab in Chart Review, in Document Viewer, as an image in InfinityView or as an Addendum. If a re-interpretation or overread is required please follow defined workflow. Provider Not In System IMG CT PROCEDURES Final R esult [facility] NA from Last 3 Months Insurance [place] [id number] Advance Directives For more information, please contact: [phone] Documents on File Type Date Recorded Patient Certified Alcohol Counselor Expl anation Advance Directives 03/22/2024 12:52 PM Advance Directives 03/21/2024 2:29 PM Susan Ciaran bello HCPOA/ADVOCATE/AGENT/REPR ESENTATIVE/SURROGATE * Full Code (Latest Code Status on File) Date Activated Date Inactivated Comments 08/29/2024 11:08 PM 09/12/2024 3:16 PM Question Answer Comments Full Code: Discussed Healthcare Agents on File Name Relationship Healthcare Agent Relationshi p Communication Susan Gross Spouse Health Care Agent [email or web address] Bren Ruby Friend First Alternate Health Care Agent [email or web address] Care Teams Electrical Installer Relationship Specialty Start Date End Date No Contact, Pcp PCP - General Family Medicine 06/07/24
--- OUTSIDE RECORDS SUMMARY | 2024-11-12 12:39 | XMS_ITS | Encounter Summary ---
Author Organization [facility] Address [address] [place] [address] Care Team Providers Care Body Team Member Name Role Phone No Contact, Pcp Primary Care Provider Unavailabl e Encounter Details Date Type Department Care Team (Late st Contact Info) Description 10/14/2024 Orders Only Department of Palliative Care in [place], [place] [address] [place] [phone] Amanda Smith D.O. [address] [place] [phone] Social History Tobacco Use Types Packs/Day Years Used Date Smoking Tobacco: Former Cigarettes 10 10 0 07/15/1994 - 11/11/2017 Passive Smoke Exposure: Never Smokeless Tobacco: Never Comments:Smoked off and on b etween dates noted. Alcohol Use Standard Drinks/Week Comments Not Currently 0 (1 standard drink = 0.6 oz pure alcohol) Drank heavily off and on from age 22 to 39 [facility] Utilities Answer Date Recorded In the past 12 months has [facility] electric, gas, oil, or water company [...] your living situation today? I have a [facility] place to live 08/30/2024 Sex and Gender Information Value Date Recorded Sex Assigned at Male 02/15/2024 4:45 PM PREMIUM AUDITOR Legal Sex Male 3:29 PM PREMIUM AUDITOR Gender Identity Male 02/15/2024 4:45 PM PREMIUM AUDITOR Sexual Orientation Straight 02/15/2024 4: 45 PM PREMIUM AUDITOR documented as of this encounter Plan of Treatment Upcoming Encounters Date Type Department Care Team (Late st Contact Info) Description 12/04/2024 11:00 AM CDT Telemedicine Department of Palliative Care in [place], [place] 200 [place] [phone] Claudy Ramos M.D. 200 [place] [phone] 12/07/2024 11:30 AM CDT Office Visit Department of Otorhinolaryngology in [place], [place] [address] [place] [phone] Rita Mcqueen M.D. [address] [place] [phone] documented as of this encounter Visit Diagnoses Not on filedocumented in this encounter Care Teams Body Team Member Relationship Specialty Start Date End Date No Contact, Pcp PCP - General Family Medicine 06/07/24 documented as of this encounter
--- OUTSIDE RECORDS SUMMARY | 2024-11-12 12:39 | XMS_ITS | Encounter Summary ---
Author Organization [facility] Address [address] [place] [address] Care Team Providers Care Talent Acquisition Partner Name Role Phone No Contact, Pcp Primary Care Provider Unavailabl e Reason for Visit * Reason Comments Med Refill Encounter Details Date Type Department Care Team (Late st Contact Info) Description 10/22/2024 Refill Department of Palliative Care in [place], [place] [address] [place] [phone] Claudy Ramos M.D. [address] [place] [address] Med Refill Social History Tobacco Use Types [...] from age 22 to 39 [facility] Utilities Answer Date Recorded In the past 12 months has [facility] [employer] Physical, oil, or water [facility] threatened to shut off services in your [...] your living situation today? 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 Legal Sex Male 3:29 PM FRAMING MILL OPERATOR Gender Identity Male 02/15/2024 4:45 PM FRAMING MILL OPERATOR Sexual Orientation Straight 02/15/2024 4: 45 PM FRAMING MILL OPERATOR documented as of this encounter Miscellaneous Notes * Telephone Encounter - Molly Marie D.N.P., R.N., [facility] - 10/22/2024 2:54 PM CDT Prescription Refill Request Current Prescription Regimen: Fentanyl 25 mcg patch every 72 hours (reduction from 37) Last strength/amount/date filled: 25 + 12 mcg patches, 25 mcg patches last filled on 09/12 for #5 patches (2 week hospitalization during this time) [place] TURBINE INSPECTOR reviewed Prescription/amount provided today: #10, 25 mcg patches Prescription will be e-Prescribed to the following pharmacy: [facility] [place] Last appointment was telemedicine live video visit on 10/11 Last in-office visit if different than above: 05/11 in clinic, seen during August hospitalization Next palliative appointment is telemedicine live video visit on 11/21 Prescription was authorized by MAXIME Hoskins 05/11 documented in this encounter Plan of Treatment Upcoming Encounters Date Type Department Care Team (Late st Contact Info) Description 12/04/2024 11:00 AM CDT Telemedicine Department of Palliative Care in [place], [place] [address] [place] [phone] Claudy Ramos M.D. [address] [place] [phone] 12/07/2024 11:30 AM CDT Office Visit Department of Otorhinolaryngology in [place], [place] [address] [place] [phone] Rita Mcqueen M.D. [address] [place] [phone] documented as of this encounter Visit Diagnoses Not on filedocumented in this encounter Care Teams Talent Acquisition Partner Relationship Specialty Start Date End Date No Contact, Pcp PCP - General Family Medicine 06/07/24 documented as of this encounter
--- OUTSIDE RECORDS SUMMARY | 2024-11-12 12:39 | XMS_ITS | Encounter Summary ---
Author Organization [facility] Address [address] [place] [address] Care Team Providers Care Classification Counselor Name Role Phone No Contact, Pcp Primary Care Provider Unavailabl e Encounter Details Date Type Department Care Team (Late st Contact Info) Description 09/14/2024 Clinical Communication Division of Community Internal Medicine, [facility], in [place], [place] [address] [place] [address] No Contact, Pcp Social History Tobacco Use Types Packs/Day Years Used Date Smoking Tobacco: Former Cigarettes 10 10 0 07/15/1994 - 11/11/2017 Passive Smoke Exposure: Never Smokeless Tobacco: Never Comments:Smoked off and on b etween dates noted. Alcohol Use Standard Drinks/Week Comments Not Currently 0 (1 standard drink = 0.6 oz pure alcohol) Drank heavily off and on from age 22 to 39 [facility] Utilities Answer Date Recorded In the [...] your living situation today? I have a [facility] place to live 08/30/2024 Sex and Gender Information Value Date Recorded Sex Assigned at Male 02/15/2024 4:45 PM PLAYGROUND OFFICIAL Legal Sex Male 3:29 PM PLAYGROUND OFFICIAL Gender Identity Male 02/15/2024 4:45 PM PLAYGROUND OFFICIAL Sexual Orientation Straight 02/15/2024 4: 45 PM PLAYGROUND OFFICIAL documented as of this encounter Plan of Treatment Upcoming Encounters Date Type Department Care Team (Late st Contact Info) Description 12/04/2024 11:00 AM CDT Telemedicine Department of Palliative Care in [place], [place] [address] [place] [phone] Claudy Ramos M.D. [address] [place] [phone] 12/07/2024 11:30 AM CDT Office Visit Department of Otorhinolaryngology in [place], [place] [address] [place] [phone] Rita Mcqueen M.D. [address] [place] [phone] documented as of this encounter Visit Diagnoses Not on filedocumented in this encounter Care Teams Classification Counselor Relationship Specialty Start Date End Date No Contact, Pcp PCP - General Family Medicine 06/07/24 documented as of this encounter
--- OUTSIDE RECORDS SUMMARY | 2024-11-12 12:39 | XMS_ITS | Encounter Summary ---
Author Organization [facility] Address [address] [place] [address] Care Team Providers Care Client Program Manager Name Role Phone No Contact, Pcp Primary Care Provider Unavailabl e Reason for Visit * Reason Onset Date Comments Med Refill 10/22/2024 Encounter Details Date Type Department Care Team (Late st Contact Info) Description 10/22/2024 Refill Department of Palliative Care in [place], [place] [address] [place] [phone] Claudy Ramos M.D. [address] [place] [phone] Med Refill Social History Tobacco Use Types Packs/Day Years Used Date Smoking Tobacco: Former Cigarettes 10 10 0 07/15/1994 - 11/11/2017 Passive Smoke Exposure: Never Smokeless Tobacco: Never Comments:Smoked off and on b etween dates noted. Alcohol Use Standard Drinks/Week Comments Not Currently 0 (1 standard drink = 0.6 oz pure alcohol) Drank heavily off and on from age 22 to 39 [facility] Utilities Answer Date Recorded In the past 12 months has th e electric, gas, oil, or water [employer] threatened to shut off services in your [...] your living situation today? I have a [facility] place to live 08/30/2024 Sex and Gender Information Value Date Recorded Sex Assigned at Male 02/15/2024 4:45 PM CARETAKER GROUNDS Legal Sex Male 3:29 PM CARETAKER GROUNDS Gender Identity Male 02/15/2024 4:45 PM CARETAKER GROUNDS Sexual Orientation Straight 02/15/2024 4: 45 PM CARETAKER GROUNDS documented as of this encounter Plan of Treatment Upcoming Encounters Date Type Department Care Team (Late st Contact Info) Description 12/04/2024 11:00 AM CDT Telemedicine Department of Palliative Care in [place], [place] 200 [place] [phone] Claudy Ramos M.D. 200 [place] [phone] 12/07/2024 11:30 AM CDT Office Visit Department of Otorhinolaryngology in [place], [place] [address] [place] [phone] Rita Mcqueen M.D. [address] [place] [phone] documented as of this encounter Visit Diagnoses Not on filedocumented in this encounter Care Teams Client Program Manager Relationship Specialty Start Date End Date No Contact, Pcp PCP - General Family Medicine 06/07/24 documented as of this encounter
--- OUTSIDE RECORDS SUMMARY | 2024-11-12 12:39 | XMS_ITS | Clinical Summary ---
Author Organization [facility] Address [address] [address] Care Team Providers Care Precinct Police Captain Name Role Phone Unavailable Primary Care Provider Unavailabl e Source Comments You are receiving this document as you are listed as the primary care provider,follow-up provider, or the patient has been referred to you for consultation.This is in compliance with the Medicare andMedicaid EHR Incentive Program,which states Providers who transition their patient to another setting of careor provider of care or refers their patient to another provider of care shouldprovide summary care record for each transition of care or referral. [employer] 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 Social History Tobacco Use Types Packs/Day Years [...] Comments Blood Pressure 143/84 04/11/2018 9:47 AM MANAGER TRANSPORTATION Pulse 78 11/02/2019 8:16 AM CDT Temperature 36.7 C (98.1 F) 01/12/2010 2:50 PM MANAGER TRANSPORTATION Respiratory Rate 16 01/12/2010 2:50 PM MANAGER TRANSPORTATION Oxygen Saturation 93% 01/12/2010 2:50 PM MANAGER TRANSPORTATION Inhaled Oxygen Concentration - - Weight - - Height - - Body Mass Index - - Plan of Treatment Health Maintenance Due Date Last Done Comments Colon Cancer Screening Plan Due 1978 Hep C Screening (Preventive Services) 1978 HIV Screening (Preventive Services) 1994 Adult Preventive Visit 1996 DTaP/Tdap/Td Vaccine (1 - Tdap) 1997 HepB Vaccine (1) 1997 HPV Vaccine (1 - 3-dose SCDM series) 2005 Cholesterol 2013 COVID-19 Vaccine (2023-2 5 season) 2024 Influenza Vaccine (#1) 2024 Zoster/Shingles Vaccine (1 of 2) 2028 HepA Vaccine Aged Out No longer eligi ble based on patient's age to complete this topic Hib Vaccine Aged Out No longer eligi ble based on patient's age to complete this topic IPV (Polio) Vaccine Aged Out No longe r eligible based on patient's age to complete this topic MCV4 Vaccine Aged Out No longer eligi ble based on patient's age to complete this topic Meningococcal B Vaccine Aged Out No l onger eligible based on patient's age to complete this topic Pneumococcal Vaccine Aged Out No long er eligible based on patient's age to complete this topic Procedures Procedure Name Priority Date/Time Associated Diagnosis Comments COMPLETE BLOOD COUNT-W/DIFF Routine 09/14/2024 12:14 PM CDT Anemia in neoplastic disease CBC AND DIFFERENTIAL PANEL Routine 09/14/2024 12:14 PM CDT 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 Results * (ABNORMAL) Complete Blood Count-W/Diff (09/14/2024 12:14 PM CDT) WBC 8.3 3.5 - 10.5 x10(9)/L 09/14/2024 12:22 PM CDT [facility] RBC 3.66(L) 4.32 - 5.72 x10(12)/L 09/14/2024 12:22 PM [facility] Hemoglobin 9.1(L) 13.5 - 17.5 g/dL 09/14/2024 12:22 PM [facility] HCT 30.0(L) 38.8 - 50.0 % 09/14/2024 12:22 PM [facility] MCV 82.0 80.0 - 100.0 fL 09/14/2024 12:22 PM [facility] MCH 24.9(L) 27.6 - 33.3 pg 09/14/2024 12:22 PM [facility] MCHC 30.3(L) 31.5 - 35.2 g/dL 09/14/2024 12:22 PM [facility] RDW 20.4(H) 11.9 - 15.5 % 09/14/2024 12:22 PM [facility] Platelets 291 150 - 450 x10(9)/L 09/14/2024 12:22 PM [facility] Neutrophil Absolute 6.9 1.7 - 7.0 10(9)/L 09/14/2024 12:22 PM [facility] Lymphocyte Absolute 0.5(L) 1.0 - 4.8 10(9)/L 09/14/2024 12:22 PM [facility] Monocyte Absolute 0.8 0.2 - 0.9 10(9)/L 09/14/2024 12:22 PM [facility] Eosinophil Absolute 0.0 0.0 - 0.5 10(9)/L 09/14/2024 12:22 PM [facility] Basophil Absolute 0.0 0.0 - 0.3 10(9)/L 09/14/2024 12:22 PM [facility] Immature Granulocyte % 0.2 0.0 - 0.5 % 09/14/2024 12:22 PM [facility] Blood Venipuncture / Unknown 09/14/2024 12:14 PM CDT 09/14/2024 12:14 PM CDT us Not Found Clinician LAB_1 Final Res ult [facility] [address] [place] [phone], [facility] from Last 3 Months Insurance [place] [facility]
--- OUTSIDE RECORDS SUMMARY | 2024-11-12 12:39 | XMS_ITS | Encounter Summary ---
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 [address] [place] [phone] Phone: tel: fax: [facility] Referral ID Status Reason Start Date Expiration Date Visits Re quested Visits Authorized [id number] Closed 11/06/2024 05/08/2026 1 1 Scheduling Instructions Video or phone visit with * Outpatient (Routine) - Closed Specialty Diagnoses / Procedures Referred By Hayde mendez Referred To Contact Palliative Medicine Jenni Ramos P.A.-C. [address] [place] [phone] Phone: tel: fax: Claudy Ramos M.D. [address] [place] [phone] Phone: tel: fax: Referral ID Status Reason Start Date Expiration Date Visits Re quested Visits Authorized [id number] Closed 11/06/2024 05/08/2026 1 1 Scheduling Instructions [address] Maradiaga's calendar (Dr. Ramos to see) Please send portal message when scheduled. Reason for Visit * Reason Onset Date Comments Med Refill 10/29/2024 Encounter Details Date Type Department Care Team ([facility] st Contact Info) Description 10/29/2024 Refill Department of Palliative Care in [place], [place] [address] [place] [phone] Amanda Smith D.O. [address] [place] [phone] Med Refill Social History Tobacco Use Types Packs/Day Years Used Date Smoking Tobacco: Former Cigarettes 10 10 0 07/15/1994 - 11/11/2017 Passive Smoke Exposure: Never Smokeless Tobacco: Never Comments:Smoked off and on b etween dates noted. Alcohol Use Standard Drinks/Week Comments Not Currently 0 (1 standard drink = 0.6 oz pure alcohol) Drank heavily off and on from age 22 to 39 [facility] Utilities Answer Date Recorded In the past 12 months has [email or web address], gas, oil, or water [employer] threatened to shut off services in your [...] your living situation today? I have a [facility] place to live 08/30/2024 Sex and Gender Information Value Date Recorded Sex Assigned at Male 02/15/2024 4:45 PM METAL WINDOW FRAME MAKER Legal Sex Male 3:29 PM METAL WINDOW FRAME MAKER Gender Identity Male 02/15/2024 4:45 PM METAL WINDOW FRAME MAKER Sexual Orientation Straight 02/15/2024 4: 45 PM METAL WINDOW FRAME MAKER documented as of this encounter Miscellaneous Notes * Addendum Note - Arlet Cedeno RAnaN. - 11/06/2024 4:32 PM CDTAddended by: ARLET CEDENO on: 11/06/2024 04:32 PM Modules accepted: Orders * Telephone Encounter - Arlet Cedeno RDorcas. - 11/06/2024 4:15 PM CDT SUBJECTIVE Rudy Gross is a 43-year-old with metastatic esophageal carcinoma followed in the outpatient Palliative Care Clinic for cancer associated symptoms and adaptive coping. CHIEF COMPLAINT / REASON FOR CALL Follow up to schedule appointment Information Discussed Spoke with Susan, Rudy's to see when we might be able to see Rudy for a visit, given he has had progression and increased pain since our last visit. Discussed that our preference would be to see him in person. Susan shares that they are currently in process of needing to move to a small one bedroom apartment. They currently live in crisis housing that is being shut down. Given this, Susan states, that they are not able to come to [place] for in person appointment at this time. She is agreeable to do a video visit this week. She expressed frustration over their current living scenario and need to find alternative housing which will be challenging to care for Rudy given his increasing needs and future needs for equipment. She is also wondering about how to obtain equipment they may need, such as commode, bed, etc. Susan also shares that she does not have help or support from family and she is the sole caregiver for Rudy. PLAN Disposition/Recommendation: Discussed with Susan that we would have availability for a [address] Ramos tomorrow. Also suggested that we set her up with an appointment with our Socialworker to see what resources may be available for Rudy and Susan. Susan is agreeable to meet with our tool salvage worker, scot castano. Information/Education: patient/caller able to teach back Caller agreeable to plan of care: yes The following references were used: nursing clinical judgement and discussed with provider Jenni Ramos PA-C. * Addendum Note - Lela Cruz D.O., M.S. - 11/03/2024 11:01 AM CDTAddended by: LELA CRUZ on: 11/03/2024 11:01 AM Modules accepted: Orders * Addendum Note - Lela Cruz D.O., M.S. - 11/03/2024 10:21 AM CDTAddended by: LELA CRUZ on: 11/03/2024 10:21 AM Modules accepted: Orders * Telephone Encounter - Lela Cruz D.O., M.S. - 11/03/2024 10:16 AM CDT Palliative Weekend Call Notation Pt's Susan called noting increased pain in lower back for Rudy around area of L4 and prior surgical procedure. She did speak with [facility] team and they did imaging last week, and reported to them disease progression. This imaging is not currently available. They are requesting to go back up to the 37mcg/hr fentanyl patch dose Q 72 hours, as he has been using escalating hydromorphonedoses, now up to 12 mg per day on average, when he had been down to 2mg. He also had a recent dental procedure, but did not feel like pain escalation is related to that. No new weakness. We discussedthe option if pain is severe, new weakness, changes in bowel/bladder, should be seen and recommended ED for additional imaging if progressing. She feels he is stable at this time with no red flag symptoms and is wanting to get ahead of uncontrolled pain. They have fentanyl 25 mcg/hr patches 30 day supply at home, we will send 12mcg/hr patches to equal 37mcg/hr Q 72 hours. They have upcoming appt with Oncology to discuss next steps per Susan and have upcoming Palliative appt as well. Lela Cruz D.O., M.S. * Telephone Encounter - Rae Wallace R.N. - 10/29/2024 1:10 PM CDT Prescription Refill Request Current Prescription Regimen: Hydromorphone 2 mg tablets; take 1-2 tablets (2-4 mg total) every 4 hours as needed for pain. Last strength/amount/date filled: 10/05/24 #90 [place] MATRIX WORKER reviewed Prescription/amount provided today: Hydromorphone 2 mg tablets #90 Prescription will be e-Prescribed to the following pharmacy: [place], [place]. Prescription for Guaifenesin 100 mg/5 ml solution #473 mL, Refill x 2 provided today also. Last appointment was telemedicine live video visit on 10/11/24 Last in-office visit if different than above: 05/11/24 Next palliative appointment is telemedicine live video visit on 11/21/24 Prescription was authorized by Jenni Ramos PA-C documented in this encounter Plan of Treatment Upcoming Encounters Date Type Department Care Team (Late st Contact Info) Description 12/04/2024 11:00 AM CDT Telemedicine Department of Palliative Care in [place], [place] [address] [place] [phone] Claudy Ramos M.D. [address] [place] [phone] 12/07/2024 11:30 AM CDT Office Visit Department of Otorhinolaryngology in [place], [place] [address] [place] [phone] Rita Mcqueen M.D. 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
--- OUTSIDE RECORDS SUMMARY | 2024-11-12 12:39 | XMS_ITS | Encounter Summary ---
Author Organization [facility] Address [address] [place] [id number] Care Team Providers Care Casting Technician Name Role Phone No Contact, Pcp Primary Care Provider Unavailabl e Reason for Visit * Reason Onset Date Comments Med Refill 09/28/2024 Encounter Details Date Type Department Care Team (Late st Contact Info) Description 09/28/2024 Refill Department of Palliative Care in [place], [place] [address] [place] [phone] Claudy Ramos M.D. [address] [place] [phone] Med Refill Social History Tobacco Use Types [...] to 41 [facility] Utilities Answer Date Recorded In the past 12 months has th e electric, gas, oil, or water [employer] threatened to shut off services in your [...] your living situation today? I have a [facility] place to live 08/30/2024 Sex and Gender Information Value Date Recorded Sex Assigned at Male 02/15/2024 4:45 PM FINANCIAL PROFESSIONAL Legal Sex Male 3:29 PM FINANCIAL PROFESSIONAL Gender Identity Male 02/15/2024 4:45 PM FINANCIAL PROFESSIONAL Sexual Orientation Straight 02/15/2024 4: 45 PM FINANCIAL PROFESSIONAL documented as of this encounter Miscellaneous Notes * Telephone Encounter - Mayelin Estrella R.N., [facility] - 09/28/2024 2:15 PM CDT Information Discussed Rudy Gross is a 43-year-old with metastatic esophageal carcinoma followed in the outpatient Palliative Care Clinic for cancer associated symptoms and adaptive coping. Last visit: virtual 09/17/2024. Please refer to Dr Ramos's clinical note for details of this visit. Call received from patient's , Susan: Name of Medication: 1 Dexamethasone 2 mg- takes PRN nausea post chemo 11 tablets remaining 2. Omeprazole 20 mg -7 tablets remaining 3. Dilaudid 2 mg- taking 1-2 tabs / dose about 6-8 times daily (trying to take 2 mg) 4. Prochlorperazine (Compazine) 5 mg- takes 3 x/ day PRN nausea and has 9 tabs remaining Pharmacy Information: [facility] pharmacy [facility] in [place], [place] Pain: Susan reports that Rudy is slowly recovering from back surgery and while he is hoping to reduce painmedication recovery has been a slow process and he continues to experience post op pain. Per Susan Rudy placed Fentanyl 25 mcg and 12 mcg patches (37 mcg) today. Rudy did this on his own in the hopes of weaning down on pain medication (not recommended at the last visit). Rudy is also hoping the reduction in pain medication would also help his nausea. Discussed side effect of nausea in relation to pain medication and that nausea is more likely from recent cancer treatment. Per Dr Ramos note 09/17- the plan was to continue Fentanyl 50 mcg patch and hoping Rudy would be able to reduce hydromorphone PRN usage. Explained this plan to Susan. Rudy is currently taking hydromorphone 2 mg tablet 1-2 tabs (2-4 mg) 6-8 times daily. He is trying to utilize 2 mg dose as pain allows. He is hoping to get off the pain medications as soon as possible. Rudy is out of 50 mcg patches, has 25 mcg patches and will need a refill of Fentanyl 12 mcg patch ifhe is to continue the 37 mcg dose. Nausea: Rudy has been experiencing more nausea since his chemo treatment last week. He needs a refill of compazine and omeprazole. He takes dexamethasone 2 mg PRN and this has been prescribed by local oncologist (in [place]). Susan will reach out to oncology for Dexamethasone refill. Bowels are working daily. PLAN Disposition/Recommendation: notified provider and awaiting recommendations- reviewed with SHAHBAZ Helms Recommendations: We will partner with his goal of weaning pain medications in the setting of post surgery, post radiation. 12 mcg patches sent # 5 for 2 week supply, he will use these along with his 25 mcg patches. Med list updated. He is not to make any further medication changes without looping us in that we can guide the next steps safely Continue hydromorphone 2 mg (1-2 tab) 2-4 mg PRN breakthrough pain and keep track of medication usage. Refills sent for compazine and omeprazole Prescription Refill Request Current Prescription Regimen: Fentanyl 50 mcg patch last refilled 09/11/2024 Last strength/amount/date filled: Fentanyl patch 50 mcg 09/11 [place] BILINGUAL OFFICE ASSISTANT reviewed Prescription/amount provided today: Fentanyl 12 mcg patch apply 12 mcg and 25 mcg patches (total dose 37 mcg) every 72 hrs. Dose decreased to 37 mcg on 09/28/2024 Prescription will be e-Prescribed to the following pharmacy: [facility] Last appointment was telemedicine live video visit on 09/17/2024 Last in-office visit if different than above: 09/14/2024 Next palliative appointment is telemedicine live video visit on 10/11/2024 Prescription was authorized by Jenni Ramos PA-C Information/Education: patient/caller able to teach back Caller agreeable to plan of care: yes The following references were used: previous plan of care date: 09/17/2024 documented in this encounter Plan of Treatment Upcoming Encounters Date Type Department Care Team (Late st Contact Info) Description 12/04/2024 11:00 AM CDT Telemedicine Department of Palliative Care in [place], [place] [address] [place] [phone] Claudy Ramos M.D. [address] [place] [phone] 12/07/2024 11:30 AM CDT Office Visit Department of Otorhinolaryngology in [place], [place] [address] [place] [phone] Rita Mcqueen M.D. [address] [place] [phone] documented as of this encounter Visit Diagnoses Not on filedocumented in this encounter Care Teams Casting Technician Relationship Specialty Start Date End Date No Contact, Pcp PCP - General Family Medicine 06/07/24 documented as of this encounter
--- OUTSIDE RECORDS SUMMARY | 2024-11-12 12:39 | XMS_ITS | Encounter Summary ---
Author Organization [facility] Address [address] [place] [address] Care Team Providers Care Diesel Powerplant Mechanic Helper Name Role Phone No Contact, Pcp Primary Care Provider Unavailabl e Reason for Visit * Reason Onset Date Comments Med Refill 09/21/2024 Encounter Details Date Type Department Care Team (Late st Contact Info) Description 09/21/2024 Refill Department of Palliative Care in [place], [place] [address] [place] [phone] Claudy Ramos M.D. [address] [place] [phone] Med Refill Social History Tobacco Use Types Packs/Day Years Used Date Smoking Tobacco: Former Cigarettes 10 10 0 07/15/1994 - 11/11/2017 Passive Smoke Exposure: Never Smokeless Tobacco: Never Comments:Smoked off and on b etween dates noted. Alcohol Use Standard Drinks/Week Comments Not Currently 0 (1 standard drink = 0.6 oz pure alcohol) Drank heavily off and on from age 22 to 39 [facility] Utilities Answer Date Recorded In the past 12 months has th e electric, gas, oil, or water [employer] threatened to shut off services in your [...] living situation today? I have a [facility] place to live 08/30/2024 Sex and Gender Information Value Date Recorded Sex Assigned at Male 02/15/2024 4:45 PM AVIONICS SYSTEMS ENGINEER Legal Sex Male 3:29 PM AVIONICS SYSTEMS ENGINEER Gender Identity Male 02/15/2024 4:45 PM AVIONICS SYSTEMS ENGINEER Sexual Orientation Straight 02/15/2024 4: 45 PM AVIONICS SYSTEMS ENGINEER documented as of this encounter Plan of Treatment Upcoming Encounters Date Type Department Care Team (Late st Contact Info) Description 12/04/2024 11:00 AM CDT Telemedicine Department of Palliative Care in [place], [place] 200 [place] [phone] Claudy Ramos M.D. 200 [place] [phone] 12/07/2024 11:30 AM CDT Office Visit Department of Otorhinolaryngology in [place], [place] [address] [place] [phone] Rita Mcqueen M.D. [address] [place] [phone] documented as of this encounter Visit Diagnoses Not on filedocumented in this encounter Care Teams Diesel Powerplant Mechanic Helper Relationship Specialty Start Date End Date No Contact, Pcp PCP - General Family Medicine 06/07/24 documented as of this encounter
--- OUTSIDE RECORDS SUMMARY | 2024-11-12 12:39 | XMS_ITS ---
Author Organization [facility] Address [address] [place] [address] Care Team Providers Care Special Equipment Technician Name Role Phone No Contact, Pcp Primary Care Provider Unavailabl e Active Problems * This document contains information received from the source organization and may not represent a complete record from that organization. 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 Cannabis Use Unspecified Uncomplicated 5 Lesion Bone 08/30/2024 Radiation Therapy Personal History [...] Fraction Dose Fractions Total Dose Plans Planned [id number] 03/05/2024 - 03/16/2024 300 cGy 3,000 cGy Reference Points Delivered [id number] 03/05/2024 - 03/16/2024 3,000 cGy Past Radiation Episodes * 3D WATERPROOFING SUPERVISOR: BoneOverview* First Treatment Date Last Treatment Date Treatment Site Technique Goal Episode Provider 05/25/2024 05/31/2024 Bone 3D WATERPROOFING SUPERVISOR Palliative * Linked Problems 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 Treatment Courses* Course [id number] 05/25/2024 - 05/31/2024 Treatment Period Fraction Dose Fractions Total Dose Plans Planned [id number] 05/25/2024 - 05/31/2024 400 cGy 2 ,000 cGy Reference Points Delivered [id number] 05/25/2024 - 05/31/2024 2,000 cGy * IMRT: Skin of face, head, neckOverview* First Treatment Date Last Treatment Date Treatment Site Technique Goal Episode Provider 03/19/2024 03/19/2024 Skin of face, head, neck IMRT Palliative * Linked Problems 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 Face Treatment Courses* Course 2xFace 03/19/2024 - 03/19/2024 Treatment Period Fraction Dose Fractions Total Dose Plans Planned [id number] 03/19/2024 - 03/19/2024 800 cGy 8 00 cGy Reference Points Delivered [id number] 03/19/2024 - 03/19/2024 800 cGy Lifetime Dose Tracking * Chemical Lifetime Dose Automatic Entry Manual Entr y Radiation 2,268.98 mGy 2,268.98 mGy 0 mGy Fluoro Time 20.28 minutes 20.28 minutes 0 minutes DAP (uGy-m2) 35,943.59 uGy-m2 35,943.59 uGy-m2 0 uGy-m 2 Resolved Problems Problem Noted Date Diagnosed Date Resolved Date 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
--- OUTSIDE RECORDS SUMMARY | 2024-11-12 12:39 | XMS_ITS | Encounter Summary ---
Author Organization [facility] Address [address] [place] [address] Care Team Providers Care Director Of Recruiting Name Role Phone No Contact, Pcp Primary Care Provider Unavailabl e Reason for Visit * Reason Onset Date Comments Rx Prior Authorization 11/07/2024 Encounter Details Date Type Department Care Team (Latest Contact Info) Description 11/07/2024 Clinical Communication Department of Palliative Care in [place], [place] [address] [place] [phone] Claudy Ramos M.D. [address] [place] [phone] Rx Prior Authorization Social History Tobacco Use Types Packs/Day Years Used Date Smoking Tobacco: Former Cigarettes 10 10 0 07/15/1994 - 11/11/2017 Passive Smoke Exposure: Never Smokeless Tobacco: Never Comments:Smoked off and on b etween dates noted. Alcohol Use Standard Drinks/Week Comments Not Currently 0 (1 standard drink = 0.6 oz pure alcohol) Drank heavily off and on from age 22 to 39 [facility] Utilities Answer Date Recorded In the past 12 months has th e electric, gas, oil, or water [facility] threatened to shut off services in your [...] your living situation today? I have a [facility] place to live 08/30/2024 Sex and Gender Information Value Date Recorded Sex Assigned at Male 02/15/2024 4:45 PM WAGE CONCILIATOR Legal Sex Male 3:29 PM WAGE CONCILIATOR Gender Identity Male 02/15/2024 4:45 PM WAGE CONCILIATOR Sexual Orientation Straight 02/15/2024 4: 45 PM WAGE CONCILIATOR documented as of this encounter Miscellaneous Notes * Telephone Encounter - Rae Wallace R.N. - 11/07/2024 4:19 PM CDT Information Discussed Contacted pharmacy in regards to prescription for Fentanyl patches. A prescription for Fentanyl 25 mcg/hr patches, apply 2 patches (50 mcg/hr total). Prior authorization for dose increase was approved, however quantity exception for number of patches. A new prescription for Fentanyl 50 mcg/hr patches was sent and able to be processed through insurance. The pharmacy will need to order patches and is hopeful to have available for steel pickler on Tuesday. Contacted Susan () to share increase in Fentanyl patch to 50 mcg/hr. Rudy is due to change current patch tomorrow. They will apply two 25 mcg/hr patches and understand with next patch change they will switch to 50 mcg/hr patch (applying only 1 patch). Pharmacy has discontinued previous 25 mcg/hrpatch prescription sent earlier today. Advised Susan to call back with any questions or concerns. PLAN Disposition/Recommendation: self-care is appropriate at this time, patient encouraged to call back with questions Information/Education: patient/caller able to teach back Caller agreeable to plan of care: yes The following references were used: nursing clinical judgement documented in this encounter Plan of Treatment Upcoming Encounters Date Type Department Care Team (Late st Contact Info) Description 12/04/2024 11:00 AM CDT Telemedicine Department of Palliative Care in [place], [place] [address] [place] [phone] Claudy Ramos M.D. [address] [place] [phone] 12/07/2024 11:30 AM CDT Office Visit Department of Otorhinolaryngology in [place], [place] [address] [place] [phone] Rita Mcqueen M.D. 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
--- OUTSIDE RECORDS SUMMARY | 2024-11-12 12:39 | XMS_ITS | Encounter Summary ---
Author Organization [facility] Address [address] [place] [address] Care Team Providers Care Certified Alcohol Counselor Name Role Phone No Contact, Pcp Primary Care Provider Unavailabl e Reason for Visit * Reason Onset Date Comments Med Refill 10/05/2024 Encounter Details Date Type Department Care Team (Late st Contact Info) Description 10/05/2024 Refill Department of Palliative Care in [place], [place] [address] [place] [phone] Claudy Ramos M.D. [address] [place] [phone] Med Refill Social History Tobacco Use Types Packs/Day Years Used Date Smoking Tobacco: Former Cigarettes 10 10 0 07/15/1994 - 11/11/2017 Passive Smoke Exposure: Never Smokeless Tobacco: Never Comments:Smoked off and on b etween dates noted. Alcohol Use Standard Drinks/Week Comments Not Currently 0 (1 standard drink = 0.6 oz pure alcohol) Drank heavily off and on from age 22 to 39 [facility] Utilities Answer Date Recorded In the past 12 months has th e electric, gas, oil, or water [employer] threatened to shut off services in [...] living situation today? I have a [facility] place to live 08/30/2024 Sex and Gender Information Value Date Recorded Sex Assigned at Male 02/15/2024 4:45 PM LENS MATCHER Legal Sex Male 3:29 PM LENS MATCHER Gender Identity Male 02/15/2024 4:45 PM LENS MATCHER Sexual Orientation Straight 02/15/2024 4: 45 PM LENS MATCHER documented as of this encounter Miscellaneous Notes * Telephone Encounter - Dorothy Branch R.N., [facility] - 10/05/2024 2:14 PM CDT Prescription Refill Request Current Prescription Regimen: Hydromorphone 2 mg, 1-2 every 4 hours as needed Last strength/amount/date filled: 09/21/24 #100 [place] LIME PLANT OPERATOR reviewed Prescription/amount provided today: #90 Prescription will be e-Prescribed to the following pharmacy: [facility] pharmacy in [place], [place] Last appointment was telemedicine live video visit on 09/17/24 Last in-office visit if different than above: 05/11/24 Next palliative appointment is telemedicine live video visit on 10/11/24 Prescription was authorized by Yamilet Levy CNP * Telephone Encounter - Dorothy Branch R.N., [facility] - 10/05/2024 1:30 PM CDT ASSESSMENT Rudy Gross is a 43 y.o. male who palliative care is following for symptom management in the setting of metastatic esophageal carcinoma. I spoke with Mrs. Gross this afternoon she shared that Mr. Gross continues to notice improvement in his pain and is currently using the Hydromorphone 2 mg about 4-6 times a day to stay active. He is able to rest during the night and does take an occasional dose for pain overnight and is hopeful to have enough medication to get through to his appointment with Dr. Ramos on 10/11. PLAN Disposition/Recommendation: self-care is appropriate at this time, patient encouraged to call back with questions. Information/Education: patient/caller able to teach back. Caller agreeable to plan of care: yes. The following references were used: nursing clinical judgement. documented in this encounter Plan of Treatment Upcoming Encounters Date Type Department Care Team (Late st Contact Info) Description 12/04/2024 11:00 AM CDT Telemedicine Department of Palliative Care in [place], [place] [address] [place] [phone] Claudy Ramos M.D. [address] [place] [phone] 12/07/2024 11:30 AM CDT Office Visit Department of Otorhinolaryngology in [place], [place] [address] [place] [phone] Rita Mcqueen M.D. [address] [place] [phone] documented as of this encounter Visit Diagnoses Not on filedocumented in this encounter Care Teams Certified Alcohol Counselor Relationship Specialty Start Date End Date No Contact, Pcp PCP - General Family Medicine 06/07/24 documented as of this encounter
[2024-11-12 12:40] VITALS: BP 119/79; PULSE 103; RESP 18; TEMP 36.3; O2SAT 98; BMI 22.2
--- OUTSIDE RECORDS SUMMARY | 2024-11-12 12:40 | XMS_ITS | Encounter Summary ---
Author Organization [facility] Address [address] [place] [address] Care Team Providers Care Automated Manufacturing Instructor Name Role Phone No Contact, Pcp Primary Care Provider Unavailabl e Encounter Details Date Type Department Care Team (Late st Contact Info) Description 11/11/2024 Clinical Communication Department of Palliative Care in [place], [place] [address] [place] [phone] Dawna Navas M.D. [address] [place] [phone] Social History Tobacco Use Types Packs/Day Years Used Date Smoking Tobacco: Former Cigarettes 10 10 0 07/15/1994 - 11/11/2017 Passive Smoke Exposure: Never Smokeless Tobacco: Never Comments:Smoked off and on b etween dates noted. Alcohol Use Standard Drinks/Week Comments Not Currently 0 (1 standard drink = 0.6 oz pure alcohol) Drank heavily off and on from age 22 to 39 [facility] Utilities Answer Date Recorded In the past 12 months has [facility] electric, gas, oil, or water company [...] your living situation today? I have a [facility] place to live 08/30/2024 Sex and Gender Information Value Date Recorded Sex Assigned at Male 02/15/2024 4:45 PM ARTIFICIAL GLASS EYE MAKER Legal Sex Male 3:29 PM ARTIFICIAL GLASS EYE MAKER Gender Identity Male 02/15/2024 4:45 PM ARTIFICIAL GLASS EYE MAKER Sexual Orientation Straight 02/15/2024 4: 45 PM ARTIFICIAL GLASS EYE MAKER documented as of this encounter Miscellaneous Notes * Telephone Encounter - Dawna Navas M.D. - 11/11/2024 12:26 PM CDT Additional call around 12:30pm requesting refill of guaifenesin used for thick secretions after radiation. Ordered to [facility] in [place]. Lori Navas MD documented in this encounter Plan of Treatment Upcoming Encounters Date Type Department Care Team (Late st Contact Info) Description 12/04/2024 11:00 AM CDT Telemedicine Department of Palliative Care in [place], [place] [address] [place] [phone] Claudy Ramos M.D. [address] [place] [phone] 12/07/2024 11:30 AM CDT Office Visit Department of Otorhinolaryngology in [place], [place] [address] [place] [phone] Rita Mcqueen M.D. [address] [place] [phone] documented as of this encounter Visit Diagnoses Not on filedocumented in this encounter Care Teams Automated Manufacturing Instructor Relationship Specialty Start Date End Date No Contact, Pcp PCP - General Family Medicine 06/07/24 documented as of this encounter
--- OUTSIDE RECORDS SUMMARY | 2024-11-12 12:40 | XMS_ITS | Encounter Summary ---
Author Organization [facility] Address [address] [place] [address] Care Team Providers Care Truckload Owner Operator Name Role Phone No Contact, Pcp Primary Care Provider Unavailabl e Encounter Details Date Type Department Care Team (Late st Contact Info) Description 11/11/2024 Clinical Communication Department of Palliative Care in [place], [place] [address] [place] [phone] Dawna Navas M.D. [address] [place] [phone] Social History Tobacco Use Types Packs/Day Years Used Date Smoking Tobacco: Former Cigarettes 10 10 0 07/15/1994 - 11/11/2017 Passive Smoke Exposure: Never Smokeless Tobacco: Never Comments:Smoked off and on b etween dates noted. Alcohol Use Standard Drinks/Week Comments Not Currently 0 (1 standard drink = 0.6 oz pure alcohol) Drank heavily off and on from age 22 to 39 [facility] Utilities Answer Date Recorded In the past 12 months has [facility] electric, gas, oil, or water company threatened [...] your living situation today? [facility] 08/30/2024 Sex and Gender Information Value Date Recorded Sex Assigned at Male 02/15/2024 4:45 PM COMMUNITY HEALTH NURSE SUPERVISOR Legal Sex Male 3:29 PM COMMUNITY HEALTH NURSE SUPERVISOR Gender Identity Male 02/15/2024 4:45 PM COMMUNITY HEALTH NURSE SUPERVISOR Sexual Orientation Straight 02/15/2024 4: 45 PM COMMUNITY HEALTH NURSE SUPERVISOR documented as of this encounter Miscellaneous Notes * Telephone Encounter - Pennie Terry R.N., [facility] - 11/12/2024 8:14 AM CDT ASSESSMENT Rudy Gross is a 43-year-old with metastatic esophageal carcinoma followed in the outpatient Palliative Care Clinic for cancer associated symptoms and adaptive coping. Last visit with Dr. Ramos on 11/07/24. Calls over the weekend with on- call provider Dr. Navas regarding worsening pain symptoms. Nursing call today to follow up. Spoke with , Susan. Reports pain increasing despite increase in Fentanyl to 50 mcg/hr. . Trialed 4 mg dose at recommended by Dr. Ramos but this did not control pain. Now using Hydromorphone 6 mg several times per day. More drowsy with escalation of opioids. No changes in breathing. Bowels regular. Back pain has changed/increased over the last several weeks. Pain now located in lumbar area to left of spine. Feels like pinching and nerve aggravation that goes into the left gluteal. Impacting left leg making it feel more weak. Right leg solid. Using walker. No falls or trauma. Inquiring about option of nerve medication. Duloxetine and pregabalin discussed with Dr. Perez in August. Additional concerns: Cotton mouth with olanzapine at night-other options? Mood down-something to help with this? Worsening secretions requiring guaifenesin daily. Other approaches? Additional stressor include changing insurance and making a move to [place], [place]. Refills needed today: Hydromorphone Guaifenesin-needs to go to different pharmacy (would like RX from weekend left at current pharmacy for future fills and new RX today) due to more secretions PLAN Reviewed with Jenni Ramos PA-C: In review of this, Rudy requires a face to face evaluation, likely in the ED due to Susan's report of left leg weakness as I have not seen this documented historically with his prior reports of back pain. We know he has metastatic cancer to L4 May 2024 radiation to L4 followed by August 2024 L4 radiofrequency ablation and kyphoplasty. Documentation following that noted pain improvement post radiation and procedure. As he is getting [facility] and we can not see these reports we are going by patient/spouse reporting that his cancer is progressing. I am not certain if this involves additional metastatic disease in and around the spine though with last notes naming increased low back pain left of midline with left- sided leg weakness this requires urgent [id number] evaluation with physical exam and likely urgent imaging. I understand from documentation that the patient has not able to tolerate a car ride, I would suggest ambulance transportation if necessary. Refills not sent at this time given need for urgent imaging. Disposition/Recommendation: notified provider and awaiting recommendations. Information/Education: patient/caller able to teach back. Caller agreeable to plan of care: yes. The following references were used: previous plan of care date: 11/07/24. ADDENDUM: Extensive discussion with Susan regarding recommendation above. Initially shared his symptoms have not escalated but have been ongoing for months. We discussed escalation of medication over the last several weeks and concern for the process driving this increase in symptoms. Rudy does not have primary care and has not been seen locally in his current home area. Receiving oncologic care in [place]. This is a [address] and she worries about how Rudy would tolerate this trip and receive this recommendation. They have not sought care in other local systems closer to them. Unsure about being able to drive to [place]. Inquired about our team discussing this with Rudy directly to support Susan. Declined, expressing distress about how he would receive this information and sharing they have been disappointed by lack of support. She named several other stressors as well. Continued to namethat our team is offering assistance recognizing the stress Susan is feeling at this time and priority today is to evaluate escalation of back and left leg symptoms. Ultimately she verbalized that she will discuss with Rudy and other family in town. ADDENDUM 1110: Phone call from Susan. Confirms Rudy's mother will bring them to [facility] for evaluation. Susan called has spoke with the ED staff. Phone call to nurse triage team who transferred our team to Dr. Guallpa. Provider to provider report shared from Jenni Ramos PA-C. * Telephone Encounter - Dawna Navas M.D. - 11/11/2024 9:37 AM CDT Called by patient's Susan around 9:00am this morning stating that patient is struggling with significant cancer associated pain in the setting of known disease progression. Susan said he is having so much pain that he is not able to go for a car ride. His fentanyl patch was increased from 37.5mcg/hr to 50mcg/hr Juanjose morning and he has now taken dexamethasone 4mg daily for 3 days. He tried the 4mg dose of oral dilaudid however his has not provided adequate relief so he has been using 6mg.He does get sleepy with this but per Susan is still conversant. Per Susan, he would rather have less pain and accept side effects of drowsiness at this point. Susan said he has less than 10 tablets of hydromorphone left and is wondering if they could get a short prescription to get him through to tomorrow to follow up with clinic. In reviewing recent notes and PDMP, this seems reasonable as a bridge to more detailed follow up assessment. Prescription sent to [facility]. This message will be shared with our clinic team. Of note, patient is having regular daily bowel movements with current regimen. Lori Navas MD documented in this encounter Plan of Treatment Upcoming Encounters Date Type Department Care Team (Late st Contact Info) Description 12/04/2024 11:00 AM CDT Telemedicine Department of Palliative Care in [place], [place] [address] [place] [phone] Claudy Ramos M.D. [address] [place] [phone] 12/07/2024 11:30 AM CDT Office Visit Department of Otorhinolaryngology in [place], [place] [address] [place] [phone] Rita Mcqueen M.D. [address] [place] [phone] documented as of this encounter Visit Diagnoses Not on filedocumented in this encounter Care Teams Truckload Owner Operator Relationship Specialty Start Date End Date No Contact, Pcp PCP - General Family Medicine 06/07/24 documented as of this encounter
--- NOTE | 2024-11-12 13:36 | CRLHL7_ITS ---
For Patients: As a result of the Century Cures Act, medical imaging exams and procedure reports are released immediately into your electronic medical record. You may view this report before your referring provider. If you have questions, please contact your health care provider. Indication: Low back pain, multiple cancers. Technique: Noncontrast axial CT of the lumbar spine with coronal and sagittal reformats are provided. Comparison: CT abdomen and pelvis 10/31/2024, CT lumbar spine 08/20/2024 Findings: Normal cervical lordotic curvature. Redemonstration of a pathologic burst compression fracture of the L4 vertebral body with retropulsion of the posterior cortex and vertebroplasty changes. The compression fracture has worsened since the 08/20/2024 exam but is unchanged since 10/31/2024 exam. Stable lytic and expansile lesion extending into the left L4 pedicle, superior articular process and transverse process with chronic fracture of the left pedicle and superior articular process. Stable small lucency in the L3 left inferior articular process. No acute fracture. Degenerative changes in the sacroiliac joints. T12-L1: No significant spinal canal stenosis or neural foramen narrowing. L1-2: No significant spinal canal stenosis or neural foramen narrowing. L2-3: No significant spinal canal stenosis or neural foramen narrowing. L3-4: No significant spinal canal stenosis or neural foramen narrowing. L4-5: Retropulsion of the L4 posterior cortex secondary to pathologic fracture results in severe central canal stenosis, severe left and moderate right neural foraminal stenosis. L5-S1: No significant spinal canal stenosis or neural foramen narrowing. Impression: 1. Redemonstration of a pathologic burst compression fracture of the L4 vertebral body with retropulsion of the posterior cortex and vertebroplasty changes. The compression fracture has worsened since the 08/20/2024 exam but is unchanged since 10/31/2024 exam. 2. The retropulsed L4 posterior cortex fragment results in severe spinal canal stenosis, increased since the 08/20/2024 exam but unchanged since the 10/31/2024 exam. 3. Stable lytic and expansile lesion extending into the left L4 pedicle, superior articular process and transverse process with chronic fracture of the left pedicle and superior articular process. 4. Stable small lucency in the L3 left inferior articular process. 5. Stable retroperitoneal lymphadenopathy. Please note that all CT scans at this facility use dose modulation, iterative reconstruction, and/or weight-based dosing when appropriate to reduce radiation dose to as low as reasonably achievable. Dictated by Jim Welch MD @ 11/12/2024 3:36:28 PM (Electronically Signed)
--- NOTE | 2024-11-12 15:14 | ED.GENADULT ---
HPI - General Adult General Chief complaint: Back Injury/Pain Stated complaint: Back pain, Time Seen by Provider: 11/12/24 12:50 Source: patient and family Mode of arrival: ambulatory Limitations: no limitations History of Present Illness HPI narrative: Patient is a 43-year-old male with a history of metastatic esophageal cancer presents today with low back pain that radiates down the left leg. He has been dealing with this kind of pain for several months. However in the last 10 days or so this pain has gotten significantly worse. Is having a hard time doing his activities of daily living. He is having hard time finding a comfortable position. No fevers or chills. Patient is currently being managed by palliative care. His palliative care physician career services assistant call the ER earlier today to state that he was going to come in because of worsening pain. He currently uses a fentanyl patch 50 mcg and Dilaudid for breakthrough pain. He states he has been using his Dilaudid every 4-6 hours regularly for the last 2 weeks. Patient does have a history of metastatic cancer to L4 with a pathologic fracture. His last lumbar spine CT was in August - at that time he had a kyphoplasty done secondary to pain. Patient's most recent CT abdomen CT 10 days ago, showed significant progression of his disease. Family is concerned that he has something else going on in his back causing worsening pain. Related Data Home Medications ?Medication ?Instructions ?Recorded ?Confirmed cannabis gummies PO 03/15/24 11/05/24 Held on 03/23/24. Instructions: per palliative lactulose 10 gram/15 mL oral 10 g PO ONCE PRN 04/10/24 11/12/24 solution omeprazole 20 mg capsule,delayed 20 mg PO QDAY 04/10/24 11/12/24 release melatonin 12 mg tablet 5 mg PO QHS PRN 05/07/24 11/12/24 hydromorphone 2 mg tablet 2 mg PO Q6H PRN 09/17/24 11/12/24 naloxone 4 mg/actuation nasal 1 spray intranasal ONCE 09/17/24 11/12/24 spray (Narcan) ondansetron HCl 4 mg tablet 4 mg PO Q8H PRN 09/17/24 11/12/24 prochlorperazine maleate 5 mg 5 mg PO Q8H PRN 09/17/24 11/12/24 tablet (Compazine) guaifenesin 100 mg/5 mL oral liquid 200 mg PO Q4H PRN 10/23/24 11/12/24 polyethylene glycol 3350 17 4 g PO BID PRN 11/05/24 11/12/24 gram/dose oral powder (Miralax) sennosides 8.6 mg capsule (senna) 8.6 mg PO BID 11/05/24 11/12/24 fentanyl 50 mcg/hr transdermal 1 patch topical Q3D chronic pain 11/12/24 11/12/24 patch hydromorphone 4 mg tablet mg PO 11/12/24 Previous Rx's ?Medication ?Instructions ?Recorded lidocaine-prilocaine 2.5 %-2.5 % 1 applic topical DIRECTED PRN 07/20/24 topical cream port/catheter care #30 grams olanzapine 2.5 mg tablet 2.5 mg PO QHS #30 tabs 11/06/24 gabapentin 100 mg capsule 100 mg PO DAILY #30 caps 11/12/24 hydromorphone 2 mg tablet 2 mg PO Q6H PRN pain #10 tabs 11/12/24 Allergies Allergy/AdvReac Type Severity Reaction Status Date / Time Penicillins Allergy Severe Hives Verified 11/12/24 12:47 Review of Systems Status of ROS: Reports: 10 or more systems reviewed and unremarkable except as noted in History and below [facility] Medical History GERD (gastroesophageal reflux disease) ?K21.9 - Gastro-esophageal reflux disease without esophagitis (ICD-10) Depressive disorder ?F32.A - Depression, unspecified (ICD-10) Generalized anxiety disorder ?F41.1 - Generalized anxiety disorder (ICD-10) Amblyopia of both eyes ?H53.003 - Unspecified amblyopia, bilateral (ICD-10) Esophageal cancer, stage IV ?C15.9 - Malignant neoplasm of esophagus, unspecified (ICD-10) Social History Smoking Status: Former smoker Non-prescribed substance use: denies use Exam Narrative: Exam Narrative: Thin patient in no acute distress. Alert and oriented. Answers questions appropriately. Mood and affect are appropriate. HEENT: Normocephalic atraumatic. Conjunctivae are moist without any icterus noted. Moist mucous membranes. Abdomen: Soft and nontender nondistended with normal bowel sounds. Extremities: Bilateral lower extremities are without edema. Normal DP and PT pulses. Strength is 5/5 of the lower extremities, both proximal and distal muscle groups. No foot drop is present. Skin: Well perfused. Back: Patient has no tenderness to palpation at the lumbar spine or paraspinal musculature. He has a firm mass just to the left of the lumbar spine. Const: Vital Signs, click to edit/add: Vital Signs - 24 hr 11/12/24 12:40 Temperature 97.3 F L Pulse Rate [Right Pulse Oximeter] 103 H Respiratory Rate 18 Blood Pressure [Ri ght Upper Arm] 119/79 Pulse Oximetry 98 Oxygen Delivery Me thod Room Air Course Course ED Course: CT scan of the lumbar spine shows redemonstration of a pathologic burst compression fracture at the L4 vertebral body with retropulsion of the posterior cortex and vertebroplasty changes. The compression fracture has worsened since August. It also shows that the retropulsed L4 posterior cortex fragment results in severe spinal stenosis which is also increased since August. It appears that the mass that we feel on the left side is likely a stable lytic and expansile lesion extending into the left L4 pedicle superior articular process and transverse process with chronic fracture of the left pedicle and superior articular process. Discussed findings with the family. At this time I recommend they increase his fentanyl patch. However was only increased 2 days ago so I recommend that they discuss this with the palliative care provider to see when is the next time they can increase it. I do think that 50 mcg will not be nearly enough to control his pain. Continue taking Dilaudid as needed in the meantime. We will also add gabapentin. I do want the patient to follow up with his back specialist to make sure that nothing else needs to be done in the meantime. Vital Signs Vital signs: Initial Vital Signs Temperature 97.3 F L 11/12/24 12:40 Temperature Source Temporal Artery Scan 11/12/24 12:40 Pulse Rate 103 H 11/12/24 12:40 Pulse Rhythm Regular 11/12/24 12:40 Pulse Strength 3+ Normal 11/12/24 12:40 Respiratory Rate 18 11/12/24 12:40 Blood Pressure 119/79 11/12/24 12:40 Blood Pressure Mean 92 11/12/24 12:40 Blood Pressure Position Sitting 11/12/24 12:40 Pulse Oximetry 98 11/12/24 12:40 Oxygen Delivery Method Room Air 11/12/24 12:40 Vital Signs Temperature 97.3 F L 11/12/24 12:40 Pulse Rate 103 H 11/12/24 12:40 Respiratory Rate 18 11/12/24 12:40 Blood Pressure 119/79 11/12/24 12:40 Pulse Oximetry 98 11/12/24 12:40 Oxygen Delivery Method Room Air 11/12/24 12:40 Temperature 97.3 F L 11/12/24 12:40 Pulse Rate 103 H 11/12/24 12:40 Respiratory Rate 18 11/12/24 12:40 Blood Pressure 119/79 11/12/24 12:40 Pulse Oximetry 98 11/12/24 12:40 Oxygen Delivery Method Room Air 11/12/24 12:40 Medical Decision Making MDM Narrative Medical decision making narrative: 43-year-old male with metastatic esophageal cancer presenting with worsening back pain. CT scan showing worsening of a compression fractures and retropulsed posterior cortex fragment since August. Recommend follow-up with retail sales specialist and increase in pain management at this time. Imaging Data Lumbar spine CT: Attestation: I have reviewed the pertinent imaging results. Radiologist's impression: Technique: Noncontrast axial CT of the lumbar spine with coronal and sagittal reformats are provided. Comparison: CT abdomen and pelvis 10/31/2024, CT lumbar spine 08/20/2024 Findings: Normal cervical lordotic curvature. Redemonstration of a pathologic burst compression fracture of the L4 vertebral body with retropulsion of the posterior cortex and vertebroplasty changes. The compression fracture has worsened since the 08/20/2024 exam but is unchanged since 10/31/2024 exam. Stable lytic and expansile lesion extending into the left L4 pedicle, superior articular process and transverse process with chronic fracture of the left pedicle and superior articular process. Stable small lucency in the L3 left inferior articular process. No acute fracture. Degenerative changes in the sacroiliac joints. T12-L1: No significant spinal canal stenosis or neural foramen narrowing. L1-2: No significant spinal canal stenosis or neural foramen narrowing. L2-3: No significant spinal canal stenosis or neural foramen narrowing. L3-4: No significant spinal canal stenosis or neural foramen narrowing. L4-5: Retropulsion of the L4 posterior cortex secondary to pathologic fracture results in severe central canal stenosis, severe left and moderate right neural foraminal stenosis. L5-S1: No significant spinal canal stenosis or neural foramen narrowing. Impression: 1. Redemonstration of a pathologic burst compression fracture of the L4 vertebral body with retropulsion of the posterior cortex and vertebroplasty changes. The compression fracture has worsened since the 08/20/2024 exam but is unchanged since 10/31/2024 exam. 2. The retropulsed L4 posterior cortex fragment results in severe spinal canal stenosis, increased since the 08/20/2024 exam but unchanged since the 10/31/2024 exam. 3. Stable lytic and expansile lesion extending into the left L4 pedicle, superior articular process and transverse process with chronic fracture of the left pedicle and superior articular process. 4. Stable small lucency in the L3 left inferior articular process. 5. Stable retroperitoneal lymphadenopathy. Discharge Plan Discharge Clinical Impression: Cancer associated pain, Secondary malignant neoplasm of bone Patient Disposition: Home, Self-Care Condition: Stable Additional Instructions: Recommend increasing your fentanyl dose. However, do not do this on your own and consult with your palliative care provider. Continue dilaudid as prescribed for breakthrough pain. Will start gabapentin for nerve pain. If this medicine will need to be titrated to make sure, again, that you follow-up with your palliative care provider. I would have a consultation with your spine doctor to make sure nothing else needs to be done as far as the back pain and new findings on CT. We will send you home today with a report of your CT scan so you can share this with your spine surgeon. Prescriptions: New gabapentin 100 mg capsule 100 mg PO DAILY Qty: 30 0RF Rx Instructions: Start with 1 tablet at bedtime. Can increase to 1 tablet 2 times per day if 1 tablet is not enough. Follow-up with your doctor before increasing the dose further. hydromorphone 2 mg tablet 2 mg PO Q6H PRN (Reason: pain) Qty: 10 0RF No Action cannabis gummies PO melatonin 12 mg tablet 5 mg PO QHS PRN Patient Comments: Prior to radiation hydromorphone 2 mg tablet 2 mg PO Q6H PRN naloxone [Narcan] 4 mg/actuation spray,non-aerosol 1 spray intranasal ONCE ondansetron HCl 4 mg tablet 4 mg PO Q8H PRN Rx Instructions: Take 1 tablet of Zofran alternating with 1 tablet of Compazine, so there is nausea medication every 4 hours. prochlorperazine maleate [Compazine] 5 mg tablet 5 mg PO Q8H PRN Rx Instructions: Take 1 tablet of Compazine alternating with 1 tablet of Zofran, so there is nausea medication every 4 hours. guaifenesin 100 mg/5 mL liquid 200 mg PO Q4H PRN omeprazole 20 mg capsule,delayed release(DR/EC) 20 mg PO QDAY lactulose 10 gram/15 mL solution 10 g PO ONCE PRN polyethylene glycol 3350 [Miralax] 17 gram/dose powder 4 g PO BID PRN senna 8.6 mg capsule 8.6 mg PO BID fentanyl 50 mcg/hr patch 72 hour 1 patch topical Q3D hydromorphone 4 mg tablet PO lidocaine-prilocaine 2.5-2.5 % cream 1 applic topical DIRECTED PRN (Reason: port/catheter care) Qty: 30 0RF Rx Instructions: Apply small amount over port 1 hour prior to appointment. Cover with non absorbent product. olanzapine 2.5 mg tablet 2.5 mg PO QHS Qty: 30 1RF Follow Up/Referrals: Provider,Not a Local [Primary Care Provider, Family Practice] Stand Alone Forms: [employer] Info Instructions
== END 2024-11-12 16:36 | disposition home or self-care (01) ==
PROVIDERS: Emergency Provider Family Medicine
DX: S32.049A Unspecified fracture of fourth lumbar vertebra, initial encounter for closed fracture (principal); C15.9 Malignant neoplasm of esophagus, unspecified; C79.51 Secondary malignant neoplasm of bone
CPT/HCPCS: 72132; 99284; Q9967